=== PATIENT | female | born 1960 | race Caucasian/White ===

== ENCOUNTER 2016-11-07 13:27 | Inpatient (IN) ==
--- NOTE | 2016-11-07 13:41 | Emergency Department Note ---
Disposition Clinical Impression: Acute kidney injury UTI (urinary tract infection) Qualifiers: Urinary tract infection type: acute cystitis Hematuria presence: without hematuria Qualified Code(s): N30.00 - Acute cystitis without hematuria Disposition: Admitted As Inpatient Condition: Fair Referrals: NONE,PCP [Non-Partnered Physician] - Forms: Work/School Release, ED Satisfaction Letter Time of Disposition: 16:35 General Adult HPI - General Chief complaint: ED General Medical Stated complaint: L sided swelling Time Seen by Provider: 11/07/16 13:30 Source: patient, EMS Mode of arrival: ambulatory Limitations: no limitations Nursing Notes Reviewed: Yes Vital Signs Reviewed: Yes - History of Present Illness HPI Narrative: 56-year-old who comes in complaining of some swelling in her left leg and left arm. Also says she's had some generalized tremors and shaking. States she had it in the past one time but doesn't know what the diagnosis was. Pt Subjective Complaint: Tremor left arm and leg swelling Onset (ago): Just [employer] Pain Scale: 0 Treatments Prior to Arrival: none - Related Data Allergies Allergy/AdvReac Type Severity Reaction Status Date / Time No Known Allergies Allergy Verified 11/07/16 13:33 All systems ED: reviewed and negative except as stated. Constitutional: Denies: fever, chills, weakness, weight change Eyes: Denies: eye pain, eye discharge, vision change ENT ED: Denies: ear pain, throat pain, dental pain, hearing loss, epistaxis, congestion, dysphagia Cardiovascular: Denies: chest pain, palpitations, dyspnea on exertion, edema, syncope Respiratory: Denies: cough, dyspnea, wheezes, hemoptysis, stridor Gastrointestinal: Denies: abdominal pain, nausea, vomiting, diarrhea, constipation, hematemesis, melena, hematochezia Genitourinary: Denies: dysuria, frequency, hematuria, discharge Musculoskeletal: Reports: joint swelling. Denies: back pain, neck pain, arthralgia, myalgia Integumentary: Denies: rash, abrasion, lesions Neurological: Denies: headache, weakness, numbness, paresthesias, confusion, abnormal gait, vertigo Psychiatric: Denies: anxiety, depression, suicidal thoughts, homicidal thoughts , auditory hallucinations, visual hallucinations Endocrine: Denies: fatigue Hematological/Lymphatic: Denies: easy bleeding, easy bruising Allergic/Immunologic: Denies: facial swelling, urticaria Past Medical History - Past Medical History Medical history: Reports: diabetes, GERD, hyperlipidemia, kidney stones, pulmonary embolus - Social History Smoking Status: Never smoker Physical Exam - General Limitations: no limitations General appearance: alert, in no apparent distress - Head Head exam: atraumatic, normocephalic, normal inspection - Eye Eye exam: Present: normal appearance, PERRL, EOMI - ENT ENT exam: normal exam, normal oropharynx, mucous membranes moist - Neck Neck exam: Present: normal inspection, full ROM, trachea midline - Chest Chest inspection: Present: normal inspection, symmetric chest wall rise - Respiratory Respiratory exam: Present: normal lung sounds bilaterally - Cardiovascular Cardiovascular exam: Present: regular rate, normal rhythm, normal heart sounds - Abdominal Exam Abdominal exam: Present: soft, Non-Tender. Absent: tenderness, distention, guarding, rebound, rigidity - Extremities Exam Extremities exam: Present: normal inspection, full ROM. Absent: tenderness, pedal edema - Expanded Lower Extremity Exam Neurovascular/Tendon exam: Absent: motor deficit, sensory deficit, tendon deficit - Back Exam Back exam: Present: normal inspection, full ROM. Absent: tenderness - Neurological Exam Neurological exam: Present: alert, oriented X3 - Psychiatric Psychiatric exam: Present: normal affect, normal mood - Skin Skin exam: Present: warm, dry, intact, normal color Course - Reevaluation(s) Reevaluation #1: 56-year-old who comes in complaining of shaking swelling in her left arm and leg. Venous Doppler left arm and leg are negative. Patient's urine does appear to show infection and her creatinine is elevated. Time: 16:36 - Consultations Consultation #1: Discussed with henrietta Philip. Time: 17:05 Vital Signs Temperature 98 F 11/07/16 13:29 Pulse Rate 95 11/07/16 13:29 Respiratory Rate 20 11/07/16 13:29 Blood Pressure 144/88 11/07/16 13:29 O2 Sat by Pulse Oximetry 92 11/07/16 13:29 Temperature 98 F 11/07/16 13:29 Pulse Rate 87 11/07/16 15:33 Respiratory Rate 20 11/07/16 15:33 Blood Pressure 125/99 11/07/16 15:33 O2 Sat by Pulse Oximetry 98 11/07/16 15:33 Oxygen Delivery Oxygen Delivery Nasal Cannula Medical Decision Making - Lab Data Lab results reviewed: Yes I reviewed the patient's lab results. Result diagrams: 11/07/16 16:15 11/07/16 15:49 Lab Results 11/07/16 11/07/16 11/07/16 Range/Units 13:54 15:49 16:15 WBC 12.5 H (4.3-11.1) K/mcL RBC 5.34 H (3.82-4.97) M/mcL Hgb 14.3 (11.5-15.4) g/dL Hct 46.1 H (35.3-44.9) % MCV 86.3 (83.0-100.0) fL MCH 26.8 L (28.0-33.3) pg MCHC 31.0 L (31.6-35.5) g/dL RDW 15.7 H (11.5-14.5) % Plt Count 182 (140-400) K/mcL MPV 10.7 (9.4-12.4) fL Immature Gran % 0.6 (0-4) % Seg Neutrophils % 87.8 % Lymphocytes % 6.0 % Monocytes % 4.3 % Eosinophils % 1.0 % Basophils % 0.3 % Neutrophils # 10.9 H (1.6-8.9) K/mcL Lymphocytes # 0.8 (0.6-4.6) K/mcL Monocytes # 0.5 (0.0-1.3) K/mcL Eosinophils # 0.1 (0.0-0.6) K/mcL Basophils # 0.0 (0.0-0.2) K/mcL Sodium 138 (136-145) mEq/L Potassium 5.6 H (3.5-4.5) mEq/L Chloride 100 (98-109) mEq/L Carbon Dioxide 22 (19-29) mEq/L BUN 41 H (7-20) mg/dL Creatinine 2.11 H (0.57-1.11) mg/dL Est GFR ( Amer) 30 L (> 60) Est GFR (Non-Af Amer) 24 L (> 60) BUN/Creatinine Ratio 19 (6-26) Glucose 285 H (70-99) mg/dL Calculated Osmolality 306 H (280-300) Calcium 9.6 (8.6-10.8) mg/dL Magnesium 1.6 (1.6-2.6) mg/dL Total Bilirubin 0.5 (0.2-1.2) mg/dL Direct Bilirubin 0.2 (0.0-0.5) mg/dL Indirect Bilirubin 0.3 (0.0-1.2) mg/dL AST 23 (5-34) Units/L ALT 26 (0-55) Units/L Alkaline Phosphatase 90 (38-126) Units/L Serum Total Protein 7.6 (6.0-8.3) g/dL Albumin 3.4 L (3.5-5.0) g/dL Globulin 4.2 H (2.4-3.5) g/dL Albumin/Globulin Ratio 0.8 L (1.1-2.2) Urine Color Dark Yellow (Yellow) Urine Clarity Slightly Cloudy A (Clear) Urine pH 5.0 (5.0-8.0) pH Units Ur Specific [place] 1.025 (1.010-1.025) Urine Protein Trace (Neg-Trace) mg/dL Urine Glucose (UA) Normal (Normal) mg/dL Urine Ketones Negative (Negative) mg/dL Urine Blood Negative (Negative) Urine Nitrite Negative (Negative) Urine Bilirubin Small H (Negative) Urine Urobilinogen Normal (Normal) mg/dL Ur Leukocyte Esterase Large H (Negative) Urine Microscopic RBC 0-3 (0-3) per hpf Urine Microscopic WBC 50-100 H (0-3) per hpf Ur Squamous Epith Cells Many H (None-Few) per lpf Ur Renal Epithelial Cell Few (None-Few) per hpf Urine Bacteria Few (None-Few) per hpf Hyaline Casts None Seen (None-Few) per lpf Ur Culture Indicated? YES A (NO) - Radiology Data Radiology results reviewed: Yes I reviewed the patient's radiology results. Head CT 11/07/16 13:37 IMPRESSION: No acute intracranial abnormality. D/ / Castillo Baker MD / Castillo Baker MD Interpreting Provider: Castillo Baker MD
[2016-11-07 14:11] LABS: Bilirubin,Urine Small (Negative); Blood,Urine Negative (Negative); Color,Urine Dark Yellow (Yellow); Glucose,Urine (UA) Normal (Normal); Ketones,Urine Negative (Negative); Leukocyte Esterase,Urine Large (Negative); Nitrite,Urine Negative (Negative); Protein,Urine Trace mg/dL (Neg-Trace); Specific Gravity,Urine 1.025 (1.010-1.025); Urobilinogen,Urine Normal (Normal)
[2016-11-07 14:12] LABS: Bacteria,Urine Few per hpf (None-Few); Squamous Epithelial Cell,Urine Many per lpf (None-Few); WBC,Urine 50-100 per hpf (0-3)
[2016-11-07 14:13] LABS: Clarity,Urine Slightly Cloudy (Clear)
[2016-11-07 14:49] LABS: Renal Epithelial Cells,Urine Few per hpf (None-Few)
[2016-11-07 14:50] LABS: RBC,Urine 0-3 per hpf (0-3)
[2016-11-07 14:51] LABS: Hyaline Casts,Urine None Seen per lpf (None-Few)
[2016-11-07 16:13] LABS: Albumin 3.4 g/dL (3.5-5.0); Albumin/Globulin Ratio 0.8 (1.1-2.2); Bilirubin,Direct 0.2 mg/dL (0.0-0.5); Bilirubin,Indirect 0.3 mg/dL (0.0-1.2); Bilirubin,Total 0.5 mg/dL (0.2-1.2); Calcium 9.6 mg/dL (8.6-10.8); Globulin 4.2 g/dL (2.4-3.5); Magnesium 1.6 mg/dL (1.6-2.6); Potassium 5.6 mEq/L (3.5-4.5); Total Protein 7.6 g/dL (6.0-8.3)
[2016-11-07 16:23] LABS: Basophils % 0.3 %; Eosinophils # 0.1 K/mcL (0.0-0.6); Hematocrit 46.1 % (35.3-44.9); Hemoglobin 14.3 g/dL (11.5-15.4); Immature Granulocytes % 0.6 % (0-4); Lymphocytes # 0.8 K/mcL (0.6-4.6); Mean Corpuscular Hemoglobin 26.8 pg (28.0-33.3); Mean Corpuscular Volume 86.3 fL (83.0-100.0); Mean Platelet Volume 10.7 fL (9.4-12.4); Monocytes # 0.5 K/mcL (0.0-1.3); Monocytes % 4.3 %; Neutrophils # 10.9 K/mcL (1.6-8.9); Platelet Count 182 K/mcL (140-400); Red Blood Count 5.34 M/mcL (3.82-4.97); Red Cell Distribution Width 15.7 % (11.5-14.5); Segmented Neutrophils % 87.8 %
[2016-11-07] MEDS ORDERED: 0.9 % Sodium Chloride 1,000 ML IVC ONE ×2 (16:33→22:43)
[2016-11-07] MEDS ORDERED: Lidocaine 1% 20 ML MDV INFILT ONE (16:38)
[2016-11-07] MEDS ORDERED: Naloxone 0.4 MG/ML INJ IVP PRN (19:31)
[2016-11-07] MEDS ORDERED: Dextrose Gel 15 GM PO PRN ×2 (19:35)
[2016-11-07] MEDS ORDERED: D5% in Water 1,000 ML IVC PRN (19:35)
[2016-11-07] MEDS ORDERED: *HR* Dextrose 50 % in Water (Syg) 50 ML SYRINGE IVP PRN (19:35)
--- NOTE | 2016-11-07 20:45 | Emergency Department Note ---
START Narrative - START START: Central Venous Catheter (CVC, Central Line) Placement Date: <11/07/2016> Time: <19:30> Indication: Hemodynamic monitoring/Intravenous access Resident: <Dr. Benavides> Attending: <Dr. Amaro> A time-out was completed verifying correct patient, procedure, site, positioning , and special equipment if applicable. The patient was placed in a dependent position appropriate for central line placement based on the vein to be cannulated. The patients <right> < neck> was prepped and draped in sterile fashion. 1% Lidocaine was used to anesthetize the surrounding skin area. A triple lumen <7-Maldivian> 16 inchcatheter was introduced into the the internal jugular using the Seldinger technique <and under ultrasound guidance>. The catheter was threaded smoothly over the guide wire and appropriate blood return was obtained. Each lumen of the catheter was evacuated of air and flushed with sterile saline. The catheter was then sutured in place to the skin and a sterile dressing applied. Perfusion to the extremity distal to the point of catheter insertion was checked and found to be adequate. <Attending/Resident> was present for the entire procedure. Estimated Blood Loss: <1cc> The patient tolerated the procedure well and there were no complications. A chest x-ray was performed postprocedure and showed proper placement of the line in the distal portion of the SVC.
[2016-11-07] MEDS ORDERED: D5% in Water (Mini-Bag+) 100 ML IVPB ONE (21:19)
--- NOTE | 2016-11-07 21:54 | Internal Med History&Physical ---
<Leeanne Arevalo - Last Filed: 11/07/16 22:49> Date of Encounter: 11/07/16 Time of Encounter: 21:51 Assessment and Plan (1) Sepsis Current visit: Yes Status: Acute patient has elevated WBC 12, altered mental state with UTI. Continue with IV fluids Obtain blood and urine cultures Continuous cardiac monitoring Monitor intake and output Continue with Rocephin adjust to sensitivity Qualifiers: Sepsis type: sepsis due to unspecified organism Qualified Code(s): A41.9 - Sepsis, unspecified organism (2) Acute kidney injury Current visit: Yes Status: Acute 1 patient's creatinine is 2.11. Her baseline appears to be around 1. She has had decreased fluid intake for several days as well as she is on lisinopril metformin NSAID. We will give her IV fluids overnight-recheck creatinine in a.m. 2 monitor intake and output daily weights 3 avoid nephrotoxins and we will stop lisinopril metformin and Celebrex for now resume once back to baseline 4 renal dose any antibiotics (3) UTI (urinary tract infection) Current visit: Yes Status: Acute Patient has a been experiencing frequency urgency as well as increased lethargy and fatigue falls. White count 12.5 urinalysis did reveal UTI and culture was sent will initiate on Rocephin pending culture sensitivity Qualifiers: Urinary tract infection type: acute cystitis Hematuria presence: without hematuria Qualified Code(s): N30.00 - Acute cystitis without hematuria (4) Hypertension Current visit: Yes Status: Acute We will hold lisinopril for now due to ted resume once back to baseline continue with metoprolol Qualifiers: Hypertension type: essential hypertension Qualified Code(s): I10 - Essential (primary) hypertension (5) Diabetes type 2, uncontrolled Current visit: Yes Status: Acute 1 patient admits that she does not monitor her blood sugars she is on metformin at home she is a KI presently. We will hold metformin placed on sliding scale insulin for now Accu-Cheks before meals at bedtime 2 we will obtain A1c 3 diabetic diet Qualifiers: Diabetes mellitus complication status: with neurologic complications Diabetes mellitus complication detail: with unspecified neuropathy Diabetes mellitus longterm insulin use: without superintendent marine oil terminal use Qualified Code(s): E11.40 - Type 2 diabetes mellitus with diabetic neuropathy, unspecified; E11.65 - Type 2 diabetes mellitus with hyperglycemia (6) Hypothyroid Current visit: No Status: Chronic Continue with Synthroid Qualifiers: Hypothyroidism type: unspecified Qualified Code(s): E03.9 - Hypothyroidism , unspecified (7) Schizophrenia Current visit: No Status: Chronic 1 presently stable patient denies any hallucinations at this time. We will continue with her home medications. Qualifiers: Schizophrenia type: unspecified Qualified Code(s): F20.9 - Schizophrenia, unspecified (8) DVT prophylaxis Current visit: Yes Status: Acute Heparin subcutaneous Internal Medicine - H&P: HPI Chief complaint: shaking, Admitted From: Home Plans for Post Hospital Care: Home History of present illness: Ms. Rangel is a 56 year old female hypothyroid hypertension uncontrolled diabetes aortic stenosis hyperlipidemia GERD schizophrenia anxiety depression history of PE. According to the patient over the past month she has been experiencing some falls over the past 2 weeks the falls have increased due to the past week she has been more fatigued and tired and weak. Family states that she is unable to perform her own ADL as due to fatigue. She has had a decrease in oral intake. She states that she has not been drinking very much water. She does admit to urinary frequency urgency as well as some abdominal cramping. She denies any fevers today she did experience episodes of shaking family states she will had swollen solorzano appearance. She had slept most of the day was difficult to arouse they became concerned and brought patient to the ER for evaluation. According to ER records CT of head showed no acute intracranial abnormalities. Chest x-ray with no acute process lab work did show elevation in white count 12.5 chemistry hyperkalemia 5.6 BUN is 41 and creatinine is 2.1 on glucose 285. Urinalysis was grossly positive UTI. Central line was placed in the ER she was given IV fluids and blood cultures were obtained she was given Rocephin and has been admitted for further workup and evaluation. Presently patient is awake she does appear to be a little slow however the family states that she has been very lethargic. Mucous membranes are tacky her timing is dry and furrowed. Hyperdynamic heart sounds S1 and S2 no rubs gallops clicks murmurs noted lungs sounds were clear abdomen is soft nontender no pedal edema noted. Presently she is hemodynamically stable at this time. Past Med Surg Social Fam HX - Past Medical History Medical history: diabetes, GERD, hyperlipidemia, kidney stones, pulmonary embolus - Social History Smoking Status: Never smoker - Family History Father Living Status: Still Living Hx Family Cardiac Disorders: Yes (Cardiac disease) Mother Living Status: Age at : 51 Cause of : [place] diabetes Internal Medicine - H&P: Meds Acetaminophen/Butalbital/Caffe [Fioricet] 1 each PO BID PRN 11/07/16 [History] Amitriptyline [Elavil] 50 mg PO HS 11/07/16 [History] Ascorbic Acid [Vitamin C] 500 mg PO DAILY 11/07/16 [History] Aspirin 81 mg PO DAILY 11/07/16 [History] Atorvastatin [Lipitor] 40 mg PO HS 11/07/16 [History] Baclofen 20 mg PO TID 11/07/16 [History] Celecoxib [Celebrex] 200 mg PO DAILY 11/07/16 [History] Cyanocobalamin (Vitamin B-12) [Vitamin B12] 1,000 mcg PO DAILY 11/07/16 [History ] Ergocalciferol (VITAMIN D2) [Vitamin D2] 50,000 unit PO CARDOZA 11/07/16 [History] Esomeprazole Magnesium [Nexium] 40 mg PO DAILY 11/07/16 [History] Folic Acid 1 mg PO DAILY 11/07/16 [History] Furosemide [Lasix] 40 mg PO DAILY 11/07/16 [History] Gabapentin [Neurontin] 300 mg PO TID 11/07/16 [History] HYDROcodone/Acet 10/325 mg [[place] 10-325 mg] 1 tab PO TID PRN 11/07/16 [History] Levothyroxine [Synthroid] 75 mcg PO 0630 11/07/16 [History] Lisinopril 2.5 mg PO DAILY 11/07/16 [History] SUMAtriptan Succinate [Imitrex] 100 mg PO DAILY PRN 11/07/16 [History] Sertraline [Zoloft] 200 mg PO DAILY 11/07/16 [History] metFORMIN [Glucophage] 500 mg PO BIDWM 11/07/16 [History] risperiDONE [RisperDAL] 1 mg PO QAM 11/07/16 [History] risperiDONE [RisperDAL] 3 mg PO HS 11/07/16 [History] 3 Allergy/AdvReac Type Severity Reaction Status Date / Time No Known Allergies Allergy Verified 11/07/16 13:33 All Systems PM: A 10-system review of systems was performed and is negative for pertinent findings except as documented above in the HPI. - Constitutional Constitutional: fatigue, falls, lethargy, no chills, no fever(s), no night sweats - EENT Eyes: no change in vision, no discharge, no pain, no photophobia Nose, mouth and throat: no dysphagia, no nasal discharge, no neck pain, no sore throat - Cardiovascular Cardiovascular ROS IM: no chest pain, no diaphoresis, no dyspnea, no lightheadedness, no palpitations, no syncope - Respiratory Respiratory: no cough, no dyspnea, no wheezing, no excessive phlegm production - Gastrointestinal Gastrointestinal: no abdominal pain, no diarrhea, no hematemesis, no hematochezia, no melena, no nausea, no vomiting - Genitourinary Genitourinary: urinary frequency, urinary urgency - Musculoskeletal Musculoskeletal ROS IM: no numbness, no tingling - Integumentary Integumentary IM: no rash, no unusual bruising - Neurological Neurological ROS: no confusion, no convulsions, no focal weakness, no numbness, no tingling, no tremor(s) - Hematologic/Lymphatic Hematologic/Lymphatic: no easy bruising - Constitutional Vitals: Temp Pulse Resp BP Pulse Ox 98 F 87 20 126/98 98 11/07/16 13:29 11/07/16 15:33 11/07/16 18:53 11/07/16 18:53 11/07/16 15:33 General appearance: Present: A&O X 3, morbidly obese - Head Head exam: Present: atraumatic, normocephalic - Eye Eye exam: Present: PERRL, conjuntiva pink, sclera anicteric Pupils: Present: PERRL - Neck Neck exam general surgery: Present: supple, trachea midline. Absent: lymphadenopathy - Respiratory Respiratory exam: Present: CTAB. Absent: accessory muscle use, rales, rhonchi, wheezes - Cardiovascular Cardiovascular exam: Present: RRR, +S1, +S2. Absent: diastolic murmur, gallop, rubs, systolic murmur - GI/Abdominal GI/Abdominal exam: Present: normal bowel sounds, soft, no peritoneal signs. Absent: distended, tenderness - Extremities Exam Extremities exam: Present: warm, radial pulses palpable and symmetrical. Absent : calf tenderness, cyanotic, pedal edema - Neurological Exam Neurological exam: Present: CN II-XII intact, oriented X3, no focal deficits. Absent: pronater drift, facial droop, speech deficit - Skin Skin exam: Present: dry, intact Additional comments: Mucous membranes tacky tongue dry Internal Med - H&P Results - Labs CBC & Chem 7: 11/07/16 16:15 11/07/16 15:49 - Impressions ITS Impressions Chest X-Ray 11/07/16 19:33 IMPRESSION: Central line tip in the SVC with no pneumothorax. No acute cardiopulmonary disease. D/ / Zaki Bunch MD / Zaki Bunch MD Interpreting Provider: Zaki Bunch MD - Diagnostic Studies Other Images Additional comments: Head CT 11/07/16 13:37 IMPRESSION: No acute intracranial abnormality. D/ / Castillo Baker MD / Castillo Baker MD Interpreting Provider: Castillo Baker MD Chest X-Ray 11/07/16 19:33 IMPRESSION: Central line tip in the SVC with no pneumothorax. No acute cardiopulmonary disease. D/ / Zaki Bunch MD / Zaki Bunch MD Interpreting Provider: Zaki Bunch MD <Eze Courtney - Last Filed: 11/08/16 03:20> Date of Encounter: 11/07/16 Time of Encounter: 23:40 - EENT Eyes: no blurry vision, no change in vision Nose, mouth and throat: no nasal congestion, no sinus pressure, no sore throat - Cardiovascular Cardiovascular ROS IM: no chest pain, no dyspnea - Respiratory Respiratory: no cough, no hemoptysis - Gastrointestinal Gastrointestinal: no abdominal pain, no diarrhea, no vomiting - Genitourinary Genitourinary: dysuria, no flank pain, no hematuria - Musculoskeletal Musculoskeletal ROS IM: no back pain, no muscle cramps, no muscle weakness - Neurological Neurological ROS: no headache(s) - Endocrine Endocrine IM: no polydipsia, no polyuria - Constitutional Vitals: Temp Pulse Resp BP Pulse Ox 98.1 F 104 15 159/84 100 11/07/16 21:50 11/07/16 21:50 11/07/16 21:50 11/07/16 21:50 11/07/16 21:50 General appearance: Present: disheveled, A&O X 3, morbidly obese - Head Head exam: Present: normal inspection - Eye Eye exam: Present: PERRL. Absent: scleral icterus - Respiratory Respiratory exam: Present: CTAB. Absent: rales, rhonchi, wheezes - Cardiovascular Cardiovascular exam: Present: RRR, +S1, +S2 - GI/Abdominal GI/Abdominal exam: Present: soft. Absent: tenderness - Extremities Exam Extremities exam: Present: warm. Absent: calf tenderness, cyanotic - Back Exam Back exam: Present: normal inspection. Absent: CVA tenderness (L), CVA tenderness (R) - Neurological Exam Additional comments: no cogwheel rigidity - Psychiatric Psychiatric exam: Present: flat affect - Skin Skin exam: Present: dry Internal Med - H&P Results - Labs CBC & Chem 7: 11/07/16 16:15 11/07/16 15:49 - Impressions ITS Impressions Chest X-Ray 11/07/16 19:33 IMPRESSION: Central line tip in the SVC with no pneumothorax. No acute cardiopulmonary disease. D/ / Zaki Bunch MD / Zaki Bunch MD Interpreting Provider: Zaki Bunch MD - Attending Attestation I discussed the patient EMMONAK, PMH, ROS, lab data, and exam findings with Leeanne Arevalo CNP. I then saw and examined patient independently as well. Patient is a poor historian and her parents are now gone. She admits to UTI symptoms and poor PO intake lately. She does not check her glucose. She is fairly non- compliant with her diabetes and I suspect her other meds as well. She looks dry. I anticipate her renal function will return to normal with IVF hydration. However, I counseled her on the need to closely monitor her glucose so as to prevent eventual development of diabetic nephropathy. Patient is rather nonchalant about her health. She is well perfused on exam, but she is clinically dry. Although she meets sepsis criteria, she does not truly appear septic to me. Nonetheless, we will treat her as detailed by Leeanne Arevalo CNP. Other than my above comments and noted exam findings, I agree with Leeanne's assessment and plan.
[2016-11-07] MEDS: Insulin LISPRO 300 UNITS/3 ML VIAL SQ SCH (22:44)
[2016-11-08] MEDS: 0.9 % Sodium Chloride 1,000 ML IVC SCH ×2 (00:59→11:33)
[2016-11-08 04:41] LABS: Basophils % 0.2 %; Eosinophils # 0.3 K/mcL (0.0-0.6); Eosinophils % 3.1 %; Hematocrit 37.1 % (35.3-44.9); Hemoglobin 11.5 g/dL (11.5-15.4); Immature Granulocytes % 0.8 % (0-4); Lymphocytes # 1.3 K/mcL (0.6-4.6); Lymphocytes % 12.9 %; Mean Corpuscular Hemoglobin 26.7 pg (28.0-33.3); Mean Corpuscular Volume 86.1 fL (83.0-100.0); Mean Platelet Volume 10.6 fL (9.4-12.4); Monocytes # 0.7 K/mcL (0.0-1.3); Monocytes % 6.6 %; Neutrophils # 7.7 K/mcL (1.6-8.9); Platelet Count 159 K/mcL (140-400); Red Blood Count 4.31 M/mcL (3.82-4.97); Red Cell Distribution Width 15.4 % (11.5-14.5); Segmented Neutrophils % 76.4 %
[2016-11-08 04:51] LABS: BUN/Creatinine Ratio 24 (6-26); Calcium 8.7 mg/dL (8.6-10.8); Carbon Dioxide 25 mEq/L (19-29); Chloride 104 mEq/L (98-109); Glucose 221 mg/dL (70-99); Osmolality,Calculated 297 (280-300); Sodium 138 mEq/L (136-145); eGFR For African Americans > 60 (> 60); eGFR For Non-African Americans 54 (> 60)
[2016-11-08 04:52] LABS: Blood Urea Nitrogen 25 mg/dL (7-20); Potassium 4.5 mEq/L (3.5-4.5)
[2016-11-08] MEDS: *HR* Heparin 5,000 UNIT/ML VIAL SQ SCH ×2 (05:44→17:45)
[2016-11-08] MEDS ORDERED: *HR* Enoxaparin 40 MG/0.4 ML SYRINGE SQ SCH (07:00)
[2016-11-08] MEDS: Insulin LISPRO 300 UNITS/3 ML VIAL SQ SCH ×4 (08:23→21:44)
[2016-11-08] MEDS: Aspirin 81 MG TAB.CHEW PO SCH (08:25)
[2016-11-08] MEDS: risperiDONE 1 MG TABLET PO SCH (08:25)
[2016-11-08] MEDS: Cyanocobalamin (B-12) 1,000 MCG TABLET PO SCH (08:25)
[2016-11-08] MEDS: Baclofen 10 MG TABLET PO SCH ×3 (08:25→21:47)
[2016-11-08] MEDS: Gabapentin 300 MG CAPSULE PO SCH ×2 (08:25→21:44)
[2016-11-08] MEDS: Acetaminophen 325 MG TABLET PO PRN ×2 (16:33→22:31)
--- NOTE | 2016-11-08 17:05 | Internal Med Progress Note ---
Date of Encounter: 11/08/16 Time of Encounter: 12:30 - Assessment and plan (1) Sepsis Current Visit: Yes Status: Acute Assessment and plan: From possible urinary tract infection. Mental status has improved. Cultures are currently pending. Continue current antibiotics. Moderate risk for complications: Qualifiers: Sepsis type: sepsis due to unspecified organism Qualified Code(s): A41.9 - Sepsis, unspecified organism (2) Acute kidney injury Current Visit: Yes Status: Acute Assessment and plan: Acute kidney injury has resolved (3) Diabetes type 2, uncontrolled Current Visit: Yes Status: Chronic Assessment and plan: Blood sugars are elevated. We will add long-acting insulin. Qualifiers: Diabetes mellitus complication status: with neurologic complications Diabetes mellitus complication detail: with unspecified neuropathy Diabetes mellitus detention insulin use: without detention use Qualified Code(s): E11.40 - Type 2 diabetes mellitus with diabetic neuropathy, unspecified; E11.65 - Type 2 diabetes mellitus with hyperglycemia (4) DVT prophylaxis Current Visit: Yes Status: Acute Assessment and plan: Subcutaneous heparin (5) Hypertension Current Visit: Yes Status: Chronic Assessment and plan: Blood pressure is elevated. Currently not on any medications besides Lasix at home. Will add amlodipine Qualifiers: Hypertension type: essential hypertension Qualified Code(s): I10 - Essential (primary) hypertension (6) Hypothyroid Current Visit: Yes Status: Chronic Assessment and plan: Continue levothyroxine Qualifiers: Hypothyroidism type: unspecified Qualified Code(s): E03.9 - Hypothyroidism , unspecified (7) Schizophrenia Current Visit: No Status: Chronic Assessment and plan: Continue risperidone Qualifiers: Schizophrenia type: unspecified Qualified Code(s): F20.9 - Schizophrenia, unspecified (8) UTI (urinary tract infection) Current Visit: Yes Status: Acute Assessment and plan: Continue ceftriaxone. Qualifiers: Urinary tract infection type: acute cystitis Hematuria presence: without hematuria Qualified Code(s): N30.00 - Acute cystitis without hematuria - Subjective Interval history: Patient sitting up in chair. Denies any complaints at this time. Feels much better compared to yesterday. No fever or chills reported. No dysuria. - Constitutional Vitals: Temp Pulse Resp BP Pulse Ox 98.7 F 99 16 149/74 93 11/08/16 15:18 11/08/16 15:58 11/08/16 15:58 11/08/16 15:58 11/08/16 15:58 General appearance: Present: cooperative, disheveled, A&O X 3, morbidly obese, answers questions appropriately - Neck Neck exam general surgery: Present: supple, trachea midline. Absent: lymphadenopathy - Respiratory Respiratory exam: Present: CTAB. Absent: accessory muscle use, rales, rhonchi, wheezes - Cardiovascular Cardiovascular exam: Present: RRR, +S1, +S2. Absent: diastolic murmur, gallop, rubs, systolic murmur - GI/Abdominal GI/Abdominal exam: Present: normal bowel sounds, soft, no peritoneal signs. Absent: distended, tenderness - Extremities Exam Extremities exam: Present: warm, radial pulses palpable and symmetrical. Absent : calf tenderness, cyanotic, pedal edema - Neurological Exam Neurological exam: Present: alert, oriented X3, no focal deficits, strengths equal and symetr throughout. Absent: facial droop, speech deficit - Skin Skin exam: Present: dry, intact Internal Medicine: Result - Labs CBC & Chem 7: 11/08/16 04:30 11/08/16 04:30 Labs: Short CBC 11/08/16 Range/Units 04:30 WBC 10.1 (4.3-11.1) K/mcL Hgb 11.5 D (11.5-15.4) g/dL Hct 37.1 (35.3-44.9) % Plt Count 159 (140-400) K/mcL Neutrophils # 7.7 (1.6-8.9) K/mcL BMP 11/08/16 04:30 Sodium 138 Potassium 4.5 D Chloride 104 Carbon Dioxide 25 BUN 25 H D Creatinine 1.06 Glucose 221 H Calcium 8.7 - Impressions Impressions Chest X-Ray 11/07/16 19:33 IMPRESSION: Central line tip in the SVC with no pneumothorax. No acute cardiopulmonary disease. D/ / Zaki Bunch MD / Zaki Bunch MD Interpreting Provider: Zaki Bunch MD Consult Discharge Plan - Plan Referrals: Nico Ahmadi MD [Primary Care Provider] -
[2016-11-08] MEDS ORDERED: RisperiDAL 3 MG TABLET PO SCH (21:00)
[2016-11-09 06:46] LABS: BUN/Creatinine Ratio 16 (6-26); Calcium 8.8 mg/dL (8.6-10.8); Carbon Dioxide 25 mEq/L (19-29); Chloride 106 mEq/L (98-109); Glucose 179 mg/dL (70-99); Osmolality,Calculated 292 (280-300); Sodium 139 mEq/L (136-145); eGFR For African Americans > 60 (> 60); eGFR For Non-African Americans > 60 (> 60)
[2016-11-09 06:47] LABS: Blood Urea Nitrogen 11 mg/dL (7-20)
[2016-11-09] MEDS: *HR* Heparin 5,000 UNIT/ML VIAL SQ SCH (06:49)
[2016-11-09 07:01] LABS: Basophils % 0.4 %; Eosinophils # 0.4 K/mcL (0.0-0.6); Eosinophils % 5.1 %; Hematocrit 34.2 % (35.3-44.9); Hemoglobin 10.5 g/dL (11.5-15.4); Immature Granulocytes % 0.8 % (0-4); Lymphocytes # 1.3 K/mcL (0.6-4.6); Lymphocytes % 18.1 %; Mean Corpuscular HGB Conc 30.7 g/dL (31.6-35.5); Mean Corpuscular Hemoglobin 26.6 pg (28.0-33.3); Mean Corpuscular Volume 86.6 fL (83.0-100.0); Mean Platelet Volume 10.9 fL (9.4-12.4); Monocytes # 0.6 K/mcL (0.0-1.3); Monocytes % 7.9 %; Neutrophils # 4.8 K/mcL (1.6-8.9); Platelet Count 150 K/mcL (140-400); Red Blood Count 3.95 M/mcL (3.82-4.97); Red Cell Distribution Width 15.2 % (11.5-14.5); Segmented Neutrophils % 67.7 %
[2016-11-09] MEDS: Cyanocobalamin (B-12) 1,000 MCG TABLET PO SCH (07:39)
[2016-11-09] MEDS: Gabapentin 300 MG CAPSULE PO SCH (07:39)
[2016-11-09] MEDS: Baclofen 10 MG TABLET PO SCH ×2 (07:40→16:08)
[2016-11-09] MEDS: Aspirin 81 MG TAB.CHEW PO SCH (07:41)
[2016-11-09] MEDS: Insulin LISPRO 300 UNITS/3 ML VIAL SQ SCH ×3 (07:41→16:35)
[2016-11-09] MEDS: risperiDONE 1 MG TABLET PO SCH (07:41)
--- NOTE | 2016-11-09 07:49 | Venous Imaging Report ---
LE Venous Duplex Patient Name:Adriana Rangel Order Number:[id number] Procedure Date:11/07/2016 Date:1960Age:56 yrs Gender:Female Location:[facility] [place] [facility] Room #: 23 Stitcher Set Up Operator Automatic:Elise Cervantes Referring MD:Everardo Maciel MD Reading MD:Dean Lutz MD Secondary Indications: Risk Factors Yes/No Anticoagulants No Hx of DVT No Hormone Replacement Therapy No Hx of Chemotherapy No Impressions: Left lower extremity: normal superficial and deep exam. Findings Venous Duplex Results: Right: Venous imaging of the lower extremity reveals full patency and normal vessel compressibility of the right common femoral. Doppler signals in the evaluated veins were normal. Left: Venous imaging of the lower extremity reveals full patency and normal vessel compressibility of the left distal iliac, left common femoral, left superficial femoral, left popliteal, left posterior tibial, left peroneal, left great saphenous and left lesser saphenous. Doppler signals in the evaluated veins were normal. Lower Extremity Venous Duplex Side Vein Compress Spontaneous Flow Augment Diameter (cm) Depth (cm) Left Distal Iliac Normal Yes Phasic Yes Left Common Femoral Normal Yes Phasic Yes Left Superficial Femoral Normal Yes Phasic Yes Left Popliteal Normal Yes Phasic Yes Left Posterior Tibial Normal Yes Phasic Yes Left Peroneal Normal Yes Phasic Yes Left Great Saphenous Normal Yes Phasic Yes Left Lesser Saphenous Normal Yes Phasic Yes Right Common Femoral Normal Yes Phasic Yes Updated by Dean Lutz MD on 11/09/2016 7:42:57 AM electronically signed on 11/09/2016 7:43:23 AM with status of Final
--- NOTE | 2016-11-09 11:24 | Venous Imaging Report ---
UE Venous Duplex Patient Name:Adriana Rangel Order Number:[id number] Procedure Date:11/07/2016 Date:1960Age:56 yrs Gender:Female Location:[facility] ED Room #: 23 Parts Expediter:Elise Cervantes Referring MD:Everardo Maciel MD Reading MD:Dean Lutz MD Secondary Indications: Risk Factors Yes/No Anticoagulants No Hx of Chemotherapy No Hx of DVT No Hormone Replacement Therapy No Impressions: Left lower extremity: normal superficial and deep exam. Findings Venous Duplex Results: Right: Venous imaging of the upper extremity reveals full patency and normal vessel compressibility of the right subclavian. Doppler signals in the evaluated veins were normal. Left: Venous imaging of the upper extremity reveals full patency and normal vessel compressibility of the left jugular, left subclavian, left axillary, left brachial, left cephalic, left basilic, left radial and left ulnar. Doppler signals in the evaluated veins were normal. Upper Extremity Venous Duplex Side Vein Compress Spontaneous Flow Augment Left Jugular Normal Yes Phasic Yes Left Subclavian Normal Yes Phasic Yes Left Axillary Normal Yes Phasic Yes Left Brachial Normal Yes Phasic Yes Left Cephalic Normal Yes Phasic Yes Left Basilic Normal Yes Phasic Yes Left Radial Normal Yes Phasic Yes Left Ulnar Normal Yes Phasic Yes Right Subclavian Normal Yes Phasic Yes Updated by Dean Lutz MD on 11/09/2016 11:20:23 AM electronically signed on 11/09/2016 11:20:33 AM with status of Final
--- NOTE | 2016-11-09 13:55 | Discharge Summary ---
Date of Encounter: 11/09/16 Time of Encounter: 12:00 - Discharge Diagnosis (1) Sepsis Priority: Primary Status: Acute Qualifiers: Sepsis type: sepsis due to unspecified organism Qualified Code(s): A41.9 - Sepsis, unspecified organism (2) Acute kidney injury Priority: Secondary Status: Acute (3) Diabetes type 2, uncontrolled Priority: Secondary Status: Chronic Qualifiers: Diabetes mellitus complication status: with neurologic complications Diabetes mellitus complication detail: with unspecified neuropathy Diabetes mellitus truck terminal manager insulin use: without mcc use Qualified Code(s): E11.40 - Type 2 diabetes mellitus with diabetic neuropathy, unspecified; E11.65 - Type 2 diabetes mellitus with hyperglycemia (4) DVT prophylaxis Priority: Secondary Status: Acute (5) Hypertension Priority: Secondary Status: Chronic Qualifiers: Hypertension type: essential hypertension Qualified Code(s): I10 - Essential (primary) hypertension (6) Hypothyroid Priority: Secondary Status: Chronic Qualifiers: Hypothyroidism type: unspecified Qualified Code(s): E03.9 - Hypothyroidism , unspecified (7) Schizophrenia Priority: Secondary Status: Chronic Qualifiers: Schizophrenia type: unspecified Qualified Code(s): F20.9 - Schizophrenia, unspecified (8) UTI (urinary tract infection) Priority: Secondary Status: Acute Qualifiers: Urinary tract infection type: acute cystitis Hematuria presence: without hematuria Qualified Code(s): N30.00 - Acute cystitis without hematuria - Discharge Medications Prescriptions: cephALEXin [Cephalexin] 500 mg PO BID #14 tablet Home Medications: Acetaminophen/Butalbital/Caffe [Fioricet] 1 each PO BID PRN 11/07/16 [History] Amitriptyline [Elavil] 50 mg PO HS 11/07/16 [History] Ascorbic Acid [Vitamin C] 500 mg PO DAILY 11/07/16 [History] Aspirin 81 mg PO DAILY 11/07/16 [History] Atorvastatin [Lipitor] 40 mg PO HS 11/07/16 [History] Baclofen 20 mg PO TID 11/07/16 [History] Celecoxib [Celebrex] 200 mg PO DAILY 11/07/16 [History] Cyanocobalamin (Vitamin B-12) [Vitamin B12] 1,000 mcg PO DAILY 11/07/16 [History ] Ergocalciferol (VITAMIN D2) [Vitamin D2] 50,000 unit PO CARDOZA 11/07/16 [History] Esomeprazole Magnesium [Nexium] 40 mg PO DAILY 11/07/16 [History] Folic Acid 1 mg PO DAILY 11/07/16 [History] Furosemide [Lasix] 40 mg PO DAILY 11/07/16 [History] Gabapentin [Neurontin] 300 mg PO TID 11/07/16 [History] HYDROcodone/Acet 10/325 mg [[place] 10-325 mg] 1 tab PO TID PRN 11/07/16 [History] Levothyroxine [Synthroid] 75 mcg PO 0630 11/07/16 [History] Lisinopril 2.5 mg PO DAILY 11/07/16 [History] SUMAtriptan Succinate [Imitrex] 100 mg PO DAILY PRN 11/07/16 [History] Sertraline [Zoloft] 200 mg PO DAILY 11/07/16 [History] metFORMIN [Glucophage] 500 mg PO BIDWM 11/07/16 [History] risperiDONE [RisperDAL] 1 mg PO QAM 11/07/16 [History] risperiDONE [RisperDAL] 3 mg PO HS 11/07/16 [History] cephALEXin [Cephalexin] 500 mg PO BID #14 tablet 11/09/16 [Rx] Allergies/Adverse Reactions: 3 Allergy/AdvReac Type Severity Reaction Status Date / Time No Known Allergies Allergy Verified 11/07/16 13:33 Date of admission: 11/07/16 19:31 Primary care physician: Nico Ahmadi MD Consults: 11/07/16 22:15 Consult to Corporate Strategy Intern [CONS] Routine Reason for SW Consult: [facility] and PT 11/08/16 08:55 Consult to Physical Therapy [CONS] Routine Comment: Evaluate, develop and implement POC Reason for Consult: discharge planning OT [Consult to Occupational Therapy] [CONS] Routine Comment: Evaluate, develop and implement POC Reason for Consult: discharge planning Discharging clinician: Naomie Bush Anticipated date of discharge: 11/09/16 - Patient Status Disposition: Home Health Service Condition: Good Functional capacity at discharge: independent ambulation Overall status at discharge: patient is progressing back to baseline - Discharge Instructions Instructions: Diabetes Mellitus Type 2 in Adults (DC), Chronic Hypertension (DC ) Follow Up With: Nico Ahmadi MD [Primary Care Provider] - 11/15/16 9:45 am (in 1 week) - Diet and Activity Activity: resume usual activities as tolerated Diet: diabetic diet Hospital course: Ms. Rangel is a 56 year old female patient with history of diabetes mellitus, hypothyroidism, hypertension, for anemia was hospitalized here after she was found to be having increased fatigue, weakness with falls. She was diagnosed with sepsis related to acute urinary tract infection and was admitted here for treatment for this. She was treated with intravenous antibiotics. She also had acute kidney injury with a BUN of 41 and creatinine of 2.11. This resolved with intravenous hydration. Her urine culture was mixed and unable to be interpreted. However as she responded to ceftriaxone, she will be discharged on a treatment course with cephalexin. She was evaluated by physical therapy and recommended placement to skilled rehabilitation. However patient does not wish to go to rehabilitation and wishes to go home instead. She will be discharged on home health. She can follow up with her primary care provider for further management. - Time Spent with Patient Total time spent providing and/or coordinating discharge services: Greater than 30 minutes (35 min) - Constitutional Vitals: Temp Pulse Resp BP Pulse Ox 98.2 F 88 16 134/79 93 11/09/16 10:36 11/09/16 10:36 11/09/16 10:36 11/09/16 10:36 11/09/16 10:36 General appearance: Present: cooperative, disheveled, A&O X 3, morbidly obese, answers questions appropriately - Eye Eye exam: Present: EOMI, PERRL, conjuntiva pink, sclera anicteric - Respiratory Respiratory exam: Present: CTAB. Absent: accessory muscle use, rales, rhonchi, wheezes - Cardiovascular Cardiovascular exam: Present: RRR, +S1, +S2. Absent: diastolic murmur, gallop, rubs, systolic murmur - GI/Abdominal GI/Abdominal exam: Present: normal bowel sounds, soft, no peritoneal signs. Absent: distended, tenderness - Neurological Exam Neurological exam: Present: alert, oriented X3, no focal deficits. Absent: facial droop, speech deficit
--- NOTE | 2016-11-09 14:22 | Physician Discharge Referral ---
Home Health/Hosp Referral Info Transfer to: Home Health Provider in Charge Post Discharge: PCP - Diagnosis (1) Sepsis Priority: Primary Status: Acute (2) Acute kidney injury Priority: Secondary Status: Acute (3) Diabetes type 2, uncontrolled Priority: Secondary Status: Chronic (4) DVT prophylaxis Priority: Secondary Status: Acute (5) Hypertension Priority: Secondary Status: Chronic (6) Hypothyroid Priority: Secondary Status: Chronic (7) Schizophrenia Priority: Secondary Status: Chronic (8) UTI (urinary tract infection) Priority: Secondary Status: Acute - Respiratory Orders Smoking Cessation: Smoking cessation has been advised. For more information, call the [place] Tobacco Quit Line at 3-750-RRYK-NOW. - Diet/Nutrition Diet/Nutrition Orders: Cardiac - Activity Activity Orders: Walker - Services Needed Following services are medically necessary services: Nursing, Home Health Aide, Physical Therapy, Occupational Therapy Home Care Orders: BMP in 1 week for ALYSIA; Please send results to PCP - Transfer Medications Prescriptions: cephALEXin [Cephalexin] 500 mg PO BID #14 tablet Home Medications: Acetaminophen/Butalbital/Caffe [Fioricet] 1 each PO BID PRN 11/07/16 [History] Amitriptyline [Elavil] 50 mg PO HS 11/07/16 [History] Ascorbic Acid [Vitamin C] 500 mg PO DAILY 11/07/16 [History] Aspirin 81 mg PO DAILY 11/07/16 [History] Atorvastatin [Lipitor] 40 mg PO HS 11/07/16 [History] Baclofen 20 mg PO TID 11/07/16 [History] Celecoxib [Celebrex] 200 mg PO DAILY 11/07/16 [History] Cyanocobalamin (Vitamin B-12) [Vitamin B12] 1,000 mcg PO DAILY 11/07/16 [History ] Ergocalciferol (VITAMIN D2) [Vitamin D2] 50,000 unit PO CARDOZA 11/07/16 [History] Esomeprazole Magnesium [Nexium] 40 mg PO DAILY 11/07/16 [History] Folic Acid 1 mg PO DAILY 11/07/16 [History] Furosemide [Lasix] 40 mg PO DAILY 11/07/16 [History] Gabapentin [Neurontin] 300 mg PO TID 11/07/16 [History] HYDROcodone/Acet 10/325 mg [[place] 10-325 mg] 1 tab PO TID PRN 11/07/16 [History] Levothyroxine [Synthroid] 75 mcg PO 0630 11/07/16 [History] Lisinopril 2.5 mg PO DAILY 11/07/16 [History] SUMAtriptan Succinate [Imitrex] 100 mg PO DAILY PRN 11/07/16 [History] Sertraline [Zoloft] 200 mg PO DAILY 11/07/16 [History] metFORMIN [Glucophage] 500 mg PO BIDWM 11/07/16 [History] risperiDONE [RisperDAL] 1 mg PO QAM 11/07/16 [History] risperiDONE [RisperDAL] 3 mg PO HS 11/07/16 [History] cephALEXin [Cephalexin] 500 mg PO BID #14 tablet 11/09/16 [Rx] Allergies/Adverse Reactions: 3 Allergy/AdvReac Type Severity Reaction Status Date / Time No Known Allergies Allergy Verified 11/07/16 13:33 Certification: Further, I certify that my clinical findings support that this patient is homebound (i.e. absences from home require considerable and taxing effort and are for medical reasons or jainism services or infrequently or short duration when for other reasons) because: Homebound Reason: Patient requires assistance of a person or device to safely leave home Attestation: My signature below is to certify that this patient is under my care and that I, or nurse practitioner, or a physician's ambulance assistant working with me, has a face-to -face encounter with this patient.
[2016-11-09 18:59] VITALS: BP 163/75
== END 2016-11-09 18:50 | disposition home health service (06) | DRG 872 ==
LOC: EMEROO 13:27 → 3ANU 13:27 → SUATTDRO 19:31 → 3ANU 20:45
PROVIDERS: ADMIT Internal Medicine; ATTEND Internal Medicine

== ENCOUNTER 2016-11-25 12:45 | Inpatient (IN) ==
--- NOTE | 2016-11-25 13:16 | Emergency Department Note ---
Disposition Clinical Impression: ALYSIA (acute kidney injury), Unable to walk Leukocytosis Qualifiers: Qualified Code(s): D72.829 - Disposition: Admitted As Inpatient Condition: Good Altered Mental Status HPI - General Chief Complaint: ED Altered Mental Status Stated Complaint: confusion/general weakness/here Mon started ATB Time Seen by Provider: 11/25/16 12:52 Source: patient, EMS Mode of arrival: EMS Limitations: no limitations Nursing Notes Reviewed: Yes Vital Signs Reviewed: Yes - History of Present Illness HPI Narrative: 56-year-old female history of diabetes who presents to the ER via EMS due to altered mental status. Patient was encouraged to come by her home health nurse. States that she was admitted and recently discharged on Monday for UTI. She has been on an antibiotic at home. States she has been compliant with his medications. States whenever home health nurse came to see her that she thought she was more confused than usual. Patient reports that she actually feels better than she did on Monday however she has a little confused. She is alert and oriented 3 and able to answer questions appropriate with. She denies any chest pain shortness of breath nausea vomiting diarrhea. Her dysuria has improved. She has no other complaints. MD complaint: altered mental status Onset (ago): unknown Pain Severity: none Context: other (Recent admission for UTI) Associated symptoms: Denies: chest pain, fever, loss of appetite, nausea/ vomiting - Related Data Home Medications Medication Instructions Recorded Confirmed Acetaminophen/Butalbital/Caffe 1 each PO BID PRN 11/07/16 11/25/16 [Fioricet] Amitriptyline [Elavil] 50 mg PO HS 11/07/16 11/25/16 Ascorbic Acid [Vitamin C] 500 mg PO DAILY 11/07/16 11/25/16 Aspirin 81 mg PO DAILY 11/07/16 11/25/16 Atorvastatin [Lipitor] 40 mg PO HS 11/07/16 11/25/16 Baclofen 20 mg PO TID 11/07/16 11/25/16 Celecoxib [Celebrex] 200 mg PO DAILY 11/07/16 11/25/16 Cyanocobalamin (Vitamin B-12) 1,000 mcg PO DAILY 11/07/16 11/25/16 [Vitamin B12] Ergocalciferol (VITAMIN D2) 50,000 unit PO CARDOZA 11/07/16 11/25/16 [Vitamin D2] Esomeprazole Magnesium [Nexium] 40 mg PO DAILY 11/07/16 11/25/16 Folic Acid 1 mg PO DAILY 11/07/16 11/25/16 Furosemide [Lasix] 40 mg PO DAILY 11/07/16 11/25/16 Gabapentin [Neurontin] 300 mg PO TID 11/07/16 11/25/16 HYDROcodone/Acet 10/325 mg [[place] 1 tab PO TID PRN 11/07/16 11/25/16 10-325 mg] Levothyroxine [Synthroid] 75 mcg PO 0630 11/07/16 11/25/16 Lisinopril 2.5 mg PO DAILY 11/07/16 11/25/16 Sertraline [Zoloft] 200 mg PO DAILY 11/07/16 11/25/16 metFORMIN [Glucophage] 500 mg PO BIDWM 11/07/16 11/25/16 risperiDONE [RisperDAL] 1 mg PO QAM 11/07/16 11/25/16 risperiDONE [RisperDAL] 3 mg PO HS 11/07/16 11/25/16 Insulin Glargine,Hum.rec.anlog 50 unit SQ HS 11/25/16 11/25/16 [Lantus Solostar] Insulin LISPRO [Humalog Kwikpen 14 unit SQ TIDWM 11/25/16 11/25/16 U-100] Allergies Allergy/AdvReac Type Severity Reaction Status Date / Time No Known Allergies Allergy Verified 11/25/16 12:50 All systems ED: reviewed and negative except as stated. Constitutional: Denies: fever Cardiovascular: Denies: chest pain Respiratory: Denies: cough, dyspnea Gastrointestinal: Denies: abdominal pain, nausea, vomiting, diarrhea Genitourinary: Denies: dysuria, hematuria Past Medical History - Past Medical History Attestation: Yes The following information was validated with the patient. Source: patient Medical history: Reports: diabetes, GERD, hyperlipidemia, kidney stones, pulmonary embolus Surgical history: Reports: non-contributory Psychiatric history: Reports: depression - Social History Smoking Status: Never smoker Smokeless Tobacco Status: No Alcohol use: Reports: none Drug use: Reports: none Physical Exam - General Limitations: no limitations General appearance: alert, in no apparent distress - Head Head exam: atraumatic, normocephalic, normal inspection - Eye Eye exam: Present: normal appearance, EOMI - ENT ENT exam: normal exam - Neck Neck exam: Present: normal inspection, full ROM - Chest Chest inspection: Present: normal inspection, symmetric chest wall rise - Respiratory Respiratory exam: Present: normal lung sounds bilaterally - Cardiovascular Cardiovascular exam: Present: regular rate, normal rhythm, normal heart sounds - Abdominal Exam Abdominal exam: Present: soft, Non-Tender. Absent: tenderness, distention, rigidity - Extremities Exam Extremities exam: Present: normal inspection, full ROM - Expanded Upper Extremity Exam Shoulder exam: Present: normal inspection, full ROM Arm exam: Present: normal inspection, full ROM Elbow exam: Present: normal inspection, full ROM Forearm/Wrist exam: Present: normal inspection, full ROM Hand exam: Present: normal inspection, full ROM - Expanded Lower Extremity Exam Hip/Pelvis exam: Present: normal inspection, full ROM Upper leg exam: Present: normal inspection, full ROM Knee exam: Present: normal inspection, full ROM Lower leg exam: Present: normal inspection, full ROM Ankle exam: Present: normal inspection, full ROM Foot/toe exam: Present: normal inspection, full ROM Neurovascular/Tendon exam: Absent: motor deficit, sensory deficit - Neurological Exam Neurological exam: Present: alert, other (GCS 15. Answers questions properly. Nonfocal neurologic exam. Moves all extremities equally.) - Psychiatric Psychiatric exam: Present: normal affect, normal mood - Skin Skin exam: Present: warm, dry, intact, normal color Course Course Narrative: Patient seen and examined. She has a nonfocal neurologic exam. She is alert and oriented 3 answering all questions appropriately. She actually states she feels better since her last visit. We will do an altered metal status workup including CT scan of her head as well as labs and urinalysis to recheck her urine. Disposition pending. - Reevaluation(s) Reevaluation #1: I discussed results of imaging and lab work with the patient and family present. They voiced that she is unable to ambulate at home. She at first did not want to go to a rehabilitation facility however she changed her mind after speaking with the hospice social worker. They are unable to place her from the ER today. We will admit her for history of present illness and inability to ambulate to the hospitalist service. Reevaluation #2: Discussed with family who are now present who were not present previously the patient's current situation. They were upset because they have were not updated however they were not in the room the first 2 times I went in to see the patient. Family reports that another physician came in and said they did not want to start fluids at because they were concerned he would overload her. I have no idea who they spoke to the last spoke with the admitting hospitalist and requested to have a total of 2 L of IV fluids ordered. Everyone is also upset because she has not had something to eat however arrangements have been made for the patient to have food taken to her room whenever she gets to the floor. Vital Signs Temperature 97.7 F 11/25/16 12:54 Pulse Rate 99 11/25/16 12:54 Respiratory Rate 20 11/25/16 12:54 Blood Pressure 101/48 11/25/16 12:54 O2 Sat by Pulse Oximetry 97 11/25/16 12:54 Temperature 97.7 F 11/25/16 12:54 Pulse Rate 98 11/25/16 16:30 Respiratory Rate 20 11/25/16 17:41 Blood Pressure 104/68 11/25/16 17:41 O2 Sat by Pulse Oximetry 98 11/25/16 16:30 Oxygen Delivery Oxygen Delivery Nasal Cannula Altered Mental Status - MDM Narrative Medical decision making narrative: 56-year-old female presents to the ER via EMS due to reports of confusion. She was recently here and treated with antibiotics for a UTI. Home health nurse was concerned for increased confusion. She is alert and oriented 3 here. She has a nonfocal neurologic exam. She is unable to ambulate at home. She did have a prior history of present illness that resolved however her creatinine is back to 1.9 today. Her potassium is slightly elevated at 4.8. Her urinalysis has improved from prior. She does have an elevated white count but unclear etiology of the source. Patient agreeable with being placed in a nursing facility this visit. Unable to do so from the ER. Admitted to the hospitalist service for inability to ambulate, ALYSIA, leukocytosis. - Lab Data Lab results reviewed: Yes I reviewed the patient's lab results. Result diagrams: 11/25/16 14:49 11/25/16 13:10 Lab Results 11/25/16 11/25/16 11/25/16 Range/Units 13:00 13:10 13:10 WBC (4.3-11.1) K/mcL RBC (3.82-4.97) M/mcL Hgb (11.5-15.4) g/dL Hct (35.3-44.9) % MCV (83.0-100.0) fL MCH (28.0-33.3) pg MCHC (31.6-35.5) g/dL RDW (11.5-14.5) % Plt Count (140-400) K/mcL MPV (9.4-12.4) fL Immature Gran % (0-4) % Seg Neutrophils % % Lymphocytes % % Monocytes % % Eosinophils % % Basophils % % Neutrophils # (1.6-8.9) K/mcL Lymphocytes # (0.6-4.6) K/mcL Monocytes # (0.0-1.3) K/mcL Eosinophils # (0.0-0.6) K/mcL Basophils # (0.0-0.2) K/mcL Immature Plt Fraction (1.1-6.1) % Sodium 137 (136-145) mEq/L Potassium 4.8 H (3.5-4.5) mEq/L Chloride 103 (98-109) mEq/L Carbon Dioxide 19 (19-29) mEq/L BUN 50 H (7-20) mg/dL Creatinine 1.92 H (0.57-1.11) mg/dL Est GFR ( Amer) 33 L (> 60) Est GFR (Non-Af Amer) 27 L (> 60) BUN/Creatinine Ratio 26 (6-26) Glucose 289 H (70-99) mg/dL POC Glucose 241 H (58-89) Calculated Osmolality 308 H (280-300) Calcium 9.7 (8.6-10.8) mg/dL Total Bilirubin 0.5 (0.2-1.2) mg/dL Direct Bilirubin 0.2 (0.0-0.5) mg/dL Indirect Bilirubin 0.3 (0.0-1.2) mg/dL AST 11 (5-34) Units/L ALT 13 (0-55) Units/L Alkaline Phosphatase 91 (38-126) Units/L Creatine Kinase Cancelled Troponin I 0.00 (0-0.03) ng/mL Serum Total Protein 7.2 (6.0-8.3) g/dL Albumin 3.4 L (3.5-5.0) g/dL Globulin 3.8 H (2.4-3.5) g/dL Albumin/Globulin Ratio 0.9 L (1.1-2.2) TSH 1.368 (0.350-4.840) mcIU/mL Urine Color (Yellow) Urine Clarity (Clear) Urine pH (5.0-8.0) pH Units Ur Specific [place] (1.010-1.025) Urine Protein (Neg-Trace) mg/dL Urine Glucose (UA) (Normal) mg/dL Urine Ketones (Negative) mg/dL Urine Blood (Negative) Urine Nitrite (Negative) Urine Bilirubin (Negative) Urine Urobilinogen (Normal) mg/dL Ur Leukocyte Esterase (Negative) Urine Microscopic RBC (0-3) per hpf Urine Microscopic WBC (0-3) per hpf Ur Squamous Epith Cells (None-Few) per lpf Ur Transition Epith Cell (None-Few) per hpf Ur Renal Epithelial Cell (None-Few) per hpf Amorphous Sediment (Few) Urine Bacteria (None-Few) per hpf Hyaline Casts (None-Few) per lpf Ur Culture Indicated? (NO) Specimen Rejected 11/25/16 11/25/16 11/25/16 Range/Units 13:10 13:38 14:49 WBC 18.9 H (4.3-11.1) K/mcL RBC 5.02 H (3.82-4.97) M/mcL Hgb 13.5 (11.5-15.4) g/dL Hct 42.3 (35.3-44.9) % MCV 84.3 (83.0-100.0) fL MCH 26.9 L (28.0-33.3) pg MCHC 31.9 (31.6-35.5) g/dL RDW 15.2 H (11.5-14.5) % Plt Count 164 (140-400) K/mcL MPV 11.4 (9.4-12.4) fL Immature Gran % 0.5 (0-4) % Seg Neutrophils % 86.8 % Lymphocytes % 5.5 % Monocytes % 5.3 % Eosinophils % 1.6 % Basophils % 0.3 % Neutrophils # 16.4 H (1.6-8.9) K/mcL Lymphocytes # 1.0 (0.6-4.6) K/mcL Monocytes # 1.0 (0.0-1.3) K/mcL Eosinophils # 0.3 (0.0-0.6) K/mcL Basophils # 0.1 (0.0-0.2) K/mcL Immature Plt Fraction 6.5 H (1.1-6.1) % Sodium (136-145) mEq/L Potassium (3.5-4.5) mEq/L Chloride (98-109) mEq/L Carbon Dioxide (19-29) mEq/L BUN (7-20) mg/dL Creatinine (0.57-1.11) mg/dL Est GFR ( Amer) (> 60) Est GFR (Non-Af Amer) (> 60) BUN/Creatinine Ratio (6-26) Glucose (70-99) mg/dL POC Glucose (58-89) Calculated Osmolality (280-300) Calcium (8.6-10.8) mg/dL Total Bilirubin (0.2-1.2) mg/dL Direct Bilirubin (0.0-0.5) mg/dL Indirect Bilirubin (0.0-1.2) mg/dL AST (5-34) Units/L ALT (0-55) Units/L Alkaline Phosphatase (38-126) Units/L Creatine Kinase Troponin I (0-0.03) ng/mL Serum Total Protein (6.0-8.3) g/dL Albumin (3.5-5.0) g/dL Globulin (2.4-3.5) g/dL Albumin/Globulin Ratio (1.1-2.2) TSH (0.350-4.840) mcIU/mL Urine Color Dark Yellow (Yellow) Urine Clarity Cloudy A (Clear) Urine pH 5.0 (5.0-8.0) pH Units Ur Specific [place] 1.028 H (1.010-1.025) Urine Protein Negative (Neg-Trace) mg/dL Urine Glucose (UA) Normal (Normal) mg/dL Urine Ketones Negative (Negative) mg/dL Urine Blood Negative (Negative) Urine Nitrite Negative (Negative) Urine Bilirubin Small H (Negative) Urine Urobilinogen Normal (Normal) mg/dL Ur Leukocyte Esterase Negative (Negative) Urine Microscopic RBC 5-15 H (0-3) per hpf Urine Microscopic WBC 3-5 H (0-3) per hpf Ur Squamous Epith Cells Many H (None-Few) per lpf Ur Transition Epith Cell Few (None-Few) per hpf Ur Renal Epithelial Cell Few (None-Few) per hpf Amorphous Sediment Many H (Few) Urine Bacteria None Seen (None-Few) per hpf Hyaline Casts Many H (None-Few) per lpf Ur Culture Indicated? NO (NO) Specimen Rejected Clotted - Radiology Data Radiology results reviewed: Yes I reviewed the patient's radiology results. Head CT 11/25/16 12:53 IMPRESSION: No acute intracranial abnormality. D/ / Mendoza Gomes MD / Mendoza Gomes MD Interpreting Provider: Mendoza Gomes MD Chest X-Ray 11/25/16 12:53 IMPRESSION: No radiographic evidence of acute cardiopulmonary disease. D/ / Leland Osorio / Leland Osorio Interpreting Provider: Leland Osorio Head CT 11/25/16 12:53 IMPRESSION: No acute intracranial abnormality. D/ / Mendoza Gomes MD / Mendoza Gomes MD Interpreting Provider: Mendoza Gomes MD - EKG Data EKG attestation: Yes I reviewed and interpreted this EKG. EKG results narrative: EKG demonstrates sinus rhythm with rate of 90 bpm. Normal axis. Normal intervals. Normal R-wave progression. T-wave inversions in lead 3 unchanged from previous EKG. No gross ST elevations or depressions. No acute ischemic findings. TPA Checklist - LKW: 3-4.5 hrs Add. Warnings/Precautions Patient/family understanding: The patient/family members have been counseled and understood the risk, benefit , and alternatives of treatment. S.B.AJaneen. - S.B.A.R. Situation: Demographics, MOA Background: Presenting Complaint, Relevant PMH, Meds, & Allergies Assessment: Vital Signs, Course and respsone to treatment, Exam Concerns, Patient/Family Expectation, Pertinant Lab Results, Outstanding Labs Recommendation: Barrier(s) to disposition, Recommendation based on pending studies, treatments, or consults S.B.A.R. Report Given to: Dr. Davis, requests to add an additional liter of fluids
[2016-11-25 13:35] LABS: Albumin 3.4 g/dL (3.5-5.0); Albumin/Globulin Ratio 0.9 (1.1-2.2); Bilirubin,Direct 0.2 mg/dL (0.0-0.5); Bilirubin,Indirect 0.3 mg/dL (0.0-1.2); Bilirubin,Total 0.5 mg/dL (0.2-1.2); Calcium 9.7 mg/dL (8.6-10.8); Globulin 3.8 g/dL (2.4-3.5); Potassium 4.8 mEq/L (3.5-4.5); Total Protein 7.2 g/dL (6.0-8.3)
[2016-11-25] MEDS ORDERED: 0.9 % Sodium Chloride 1,000 ML IVC ONE ×2 (13:47→15:37)
[2016-11-25 13:48] LABS: Bilirubin,Urine Small (Negative); Blood,Urine Negative (Negative); Clarity,Urine Cloudy (Clear); Color,Urine Dark Yellow (Yellow); Glucose,Urine (UA) Normal (Normal); Ketones,Urine Negative (Negative); Leukocyte Esterase,Urine Negative (Negative); Nitrite,Urine Negative (Negative); Protein,Urine Negative (Neg-Trace); Specific Gravity,Urine 1.028 (1.010-1.025); Urobilinogen,Urine Normal (Normal)
--- NOTE | 2016-11-25 13:50 | Emergency Department Note ---
START Narrative - START START: I examined this patient and my medical decision-making was reviewed with the PROPERTY AND CASUALTY INSURANCE AGENT/PA/Advanced Practice Nurse/Resident Physician. I agree with the documented findings, disposition and treatment plan as described except to the extent set forth below. ED attending: Patient's emergency medicine resident Dr. CUTLER. Please see copy of this note for H&P evaluation and management and ED disposition. We both had independent [id number] time in contact with this patient. Briefly: A 56-year-old female by EMS for confusion and generalized weakness. Patient was just seen and worked up. 4. Infection. Patient is nonfocal. Getting ED workup screening labs imaging. Admission strongly anticipated. Disposition pending.
[2016-11-25 13:53] LABS: Bacteria,Urine None Seen per hpf (None-Few); Squamous Epithelial Cell,Urine Many per lpf (None-Few)
[2016-11-25 13:56] LABS: Thyroid Stimulating Hormone 1.368 mcIU/mL (0.350-4.840)
[2016-11-25 14:09] LABS: Amorphous Sediment,Urine Many (Few); Hyaline Casts,Urine Many per lpf (None-Few)
[2016-11-25 14:10] LABS: Renal Epithelial Cells,Urine Few per hpf (None-Few); Transitional Epi Cells,Urine Few per hpf (None-Few)
[2016-11-25 14:59] LABS: Basophils # 0.1 K/mcL (0.0-0.2); Basophils % 0.3 %; Eosinophils # 0.3 K/mcL (0.0-0.6); Eosinophils % 1.6 %; Hematocrit 42.3 % (35.3-44.9); Hemoglobin 13.5 g/dL (11.5-15.4); Immature Granulocytes % 0.5 % (0-4); Immature Platelets 6.5 % (1.1-6.1); Lymphocytes % 5.5 %; Mean Corpuscular HGB Conc 31.9 g/dL (31.6-35.5); Mean Corpuscular Hemoglobin 26.9 pg (28.0-33.3); Mean Corpuscular Volume 84.3 fL (83.0-100.0); Mean Platelet Volume 11.4 fL (9.4-12.4); Monocytes % 5.3 %; Neutrophils # 16.4 K/mcL (1.6-8.9); Platelet Count 164 K/mcL (140-400); Red Blood Count 5.02 M/mcL (3.82-4.97); Red Cell Distribution Width 15.2 % (11.5-14.5); Segmented Neutrophils % 86.8 %
[2016-11-25] MEDS ORDERED: *HR* HYDROcodone/Acet 10/325 mg TABLET PO PRN (16:23)
[2016-11-25] MEDS ORDERED: Acetaminophen/Butalbital/CaffeineTABLET PO PRN (16:23)
--- NOTE | 2016-11-25 17:02 | Internal Med History&Physical ---
Date of Encounter: 11/25/16 Time of Encounter: 16:58 Assessment and Plan (1) Acute kidney injury Current visit: Yes Status: Acute Her creatinine is greater than 30% increase from baseline 0.90. Creatinine today and ED 1.92. I suspect the AK as a result of dehydration the patient appears to be failure to thrive. She reports a decrease in oral intake the last several days, also noting a decrease in urinary output. Received 2 L fluid bolus and ED 0.9 normal saline 125 ml per hour Continue to monitor renal function, BMP in the morning Strict intake and output Resume cardiac/diabetic diet Discontinue PASCUAL inhibitor (2) Dehydration Current visit: Yes Status: Acute Poor oral intake, appears to be failure to thrive. See plan above (3) Failure to thrive in adult Current visit: Yes Status: Acute 56-year-old female with profound weakness. Unable to ambulate 2 to extreme fatigue and dyspnea. This has been ongoing for some time but is continuing to progress. Lives at home with her parents [id number] her primary care providers also has home health. Reports that she has good appetite but had a decrease in fluid intake for the last couple days. It appears the patient would benefit from rehabilitation Consult PT/OT and licensed social worker for functional evaluation and rehabilitation placement Maintain bed rest for now due to dyspnea with exertion and profound weakness (4) Dyspnea on exertion Current visit: Yes Status: Acute Began over the last 4-5 days was getting progressively worse. Patient denies wearing home O2 however requiring oxygen for respiratory support throughout hospital stay. She does have a history of PE, and currently has chronic edema and bilateral lower extremity left greater than right, where she denies any tenderness and they are not erythematous. Low risk for PE but will continue to rule out Stat noncontrast CT of chest VQ scan in the morning Continue respiratory support with oxygen as needed SPO2 monitoring (5) Hypotension Current visit: Yes Status: Acute Hypotensive upon arrival, now borderline hypotensive. Likely due to dehydration , hold blood pressure medications Qualifiers: Qualified Code(s): I95.9 - Hypotension, unspecified (6) UTI (urinary tract infection) Current visit: Yes Status: Acute H/o UTI, was recently discharged from [facility] with keflex. Returns today with AMS changes and profound weakness. UA negative; She denies any dysuria, urgency, fevers or pain, does not appear to be a UTI Qualifiers: Urinary tract infection type: acute cystitis Hematuria presence: without hematuria Qualified Code(s): N30.00 - Acute cystitis without hematuria (7) Leukocytosis, unspecified Current visit: Yes Status: Acute Leukocytosis probably caused dehydration but cannot fully r/o UTI or infectious source. CBC in the morning, continue to monitor for worsening of condition. Qualifiers: Qualified Code(s): D72.829 - Elevated white blood cell count, unspecified (8) DVT prophylaxis Current visit: Yes Status: Acute Heparin 5000 units Q8hrs Internal Medicine - H&P: HPI Chief complaint: AMS change, leukocytosis, ALYSIA, dehydration Admitted From: Home Plans for Post Hospital Care: Transfer Inp Rehab Fac History of present illness: Ms. Rangel is a 56 year old female with a past medical history of type 2 diabetes, GERD, HLD, kidney stones, depression and PE. Who presents to the [facility] today with acute mental status changes began yesterday, weakness, dehydration. Patient remains confused so I am unable to obtain history from her. Sister is at bedside and reports that yesterday evening patient began experiencing transient confusion, worsening throughout the last 24 hours, and increasing shortness of breath. The patient does not wear home oxygen but is now requiring 2 L nasal cannula for respiratory support. Additionally she notes that the patient has fallen twice today which prompted the visit to the emergency department. Patient was admitted recently and found to have UTI which was treated with Keflex upon discharge. Workup in the ED reveals leukocytosis, and acute kidney injury. Head CT negative, chest x -ray negative, UA negative. His being admitted for further evaluation Past Med Surg Social Fam HX - Past Medical History Medical history: diabetes, GERD, hyperlipidemia, kidney stones, pulmonary embolus Psychiatric history: depression - Past Surgical History Surgical History: non-contributory - Social History Smoking Status: Never smoker Smokeless Tobacco Status: No Alcohol use: none Drug use: none - Family History Father Living Status: Still Living Hx Family Cardiac Disorders: Yes (Cardiac disease) Mother Living Status: Internal Medicine - H&P: Meds Acetaminophen/Butalbital/Caffe [Fioricet] 1 each PO BID PRN 11/07/16 [History] Amitriptyline [Elavil] 50 mg PO HS 11/07/16 [History] Ascorbic Acid [Vitamin C] 500 mg PO DAILY 11/07/16 [History] Aspirin 81 mg PO DAILY 11/07/16 [History] Atorvastatin [Lipitor] 40 mg PO HS 11/07/16 [History] Baclofen 20 mg PO TID 11/07/16 [History] Celecoxib [Celebrex] 200 mg PO DAILY 11/07/16 [History] Cyanocobalamin (Vitamin B-12) [Vitamin B12] 1,000 mcg PO DAILY 11/07/16 [History ] Ergocalciferol (VITAMIN D2) [Vitamin D2] 50,000 unit PO CARDOZA 11/07/16 [History] Esomeprazole Magnesium [Nexium] 40 mg PO DAILY 11/07/16 [History] Folic Acid 1 mg PO DAILY 11/07/16 [History] Furosemide [Lasix] 40 mg PO DAILY 11/07/16 [History] Gabapentin [Neurontin] 300 mg PO TID 11/07/16 [History] HYDROcodone/Acet 10/325 mg [[place] 10-325 mg] 1 tab PO TID PRN 11/07/16 [History] Levothyroxine [Synthroid] 75 mcg PO 0630 11/07/16 [History] Lisinopril 2.5 mg PO DAILY 11/07/16 [History] Sertraline [Zoloft] 200 mg PO DAILY 11/07/16 [History] metFORMIN [Glucophage] 500 mg PO BIDWM 11/07/16 [History] risperiDONE [RisperDAL] 1 mg PO QAM 11/07/16 [History] risperiDONE [RisperDAL] 3 mg PO HS 11/07/16 [History] Insulin Glargine,Hum.rec.anlog [Lantus Solostar] 50 unit SQ HS 11/25/16 [History ] Insulin LISPRO [Humalog Kwikpen U-100] 14 unit SQ TIDWM 11/25/16 [History] 3 Allergy/AdvReac Type Severity Reaction Status Date / Time No Known Allergies Allergy Verified 11/25/16 12:50 All Systems PM: A 10-system review of systems was performed and is negative for pertinent findings except as documented above in the HPI. - Constitutional Constitutional: fatigue, falls, malaise, weakness, weight gain, no excessive sweating, no night sweats, no weight loss - EENT Eyes: no change in vision, no discharge, no pain, no photophobia Nose, mouth and throat: no nasal congestion, no nasal discharge, no nasal obstruction, no post-nasal drip, no sinus pain, no sinus pressure, no sore throat, no tongue swelling - Cardiovascular Cardiovascular ROS IM: edema (With edema that is chronic and bilateral lower extremities left greater than right), no chest pain, no claudication, no diaphoresis, no dyspnea, no irregular heart rhythm, no lightheadedness, no orthopnea, no palpitations, no syncope - Respiratory Respiratory: cough, dyspnea on exertion, no wheezing, no pain on inspiration, no chest congestion, no excessive phlegm production, no change in phlegm color, no pain with cough - Gastrointestinal Gastrointestinal: no abdominal pain, no diarrhea, no hematemesis, no hematochezia, no melena, no nausea, no vomiting - Genitourinary Genitourinary: no change in urinary stream, no dysuria, no flank pain, no hematuria - Musculoskeletal Musculoskeletal ROS IM: back pain (Chronic bilateral lower back pain,), muscle weakness ( chronic), no joint swelling (Denies any joint swelling or joint pain S/P fall) - Integumentary Integumentary IM: no erythema, no new lesions - Neurological Neurological ROS: confusion, frequent falls, weakness, no abnormal gait, no abnormal speech, no dizziness, no headache(s), no lack of coordination, no loss of vision, no numbness, no tingling, no tremor(s), no vertigo - Psychiatric Psychiatric: behavioral changes, confusion, difficulty concentrating - Constitutional Vitals: Temp Pulse Resp BP Pulse Ox 97.7 F 98 20 107/60 98 11/25/16 12:54 11/25/16 16:30 11/25/16 16:30 11/25/16 16:30 11/25/16 16:30 General appearance: Present: A&O X 2, mild distress, morbidly obese, answers questions appropriately - Head Head exam: Present: atraumatic, normocephalic - Eye Eye exam: Present: EOMI, PERRL, conjuntiva pink, sclera anicteric Pupils: Present: PERRL - Neck Neck exam general surgery: Present: supple, trachea midline. Absent: lymphadenopathy - Respiratory Respiratory exam: Present: decreased breath sounds, CTAB. Absent: accessory muscle use, rales, rhonchi, wheezes - Cardiovascular Cardiovascular exam: Present: RRR, +S1, +S2. Absent: diastolic murmur, gallop, JVD, rubs, systolic murmur - GI/Abdominal GI/Abdominal exam: Present: normal bowel sounds, soft, no peritoneal signs. Absent: distended, tenderness - Extremities Exam Extremities exam: Present: normal capillary refill, pedal edema (Bilateral lower extremities left greater than right), warm, radial pulses palpable and symmetrical. Absent: calf tenderness, cyanotic - Expanded Lower Extremities Exam Lower Leg exam: Present: swelling. Absent: erythema, tenderness - Neurological Exam Neurological exam: Present: alert, altered, CN II-XII intact. Absent: pronater drift, facial droop, speech deficit - Psychiatric Psychiatric exam: Present: depressed - Skin Additional comments: 2 1 cm x 1 cm healing skin lesions left lower extremity. No drainage, no erythema. There do not appear to be infected Internal Med - H&P Results - Labs CBC & Chem 7: 11/25/16 14:49 11/25/16 13:10 Labs: Short CBC 11/25/16 Range/Units 14:49 WBC 18.9 H (4.3-11.1) K/mcL Hgb 13.5 (11.5-15.4) g/dL Hct 42.3 (35.3-44.9) % Plt Count 164 (140-400) K/mcL Neutrophils # 16.4 H (1.6-8.9) K/mcL BMP 11/25/16 13:10 Sodium 137 Potassium 4.8 H Chloride 103 Carbon Dioxide 19 BUN 50 H Creatinine 1.92 H Glucose 289 H Calcium 9.7 Cardiac Enzymes 11/25/16 Range/Units 13:10 Troponin I 0.00 (0-0.03) ng/mL Liver Function 11/25/16 Range/Units 13:10 Total Bilirubin 0.5 (0.2-1.2) mg/dL Direct Bilirubin 0.2 (0.0-0.5) mg/dL AST 11 (5-34) Units/L ALT 13 (0-55) Units/L Alkaline Phosphatase 91 (38-126) Units/L Albumin 3.4 L (3.5-5.0) g/dL Urine 11/25/16 Range/Units 13:38 Urine Color Dark Yellow (Yellow) Urine Clarity Cloudy A (Clear) Urine pH 5.0 (5.0-8.0) pH Units Ur Specific [place] 1.028 H (1.010-1.025) Urine Protein Negative (Neg-Trace) mg/dL Urine Glucose (UA) Normal (Normal) mg/dL - EKG Data -: EKG Interpreted by Myself EKG shows normal: sinus rhythm - EKG Data Prior EKG available for review: yes When compared to previous EKG: there is no significant change Interpretation IM: normal EKG - Impressions ITS Impressions Chest X-Ray 11/25/16 12:53 IMPRESSION: No radiographic evidence of acute cardiopulmonary disease. D/ / Leland Osorio / Leland Osorio Interpreting Provider: Leland Osorio Head CT 11/25/16 12:53 IMPRESSION: No acute intracranial abnormality. D/ / Mendoza Gomes MD / Mendoza Gomes MD Interpreting Provider: Mendoza Gomes MD - Diagnostic Studies Chest x-ray Status: image reviewed by me Additional comments: No acute cardiopulmonary disease CT scan - head Status: image reviewed by me Additional comments: No acute intracranial abnormalities noted
[2016-11-25] MEDS ORDERED: Dextrose Gel 15 GM PO PRN ×2 (17:14)
[2016-11-25] MEDS ORDERED: D5% in Water 1,000 ML IVC PRN (17:14)
[2016-11-25] MEDS ORDERED: *HR* Dextrose 50 % in Water (Syg) 50 ML SYRINGE IVP PRN (17:14)
[2016-11-25] MEDS ORDERED: Naloxone 0.4 MG/ML INJ IVP PRN (17:14)
[2016-11-25] MEDS ORDERED: 0.9 % Sodium Chloride 1,000 ML IVC SCH (17:15)
--- NOTE | 2016-11-25 17:20 | Event Note ---
Date of Encounter: 11/25/16 Time of Encounter: 17:19 Patient seen and examined with nurse practitioner. Patient presents with generalized weakness due to dehydration, ted. She has a wbc [id number], x-ray and urinalysis or clean. I will get noncontrast CT scan to evaluate for the presence of pneumonia.
[2016-11-25] MEDS: Gabapentin 100 MG CAPSULE PO SCH (20:48)
[2016-11-25] MEDS: Baclofen 10 MG TABLET PO SCH (20:48)
[2016-11-25] MEDS ORDERED: Gabapentin 300 MG CAPSULE PO SCH (21:00)
[2016-11-25] MEDS ORDERED: RisperiDAL 3 MG TABLET PO SCH (21:00)
[2016-11-25] MEDS: Insulin LISPRO 300 UNITS/3 ML VIAL SQ SCH (21:12)
[2016-11-25] MEDS: *HR* Heparin 5,000 UNIT/ML VIAL SQ SCH (21:12)
[2016-11-25] MEDS: Insulin DETEMIR 100 UNIT/ML X5UNITS SQ SCH (21:21)
--- NOTE | 2016-11-25 21:57 | Event Note ---
Date of Encounter: 11/25/16 Time of Encounter: 21:56 Patient tolerating SIRS criteria, tachycardia and hypotension. Noncontrast CT reveals pulmonary edema versus atypical infection. Patient in no distress at this time. Obtaining blood cultures starting vancomycin received a dose and Levaquin.
[2016-11-25] MEDS ORDERED: Vancomycin 1,750 MG in D5% in Water 250 ML IVPB SCH (22:00)
[2016-11-25] MEDS ORDERED: Levofloxacin 750 MG/150 ML 750 MG/150 ML BAG IVPB SCH (22:00)
[2016-11-25] MEDS: Vancomycin 1,750 MG in D5% in Water 500 ML IVPB SCH (22:21)
[2016-11-26 04:51] LABS: Basophils % 0.3 %; Eosinophils # 0.4 K/mcL (0.0-0.6); Hematocrit 37.7 % (35.3-44.9); Immature Granulocytes % 0.5 % (0-4); Lymphocytes # 1.3 K/mcL (0.6-4.6); Lymphocytes % 9.1 %; Mean Corpuscular HGB Conc 31.8 g/dL (31.6-35.5); Mean Corpuscular Hemoglobin 27.4 pg (28.0-33.3); Mean Corpuscular Volume 86.1 fL (83.0-100.0); Mean Platelet Volume 12.2 fL (9.4-12.4); Monocytes # 0.8 K/mcL (0.0-1.3); Monocytes % 5.5 %; Platelet Count 136 K/mcL (140-400); Red Blood Count 4.38 M/mcL (3.82-4.97); Red Cell Distribution Width 15.3 % (11.5-14.5); Segmented Neutrophils % 81.6 %
[2016-11-26] MEDS: *HR* Heparin 5,000 UNIT/ML VIAL SQ SCH ×3 (05:33→18:37)
[2016-11-26] MEDS ORDERED: *HR* Enoxaparin 40 MG/0.4 ML SYRINGE SQ SCH (06:00)
[2016-11-26 06:49] LABS: Calcium 8.8 mg/dL (8.6-10.8)
[2016-11-26 06:50] LABS: Potassium 5.3 mEq/L (3.5-4.5)
[2016-11-26] MEDS: 0.9 % Sodium Chloride 1,000 ML IVC SCH ×3 (07:29→20:27)
[2016-11-26] MEDS: Ascorbic Acid 500 MG TABLET PO SCH (08:50)
[2016-11-26] MEDS: Cyanocobalamin (B-12) 1,000 MCG TABLET PO SCH (08:50)
[2016-11-26] MEDS: Baclofen 10 MG TABLET PO SCH (08:50)
[2016-11-26] MEDS: Gabapentin 100 MG CAPSULE PO SCH (08:51)
[2016-11-26] MEDS: Aspirin 81 MG TAB.CHEW PO SCH (08:51)
[2016-11-26] MEDS: Folic Acid 1 MG TABLET PO SCH (08:51)
[2016-11-26] MEDS: Insulin LISPRO 300 UNITS/3 ML VIAL SQ SCH ×4 (08:51→20:28)
[2016-11-26] MEDS ORDERED: Celecoxib 200 MG CAPSULE PO SCH (09:00)
[2016-11-26] MEDS ORDERED: risperiDONE 1 MG TABLET PO SCH (09:00)
[2016-11-26] MEDS ORDERED: 0.9 % Sodium Chloride 1,000 ML IVC ONE (10:56)
[2016-11-26 11:51] LABS: Bilirubin,Urine Negative (Negative); Blood,Urine Trace (Negative); Clarity,Urine Clear (Clear); Color,Urine Yellow (Yellow); Glucose,Urine (UA) Normal (Normal); Ketones,Urine Negative (Negative); Leukocyte Esterase,Urine Negative (Negative); Nitrite,Urine Negative (Negative); Protein,Urine Negative (Neg-Trace); Specific Gravity,Urine 1.012 (1.010-1.025); Urobilinogen,Urine Normal (Normal)
[2016-11-26 11:55] LABS: Bacteria,Urine None Seen per hpf (None-Few); Hyaline Casts,Urine None Seen per lpf (None-Few); RBC,Urine 0-3 per hpf (0-3); Squamous Epithelial Cell,Urine Moderate per lpf (None-Few); WBC,Urine 0-3 per hpf (0-3)
--- NOTE | 2016-11-26 15:07 | Internal Med Progress Note ---
Date of Encounter: 11/26/16 Time of Encounter: 15:02 - Assessment and plan (1) Acute encephalopathy Current Visit: Yes Status: Acute Assessment and plan: Adriana Rangel is a 56 y/o female with PMH schizophrenia, HTN, diabetes and hypothyroidism who presented to [facility] on 11/25/2016 with confusion. She was found to have ALYSIA and be in sepsis, therefore she was admitted for further work-up and treatment. 1. Sepsis: With tachycardia, hypotension, WBC 16 K. Lactic acid normal. Chest CT with bilateral groundglass opacity, concerning for pulmonary edema or infection. Currently does not appear to be fluid overloaded, symptoms consistent with infectious etiology. UA not indicative of UTI. Cont IV Levaquin, vancomycin started on admission. Hemodynamically stable, BP improved , intermittently tachycardia into low 100s. Blood cultures pending. 2. Pneumonia: Chest CT with bilateral groundglass opacity concerning for infectious etiology. Continue IV Levaquin, Vanco. Urinary antigens, respiratory PCR, sputum culture pending. De-escalate ATB as cultures finalize and/or clinically improves. 3. Acute encephalopathy: Presented with confusion. Multifactorial with sepsis, pneumonia, ALYSIA and sedating medication. Head CT nonacute. Mentation appears to be improving. Continue treating underlying causes. Holding home sedating medication. Supportive care. 4. ALYSIA: Cr 1.9 on [place]. Creatinine up to 2.2. Possibly secondary to poor PO intake prior to admission, however she has received multiple IV boluses and continuous IV fluids with no improvement. Continue IV fluids, check renal ultrasound. Avoid nephrotoxic agents as possible. Monitor repeat renal function. Holding home PASCUAL 5. Hyperkalemia: K 5.3 and in the setting of ALYSIA. Trial IV bolus, repeat CMP. Kayexalate if no improvement. 6. Elevated CK: CK 171, in the setting of multiple falls. Continue IV fluids monitor repeat CK. 6. Falls: With physical deconditioning. Will likely require SNF, acute inpatient rehabilitation at discharge. PT/OT following. 7. Schizophrenia: per hx. On multiple psychiatric and sedating medications. Hold for now. Resume as mentation improves. 8. Diabetes: per hx. control unknown. Holding home oral hypoglycemics. SSI. Monitor blood sugar and titrate PRN. She be A1c pending 9. DVT prophylaxis: heparin (2) Acute kidney injury Current Visit: Yes Status: Acute (3) Diabetes type 2, uncontrolled Current Visit: No Status: Chronic Qualifiers: Diabetes mellitus complication status: with neurologic complications Diabetes mellitus complication detail: with unspecified neuropathy Diabetes mellitus ad terminal makeup operator insulin use: without fpc use Qualified Code(s): E11.40 - Type 2 diabetes mellitus with diabetic neuropathy, unspecified; E11.65 - Type 2 diabetes mellitus with hyperglycemia; E11.65 - Type 2 diabetes mellitus with hyperglycemia; E11.65 - Type 2 diabetes mellitus with hyperglycemia; E11.65 - Type 2 diabetes mellitus with hyperglycemia (4) DVT prophylaxis Current Visit: Yes Status: Acute (5) Schizophrenia Current Visit: No Status: Chronic Qualifiers: Schizophrenia type: unspecified Qualified Code(s): F20.9 - Schizophrenia, unspecified (6) Sepsis Current Visit: No Status: Acute Qualifiers: Sepsis type: sepsis due to unspecified organism Qualified Code(s): A41.9 - Sepsis, unspecified organism - Subjective Interval history: Seen and examined at bedside, patient is new to me. Information obtained from chart review, patient report and family at bedside. Patient says she still feels a little confused although she is not able to elaborate. Sister at bedside and reports patient had fallen twice yesterday. Family was unable to get her up so EMS was called. Sister also reports patient was confused, not making sense. Did not know where she was or what day it was. Patient denies fevers, no chills. No cough, no shortness of breath no chest pain. - Constitutional Vitals: Temp Pulse Resp BP Pulse Ox 97.7 F 100 16 141/81 100 11/26/16 11:40 11/26/16 11:40 11/26/16 11:40 11/26/16 11:40 11/26/16 11:40 General appearance: Present: A&O X 2, mild distress, morbidly obese, answers questions appropriately - Head Head exam: Present: atraumatic, normocephalic - Eye Eye exam: Present: PERRL, conjuntiva pink, sclera anicteric Pupils: Present: PERRL - Expanded ENT Exam Teeth exam: Present: dental caries - Neck Neck exam general surgery: Present: supple, trachea midline. Absent: lymphadenopathy - Respiratory Respiratory exam: Present: CTAB. Absent: accessory muscle use, rales, rhonchi, wheezes - Cardiovascular Cardiovascular exam: Present: RRR, +S1, +S2. Absent: diastolic murmur, gallop, rubs, systolic murmur Additional comments: Telemetry: Normal sinus rhythm - GI/Abdominal GI/Abdominal exam: Present: normal bowel sounds, soft, no peritoneal signs. Absent: distended, tenderness Additional comments: Obese - Extremities Exam Extremities exam: Present: pedal edema, warm, radial pulses palpable and symmetrical. Absent: calf tenderness, cyanotic - Neurological Exam Neurological exam: Present: CN II-XII intact, oriented X3, no focal deficits. Absent: pronater drift, facial droop, speech deficit - Skin Skin exam: Present: dry, intact Internal Medicine: Result - Labs CBC & Chem 7: 11/26/16 04:11 11/26/16 06:16 Labs: Short CBC 11/26/16 Range/Units 04:11 WBC 14.7 H (4.3-11.1) K/mcL Hgb 12.0 D (11.5-15.4) g/dL Hct 37.7 (35.3-44.9) % Plt Count 136 L (140-400) K/mcL Neutrophils # 12.0 H (1.6-8.9) K/mcL BMP 11/26/16 06:16 Sodium 134 L Potassium 5.3 H Chloride 107 Carbon Dioxide 14 L BUN 55 H Creatinine 2.26 H Glucose 227 H Calcium 8.8 Urine 11/26/16 Range/Units 11:30 Urine Color Yellow (Yellow) Urine Clarity Clear (Clear) Urine pH 6.0 (5.0-8.0) pH Units Ur Specific [place] 1.012 (1.010-1.025) Urine Protein Negative (Neg-Trace) mg/dL Urine Glucose (UA) Normal (Normal) mg/dL - Impressions Impressions Chest CT 11/25/16 17:21 IMPRESSION: Motion limited examination. Relatively symmetric ground-glass opacity. Given symmetry, findings are favored to represent pulmonary edema. Atypical infection could have a similar appearance in the appropriate clinical setting. D/ / Vladimir Charles MD / Vladimir Charles MD Interpreting Provider: Vladimir Charles MD Pulmonary Perfusion Imaging 11/25/16 17:21 IMPRESSION: Low Probability for Pulmonary Embolus. D/ / Marshall Segundo MD / Marshall Segundo MD Interpreting Provider: Marshall Segundo MD Retroperitoneum Ultrasound 11/26/16 13:00 IMPRESSION: Small nonobstructing renal calculus in the mid left kidney. 2.5 cm simple cyst in the mid left kidney. No follow-up necessary. D/ / Manjit Kong MD / Manjit Kong MD Interpreting Provider: Manjit Kong MD Consult Discharge Plan - Plan Referrals: Nico Ahmadi MD [Primary Care Provider] -
[2016-11-26] MEDS ORDERED: Ipratropium/Albuterol Neb 3 ML IH PRN (15:24)
[2016-11-26 15:51] LABS: Albumin 2.8 g/dL (3.5-5.0); Albumin/Globulin Ratio 0.8 (1.1-2.2); Bilirubin,Total 0.4 mg/dL (0.2-1.2); Calcium 8.8 mg/dL (8.6-10.8); Globulin 3.6 g/dL (2.4-3.5); Total Protein 6.4 g/dL (6.0-8.3)
[2016-11-26 15:52] LABS: Potassium 5.3 mEq/L (3.5-4.5)
[2016-11-26] MEDS: Insulin DETEMIR 100 UNIT/ML X5UNITS SQ SCH (20:28)
[2016-11-26] MEDS: Acetaminophen 325 MG TABLET PO PRN (21:41)
[2016-11-26] MEDS: Vancomycin 1,750 MG in D5% in Water 500 ML IVPB SCH (23:00)
[2016-11-27 05:21] LABS: Adenovirus Not Detected (Not Detect); Bordetella Pertussis Not Detected (Not Detect); Chlamydophila pneumoniae Not Detected (Not Detect); Coronavirus 229E Not Detected (Not Detect); Coronavirus HKU1 Not Detected (Not Detect); Coronavirus NL63 Not Detected (Not Detect); Coronavirus OC43 Not Detected (Not Detect); Human Metapneumovirus Not Detected (Not Detect); Human Rhinovirus/Enterovirus Not Detected (Not Detect); Influenza A Subtype 2009 H1 Not Detected (Not Detect); Influenza A Untypeable Not Detected (Not Detect); Influenza B Not Detected (Not Detect); Mycoplasma pneumoniae Not Detected (Not Detect); Parainfluenza Virus 1 Not Detected (Not Detect); Parainfluenza Virus 2 Not Detected (Not Detect); Parainfluenza Virus 3 Not Detected (Not Detect); Parainfluenza Virus 4 Not Detected (Not Detect); Respiratory Syncytial Virus Not Detected (Not Detect)
[2016-11-27] MEDS: *HR* Heparin 5,000 UNIT/ML VIAL SQ SCH ×3 (05:43→21:45)
[2016-11-27 05:52] LABS: Hematocrit 35.6 % (35.3-44.9); Hemoglobin 11.3 g/dL (11.5-15.4); Mean Corpuscular HGB Conc 31.7 g/dL (31.6-35.5); Mean Corpuscular Hemoglobin 27.6 pg (28.0-33.3); Mean Corpuscular Volume 86.8 fL (83.0-100.0); Mean Platelet Volume 11.7 fL (9.4-12.4); Platelet Count 150 K/mcL (140-400); Red Cell Distribution Width 15.1 % (11.5-14.5)
[2016-11-27] MEDS: Acetaminophen 325 MG TABLET PO PRN ×2 (05:55→16:56)
[2016-11-27 06:23] LABS: Alanine Aminotransferase 13 Units/L (0-55); Albumin 2.8 g/dL (3.5-5.0); Albumin/Globulin Ratio 0.8 (1.1-2.2); Alkaline Phosphatase 85 Units/L (38-126); Aspartate Amino Transferase 13 Units/L (5-34); BUN/Creatinine Ratio 23 (6-26); Bilirubin,Total 0.4 mg/dL (0.2-1.2); Calcium 8.7 mg/dL (8.6-10.8); Carbon Dioxide 24 mEq/L (19-29); Chloride 111 mEq/L (98-109); Globulin 3.7 g/dL (2.4-3.5); Glucose 125 mg/dL (70-99); Osmolality,Calculated 294 (280-300); Potassium 4.3 mEq/L (3.5-4.5); Sodium 140 mEq/L (136-145); Total Protein 6.5 g/dL (6.0-8.3); eGFR For African Americans > 60 (> 60); eGFR For Non-African Americans > 60 (> 60)
[2016-11-27 06:24] LABS: Blood Urea Nitrogen 20 mg/dL (7-20)
[2016-11-27] MEDS: 0.9 % Sodium Chloride 1,000 ML IVC SCH ×2 (06:25→19:50)
[2016-11-27] MEDS: Insulin LISPRO 300 UNITS/3 ML VIAL SQ SCH ×4 (07:58→21:45)
[2016-11-27] MEDS: Ascorbic Acid 500 MG TABLET PO SCH (09:48)
[2016-11-27] MEDS: Cholecalciferol (D-3) 1,000 UNIT TABLET PO SCH (09:48)
[2016-11-27] MEDS: Aspirin 81 MG TAB.CHEW PO SCH (09:48)
[2016-11-27] MEDS: Cyanocobalamin (B-12) 1,000 MCG TABLET PO SCH (09:48)
[2016-11-27] MEDS: Folic Acid 1 MG TABLET PO SCH (09:48)
--- NOTE | 2016-11-27 11:05 | Internal Med Progress Note ---
Date of Encounter: 11/27/16 Time of Encounter: 10:55 - Assessment and plan (1) Acute encephalopathy Current Visit: Yes Status: Acute Assessment and plan: Adriana Rangel is a 56 y/o female with PMH schizophrenia, HTN, diabetes and hypothyroidism who presented to [facility] on 11/25/2016 with confusion. She was found to have ALYSIA and in sepsis, therefore she was admitted for IV ATB and further work-up and treatment. 1. Sepsis: With tachycardia, hypotension, WBC 16 K. Lactic acid normal. Chest CT with bilateral groundglass opacity, concerning for pulmonary edema or infection. Currently does not appear to be fluid overloaded, symptoms consistent with infectious etiology. UA not indicative of UTI. Cont IV Levaquin, vancomycin started on admission. Blood cultures negative. Hemodynamically stable, BP improved, intermittently tachycardia into low 100s. Continue treating pneumonia. 2. Pneumonia: Chest CT with bilateral groundglass opacity concerning for infectious etiology. Continue IV Levaquin, Vanco. Urinary antigens, respiratory PCR negative. Sputum culture, MRSA swab pending. Stop vancomycin if MRSA swab negative. Sputum culture pending. 3. Tachycardia: With heart rates into low 100s. Initially septic with hypotension and tachycardia. BP improved and now normotensive. Still with intermittent tachycardia. Murmur noted on exam. Echocardiogram pending. 4. Left arm edema: Significant left arm swelling noted on exam. Remove PIV's, Doppler pending 5. Acute encephalopathy: Presented with confusion. Multifactorial with sepsis, pneumonia, ALYSIA and sedating medication. Head CT nonacute. Mentation appears to be improving. Continue treating underlying causes. Holding home sedating medication. Supportive care. 6. ALYSIA: Cr 1.9 on admission and peaked to 2.2. Renal ultrasound unremarkable. Holding home PASCUAL; avoid nephrotoxic agents as possible. Monitor repeat renal function. Normalized with IV fluids. Cr 0.8 7. Hyperkalemia: K 5.3 and in the setting of ALYSIA. Trial IV bolus, repeat CMP. Kayexalate if no improvement. 8. Falls: With physical deconditioning. Will likely require SNF, acute inpatient rehabilitation at discharge. PT/OT consulted. 9. Schizophrenia: per hx. On multiple psychiatric and sedating medications. Hold for now. Resume as mentation improves. 10. Diabetes: per hx. control unknown. Holding home oral hypoglycemics. SSI. Monitor blood sugar and titrate PRN. Hgb A1c pending 11. DVT prophylaxis: heparin (2) Acute kidney injury Current Visit: Yes Status: Acute (3) Diabetes type 2, uncontrolled Current Visit: No Status: Chronic Qualifiers: Diabetes mellitus complication status: with neurologic complications Diabetes mellitus complication detail: with unspecified neuropathy Diabetes mellitus custodial insulin use: without custodial use Qualified Code(s): E11.40 - Type 2 diabetes mellitus with diabetic neuropathy, unspecified; E11.65 - Type 2 diabetes mellitus with hyperglycemia; E11.65 - Type 2 diabetes mellitus with hyperglycemia; E11.65 - Type 2 diabetes mellitus with hyperglycemia; E11.65 - Type 2 diabetes mellitus with hyperglycemia (4) DVT prophylaxis Current Visit: Yes Status: Acute (5) Schizophrenia Current Visit: No Status: Chronic Qualifiers: Schizophrenia type: unspecified Qualified Code(s): F20.9 - Schizophrenia, unspecified (6) Sepsis Current Visit: No Status: Acute Qualifiers: Sepsis type: sepsis due to unspecified organism Qualified Code(s): A41.9 - Sepsis, unspecified organism - Subjective Interval history: Seen and examined at bedside. Patient says she feels a little better, she still feels like she is a little confused. Denies chest pain, no shortness of breath. Significant swelling noted to left arm, patient does complain of pain to left arm. Mentation appears to be improving, she is more awake and alert and conversing appropriately. - Constitutional Vitals: Temp Pulse Resp BP Pulse Ox 98.2 F 101 17 146/79 98 11/27/16 07:51 11/27/16 07:51 11/27/16 07:51 11/27/16 07:51 11/27/16 09:45 General appearance: Present: A&O X 2, morbidly obese, answers questions appropriately - Head Head exam: Present: atraumatic, normocephalic - Eye Eye exam: Present: PERRL, conjuntiva pink, sclera anicteric Pupils: Present: PERRL - Neck Neck exam general surgery: Present: supple, trachea midline. Absent: lymphadenopathy - Respiratory Respiratory exam: Present: CTAB. Absent: accessory muscle use, rales, rhonchi, wheezes - Cardiovascular Cardiovascular exam: Present: RRR, +S1, +S2, systolic murmur, tachycardia. Absent: gallop, rubs Additional comments: Positive murmur - GI/Abdominal GI/Abdominal exam: Present: normal bowel sounds, soft, no peritoneal signs. Absent: distended, tenderness Additional comments: Obese - Extremities Exam Extremities exam: Present: warm, radial pulses palpable and symmetrical. Absent : calf tenderness, cyanotic, pedal edema - Neurological Exam Neurological exam: Present: CN II-XII intact, oriented X3, no focal deficits. Absent: pronater drift, facial droop, speech deficit - Skin Skin exam: Present: dry, intact, pallor Internal Medicine: Result - Labs CBC & Chem 7: 11/27/16 05:22 11/27/16 05:22 Labs: Short CBC 11/27/16 Range/Units 05:22 WBC 8.1 (4.3-11.1) K/mcL Hgb 11.3 L (11.5-15.4) g/dL Hct 35.6 (35.3-44.9) % Plt Count 150 (140-400) K/mcL BMP 11/27/16 05:22 Sodium 140 Potassium 4.3 D Chloride 111 H Carbon Dioxide 24 BUN 20 D Creatinine 0.88 Glucose 125 H Calcium 8.7 Liver Function 11/27/16 Range/Units 05:22 Total Bilirubin 0.4 (0.2-1.2) mg/dL AST 13 (5-34) Units/L ALT 13 (0-55) Units/L Alkaline Phosphatase 85 (38-126) Units/L Albumin 2.8 L (3.5-5.0) g/dL Consult Discharge Plan - Plan Referrals: Nico Ahmadi MD [Primary Care Provider] -
[2016-11-27] MEDS ORDERED: Perflutren Lipid Microsphere 1.3 ML in 0.9 % Sodium Chloride 8.7 ML IVP ONE (11:59)
--- NOTE | 2016-11-27 15:12 | Venous Imaging Report ---
LE Venous Duplex Patient Name:Adriana Rangel Order Number:[id number] Procedure Date:11/27/2016 Date:1960Age:56 yrs Gender:Female Location:[facility] Room #: 3B14 Floodplain Manager:Marcella Cordova RDCS Referring MD:Maliha Harper, CENTRIFUGAL SPINNER Reading MD:John Goodman MD Primary Indications:lower extremity edema Secondary Indications: Risk Factors Yes/No Hx of DVT Yes Anticoagulants Yes Impressions: Normal bilateral lower extremity deep and superficial venous exam. Recommendations: After imaging the patient returned to their room. Gave vascular preliminary results to Farzana SAMSON, 3B. Test completed on 11/27/2016 at 11:01:00 am. Findings Venous Duplex Results: Right: Venous imaging of the lower extremity reveals full patency and normal vessel compressibility of the right distal iliac, right common femoral, right superficial femoral, right popliteal, right posterior tibial, right peroneal, right great saphenous and right lesser saphenous. Doppler signals in the evaluated veins were normal. Left: Venous imaging of the lower extremity reveals full patency and normal vessel compressibility of the left distal iliac, left common femoral, left superficial femoral, left popliteal, left posterior tibial, left peroneal, left great saphenous and left lesser saphenous. Doppler signals in the evaluated veins were normal. Lower Extremity Venous Duplex Side Vein Compress Spontaneous Flow Augment Diameter (cm) Depth (cm) Right Distal Iliac Normal Yes Phasic Yes Right Common Femoral Normal Yes Phasic Yes Right Superficial Femoral Normal Yes Phasic Yes Right Popliteal Normal Yes Phasic Yes Right Posterior Tibial Normal Yes Phasic Yes Right Peroneal Normal Yes Phasic Yes Right Great Saphenous Normal Yes Phasic Yes Right Lesser Saphenous Normal Yes Phasic Yes Left Distal Iliac Normal Yes Phasic Yes Left Common Femoral Normal Yes Phasic Yes Left Superficial Femoral Normal Yes Phasic Yes Left Popliteal Normal Yes Phasic Yes Left Posterior Tibial Normal Yes Phasic Yes Left Peroneal Normal Yes Phasic Yes Left Great Saphenous Normal Yes Phasic Yes Left Lesser Saphenous Normal Yes Phasic Yes Updated by John Goodman MD on 11/27/2016 3:05:21 PM electronically signed on 11/27/2016 3:05:39 PM with status of Final
--- NOTE | 2016-11-27 15:23 | Venous Imaging Report ---
UE Venous Duplex Patient Name:Adriana Rangel Order Number:[id number] Procedure Date:11/27/2016 Date:1960Age:56 yrs Gender:Female Location:[facility] Room #: 3B14 Pillowcase Cleaner:Marcella Cordova RDCS Referring MD:Maliha Harper, CHECK EMBOSSER Reading MD:John Goodman MD Primary Indications:left arm edema Secondary Indications: Risk Factors Yes/No Anticoagulants Yes Hx of DVT Yes Impressions: Normal left upper extremity deep venous exam. Acute superficial venous thrombosis is present in the left cephalic vein. Normal contralateral common femoral vein. Recommendations: After imaging the patient returned to their room. Gave vascular preliminary results to Farzana SAMSON on 11/27/2016 at 12:30. Test completed on 11/27/2016 at 11:23:00 am. Critical findings reported to Farzana SAMSON 3B by phone at 12:30:00 pm on 11/27/2016 by Marcella Cordova RDCS. Findings Venous Duplex Results: Right: Venous imaging of the upper extremity reveals full patency and normal vessel compressibility of the right subclavian. Doppler signals in the evaluated veins were normal. Left: Venous imaging of the upper extremity reveals full patency and normal vessel compressibility of the left jugular, left subclavian, left axillary, left brachial, left cephalic forearm, left basilic, left radial and left ulnar. Doppler signals in the evaluated veins were normal. The left cephalic upper arm demonstrates an incompressible vein. Flow was absent and it did not augment. Upper Extremity Venous Duplex Side Vein Compress Spontaneous Flow Augment Left Jugular Normal yes Phasic yes Left Subclavian Normal yes Phasic yes Left Axillary Normal yes Phasic yes Left Brachial Normal yes Phasic yes Left Cephalic Upper Arm None no Absent no Left Cephalic Forearm Normal yes Phasic yes Left Basilic Normal yes Phasic yes Left Radial Normal yes Phasic yes Left Ulnar Normal yes Phasic yes Right Subclavian Normal yes Phasic yes Updated by John Goodman MD on 11/27/2016 3:13:47 PM electronically signed on 11/27/2016 3:17:06 PM with status of Final
[2016-11-27] MEDS: Piperacillin/Tazobactam 3.375 GM in D5% in Water (Mini-Bag+) 100 ML IVPB SCH (16:49)
[2016-11-27] MEDS ORDERED: Ipratropium/Albuterol Neb 3 ML IH SCH (20:00)
[2016-11-27] MEDS: Insulin DETEMIR 100 UNIT/ML X5UNITS SQ SCH (21:46)
[2016-11-27] MEDS ORDERED: Levofloxacin 750 MG/150 ML 750 MG/150 ML BAG IVPB SCH (22:00)
[2016-11-27] MEDS: Vancomycin 1,750 MG in D5% in Water 500 ML IVPB SCH (23:59)
[2016-11-28] MEDS: Ipratropium/Albuterol Neb 3 ML IH SCH ×7 (00:52→23:25)
[2016-11-28] MEDS: Piperacillin/Tazobactam 3.375 GM in D5% in Water (Mini-Bag+) 100 ML IVPB SCH ×2 (01:48→08:00)
[2016-11-28 03:21] LABS: Hematocrit 33.7 % (35.3-44.9); Hemoglobin 10.8 g/dL (11.5-15.4); Mean Corpuscular Hemoglobin 27.6 pg (28.0-33.3); Mean Platelet Volume 10.7 fL (9.4-12.4); Platelet Count 132 K/mcL (140-400); Red Blood Count 3.92 M/mcL (3.82-4.97); Red Cell Distribution Width 14.8 % (11.5-14.5)
[2016-11-28 03:30] LABS: Hemoglobin A1C 8.5 %
[2016-11-28 03:37] LABS: Alanine Aminotransferase 14 Units/L (0-55); Albumin 2.7 g/dL (3.5-5.0); Albumin/Globulin Ratio 0.8 (1.1-2.2); Alkaline Phosphatase 86 Units/L (38-126); Aspartate Amino Transferase 13 Units/L (5-34); BUN/Creatinine Ratio 11 (6-26); Bilirubin,Total 0.4 mg/dL (0.2-1.2); Calcium 8.6 mg/dL (8.6-10.8); Carbon Dioxide 24 mEq/L (19-29); Chloride 108 mEq/L (98-109); Globulin 3.3 g/dL (2.4-3.5); Glucose 232 mg/dL (70-99); Osmolality,Calculated 292 (280-300); Potassium 3.8 mEq/L (3.5-4.5); Sodium 138 mEq/L (136-145); eGFR For African Americans > 60 (> 60); eGFR For Non-African Americans > 60 (> 60)
[2016-11-28 03:38] LABS: Blood Urea Nitrogen 8 mg/dL (7-20)
[2016-11-28] MEDS: *HR* Heparin 5,000 UNIT/ML VIAL SQ SCH ×3 (05:57→22:33)
[2016-11-28] MEDS ORDERED: Aminoglycoside Consult 1 EACH MC ONE (07:49)
[2016-11-28] MEDS: Levofloxacin 750 MG/150 ML 750 MG/150 ML BAG IVPB SCH (08:02)
[2016-11-28] MEDS: Insulin LISPRO 300 UNITS/3 ML VIAL SQ SCH ×4 (08:02→22:32)
[2016-11-28] MEDS: Folic Acid 1 MG TABLET PO SCH (08:03)
[2016-11-28] MEDS: Cyanocobalamin (B-12) 1,000 MCG TABLET PO SCH (08:03)
[2016-11-28] MEDS: Ascorbic Acid 500 MG TABLET PO SCH (08:03)
[2016-11-28] MEDS: Acetaminophen 325 MG TABLET PO PRN ×3 (08:03→17:56)
[2016-11-28] MEDS: Aspirin 81 MG TAB.CHEW PO SCH (08:03)
[2016-11-28] MEDS: Cholecalciferol (D-3) 1,000 UNIT TABLET PO SCH (08:03)
[2016-11-28] MEDS: Miconazole w/zinc oxide&karaya 92 APPL/92 GM TUBE TP SCH ×2 (14:46→22:34)
[2016-11-28] MEDS ORDERED: cloNIDine HCl 0.1 MG TABLET PO ONE (16:47)
--- NOTE | 2016-11-28 16:49 | Internal Med Progress Note ---
Date of Encounter: 11/28/16 Time of Encounter: 08:33 - Assessment and plan (1) Acute encephalopathy Current Visit: Yes Status: Acute Assessment and plan: Adriana Rangel is a 56 y/o female with PMH schizophrenia, HTN, diabetes and hypothyroidism who presented to [facility] on 11/25/2016 with confusion. She was found to have ALYSIA and in sepsis, therefore she was admitted for IV ATB and further work-up and treatment. 1. Sepsis: With tachycardia, hypotension, WBC 16 K. Lactic acid normal. Chest CT with bilateral groundglass opacity, concerning for pulmonary edema or infection. Currently does not appear to be fluid overloaded, symptoms consistent with infectious etiology. UA not indicative of UTI. Cont IV Levaquin, vancomycin started on admission. Blood cultures negative. Hemodynamically stable, BP improved, intermittently tachycardia into low 100s. Continue treating pneumonia. 2. Pneumonia: Chest CT with bilateral groundglass opacity concerning for infectious etiology. Continue IV Levaquin, Vanco. Urinary antigens, respiratory PCR negative. Sputum culture, MRSA swab pending. Stop vancomycin if MRSA swab negative. Sputum culture pending. 3. Tachycardia: With heart rates into low 100s. Initially septic with hypotension and tachycardia. BP improved and now normotensive to hypertensive. 11/27/16 TTE with a 60%, no valvular dysfunction. Add BB with hypertension. Monitor BP and heart rate. Titrate when necessary. 4. Left arm edema: Significant left arm swelling noted on exam. Remove PIV's, Doppler pending 5. Acute encephalopathy: Presented with confusion. Multifactorial with sepsis, pneumonia, ALYSIA and sedating medication. Head CT nonacute. Appears to be back at baseline. Continue treating underlying causes. Holding home sedating medication. Supportive care. 6. ALYSIA: Cr 1.9 on admission and peaked to 2.2. Renal ultrasound unremarkable. Holding home PASCUAL; avoid nephrotoxic agents as possible. Monitor repeat renal function. Normalized with IV fluids. Cr 0.8 7. Falls: With physical deconditioning. Will likely require SNF, acute inpatient rehabilitation at discharge. PT/OT consulted. 8. Schizophrenia: per hx. On multiple psychiatric and sedating medications. Hold for now. Resume as mentation improves. 9. Diabetes: per hx. Uncontrolled. Hgb A1c 8.7%. Holding home oral hypoglycemics. SSI. Add long-acting insulin. Monitor blood sugar and titrate PRN. 10. DVT prophylaxis: heparin (2) Acute kidney injury Current Visit: Yes Status: Acute (3) Diabetes type 2, uncontrolled Current Visit: No Status: Chronic Qualifiers: Diabetes mellitus complication status: with neurologic complications Diabetes mellitus complication detail: with unspecified neuropathy Diabetes mellitus exterminator helper insulin use: without fdc use Qualified Code(s): E11.40 - Type 2 diabetes mellitus with diabetic neuropathy, unspecified; E11.65 - Type 2 diabetes mellitus with hyperglycemia; E11.65 - Type 2 diabetes mellitus with hyperglycemia; E11.65 - Type 2 diabetes mellitus with hyperglycemia; E11.65 - Type 2 diabetes mellitus with hyperglycemia (4) DVT prophylaxis Current Visit: Yes Status: Acute (5) Schizophrenia Current Visit: No Status: Chronic Qualifiers: Schizophrenia type: unspecified Qualified Code(s): F20.9 - Schizophrenia, unspecified (6) Sepsis Current Visit: No Status: Acute Qualifiers: Sepsis type: sepsis due to unspecified organism Qualified Code(s): A41.9 - Sepsis, unspecified organism - Subjective Interval history: Seen and examined at bedside. In bed says she feels okay. She actually has no complaints. - Constitutional Vitals: Temp Pulse Resp BP Pulse Ox 100.3 F H 118 16 176/80 95 11/28/16 16:13 11/28/16 16:13 11/28/16 16:42 11/28/16 16:13 11/28/16 16:42 General appearance: Present: A&O X 2, morbidly obese, answers questions appropriately - Head Head exam: Present: atraumatic, normocephalic - Eye Eye exam: Present: PERRL, conjuntiva pink, sclera anicteric Pupils: Present: PERRL - Neck Neck exam general surgery: Present: supple, trachea midline. Absent: lymphadenopathy - Respiratory Respiratory exam: Present: CTAB. Absent: accessory muscle use, rales, rhonchi, wheezes - Cardiovascular Cardiovascular exam: Present: RRR, +S1, +S2. Absent: diastolic murmur, gallop, rubs, systolic murmur - GI/Abdominal GI/Abdominal exam: Present: normal bowel sounds, soft, no peritoneal signs. Absent: distended, tenderness - Extremities Exam Extremities exam: Present: pedal edema (Decreasing swelling to left arm), warm, radial pulses palpable and symmetrical. Absent: calf tenderness, cyanotic - Neurological Exam Neurological exam: Present: CN II-XII intact, oriented X3, no focal deficits. Absent: pronater drift, facial droop, speech deficit - Skin Skin exam: Present: dry, intact Internal Medicine: Result - Labs CBC & Chem 7: 11/28/16 03:08 11/28/16 03:08 Labs: Short CBC 11/28/16 Range/Units 03:08 WBC 6.7 (4.3-11.1) K/mcL Hgb 10.8 L (11.5-15.4) g/dL Hct 33.7 L (35.3-44.9) % Plt Count 132 L (140-400) K/mcL BMP 11/28/16 03:08 Sodium 138 Potassium 3.8 Chloride 108 Carbon Dioxide 24 BUN 8 D Creatinine 0.73 Glucose 232 H Calcium 8.6 Liver Function 11/28/16 Range/Units 03:08 Total Bilirubin 0.4 (0.2-1.2) mg/dL AST 13 (5-34) Units/L ALT 14 (0-55) Units/L Alkaline Phosphatase 86 (38-126) Units/L Albumin 2.7 L (3.5-5.0) g/dL Consult Discharge Plan - Plan Referrals: Nico Ahmadi MD [Primary Care Provider] -
--- NOTE | 2016-11-28 18:08 | Electrocardiograph Report ---
[place] [id number] Test Date: 2016-11-25 Pat Name: Adriana Rangel Department: 102 Room: 3B14 Gender: F [employer] Weapons Officer: KINA : 1960 Requested By: Eliseo Chery Order Number: [id number] Reading MD: Blaine Owen MD Measurements Intervals [place] Rate: 92 P: 52 SC: 153 QRS: -1 QRSD: 93 T: 8 QT: 339 QTc: 388 Interpretive Statements SINUS RHYTHM MODERATE VOLTAGE CRITERIA FOR LVH Electronically Signed On 11-28-2016 18:06:55 EDT by Blaine Owen MD
[2016-11-28] MEDS ORDERED: Ondansetron 4 MG/2 ML VIAL IVP PRN (22:22)
[2016-11-28] MEDS: Insulin DETEMIR 100 UNIT/ML X5UNITS SQ SCH (22:33)
[2016-11-29] MEDS: Ipratropium/Albuterol Neb 3 ML IH SCH ×3 (03:11→11:57)
[2016-11-29 04:13] LABS: Hemoglobin 11.1 g/dL (11.5-15.4); Mean Corpuscular HGB Conc 31.7 g/dL (31.6-35.5); Mean Corpuscular Hemoglobin 27.4 pg (28.0-33.3); Mean Corpuscular Volume 86.4 fL (83.0-100.0); Mean Platelet Volume 11.1 fL (9.4-12.4); Platelet Count 149 K/mcL (140-400); Red Blood Count 4.05 M/mcL (3.82-4.97); Red Cell Distribution Width 14.9 % (11.5-14.5)
[2016-11-29 04:19] LABS: Alanine Aminotransferase 13 Units/L (0-55); Albumin 2.8 g/dL (3.5-5.0); Albumin/Globulin Ratio 0.7 (1.1-2.2); Alkaline Phosphatase 86 Units/L (38-126); Aspartate Amino Transferase 18 Units/L (5-34); BUN/Creatinine Ratio 11 (6-26); Bilirubin,Total 0.5 mg/dL (0.2-1.2); Blood Urea Nitrogen 9 mg/dL (7-20); Calcium 8.9 mg/dL (8.6-10.8); Carbon Dioxide 24 mEq/L (19-29); Chloride 108 mEq/L (98-109); Globulin 3.8 g/dL (2.4-3.5); Glucose 192 mg/dL (70-99); Osmolality,Calculated 296 (280-300); Sodium 141 mEq/L (136-145); Total Protein 6.6 g/dL (6.0-8.3); eGFR For African Americans > 60 (> 60); eGFR For Non-African Americans > 60 (> 60)
[2016-11-29 04:20] LABS: Potassium 4.1 mEq/L (3.5-4.5)
[2016-11-29] MEDS: *HR* Heparin 5,000 UNIT/ML VIAL SQ SCH (05:46)
[2016-11-29 07:35] VITALS: BP 147/77
[2016-11-29] MEDS: Insulin LISPRO 300 UNITS/3 ML VIAL SQ SCH ×2 (08:42→12:22)
[2016-11-29] MEDS: Miconazole w/zinc oxide&karaya 92 APPL/92 GM TUBE TP SCH (08:44)
[2016-11-29] MEDS: Aspirin 81 MG TAB.CHEW PO SCH (08:45)
[2016-11-29] MEDS: Levofloxacin 750 MG/150 ML 750 MG/150 ML BAG IVPB SCH (08:45)
[2016-11-29] MEDS: Folic Acid 1 MG TABLET PO SCH (08:45)
[2016-11-29] MEDS: Ascorbic Acid 500 MG TABLET PO SCH (08:47)
[2016-11-29] MEDS: Cholecalciferol (D-3) 1,000 UNIT TABLET PO SCH (08:47)
[2016-11-29] MEDS: Cyanocobalamin (B-12) 1,000 MCG TABLET PO SCH (08:47)
--- NOTE | 2016-11-29 13:11 | Discharge Summary ---
Date of Encounter: 11/29/16 Time of Encounter: 13:11 - Discharge Diagnosis (1) Acute encephalopathy Priority: Primary Status: Acute Comments: Adriana Rangel is a 56 y/o female with PMH schizophrenia, HTN, diabetes and hypothyroidism who presented to [facility] on 11/25/2016 with confusion. She was found to have ALYSIA and in sepsis, therefore she was admitted for IV ATB and further work-up and treatment. She was found to have pneumonia and was treated with IV ATB. Hospital course, located/prolonged due to development of sepsis. Her symptoms improved and she was discharged to SNF on 11/29/2016 for continued therapy. 1. Pneumonia: Chest CT with bilateral ground-glass opacity concerning for infectious etiology. IV Levaquin, Vanco started on admission. Urinary antigens, respiratory PCR, MRSA swab negative. No sputum to culture. ATB de-escalated to Levaquin only as she clinically improved. Cont Levaquin for 7 day total course ( stop after dose on 12/04/16). 2. Sepsis: With tachycardia, hypotension, WBC 16 K. Lactic acid normal. Secondary to pneumonia. Initially treated with IV Levaquin, vancomycin. Blood cultures negative. Resolved at time of discharge. 3. Left arm edema: Significant left arm swelling noted on 11/27/16 exam. PIVs removed. Left extremity venous Doppler with acute superficial venous thrombosis and left cephalic vein. Anticoagulation not indicated with superficial venous thrombosis. Left arm swelling significantly improved with elevation. Continue supportive care. 5. Acute encephalopathy: Presented with confusion. Multifactorial with sepsis, pneumonia, ALYSIA and sedating medication. Head CT non-acute. Mentation improved and back to baseline with treating underlying causes. 6. ALYSIA: Cr 1.9 on admission and peaked to 2.2. Renal ultrasound unremarkable. Normalized with IV fluids. Cr 0.8. Recommend repeat CMP in 2-3 days with resuming PASCUAL to monitor renal function. 7. Falls: With physical deconditioning. Evaluated by physical therapy who recommended intermediate for continued rehabilitation. 8. Schizophrenia: per hx. On multiple psychiatric and sedating medications which were held on admission. Resume home Zoloft at discharge. Defer resuming home Elavil, baclofen, gabapentin, Risperdal to F physician as she can be closely monitored 9. Diabetes: per hx. Uncontrolled. Hgb A1c 8.7%. Treated with SSI inpatient. On metformin at home, will increase to 1,000 BID. Cont home metformin and long- acting insulin. Blood sugar can be monitored at ECF. Defer further medication changes to ECF physician. (2) Acute kidney injury Priority: Primary Status: Acute (3) Diabetes type 2, uncontrolled Priority: Primary Status: Chronic Qualifiers: Diabetes mellitus complication status: with neurologic complications Diabetes mellitus complication detail: with unspecified neuropathy Diabetes mellitus english division chair insulin use: without senior living use Qualified Code(s): E11.40 - Type 2 diabetes mellitus with diabetic neuropathy, unspecified; E11.65 - Type 2 diabetes mellitus with hyperglycemia; E11.65 - Type 2 diabetes mellitus with hyperglycemia; E11.65 - Type 2 diabetes mellitus with hyperglycemia; E11.65 - Type 2 diabetes mellitus with hyperglycemia (4) Schizophrenia Priority: Primary Status: Chronic Qualifiers: Schizophrenia type: unspecified Qualified Code(s): F20.9 - Schizophrenia, unspecified (5) Sepsis Priority: Primary Status: Acute Qualifiers: Sepsis type: sepsis due to unspecified organism Qualified Code(s): A41.9 - Sepsis, unspecified organism - Discharge Medications Prescriptions: HYDROcodone/Acet 10/325 mg [[place] 10-325 mg] 1 tab PO TID PRN #21 tablet PRN Reason: Pain Levofloxacin [Levaquin] 750 mg PO DAILY #5 tablet Home Medications: Acetaminophen/Butalbital/Caffe [Fioricet] 1 each PO BID PRN 11/07/16 [History] Ascorbic Acid [Vitamin C] 500 mg PO DAILY 11/07/16 [History] Aspirin 81 mg PO DAILY 11/07/16 [History] Atorvastatin [Lipitor] 40 mg PO HS 11/07/16 [History] Cyanocobalamin (Vitamin B-12) [Vitamin B12] 1,000 mcg PO DAILY 11/07/16 [History ] Ergocalciferol (VITAMIN D2) [Vitamin D2] 50,000 unit PO CARDOZA 11/07/16 [History] Esomeprazole Magnesium [Nexium] 40 mg PO DAILY 11/07/16 [History] Folic Acid 1 mg PO DAILY 11/07/16 [History] Furosemide [Lasix] 40 mg PO DAILY 11/07/16 [History] Levothyroxine [Synthroid] 75 mcg PO 0630 11/07/16 [History] Lisinopril 2.5 mg PO DAILY 11/07/16 [History] Sertraline [Zoloft] 200 mg PO DAILY 11/07/16 [History] Insulin Glargine,Hum.rec.anlog [Lantus Solostar] 50 unit SQ HS 11/25/16 [History ] HYDROcodone/Acet 10/325 mg [[place] 10-325 mg] 1 tab PO TID PRN #21 tablet [Rx] Ipratropium/Albuterol Neb [Duoneb] 3 ml IH [id number] inhsol 11/29/16 [Rx] Levofloxacin [Levaquin] 750 mg PO DAILY #5 tablet 11/29/16 [Rx] Metoprolol [Lopressor] 25 mg PO BID tablet 11/29/16 [Rx] metFORMIN [Glucophage] 1,000 mg PO BIDWM #60 11/29/16 [Rx] Allergies/Adverse Reactions: 3 Allergy/AdvReac Type Severity Reaction Status Date / Time No Known Allergies Allergy Verified 11/25/16 12:50 Procedures/tests Complete & Pending: Procedures Performed prior 72 hours Category Date Time Status EKG [ECG 12 lead ECG] [ECG] Stat Y 11/28/16 12:21 Completed EV echocardiogram w enhance Routine Y 11/27/16 15:34 Completed EV venous imaging LE BI Routine Y 11/27/16 15:34 Completed Venous Doppler [EV venous imaging UE LT] Stat Y 11/27/16 09:00 Completed Date of admission: 11/26/16 15:01 Primary care physician: Nico Ahmadi MD Consults: 11/26/16 23:18 Consult to Wound Care [CONS] Routine Reason for Consult: Stage 2 to coccyx, states she does not get out of bed at home. Call Completed: No Discharging clinician: Maliha Harper Anticipated date of discharge: 11/29/16 - Patient Status Disposition: Transfer SNF Condition: Good Functional capacity at discharge: bed bound Overall status at discharge: patient is progressing back to baseline - Discharge Instructions Follow Up With: Nico Ahmadi MD [Primary Care Provider] - - Diet and Activity Activity: as per physical therapy Diet: diabetic diet Interval History: Seen and examined at bedside; she is more alert and awake. Says she feels better. She is agreeable to go to SNF. She has no complaints, denies CP no SOB, no fevers or chills/ Hospital course: Ms. Rangel is a 56 year old female - Time Spent with Patient Total time spent providing and/or coordinating discharge services: - Constitutional Vitals: Temp Pulse Resp BP Pulse Ox 98.7 F 92 18 147/77 96 11/29/16 12:07 11/29/16 12:07 11/29/16 12:07 11/29/16 07:34 11/29/16 12:07 General appearance: Present: A&O X 2, morbidly obese, answers questions appropriately - Head Head exam: Present: atraumatic, normocephalic - Eye Eye exam: Present: PERRL, conjuntiva pink, sclera anicteric Pupils: Present: PERRL - ENT Additional comments: Poor dentition - Neck Neck exam general surgery: Present: supple, trachea midline. Absent: lymphadenopathy - Respiratory Respiratory exam: Present: CTAB. Absent: accessory muscle use, rales, rhonchi, wheezes - Cardiovascular Cardiovascular exam: Present: RRR, +S1, +S2. Absent: diastolic murmur, gallop, rubs, systolic murmur - GI/Abdominal GI/Abdominal exam: Present: normal bowel sounds, soft, no peritoneal signs. Absent: distended, tenderness Additional comments: Obese - Extremities Exam Extremities exam: Present: pedal edema, warm, radial pulses palpable and symmetrical. Absent: calf tenderness, cyanotic Additional comments: Nonpitting trace bilateral pedal edema. Interstitial edema to left arm resolving - Neurological Exam Neurological exam: Present: CN II-XII intact, oriented X3, no focal deficits. Absent: pronater drift, facial droop, speech deficit - Skin Skin exam: Present: dry, intact
--- NOTE | 2016-11-29 14:19 | Physician Discharge Referral ---
ExtendedCare Referral Info Transfer To: [facility] Provider in Charge: Maliha Harper CNP Provider in Charge after Transfer: Other (SNF physician) Institutional Level of Care: Skilled - Diagnosis (1) Acute encephalopathy Status: Acute (2) Acute kidney injury Status: Acute (3) Diabetes type 2, uncontrolled Status: Chronic (4) Schizophrenia Status: Chronic (5) Sepsis Status: Acute - Transfer Medications Prescriptions: HYDROcodone/Acet 10/325 mg [Ralph 10-325 mg] 1 tab PO TID PRN #21 tablet PRN Reason: Pain Levofloxacin [Levaquin] 750 mg PO DAILY #5 tablet Home Medications: Acetaminophen/Butalbital/Caffe [Fioricet] 1 each PO BID PRN 11/07/16 [History] Ascorbic Acid [Vitamin C] 500 mg PO DAILY 11/07/16 [History] Aspirin 81 mg PO DAILY 11/07/16 [History] Atorvastatin [Lipitor] 40 mg PO HS 11/07/16 [History] Cyanocobalamin (Vitamin B-12) [Vitamin B12] 1,000 mcg PO DAILY 11/07/16 [History ] Ergocalciferol (VITAMIN D2) [Vitamin D2] 50,000 unit PO CARDOZA 11/07/16 [History] Esomeprazole Magnesium [Nexium] 40 mg PO DAILY 11/07/16 [History] Folic Acid 1 mg PO DAILY 11/07/16 [History] Furosemide [Lasix] 40 mg PO DAILY 11/07/16 [History] Levothyroxine [Synthroid] 75 mcg PO 0630 11/07/16 [History] Lisinopril 2.5 mg PO DAILY 11/07/16 [History] Sertraline [Zoloft] 200 mg PO DAILY 11/07/16 [History] Insulin Glargine,Hum.rec.anlog [Lantus Solostar] 50 unit SQ HS 11/25/16 [History ] HYDROcodone/Acet 10/325 mg [Ralph 10-325 mg] 1 tab PO TID PRN #21 tablet [Rx] Ipratropium/Albuterol Neb [Duoneb] 3 ml IH [id number] inhsol 11/29/16 [Rx] Levofloxacin [Levaquin] 750 mg PO DAILY #5 tablet 11/29/16 [Rx] Metoprolol [Lopressor] 25 mg PO BID tablet 11/29/16 [Rx] metFORMIN [Glucophage] 1,000 mg PO BIDWM #60 11/29/16 [Rx] Allergies/Adverse Reactions: 3 Allergy/AdvReac Type Severity Reaction Status Date / Time No Known Allergies Allergy Verified 11/25/16 12:50 - Respiratory Orders Oxygen / L per min (2) Smoking Cessation: Smoking cessation has been advised. For more information, call the [place] Tobacco Quit Line at 8-608-HMQU-NOW. - Advance Directives Code Status: Full Code - Rehabiliation Orders Rehab Orders: Evaluation for Physical Therapy, Evaluation for Occupational Therapy - Treatments List/Other: Per SNF - Diet Orders No Concentrated Sweets CERTIFICATION: I certify that the transfer of the above named patient to an Extended Care Facility is necessary for the continuing treatment of the diagnosis listed. The above information is true and accurate reflection of patient's current condition. Confidential - Redisclosure prohibited without a patient's written consent.
--- NOTE | 2016-11-29 16:40 | Electrocardiograph Report ---
[address] [place], [place] [address] Test Date: 2016-11-28 Pat Name: Adriana Rangel Department: 113 Room: 3B14 Gender: F Return To Factory Clerk: : [id number] Requested By: Maliha Harper Order Number: [id number] Reading MD: Dalila Kaufman Measurements Intervals [place] Rate: 108 P: 58 MO: 152 QRS: 10 QRSD: 93 T: 20 QT: 317 QTc: 380 Interpretive Statements SINUS TACHYCARDIA ABNORMAL RHYTHM ECG Electronically Signed On 11-29-2016 16:38:17 EDT by Dalila Kaufman
== END 2016-11-29 15:26 | DRG 871 ==
LOC: EMEROO 12:45 → 3BNU 12:45
PROVIDERS: ADMIT Hospitalist; ATTEND Registered Nurse

== ENCOUNTER 2017-01-09 21:56 | Inpatient (IN) ==
[2017-01-09 23:06] LABS: Basophils # 0.1 K/mcL (0.0-0.2); Basophils % 0.4 %; Hematocrit 37.3 % (35.3-44.9); Hemoglobin 11.8 g/dL (11.5-15.4); Immature Granulocytes % 0.7 % (0-4); Lymphocytes # 0.5 K/mcL (0.6-4.6); Mean Corpuscular HGB Conc 31.6 g/dL (31.6-35.5); Mean Corpuscular Hemoglobin 27.4 pg (28.0-33.3); Mean Corpuscular Volume 86.5 fL (83.0-100.0); Mean Platelet Volume 11.4 fL (9.4-12.4); Monocytes # 0.9 K/mcL (0.0-1.3); Monocytes % 5.2 %; Neutrophils # 15.3 K/mcL (1.6-8.9); Platelet Count 124 K/mcL (140-400); Red Blood Count 4.31 M/mcL (3.82-4.97); Red Cell Distribution Width 14.9 % (11.5-14.5); Segmented Neutrophils % 90.7 %
[2017-01-09] MEDS ORDERED: 0.9 % Sodium Chloride 1,000 ML IVC SCH (23:15)
[2017-01-09 23:18] LABS: Calcium 8.8 mg/dL (8.6-10.8); Potassium 4.4 mEq/L (3.5-4.5)
[2017-01-09 23:29] LABS: Bilirubin,Urine Small (Negative); Blood,Urine Negative (Negative); Clarity,Urine Cloudy (Clear); Color,Urine Yellow (Yellow); Glucose,Urine (UA) Normal (Normal); Ketones,Urine Negative (Negative); Leukocyte Esterase,Urine Negative (Negative); Nitrite,Urine Negative (Negative); PH,Urine 5.5 pH Units (5.0-8.0); Protein,Urine Negative (Neg-Trace); Specific Gravity,Urine 1.022 (1.010-1.025); Urobilinogen,Urine Normal (Normal)
[2017-01-09 23:32] LABS: Bacteria,Urine None Seen per hpf (None-Few); Squamous Epithelial Cell,Urine Many per lpf (None-Few)
--- NOTE | 2017-01-09 23:44 | Emergency Department Note ---
Disposition Clinical Impression: Weakness generalized Leukocytosis Qualifiers: Leukocytosis type: unspecified Qualified Code(s): D72.829 - Elevated white blood cell count, unspecified Disposition: Admitted As Inpatient Condition: Fair Time of Disposition: 02:17 Weakness HPI - General Chief complaint: ED Fall Stated complaint: FALL/WEAKNESS Time Seen by Provider: 01/09/17 22:48 Source: patient Limitations: no limitations Nursing Notes Reviewed: Yes Vital Signs Reviewed: Yes - History of Present Illness HPI Narrative: 56-year-old female is brought to the emergency department by EMS for evaluation of generalized weakness, fatigue, and frequent falls. The patient had just been discharged from a local senior living facility 2 days ago after placement for generalized weakness and frequent falls. The patient's family states that the patient had progressed fairly well, and was near baseline. She states that yesterday evening, there was a noticeable decrease in mobility and as well as an increase in fatigue and lethargy. This had steadily progressed to the point that the patient was falling asleep at the dinner table this evening. The patient's family members state that the patient nearly fell, but was called by a bystander family member and assisted to the ground gently. The patient does complain of a cough but denies any sputum production. She denies any fever or chills. She denies any nausea, vomiting, abdominal pain, or diarrhea. Family members in the room state that the patient is not mentating at baseline. They state that she is extremely confused. Pt Subjective Complaint: generalized weakness/fatigue Onset (ago): day(s) (Since yesterday evening) Duration: gradually worsening Pain Scale: 0 Associated symptoms: Reports: other (Cough). Denies: chest pain, fever/chills, nausea/vomiting, shortness of breath - Related Data Home Medications Medication Instructions Recorded Confirmed Acetaminophen/Butalbital/Caffe 1 each PO BID PRN 11/07/16 11/25/16 [Fioricet] Ascorbic Acid [Vitamin C] 500 mg PO DAILY 11/07/16 11/25/16 Aspirin 81 mg PO DAILY 11/07/16 11/25/16 Atorvastatin [Lipitor] 40 mg PO HS 11/07/16 11/25/16 Cyanocobalamin (Vitamin B-12) 1,000 mcg PO DAILY 11/07/16 11/25/16 [Vitamin B12] Ergocalciferol (VITAMIN D2) 50,000 unit PO CARDOZA 11/07/16 11/25/16 [Vitamin D2] Esomeprazole Magnesium [Nexium] 40 mg PO DAILY 11/07/16 11/25/16 Folic Acid 1 mg PO DAILY 11/07/16 11/25/16 Furosemide [Lasix] 40 mg PO DAILY 11/07/16 11/25/16 Levothyroxine [Synthroid] 75 mcg PO 0630 11/07/16 11/25/16 Lisinopril 2.5 mg PO DAILY 11/07/16 11/25/16 Sertraline [Zoloft] 200 mg PO DAILY 11/07/16 11/25/16 Insulin Glargine,Hum.rec.anlog 50 unit SQ HS 11/25/16 11/25/16 [Lantus Solostar] Previous Rx's Medication Instructions Recorded HYDROcodone/Acet 10/325 mg [Vanderwagen 1 tab PO TID PRN #21 tablet 11/29/16 10-325 mg] Insulin DETEMIR [Levemir] 50 unit SQ HS [id number] 11/29/16 Ipratropium/Albuterol Neb [Duoneb] 3 ml IH [id number] inhsol 11/29/16 Levofloxacin [Levaquin] 750 mg PO DAILY #5 tablet 11/29/16 Metoprolol [Lopressor] 25 mg PO BID tablet 11/29/16 metFORMIN [Glucophage] 1,000 mg PO BIDWM #60 11/29/16 Allergies Allergy/AdvReac Type Severity Reaction Status Date / Time No Known Allergies Allergy Verified 11/25/16 12:50 Constitutional: Reports: as per HPI, weakness. Denies: fever, chills, weight change Eyes: Denies: eye pain, eye discharge, vision change ENT ED: Denies: ear pain, throat pain, dental pain, hearing loss, epistaxis, congestion, dysphagia Cardiovascular: Denies: chest pain, palpitations, dyspnea on exertion, edema, syncope Respiratory: Denies: cough, dyspnea, wheezes, hemoptysis, stridor Gastrointestinal: Denies: abdominal pain, nausea, vomiting, diarrhea, constipation, hematemesis, melena, hematochezia Genitourinary: Denies: dysuria, frequency, hematuria, discharge Musculoskeletal: Reports: as per HPI, back pain. Denies: neck pain, arthralgia , myalgia Integumentary: Denies: rash, abrasion, lesions Neurological: Denies: headache, weakness, numbness, paresthesias, confusion, abnormal gait, vertigo Psychiatric: Denies: anxiety, depression, suicidal thoughts, homicidal thoughts , auditory hallucinations, visual hallucinations Endocrine: Denies: fatigue Hematological/Lymphatic: Denies: easy bleeding, easy bruising Allergic/Immunologic: Denies: facial swelling, urticaria Past Medical History - Past Medical History Attestation: Yes The following information was validated with the patient. Source: patient, obtained from family, nursing notes reviewed Medical history: Reports: diabetes, GERD, hyperlipidemia, kidney stones, pulmonary embolus Surgical history: Reports: non-contributory Psychiatric history: Reports: anxiety, depression - Social History Smoking Status: Never smoker Smokeless Tobacco Status: No Alcohol use: Reports: none Drug use: Reports: none Physical Exam - General Limitations: no limitations General appearance: alert - Head Head exam: atraumatic, normocephalic, normal inspection - Eye Eye exam: Present: normal appearance, PERRL, EOMI. Absent: nystagmus - Expanded Eye Exam Pupils: Bilateral: regular, round, reactive, size (4) - ENT ENT exam: mucous membranes dry - Neck Neck exam: Present: normal inspection, full ROM, trachea midline. Absent: tenderness - Chest Chest inspection: Present: normal inspection, symmetric chest wall rise - Respiratory Respiratory exam: Present: normal lung sounds bilaterally. Absent: respiratory distress, wheezes, stridor, accessory muscle use, prolonged expiratory phase - Cardiovascular Cardiovascular exam: Present: regular rate, normal rhythm, normal heart sounds - Abdominal Exam Abdominal exam: Present: soft, Non-Tender, normal bowel sounds - Extremities Exam Extremities exam: Present: normal inspection, full ROM. Absent: tenderness, pedal edema - Back Exam Back exam: Present: normal inspection, full ROM. Absent: tenderness, vertebral tenderness - Neurological Exam Neurological exam: Present: alert, oriented X3 - Psychiatric Psychiatric exam: Present: normal affect, normal mood - Skin Skin exam: Present: warm, dry, intact, normal color. Absent: rash Course Course Narrative: I discussed this patient with Dr. Dima Amaro. Dr. Dima Amaro has had a [id number]-eq-qeas evaluation with the patient. 0215: I spoke with Dr. Rosario of the hospitalist service to the [facility] for the patient for admission. Vital Signs Temperature 97.7 F 01/09/17 21:57 Pulse Rate 131 01/09/17 21:57 Respiratory Rate 24 01/09/17 21:57 Blood Pressure 86/50 01/09/17 21:57 O2 Sat by Pulse Oximetry 98 01/09/17 21:57 Temperature 97.6 F 01/10/17 03:24 Pulse Rate 112 01/10/17 03:24 Respiratory Rate 20 01/10/17 03:24 Blood Pressure 114/69 01/10/17 03:24 O2 Sat by Pulse Oximetry 97 01/10/17 03:55 Oxygen Delivery Oxygen Delivery Nasal Cannula Weakness - Medical Records Medical records reviewed: Yes I reviewed the patient's medical records. - Lab Data Lab results reviewed: Yes I reviewed the patient's lab results. Lab results narrative: Laboratory Last Values WBC 16.8 K/mcL (4.3-11.1) H 01/09/17 22:52 RBC 4.31 M/mcL (3.82-4.97) 01/09/17 22:52 Hgb 11.8 g/dL (11.5-15.4) 01/09/17 22:52 Hct 37.3 % (35.3-44.9) 01/09/17 22:52 MCV 86.5 fL (83.0-100.0) 01/09/17 22:52 MCH 27.4 pg (28.0-33.3) L 01/09/17 22:52 MCHC 31.6 g/dL (31.6-35.5) 01/09/17 22:52 RDW 14.9 % (11.5-14.5) H 01/09/17 22:52 Plt Count 124 K/mcL (140-400) L 01/09/17 22:52 MPV 11.4 fL (9.4-12.4) 01/09/17 22:52 Immature Gran % 0.7 % (0-4) 01/09/17 22:52 Seg Neutrophils % 90.7 % 01/09/17 22:52 Lymphocytes % 3.0 % 01/09/17 22:52 Monocytes % 5.2 % 01/09/17 22:52 Eosinophils % 0.0 % 01/09/17 22:52 Basophils % 0.4 % 01/09/17 22:52 Neutrophils # 15.3 K/mcL (1.6-8.9) H 01/09/17 22:52 Lymphocytes # 0.5 K/mcL (0.6-4.6) L 01/09/17 22:52 Monocytes # 0.9 K/mcL (0.0-1.3) 01/09/17 22:52 Eosinophils # 0.0 K/mcL (0.0-0.6) 01/09/17 22:52 Basophils # 0.1 K/mcL (0.0-0.2) 01/09/17 22:52 PT 12.7 Seconds (9.4-12.1) H 01/09/17 22:52 INR 1.2 01/09/17 22:52 APTT 26.0 Seconds (26.0-36.0) 01/09/17 22:52 Sodium 131 mEq/L (136-145) L 01/09/17 22:52 Potassium 4.4 mEq/L (3.5-4.5) 01/09/17 22:52 Chloride 100 mEq/L (98-109) 01/09/17 22:52 Carbon Dioxide 19 mEq/L (19-29) 01/09/17 22:52 BUN 45 mg/dL (7-20) H 01/09/17 22:52 Creatinine 1.76 mg/dL (0.57-1.11) H 01/09/17 22:52 Est GFR ( Amer) 36 (> 60) L 01/09/17 22:52 Est GFR (Non-Af Amer) 30 (> 60) L 01/09/17 22:52 BUN/Creatinine Ratio 26 (6-26) 01/09/17 22:52 Glucose 366 mg/dL (70-99) H 01/09/17 22:52 Calculated Osmolality 298 (280-300) 01/09/17 22:52 Lactic Acid 1.2 mmol/L (0.5-2.2) 01/10/17 01:18 Calcium 8.8 mg/dL (8.6-10.8) 01/09/17 22:52 Troponin I 0.01 ng/mL (0-0.03) 01/09/17 22:52 B-Natriuretic Peptide 17 pg/mL (0-100) 01/09/17 22:52 Urine Color Yellow (Yellow) 01/09/17 23:14 Urine Clarity Cloudy (Clear) A 01/09/17 23:14 Urine pH 5.5 pH Units (5.0-8.0) 01/09/17 23:14 Ur Specific Al[place] 1.022 (1.010-1.025) 01/09/17 23:14 Urine Protein Negative mg/dL (Neg-Trace) 01/09/17 23:14 Urine Glucose (UA) Normal mg/dL (Normal) 01/09/17 23:14 Urine Ketones Negative mg/dL (Negative) 01/09/17 23:14 Urine Blood Negative (Negative) 01/09/17 23:14 Urine Nitrite Negative (Negative) 01/09/17 23:14 Urine Bilirubin Small (Negative) H 01/09/17 23:14 Urine Urobilinogen Normal mg/dL (Normal) 01/09/17 23:14 Ur Leukocyte Esterase Negative (Negative) 01/09/17 23:14 Urine Microscopic RBC 3-5 per hpf (0-3) H 01/09/17 23:14 Urine Microscopic WBC 5-15 per hpf (0-3) H 01/09/17 23:14 Ur Squamous Epith Cells Many per lpf (None-Few) H 01/09/17 23:14 Urine Bacteria None Seen per hpf (None-Few) 01/09/17 23:14 Hyaline Casts Moderate per lpf (None-Few) H 01/09/17 23:14 Ur Culture Indicated? NO (NO) 01/09/17 23:14 Result diagrams: 01/09/17 22:52 01/09/17 22:52 Lab Results 01/09/17 01/09/17 01/09/17 Range/Units 22:52 22:52 22:52 WBC (4.3-11.1) K/mcL RBC (3.82-4.97) M/mcL Hgb (11.5-15.4) g/dL Hct (35.3-44.9) % MCV (83.0-100.0) fL MCH (28.0-33.3) pg MCHC (31.6-35.5) g/dL RDW (11.5-14.5) % Plt Count (140-400) K/mcL MPV (9.4-12.4) fL Immature Gran % (0-4) % Seg Neutrophils % % Lymphocytes % % Monocytes % % Eosinophils % % Basophils % % Neutrophils # (1.6-8.9) K/mcL Lymphocytes # (0.6-4.6) K/mcL Monocytes # (0.0-1.3) K/mcL Eosinophils # (0.0-0.6) K/mcL Basophils # (0.0-0.2) K/mcL PT 12.7 H (9.4-12.1) Seconds INR 1.2 APTT 26.0 (26.0-36.0) Seconds Sodium (136-145) mEq/L Potassium (3.5-4.5) mEq/L Chloride (98-109) mEq/L Carbon Dioxide (19-29) mEq/L BUN (7-20) mg/dL Creatinine (0.57-1.11) mg/dL Est GFR ( Amer) (> 60) Est GFR (Non-Af Amer) (> 60) BUN/Creatinine Ratio (6-26) Glucose (70-99) mg/dL Calculated Osmolality (280-300) Lactic Acid 1.1 (0.5-2.2) mmol/L Calcium (8.6-10.8) mg/dL Troponin I (0-0.03) ng/mL B-Natriuretic Peptide 17 (0-100) pg/mL Urine Color (Yellow) Urine Clarity (Clear) Urine pH (5.0-8.0) pH Units Ur Specific Al[place] (1.010-1.025) Urine Protein (Neg-Trace) mg/dL Urine Glucose (UA) (Normal) mg/dL Urine Ketones (Negative) mg/dL Urine Blood (Negative) Urine Nitrite (Negative) Urine Bilirubin (Negative) Urine Urobilinogen (Normal) mg/dL Ur Leukocyte Esterase (Negative) Urine Microscopic RBC (0-3) per hpf Urine Microscopic WBC (0-3) per hpf Ur Squamous Epith Cells (None-Few) per lpf Urine Bacteria (None-Few) per hpf Hyaline Casts (None-Few) per lpf Ur Culture Indicated? (NO) 01/09/17 01/09/17 01/09/17 Range/Units 22:52 22:52 22:52 WBC 16.8 H (4.3-11.1) K/mcL RBC 4.31 (3.82-4.97) M/mcL Hgb 11.8 (11.5-15.4) g/dL Hct 37.3 (35.3-44.9) % MCV 86.5 (83.0-100.0) fL MCH 27.4 L (28.0-33.3) pg MCHC 31.6 (31.6-35.5) g/dL RDW 14.9 H (11.5-14.5) % Plt Count 124 L (140-400) K/mcL MPV 11.4 (9.4-12.4) fL Immature Gran % 0.7 (0-4) % Seg Neutrophils % 90.7 % Lymphocytes % 3.0 % Monocytes % 5.2 % Eosinophils % 0.0 % Basophils % 0.4 % Neutrophils # 15.3 H (1.6-8.9) K/mcL Lymphocytes # 0.5 L (0.6-4.6) K/mcL Monocytes # 0.9 (0.0-1.3) K/mcL Eosinophils # 0.0 (0.0-0.6) K/mcL Basophils # 0.1 (0.0-0.2) K/mcL PT (9.4-12.1) Seconds INR APTT (26.0-36.0) Seconds Sodium 131 L (136-145) mEq/L Potassium 4.4 (3.5-4.5) mEq/L Chloride 100 (98-109) mEq/L Carbon Dioxide 19 (19-29) mEq/L BUN 45 H (7-20) mg/dL Creatinine 1.76 H (0.57-1.11) mg/dL Est GFR ( Amer) 36 L (> 60) Est GFR (Non-Af Amer) 30 L (> 60) BUN/Creatinine Ratio 26 (6-26) Glucose 366 H (70-99) mg/dL Calculated Osmolality 298 (280-300) Lactic Acid (0.5-2.2) mmol/L Calcium 8.8 (8.6-10.8) mg/dL Troponin I 0.01 (0-0.03) ng/mL B-Natriuretic Peptide (0-100) pg/mL Urine Color (Yellow) Urine Clarity (Clear) Urine pH (5.0-8.0) pH Units Ur Specific [place] (1.010-1.025) Urine Protein (Neg-Trace) mg/dL Urine Glucose (UA) (Normal) mg/dL Urine Ketones (Negative) mg/dL Urine Blood (Negative) Urine Nitrite (Negative) Urine Bilirubin (Negative) Urine Urobilinogen (Normal) mg/dL Ur Leukocyte Esterase (Negative) Urine Microscopic RBC (0-3) per hpf Urine Microscopic WBC (0-3) per hpf Ur Squamous Epith Cells (None-Few) per lpf Urine Bacteria (None-Few) per hpf Hyaline Casts (None-Few) per lpf Ur Culture Indicated? (NO) 01/09/17 01/10/17 Range/Units 23:14 01:18 WBC (4.3-11.1) K/mcL RBC (3.82-4.97) M/mcL Hgb (11.5-15.4) g/dL Hct (35.3-44.9) % MCV (83.0-100.0) fL MCH (28.0-33.3) pg MCHC (31.6-35.5) g/dL RDW (11.5-14.5) % Plt Count (140-400) K/mcL MPV (9.4-12.4) fL Immature Gran % (0-4) % Seg Neutrophils % % Lymphocytes % % Monocytes % % Eosinophils % % Basophils % % Neutrophils # (1.6-8.9) K/mcL Lymphocytes # (0.6-4.6) K/mcL Monocytes # (0.0-1.3) K/mcL Eosinophils # (0.0-0.6) K/mcL Basophils # (0.0-0.2) K/mcL PT (9.4-12.1) Seconds INR APTT (26.0-36.0) Seconds Sodium (136-145) mEq/L Potassium (3.5-4.5) mEq/L Chloride (98-109) mEq/L Carbon Dioxide (19-29) mEq/L BUN (7-20) mg/dL Creatinine (0.57-1.11) mg/dL Est GFR ( Amer) (> 60) Est GFR (Non-Af Amer) (> 60) BUN/Creatinine Ratio (6-26) Glucose (70-99) mg/dL Calculated Osmolality (280-300) Lactic Acid 1.2 (0.5-2.2) mmol/L Calcium (8.6-10.8) mg/dL Troponin I (0-0.03) ng/mL B-Natriuretic Peptide (0-100) pg/mL Urine Color Yellow (Yellow) Urine Clarity Cloudy A (Clear) Urine pH 5.5 (5.0-8.0) pH Units Ur Specific [place] 1.022 (1.010-1.025) Urine Protein Negative (Neg-Trace) mg/dL Urine Glucose (UA) Normal (Normal) mg/dL Urine Ketones Negative (Negative) mg/dL Urine Blood Negative (Negative) Urine Nitrite Negative (Negative) Urine Bilirubin Small H (Negative) Urine Urobilinogen Normal (Normal) mg/dL Ur Leukocyte Esterase Negative (Negative) Urine Microscopic RBC 3-5 H (0-3) per hpf Urine Microscopic WBC 5-15 H (0-3) per hpf Ur Squamous Epith Cells Many H (None-Few) per lpf Urine Bacteria None Seen (None-Few) per hpf Hyaline Casts Moderate H (None-Few) per lpf Ur Culture Indicated? NO (NO) - Radiology Data Radiology results reviewed: Yes I reviewed the patient's radiology results. Chest X-Ray 01/09/17 22:04 IMPRESSION: No acute cardiopulmonary disease D/ / Jerry Saini MD / Jerry Saini MD Interpreting Provider: Jerry Saini MD Head CT 01/09/17 23:35 IMPRESSION: Stable CT brain with no acute intracranial abnormality. D/ / Justin Vargas MD / Justin Vargas MD Interpreting Provider: Justin Vargas MD - EKG Data EKG attestation: Yes I reviewed and interpreted this EKG. EKG results narrative: EKG reviewed by Dr. Dima Amaro as well. EKG shows a sinus tachycardia at a rate of 118 bpm. LA interval 135, QRS duration 86, QT/QTC intervals are 311/381. No ectopy noted. No STEMI. No significant changes when compared to EKG dated 11/28/16. Attestation Statement - Attestation Attestation: I, Cristopher Amaro, examined this patient and my medical decision-making was reviewed with the INVESTIGATIVE SHOPPER/PA/Advanced Practice Nurse/Resident Physician. I agree with the documented findings, disposition and treatment plan as described except to the extent set forth below. 56-year-old female presents to emergency Department with concerns of increasing weakness and falls. Patient was recently admitted for similar symptoms stances. Family states that patient had improved after discharge from rehabilitation facility and was ambulating in home however over the past 36 hours the patient has become increasingly fatigued and is unable to carry a conversation without falling asleep. Patient has elevated white count on her laboratory testing. I am unable to find a source of her symptoms however she does have a cough that is productive of white sputum. Patient will be admitted to the hospital for further care and evaluation of possible infection.
[2017-01-09 23:45] LABS: Hyaline Casts,Urine Moderate per lpf (None-Few)
[2017-01-10 00:17] LABS: INR 1.2; Prothrombin Time 12.7 Seconds (9.4-12.1)
[2017-01-10] MEDS ORDERED: Piperacillin/Tazobactam 3.375 GM in D5% in Water 50 ML IVPB ONE (01:39)
[2017-01-10] MEDS ORDERED: Vancomycin 1,000 MG in D5% in Water 250 ML IVPB ONE (01:39)
[2017-01-10] MEDS ORDERED: 0.9 % Sodium Chloride 1,000 ML IVC ONE (02:27)
[2017-01-10] MEDS: 0.9 % Sodium Chloride 1,000 ML IVC SCH ×3 (03:55→22:48)
--- NOTE | 2017-01-10 04:01 | Internal Med History&Physical ---
<Yasmin Downing - Last Filed: 01/10/17 06:05> Date of Encounter: 01/10/17 Time of Encounter: 04:00 Assessment and Plan (1) SIRS (systemic inflammatory response syndrome) Current visit: Yes Status: Acute Patient meets SIRS criteria: tachycardia, elevated WBC. Unknown etiology CXR- no acute cardiopulmonary process head CT- stable, no acute process UA negative IV Fluids blood cultures pending start antibiotics pending blood culture results retroperitoneal ultrasound ordered repeat chest x-ray 9 AM (2) Acute kidney injury Current visit: No Status: Acute Patient presents with ALYSIA most likely Pre-renal/Intrinsic oliguric ALYSIA creatinine 1.76 BUN/ Cr 26 Continue IV fluids Avoid nephrotoxins retroperitoneal ultrasound hold Lasix strict I/O (3) Fall Current visit: Yes Status: Acute Mechanical Fall last night at 9 PM- brother caught her and she did not know her head history of frequent falls- discharge from rehab facility last Monday consult PT/OT Qualifiers: Encounter type: initial encounter Qualified Code(s): W19.XXXA - Unspecified fall, initial encounter (4) Diabetes type 2, uncontrolled Current visit: No Status: Chronic Hold metformin Qualifiers: Diabetes mellitus complication status: with neurologic complications Diabetes mellitus complication detail: with unspecified neuropathy Diabetes mellitus terminal clerk insulin use: without terminal clerk use Qualified Code(s): E11.40 - Type 2 diabetes mellitus with diabetic neuropathy, unspecified; E11.65 - Type 2 diabetes mellitus with hyperglycemia; E11.65 - Type 2 diabetes mellitus with hyperglycemia; E11.65 - Type 2 diabetes mellitus with hyperglycemia; E11.65 - Type 2 diabetes mellitus with hyperglycemia (5) Hypertension Current visit: No Status: Chronic History of hypertension hold home medications Qualifiers: Hypertension type: essential hypertension Qualified Code(s): I10 - Essential (primary) hypertension Internal Medicine - H&P: HPI Chief complaint: fatigue Admitted From: Home Plans for Post Hospital Care: Home History of present illness: Ms. Rangel is a 56 year old female with a past medical history of hypertension , hyperlipidemia, PE, diabetes, fibromyalgia, hypothyroidism, depression. She presented the hospital complaining of 1 day fatigue. She stated that she woke up tired and not feeling well and that it did not improve over the course of the day. According to her brother she took 3hr to eat a grilled cheese sandwich because she kept falling asleep while eating it. Family stated that she slept all day and was more fatigued than normal. She fell this evening at 9pm in the bathroom and was caught by her brother who helped sit her on the floor. She reported that she slipped and did not hit her head. She admits to a non productive cough. She denies fever, chills, chest pain, palpitations, shortness of breath, wheezing, dizziness, sore throat, hematemesis, abdominal pain, nausea , vomiting, dysuria, diarrhea, hematuria, melena. She was discharged last Monday from a rehab facility that she was at for physical therapy due to weakness and falls. She denies sick contacts, recent sickness. Patient his deciding what she wants her current status to be. Past Med Surg Social Fam HX - Past Medical History Medical history: diabetes, fibromyalgia, GERD, hyperlipidemia, kidney stones, pulmonary embolus, thyroid disease Psychiatric history: anxiety, depression - Past Surgical History Surgical History: non-contributory - Social History Smoking Status: Never smoker Smokeless Tobacco Status: No Alcohol use: none Drug use: none - Family History Father Living Status: Still Living Hx Family Cardiac Disorders: Yes (Cardiac disease) Mother Living Status: Internal Medicine - H&P: Meds Acetaminophen/Butalbital/Caffe [Fioricet] 1 each PO BID PRN 11/07/16 [History] Ascorbic Acid [Vitamin C] 500 mg PO DAILY 11/07/16 [History] Aspirin 81 mg PO DAILY 11/07/16 [History] Atorvastatin [Lipitor] 40 mg PO HS 11/07/16 [History] Cyanocobalamin (Vitamin B-12) [Vitamin B12] 1,000 mcg PO DAILY 11/07/16 [History ] Ergocalciferol (VITAMIN D2) [Vitamin D2] 50,000 unit PO CARDOZA 11/07/16 [History] Esomeprazole Magnesium [Nexium] 40 mg PO DAILY 11/07/16 [History] Folic Acid 1 mg PO DAILY 11/07/16 [History] Furosemide [Lasix] 40 mg PO DAILY 11/07/16 [History] Levothyroxine [Synthroid] 75 mcg PO 0630 11/07/16 [History] Lisinopril 2.5 mg PO DAILY 11/07/16 [History] Sertraline [Zoloft] 200 mg PO DAILY 11/07/16 [History] Insulin Glargine,Hum.rec.anlog [Lantus Solostar] 50 unit SQ HS 11/25/16 [History ] HYDROcodone/Acet 10/325 mg [[place] 10-325 mg] 1 tab PO TID PRN #21 tablet [Rx] Insulin DETEMIR [Levemir] 50 unit SQ HS [id number] 11/29/16 [Rx] Ipratropium/Albuterol Neb [Duoneb] 3 ml IH [id number] inhsol 11/29/16 [Rx] Levofloxacin [Levaquin] 750 mg PO DAILY #5 tablet 11/29/16 [Rx] Metoprolol [Lopressor] 25 mg PO BID tablet 11/29/16 [Rx] metFORMIN [Glucophage] 1,000 mg PO BIDWM #60 11/29/16 [Rx] 3 Allergy/AdvReac Type Severity Reaction Status Date / Time No Known Allergies Allergy Verified 11/25/16 12:50 All Systems PM: A 10-system review of systems was performed and is negative for pertinent findings except as documented above in the HPI. - Constitutional Constitutional: fatigue, falls, no chills, no fever(s) - EENT Eyes: no change in vision Nose, mouth and throat: no dysphagia, no sore throat - Cardiovascular Cardiovascular ROS IM: no chest pain, no edema, no orthopnea - Respiratory Respiratory: cough, no dyspnea, no hemoptysis, no wheezing - Gastrointestinal Gastrointestinal: no abdominal pain, no diarrhea, no dysphagia, no hematemesis, no hematochezia, no melena, no nausea - Genitourinary Genitourinary: no dysuria, no hematuria - Neurological Neurological ROS: frequent falls, no confusion, no dizziness, no headache(s), no loss of vision, no vertigo - Constitutional Vitals: Temp Pulse Resp BP Pulse Ox 97.6 F 112 20 114/69 97 01/10/17 03:24 01/10/17 03:24 01/10/17 03:24 01/10/17 03:24 01/10/17 03:55 General appearance: Present: A&O X 3, morbidly obese, pleasant, no acute distress - Head Head exam: Present: atraumatic, normal inspection, normocephalic - Eye Eye exam: Present: PERRL, conjuntiva pink - ENT ENT exam: Present: mucous membranes moist, normal oropharynx - Respiratory Respiratory exam: Present: CTAB. Absent: rales, respiratory distress, wheezes - Cardiovascular Cardiovascular exam: Present: RRR, +S1, +S2, systolic murmur. Absent: clicks - GI/Abdominal GI/Abdominal exam: Present: normal bowel sounds, soft. Absent: distended, guarding - Extremities Exam Extremities exam: Absent: calf tenderness, joint swelling - Back Exam Back exam: Absent: tenderness - Neurological Exam Neurological exam: Present: alert, oriented X3. Absent: facial droop, speech deficit Internal Med - H&P Results - Labs CBC & Chem 7: 01/09/17 22:52 01/09/17 22:52 <Brody Rosario - Last Filed: 01/10/17 07:33> Date of Encounter: 01/10/17 Internal Medicine - H&P: HPI History of present illness: Ms. Rangel is a 56 year old female All Systems PM: A 10-system review of systems was performed and is negative for pertinent findings except as documented above in the HPI. - Constitutional Vitals: Temp Pulse Resp BP Pulse Ox 97.2 F L 108 18 114/73 98 01/10/17 07:30 01/10/17 07:30 01/10/17 07:30 01/10/17 07:30 01/10/17 07:30 Internal Med - H&P Results - Labs CBC & Chem 7: 01/10/17 07:03 01/10/17 07:03 Labs: Short CBC 01/10/17 Range/Units 07:03 WBC 12.2 H (4.3-11.1) K/mcL Hgb 10.5 L (11.5-15.4) g/dL Hct 33.6 L (35.3-44.9) % Plt Count 109 L (140-400) K/mcL Neutrophils # 10.5 H (1.6-8.9) K/mcL BMP 01/10/17 07:03 Sodium 135 L Potassium 4.1 Chloride 106 Carbon Dioxide 18 L BUN 42 H Creatinine 1.42 H Glucose 256 H Calcium 8.0 L - Attending Attestation agree with plan, see my event note for same encounter
--- NOTE | 2017-01-10 05:16 | Event Note ---
Date of Encounter: 01/10/17 Time of Encounter: 05:14 Seen and reviewed with resident physician Patient with SIRS, no obvious source of infection, she also has Pre-renal/ Intrinsic on-oliguric ALYSIA. Plan is as documented in her H and P-Hold antibiotics, repeat CXR after hydration, follow blood cultures. avoid nephrotoxins, hold Metformin/Lasix, continue IVF, renal USS strict I/O. PTOT eval
[2017-01-10 07:13] LABS: Basophils % 0.2 %; Eosinophils % 0.1 %; Hematocrit 33.6 % (35.3-44.9); Hemoglobin 10.5 g/dL (11.5-15.4); Immature Granulocytes % 0.7 % (0-4); Lymphocytes # 0.7 K/mcL (0.6-4.6); Lymphocytes % 5.9 %; Mean Corpuscular HGB Conc 31.3 g/dL (31.6-35.5); Mean Corpuscular Hemoglobin 27.3 pg (28.0-33.3); Mean Corpuscular Volume 87.3 fL (83.0-100.0); Mean Platelet Volume 11.2 fL (9.4-12.4); Monocytes # 0.9 K/mcL (0.0-1.3); Neutrophils # 10.5 K/mcL (1.6-8.9); Platelet Count 109 K/mcL (140-400); Red Blood Count 3.85 M/mcL (3.82-4.97); Red Cell Distribution Width 15.2 % (11.5-14.5); Segmented Neutrophils % 86.1 %
[2017-01-10 07:27] LABS: Potassium 4.1 mEq/L (3.5-4.5)
[2017-01-10] MEDS ORDERED: D5% in Water 1,000 ML IVC PRN (08:13)
[2017-01-10] MEDS ORDERED: *HR* Dextrose 50 % in Water (Syg) 50 ML SYRINGE IVP PRN (08:13)
[2017-01-10] MEDS ORDERED: Dextrose Gel 15 GM PO PRN ×2 (08:13)
[2017-01-10] MEDS: Folic Acid 1 MG TABLET PO SCH (08:33)
[2017-01-10] MEDS: Cyanocobalamin (B-12) 1,000 MCG TABLET PO SCH (08:33)
[2017-01-10] MEDS: Aspirin 81 MG TAB.CHEW PO SCH (08:33)
[2017-01-10] MEDS: Insulin LISPRO 300 UNITS/3 ML VIAL SQ SCH ×6 (08:34→20:56)
--- NOTE | 2017-01-10 10:57 | Internal Med Progress Note ---
Date of Encounter: 01/10/17 Time of Encounter: 08:50 - Assessment and plan (1) SIRS (systemic inflammatory response syndrome) Current Visit: Yes Status: Acute Assessment and plan: Leukocytosis improving, 12.2 today, remains tachycardic, rate around 100. Unclear etiology at this time. Urine is negative, CXR negative. Repeat CXR not done yet. Blood cultures drawn and pending. Continue Vanco and Zosyn IV, pending result of cultures. Continue to monitor labs, vitals, and culture results. (2) Acute kidney injury Current Visit: Yes Status: Acute Assessment and plan: Sr Cr 1.42, GFR 39. Pt has had decreased GFR intermittently since 2013. Pt has had IVF without significant improvement. Pt has retroperitoneal US ordered for today. Will review and monitor. Continue to avoid nephrotoxins Hold Lasix, strict I and O (3) Hypertension Current Visit: Yes Status: Chronic Assessment and plan: Well controlled. Continue home medications. Qualifiers: Hypertension type: essential hypertension Qualified Code(s): I10 - Essential (primary) hypertension (4) Diabetes type 2, uncontrolled Current Visit: Yes Status: Chronic Assessment and plan: A1c 8.5% in November. Continue diabetic diet, SSI, and accuchecks achs. Qualifiers: Diabetes mellitus complication status: with neurologic complications Diabetes mellitus complication detail: with unspecified neuropathy Diabetes mellitus intermediate manager insulin use: without fdc use Qualified Code(s): E11.40 - Type 2 diabetes mellitus with diabetic neuropathy, unspecified; E11.65 - Type 2 diabetes mellitus with hyperglycemia; E11.65 - Type 2 diabetes mellitus with hyperglycemia; E11.65 - Type 2 diabetes mellitus with hyperglycemia; E11.65 - Type 2 diabetes mellitus with hyperglycemia (5) Weakness generalized Current Visit: Yes Status: Acute Assessment and plan: Plan as above. (6) Fall Current Visit: Yes Status: Acute Assessment and plan: Pt had weakness and fall, but was caught by her brother, at home prior to this admission. Pt did not hit head. Pt has recent history frequent falls and was discharged from [facility] after [facility] for rehab. Fall precautions Bed alarm PT/OT evaluation Qualifiers: Encounter type: initial encounter Qualified Code(s): W19.XXXA - Unspecified fall, initial encounter (7) HLD (hyperlipidemia) Current Visit: Yes Status: Acute Assessment and plan: Chronic. Continue Lipitor. Triglycerides elevated in July, cholesterol WNL Qualifiers: Hyperlipidemia type: unspecified Qualified Code(s): E78.5 - Hyperlipidemia , unspecified (8) Morbid obesity with BMI of 40.0-44.9, adult Current Visit: Yes Status: Acute Assessment and plan: Chronic. Implement lifestyle modifications. (9) DVT prophylaxis Current Visit: Yes Status: Acute Assessment and plan: Heparin SQ, up to chair BID. - Time Spent With Patient less than 15 minutes - Subjective Interval history: Pt seen and assessed at 0850. Pt was eating breakfast without difficulty. She denies pain and states that she feels better. She is concerned with being discharged so that she can go to her dr appointment with [facility] for her chronic right knee pain. There is no swelling or redness noted, she states that it prevents her from walking very far and it is "cracking and popping." Pt states that she lives at home with her brother and is weak. She states that she wants to go home, at this time we are awaiting PT and OT evaluations. - Constitutional Vitals: Temp Pulse Resp BP Pulse Ox 97.2 F L 108 18 114/73 98 01/10/17 07:30 01/10/17 07:30 01/10/17 07:30 01/10/17 07:30 01/10/17 07:30 General appearance: Present: A&O X 3, morbidly obese, pleasant, no acute distress - Head Head exam: Present: atraumatic, normal inspection, normocephalic - Eye Eye exam: Present: normal appearance, conjuntiva pink, sclera anicteric - Neck Neck exam general surgery: Present: normal inspection, supple, trachea midline. Absent: lymphadenopathy - Respiratory Respiratory exam: Present: CTAB. Absent: accessory muscle use, rales, respiratory distress, rhonchi, wheezes - Cardiovascular Cardiovascular exam: Present: RRR, +S1, +S2. Absent: diastolic murmur, gallop, rubs, systolic murmur - GI/Abdominal GI/Abdominal exam: Present: normal bowel sounds, soft. Absent: distended, tenderness - Extremities Exam Extremities exam: Present: normal capillary refill, normal inspection, warm, radial pulses palpable and symmetrical. Absent: calf tenderness, cyanotic, pedal edema, tenderness - Neurological Exam Neurological exam: Present: alert, oriented X3, no focal deficits. Absent: facial droop, speech deficit - Skin Skin exam: Present: dry, intact, normal color, warm. Absent: rash Internal Medicine: Result - Labs CBC & Chem 7: 01/10/17 07:03 01/10/17 07:03 Labs: Short CBC 01/10/17 Range/Units 07:03 WBC 12.2 H (4.3-11.1) K/mcL Hgb 10.5 L (11.5-15.4) g/dL Hct 33.6 L (35.3-44.9) % Plt Count 109 L (140-400) K/mcL Neutrophils # 10.5 H (1.6-8.9) K/mcL BMP 01/10/17 07:03 Sodium 135 L Potassium 4.1 Chloride 106 Carbon Dioxide 18 L BUN 42 H Creatinine 1.42 H Glucose 256 H Calcium 8.0 L - ABG Interpretation ABG results: PT/INR, D-dimer PT 12.7 Seconds (9.4-12.1) H 01/09/17 22:52 Consult Discharge Plan - Plan Referrals: Nico Ahmadi MD [Primary Care Provider] -
[2017-01-10] MEDS: Acetaminophen/Butalbital/CaffeineTABLET PO PRN (13:02)
[2017-01-10] MEDS ORDERED: INSULIN LISPRO 14 UNIT SQ SCH (15:00)
[2017-01-10] MEDS: risperiDONE 1 MG TABLET PO SCH ×2 (17:34→19:42)
[2017-01-10] MEDS: Baclofen 10 MG TABLET PO SCH ×2 (17:34→19:42)
[2017-01-10] MEDS: Gabapentin 300 MG CAPSULE PO SCH ×2 (17:35→19:42)
[2017-01-10] MEDS: *HR* Heparin 5,000 UNIT/ML VIAL SQ SCH (17:42)
--- NOTE | 2017-01-10 20:38 | Electrocardiograph Report ---
[address] [place], [place] [address] Test Date: 2017-01-09 Pat Name: Adriana Rangel Department: 104 Room: 3B22 Gender: F Cardiopulmonary Technician And Eeg Tech: OMI : 1960 Requested By: Cristopher Amaro Order Number: [id number] Reading MD: Blaine Owen MD Measurements Intervals [place] Rate: 118 P: 44 IN: 135 QRS: 1 QRSD: 86 T: 16 QT: 311 QTc: 381 Interpretive Statements SINUS TACHYCARDIA Poor R wave progression Electronically Signed On 01-10-2017 20:36:57 EST by Blaine Owen MD
[2017-01-11 05:38] LABS: Basophils % 0.5 %; Immature Granulocytes % 1.4 % (0-4); Red Cell Distribution Width 15.4 % (11.5-14.5)
[2017-01-11 05:40] LABS: Eosinophils # 0.3 K/mcL (0.0-0.6); Hematocrit 30.6 % (35.3-44.9); Hemoglobin 9.3 g/dL (11.5-15.4); Immature Platelets 8.1 % (1.1-6.1); Lymphocytes # 0.7 K/mcL (0.6-4.6); Lymphocytes % 11.4 %; Mean Corpuscular HGB Conc 30.4 g/dL (31.6-35.5); Mean Platelet Volume 11.7 fL (9.4-12.4); Monocytes # 0.5 K/mcL (0.0-1.3); Monocytes % 7.8 %; Neutrophils # 4.7 K/mcL (1.6-8.9); Nucleated Red Blood Cells 0.5 /100 WBC (0); Red Blood Count 3.44 M/mcL (3.82-4.97); Segmented Neutrophils % 74.9 %
[2017-01-11 05:44] LABS: Platelet Count 97 K/mcL (140-400)
[2017-01-11] MEDS: *HR* Heparin 5,000 UNIT/ML VIAL SQ SCH ×2 (05:47→17:39)
[2017-01-11 05:50] LABS: BUN/Creatinine Ratio 41 (6-26); Blood Urea Nitrogen 37 mg/dL (7-20); Calcium 7.8 mg/dL (8.6-10.8); Carbon Dioxide 19 mEq/L (19-29); Chloride 112 mEq/L (98-109); Glucose 141 mg/dL (70-99); Osmolality,Calculated 299 (280-300); Potassium 4.2 mEq/L (3.5-4.5); Sodium 139 mEq/L (136-145); eGFR For African Americans > 60 (> 60); eGFR For Non-African Americans > 60 (> 60)
[2017-01-11] MEDS: 0.9 % Sodium Chloride 1,000 ML IVC SCH (06:57)
[2017-01-11] MEDS: Baclofen 10 MG TABLET PO SCH ×3 (08:22→20:20)
[2017-01-11] MEDS: Furosemide 40 MG TABLET PO SCH (08:22)
[2017-01-11] MEDS: Cyanocobalamin (B-12) 1,000 MCG TABLET PO SCH (08:22)
[2017-01-11] MEDS: risperiDONE 1 MG TABLET PO SCH ×3 (08:22→20:20)
[2017-01-11] MEDS: Aspirin 81 MG TAB.CHEW PO SCH (08:22)
[2017-01-11] MEDS: Celecoxib 200 MG CAPSULE PO SCH (08:22)
[2017-01-11] MEDS: Gabapentin 300 MG CAPSULE PO SCH ×3 (08:22→20:20)
[2017-01-11] MEDS: Ascorbic Acid 500 MG TABLET PO SCH (08:22)
[2017-01-11] MEDS: Insulin LISPRO 300 UNITS/3 ML VIAL SQ SCH ×7 (08:23→20:59)
[2017-01-11] MEDS: Folic Acid 1 MG TABLET PO SCH (08:23)
[2017-01-11 11:05] LABS: % Iron Saturation 11 % (15-50); Iron 23 mcg/dL (50-170); Transferrin 146 mg/dL (180-382)
[2017-01-11 11:39] LABS: Folate 19.5 ng/mL (7.0-31.4)
--- NOTE | 2017-01-11 16:55 | Internal Med Progress Note ---
Date of Encounter: 01/11/17 Time of Encounter: 09:15 - Assessment and plan (1) SIRS (systemic inflammatory response syndrome) Current Visit: Yes Status: Resolved Assessment and plan: Leukocytosis resolved, she remains mildly tachycardic with pulse of 90 per guidelines. She no longer meets sepsis criteria. Resolved. Blood cultures were negative 2. Urine culture was not indicated. (2) Acute kidney injury Current Visit: Yes Status: Acute Assessment and plan: Renal function has returned to normal. Serum creatinine is 0.91, GFR is greater than 60. Continue to avoid nephrotoxins Hold Lasix, strict I and O (3) Hypertension Current Visit: Yes Status: Chronic Assessment and plan: Well controlled. Continue home medications. Qualifiers: Hypertension type: essential hypertension Qualified Code(s): I10 - Essential (primary) hypertension (4) Diabetes type 2, uncontrolled Current Visit: Yes Status: Chronic Assessment and plan: A1c 8.5% in November. Continue diabetic diet, SSI, and accuchecks achs. Qualifiers: Diabetes mellitus complication status: with neurologic complications Diabetes mellitus complication detail: with unspecified neuropathy Diabetes mellitus exterminator helper insulin use: without mcc use Qualified Code(s): E11.40 - Type 2 diabetes mellitus with diabetic neuropathy, unspecified; E11.65 - Type 2 diabetes mellitus with hyperglycemia; E11.65 - Type 2 diabetes mellitus with hyperglycemia; E11.65 - Type 2 diabetes mellitus with hyperglycemia; E11.65 - Type 2 diabetes mellitus with hyperglycemia (5) Weakness generalized Current Visit: Yes Status: Acute Assessment and plan: Plan as above. Patient is waiting [facility] to [facility]. (6) Fall Current Visit: Yes Status: Acute Assessment and plan: Pt had weakness and fall, but was caught by her brother, at home prior to this admission. Pt did not hit head. Pt has recent history frequent falls and was discharged from [facility] after [facility] for rehab. Patient has increasingly frequent falls at home and would benefit from another stay in rehabilitation. Patient is waiting on placement. Fall precautions Bed alarm PT/OT evaluation Qualifiers: Encounter type: initial encounter Qualified Code(s): W19.XXXA - Unspecified fall, initial encounter (7) HLD (hyperlipidemia) Current Visit: Yes Status: Acute Assessment and plan: Chronic. Continue Lipitor. Triglycerides elevated in July, cholesterol WNL Qualifiers: Hyperlipidemia type: unspecified Qualified Code(s): E78.5 - Hyperlipidemia , unspecified (8) Morbid obesity with BMI of 40.0-44.9, adult Current Visit: Yes Status: Acute Assessment and plan: Chronic. Implement lifestyle modifications. Patient could benefit from not only increase in physical activity, also a reduced calorie diet. (9) DVT prophylaxis Current Visit: Yes Status: Acute Assessment and plan: Heparin SQ, up to chair BID. - Time Spent With Patient less than 15 minutes - Subjective Interval history: Pt seen and assessed at 0915. Patient is alert, oriented, pleasant. She states that her brother is making her to note to the [facility] for rehabilitation. She is agreeable. She denies headache, blurred vision, dizziness, syncope, shortness of breath, chest pain. She denies any nausea, vomiting, diarrhea, abdominal pain. I strongly encourage patient to get up from bed and given the chair twice daily. She was agreeable. We discussed her anemia, she was not aware of being anemic anytime in the past. At this time, we are waiting on placement in [facility]. - Constitutional Vitals: Temp Pulse Resp BP Pulse Ox 97.8 F 80 16 107/69 94 01/11/17 16:13 01/11/17 16:13 01/11/17 16:13 01/11/17 16:13 01/11/17 16:13 General appearance: Present: cooperative, A&O X 3, morbidly obese, pleasant, no acute distress, answers questions appropriately - Head Head exam: Present: atraumatic, normal inspection, normocephalic - Eye Eye exam: Present: normal appearance, conjuntiva pink, sclera anicteric - Neck Neck exam general surgery: Present: supple, trachea midline. Absent: lymphadenopathy - Respiratory Respiratory exam: Present: CTAB. Absent: accessory muscle use, rales, respiratory distress, rhonchi, wheezes - Cardiovascular Cardiovascular exam: Present: RRR, +S1, +S2. Absent: diastolic murmur, gallop, rubs, systolic murmur - GI/Abdominal GI/Abdominal exam: Present: distended, normal bowel sounds, soft, no peritoneal signs. Absent: hepatomegaly, tenderness - Extremities Exam Extremities exam: Present: normal capillary refill, normal inspection, warm, radial pulses palpable and symmetrical. Absent: calf tenderness, cyanotic, pedal edema, tenderness - Neurological Exam Neurological exam: Present: alert, oriented X3, no focal deficits. Absent: facial droop, speech deficit - Skin Skin exam: Present: dry, intact, normal color, warm. Absent: rash Internal Medicine: Result - Labs CBC & Chem 7: 01/11/17 04:46 01/11/17 04:46 Labs: Short CBC 01/11/17 Range/Units 04:46 WBC 6.3 (4.3-11.1) K/mcL Hgb 9.3 L (11.5-15.4) g/dL Hct 30.6 L (35.3-44.9) % Plt Count 97 L (140-400) K/mcL Neutrophils # 4.7 (1.6-8.9) K/mcL BMP 01/11/17 04:46 Sodium 139 Potassium 4.2 Chloride 112 H Carbon Dioxide 19 BUN 37 H Creatinine 0.91 Glucose 141 H Calcium 7.8 L - ABG Interpretation ABG results: PT/INR, D-dimer PT 12.7 Seconds (9.4-12.1) H 01/09/17 22:52 - Impressions Impressions Retroperitoneum Ultrasound 01/10/17 10:30 IMPRESSION: Unremarkable ultrasound of the kidneys and urinary bladder. Hepatosplenomegaly. Incidental note is made of a simple appearing right ovarian cyst measuring up to 5.8 cm. According to current best practice guidelines, annual follow-up is recommended. D/ / 01/10/2017 12:37:44 Kyung Mullen MD / bcarter Interpreting Provider: Kyung Mullen MD Consult Discharge Plan - Plan Referrals: Nico Ahmadi MD [Primary Care Provider] - 01/16/17 1:15 pm Chris Stone MD [Partnered Physician] - 01/16/17 10:00 am
[2017-01-11] MEDS: Acetaminophen/Butalbital/CaffeineTABLET PO PRN (17:48)
[2017-01-12] MEDS: *HR* Heparin 5,000 UNIT/ML VIAL SQ SCH ×2 (05:50→17:29)
[2017-01-12] MEDS: Insulin LISPRO 300 UNITS/3 ML VIAL SQ SCH ×6 (07:45→17:30)
[2017-01-12] MEDS ORDERED: 0.9 % Sodium Chloride 1,000 ML ONE (08:31)
[2017-01-12] MEDS: Folic Acid 1 MG TABLET PO SCH (08:36)
[2017-01-12] MEDS: Gabapentin 300 MG CAPSULE PO SCH ×3 (08:36→20:36)
[2017-01-12] MEDS: Furosemide 40 MG TABLET PO SCH (08:36)
[2017-01-12] MEDS: Aspirin 81 MG TAB.CHEW PO SCH (08:36)
[2017-01-12] MEDS: risperiDONE 1 MG TABLET PO SCH ×3 (08:36→20:36)
[2017-01-12] MEDS: Cyanocobalamin (B-12) 1,000 MCG TABLET PO SCH (08:37)
[2017-01-12] MEDS: Celecoxib 200 MG CAPSULE PO SCH (08:37)
[2017-01-12] MEDS: Baclofen 10 MG TABLET PO SCH ×3 (08:37→20:37)
[2017-01-12] MEDS: Ascorbic Acid 500 MG TABLET PO SCH (08:37)
[2017-01-12] MEDS ORDERED: 0.9 % Sodium Chloride 1,000 ML IVC SCH (12:00)
--- NOTE | 2017-01-12 13:55 | Internal Med Progress Note ---
Date of Encounter: 01/12/17 Time of Encounter: 08:40 - Assessment and plan (1) SIRS (systemic inflammatory response syndrome) Current Visit: Yes Status: Resolved Assessment and plan: Leukocytosis resolved, she remainsed mildly tachycardic with pulse of 90 per guidelines. These symptoms have resolved. She no longer meets sepsis criteria. Resolved. Blood cultures were negative 2. Urine culture was not indicated. (2) Acute kidney injury Current Visit: Yes Status: Acute Assessment and plan: Renal function has returned to normal. Serum creatinine is 0.91, GFR is greater than 60. Continue to avoid nephrotoxins Hold Lasix, strict I and O Continue to monitor labs (3) Hypertension Current Visit: Yes Status: Chronic Assessment and plan: Well controlled. Continue home medications. Her vitals per admission orders. Qualifiers: Hypertension type: essential hypertension Qualified Code(s): I10 - Essential (primary) hypertension (4) Diabetes type 2, uncontrolled Current Visit: Yes Status: Chronic Assessment and plan: A1c 8.5% in November. Continue diabetic diet, SSI, and accuchecks achs. Qualifiers: Diabetes mellitus complication status: with neurologic complications Diabetes mellitus complication detail: with unspecified neuropathy Diabetes mellitus termite control technician insulin use: without [facility] use Qualified Code(s): E11.40 - Type 2 diabetes mellitus with diabetic neuropathy, unspecified; E11.65 - Type 2 diabetes mellitus with hyperglycemia; E11.65 - Type 2 diabetes mellitus with hyperglycemia; E11.65 - Type 2 diabetes mellitus with hyperglycemia; E11.65 - Type 2 diabetes mellitus with hyperglycemia (5) Weakness generalized Current Visit: Yes Status: Acute Assessment and plan: Plan as above. Patient is waiting on placement to [facility]. Continue PT/OT while admitted, rehabilitation at [facility]. (6) Fall Current Visit: Yes Status: Acute Assessment and plan: Pt had weakness and fall, but was caught by her brother, at home prior to this admission. Pt did not hit head. Pt has recent history frequent falls and was discharged from [facility] for rehab. Patient has increasingly frequent falls at home and would benefit from another stay in rehabilitation. Patient is waiting on placement. Fall precautions Bed alarm PT/OT evaluation Qualifiers: Encounter type: initial encounter Qualified Code(s): W19.XXXA - Unspecified fall, initial encounter (7) HLD (hyperlipidemia) Current Visit: Yes Status: Acute Assessment and plan: Chronic. Continue Lipitor. Triglycerides elevated in July, cholesterol WNL monitor annually while at [facility]. Qualifiers: Hyperlipidemia type: unspecified Qualified Code(s): E78.5 - Hyperlipidemia , unspecified (8) Morbid obesity with BMI of 40.0-44.9, adult Current Visit: Yes Status: Acute Assessment and plan: Chronic. Implement lifestyle modifications. Patient could benefit from not only increase in physical activity, also a reduced calorie diet. (9) DVT prophylaxis Current Visit: Yes Status: Acute Assessment and plan: Heparin SQ, up to chair BID. - Time Spent With Patient less than 15 minutes - Subjective Interval history: Pt seen and assessed at 0840. Patient is alert, oriented, pleasant. She denies headache, blurred vision, dizziness, syncope, shortness of breath, chest pain. She denies any nausea, vomiting, diarrhea, abdominal pain. I again encourage patient to get up out of bed into chair today, she agrees. We discussed her anemia, she was not aware of being anemic anytime in the past. Patient should be able to discharge to [facility] tomorrow. She is aware and agreeable. - Constitutional Vitals: Temp Pulse Resp BP Pulse Ox 98.3 F 81 15 122/77 97 01/12/17 11:35 01/12/17 11:35 01/12/17 11:35 01/12/17 11:35 01/12/17 11:35 General appearance: Present: cooperative, A&O X 3, morbidly obese, pleasant, no acute distress, answers questions appropriately - Head Head exam: Present: atraumatic, normal inspection, normocephalic - Eye Eye exam: Present: normal appearance, PERRL, conjuntiva pink, sclera anicteric Pupils: Present: PERRL - Neck Neck exam general surgery: Present: supple, trachea midline. Absent: lymphadenopathy - Respiratory Respiratory exam: Present: CTAB. Absent: accessory muscle use, rales, rhonchi, wheezes - Cardiovascular Cardiovascular exam: Present: RRR, +S1, +S2. Absent: gallop, rubs Additional comments: 2/6 murmur heard left sternal border. - GI/Abdominal GI/Abdominal exam: Present: normal bowel sounds, soft, no peritoneal signs. Absent: distended, hepatomegaly, tenderness - Extremities Exam Extremities exam: Present: normal capillary refill, pedal edema, warm, radial pulses palpable and symmetrical. Absent: calf tenderness, cyanotic, tenderness - Neurological Exam Neurological exam: Present: alert, oriented X3, no focal deficits. Absent: facial droop, speech deficit - Skin Skin exam: Present: dry, intact, normal color, warm. Absent: rash Internal Medicine: Result - Labs CBC & Chem 7: 01/11/17 04:46 01/11/17 04:46 - ABG Interpretation ABG results: PT/INR, D-dimer PT 12.7 Seconds (9.4-12.1) H 01/09/17 22:52 Consult Discharge Plan - Plan Referrals: Nico Ahmadi MD [Primary Care Provider] - 01/16/17 1:15 pm Chris Stone MD [Partnered Physician] - 01/16/17 10:00 am
[2017-01-13] MEDS: Insulin LISPRO 300 UNITS/3 ML VIAL SQ SCH ×5 (02:06→12:06)
[2017-01-13 05:02] LABS: BUN/Creatinine Ratio 15 (6-26); Carbon Dioxide 19 mEq/L (19-29); Chloride 111 mEq/L (98-109); Glucose 186 mg/dL (70-99); Osmolality,Calculated 293 (280-300); Sodium 139 mEq/L (136-145); eGFR For African Americans > 60 (> 60); eGFR For Non-African Americans > 60 (> 60)
[2017-01-13 05:12] LABS: Blood Urea Nitrogen 12 mg/dL (7-20); Potassium 4.1 mEq/L (3.5-4.5)
[2017-01-13] MEDS: *HR* Heparin 5,000 UNIT/ML VIAL SQ SCH (06:08)
[2017-01-13] MEDS: Gabapentin 300 MG CAPSULE PO SCH (10:08)
[2017-01-13] MEDS: Aspirin 81 MG TAB.CHEW PO SCH (10:08)
[2017-01-13] MEDS: Baclofen 10 MG TABLET PO SCH (10:08)
[2017-01-13] MEDS: risperiDONE 1 MG TABLET PO SCH (10:08)
[2017-01-13] MEDS: Folic Acid 1 MG TABLET PO SCH (10:08)
[2017-01-13] MEDS: Cyanocobalamin (B-12) 1,000 MCG TABLET PO SCH (10:09)
[2017-01-13] MEDS: Furosemide 40 MG TABLET PO SCH (10:09)
[2017-01-13] MEDS: Celecoxib 200 MG CAPSULE PO SCH (10:09)
[2017-01-13] MEDS: Ascorbic Acid 500 MG TABLET PO SCH (10:09)
--- NOTE | 2017-01-13 11:14 | Discharge Summary ---
Date of Encounter: 01/13/17 Time of Encounter: 10:30 - Discharge Diagnosis (1) SIRS (systemic inflammatory response syndrome) Priority: Secondary Status: Inactive (2) Acute kidney injury Priority: Secondary Status: Acute Comments: Renal function remains WNL, Sr Cr 0.82, GFR > 60 Continue to avoid nephrotoxins and NSAIDS Follow with nephrology as needed. (3) Hypertension Priority: Secondary Status: Chronic Comments: Well controlled. continue home medications. Qualifiers: Hypertension type: essential hypertension Qualified Code(s): I10 - Essential (primary) hypertension (4) Diabetes type 2, uncontrolled Priority: Secondary Status: Chronic Comments: A1c 8.5% in November. Continue home medications and accuchecks per F protocol. Qualifiers: Diabetes mellitus complication status: with neurologic complications Diabetes mellitus complication detail: with unspecified neuropathy Diabetes mellitus correction insulin use: without terminal worker use Qualified Code(s): E11.40 - Type 2 diabetes mellitus with diabetic neuropathy, unspecified; E11.65 - Type 2 diabetes mellitus with hyperglycemia; E11.65 - Type 2 diabetes mellitus with hyperglycemia; E11.65 - Type 2 diabetes mellitus with hyperglycemia; E11.65 - Type 2 diabetes mellitus with hyperglycemia (5) Weakness generalized Priority: Primary Status: Acute Comments: Pt had weakness and fall, but was caught by her brother, at home prior to this admission. Pt did not hit head. Pt has recent history frequent falls and was discharged from [facility] for rehab. Patient has increasingly frequent falls at home and would benefit from another stay in rehabilitation. Patient will be placed at [facility] today for rehab. (6) Fall Priority: Secondary Status: Acute Comments: Plan as above. Qualifiers: Encounter type: initial encounter Qualified Code(s): W19.XXXA - Unspecified fall, initial encounter (7) HLD (hyperlipidemia) Priority: Secondary Status: Chronic Comments: Chronic. Continue home medications. Qualifiers: Hyperlipidemia type: unspecified Qualified Code(s): E78.5 - Hyperlipidemia , unspecified (8) Morbid obesity with BMI of 40.0-44.9, adult Priority: Secondary Status: Chronic Comments: Chronic. Lifestyle changes including low calorie diet and increase activity. (9) DVT prophylaxis Priority: Secondary Status: Acute Comments: Heparin SQ and up to chair BID. - Discharge Medications Prescriptions: Acetaminophen/Butalbital/Caffe [Fioricet] 1 each PO BID PRN #2 tablet PRN Reason: Pain Home Medications: Ascorbic Acid [Vitamin C] 500 mg PO DAILY 11/07/16 [History] Aspirin 81 mg PO DAILY 11/07/16 [History] Atorvastatin [Lipitor] 40 mg PO HS 11/07/16 [History] Cyanocobalamin (Vitamin B-12) [Vitamin B12] 1,000 mcg PO DAILY 11/07/16 [History ] Ergocalciferol (VITAMIN D2) [Vitamin D2] 50,000 unit PO CARDOZA 11/07/16 [History] Esomeprazole Magnesium [Nexium] 40 mg PO DAILY 11/07/16 [History] Folic Acid 1 mg PO DAILY 11/07/16 [History] Furosemide [Lasix] 40 mg PO DAILY 11/07/16 [History] Levothyroxine [Synthroid] 75 mcg PO 0630 11/07/16 [History] Lisinopril 2.5 mg PO DAILY 11/07/16 [History] Sertraline [Zoloft] 200 mg PO DAILY 11/07/16 [History] HYDROcodone/Acet 10/325 mg [[place] 10-325 mg] 1 tab PO TID PRN #21 tablet [Rx] Ipratropium/Albuterol Neb [Duoneb] 3 ml IH [id number] inhsol 11/29/16 [Rx] metFORMIN [Glucophage] 1,000 mg PO BIDWM #60 11/29/16 [Rx] Amitriptyline [Elavil] 50 mg PO HS 01/10/17 [History] Baclofen 20 mg PO TID 01/10/17 [History] Celecoxib [Celebrex] 200 mg PO DAILY 01/10/17 [History] Gabapentin [Neurontin] 300 mg PO TID 01/10/17 [History] Insulin LISPRO [Humalog Kwikpen U-100] 14 unit SQ TID 01/10/17 [History] risperiDONE [RisperDAL] 1 mg PO TID 01/10/17 [History] Acetaminophen/Butalbital/Caffe [Fioricet] 1 each PO BID PRN #2 tablet 01/13/17 [ Rx] Calcium Carbonate [Tums] 1,000 mg PO QID tab.chew 01/13/17 [Rx] Ferrous Sulfate 325 mg PO BIDWM #0 tablet 01/13/17 [Rx] Allergies/Adverse Reactions: 3 Allergy/AdvReac Type Severity Reaction Status Date / Time No Known Allergies Allergy Verified 11/25/16 12:50 Date of admission: 01/10/17 03:31 Primary care physician: Nico Ahmadi MD Consults: 01/10/17 03:32 Consult to Stonemason Supervisor [CONS] Routine Reason for SW Consult: Has HH. Was at [facility] for PT/OT. Discharge Planning. 01/10/17 05:18 Consult to Occupational Therapy [CONS] Routine Comment: Evaluate, develop and implement POC Reason for Consult: falls, weakness Consult to Physical Therapy [CONS] Routine Comment: Evaluate, develop and implement POC Reason for Consult: falls, weakness Discharging clinician: Cecelia Saba Anticipated date of discharge: 01/13/17 - Patient Status Disposition: Home, Self-Care Condition: Good - Discharge Instructions Follow Up With: Nico Ahmadi MD [Primary Care Provider] - 01/16/17 1:15 pm Chris Stone MD [Partnered Physician] - 01/16/17 10:00 am - Diet and Activity Activity: as per physical therapy Diet: diabetic diet, low fat, low cholesterol Interval History: Please see assessment and plan for hospital course. Ms. Rangel is a 56-year-old female with past medical history of type 2 diabetes , hypothyroidism, schizophrenia, failure to thrive, hyperlipidemia, morbid obesity. She presented to the emergency department with weakness and fall at home. Patient was just discharged from [facility] for rehabilitation, she went home and was weak and unable to care for herself. She lives with her brother who states that he is unable to care for her in her current state. She will be discharged to [facility] for continued physical and occupational therapy. Hospital course: Ms. Rangel is a 56 year old female - Time Spent with Patient Total time spent providing and/or coordinating discharge services: Less than 30 minutes - Constitutional Vitals: Temp Pulse Resp BP Pulse Ox 98.4 F 94 19 123/77 96 01/13/17 07:39 01/13/17 07:39 01/13/17 07:39 01/13/17 07:39 01/13/17 07:39 General appearance: Present: cooperative, A&O X 3, morbidly obese, pleasant, no acute distress, answers questions appropriately - Head Head exam: Present: atraumatic, normal inspection, normocephalic - Eye Eye exam: Present: normal appearance, conjuntiva pink, sclera anicteric - Neck Neck exam general surgery: Present: supple, trachea midline. Absent: lymphadenopathy, tenderness - Respiratory Respiratory exam: Present: CTAB. Absent: accessory muscle use, chest wall tenderness, decreased breath sounds, rales, rhonchi, wheezes - Cardiovascular Cardiovascular exam: Present: RRR, +S1, +S2. Absent: diastolic murmur, gallop, rubs, systolic murmur - GI/Abdominal GI/Abdominal exam: Present: normal bowel sounds, soft, no peritoneal signs. Absent: distended, tenderness - Extremities Exam Extremities exam: Present: pedal edema, warm, radial pulses palpable and symmetrical. Absent: calf tenderness, cyanotic - Neurological Exam Neurological exam: Present: alert, oriented X3, no focal deficits. Absent: facial droop, speech deficit - Skin Skin exam: Present: dry, intact, normal color, warm. Absent: rash
--- NOTE | 2017-01-13 13:05 | Physician Discharge Referral ---
ExtendedCare Referral Info Transfer To: [facility] Provider in Charge after Transfer: PCP Institutional Level of Care: Intermediate - Diagnosis (1) SIRS (systemic inflammatory response syndrome) Priority: Secondary Status: Inactive (2) Acute kidney injury Priority: Secondary Status: Acute (3) Hypertension Priority: Secondary Status: Chronic (4) Diabetes type 2, uncontrolled Priority: Secondary Status: Chronic (5) Weakness generalized Priority: Primary Status: Acute (6) Fall Priority: Secondary Status: Acute (7) HLD (hyperlipidemia) Priority: Secondary Status: Chronic (8) Morbid obesity with BMI of 40.0-44.9, adult Priority: Secondary Status: Chronic (9) DVT prophylaxis Priority: Secondary Status: Acute Prognosis: Fair Aware of Diagnosis: Patient - Transfer Medications Prescriptions: Acetaminophen/Butalbital/Caffe [Fioricet] 1 each PO BID PRN #2 tablet PRN Reason: Pain Home Medications: Ascorbic Acid [Vitamin C] 500 mg PO DAILY 11/07/16 [History] Aspirin 81 mg PO DAILY 11/07/16 [History] Atorvastatin [Lipitor] 40 mg PO HS 11/07/16 [History] Cyanocobalamin (Vitamin B-12) [Vitamin B12] 1,000 mcg PO DAILY 11/07/16 [History ] Ergocalciferol (VITAMIN D2) [Vitamin D2] 50,000 unit PO CARDOZA 11/07/16 [History] Esomeprazole Magnesium [Nexium] 40 mg PO DAILY 11/07/16 [History] Folic Acid 1 mg PO DAILY 11/07/16 [History] Furosemide [Lasix] 40 mg PO DAILY 11/07/16 [History] Levothyroxine [Synthroid] 75 mcg PO 0630 11/07/16 [History] Lisinopril 2.5 mg PO DAILY 11/07/16 [History] Sertraline [Zoloft] 200 mg PO DAILY 11/07/16 [History] HYDROcodone/Acet 10/325 mg [[place] 10-325 mg] 1 tab PO TID PRN #21 tablet [Rx] Ipratropium/Albuterol Neb [Duoneb] 3 ml IH [id number] inhsol 11/29/16 [Rx] metFORMIN [Glucophage] 1,000 mg PO BIDWM #60 11/29/16 [Rx] Amitriptyline [Elavil] 50 mg PO HS 01/10/17 [History] Baclofen 20 mg PO TID 01/10/17 [History] Celecoxib [Celebrex] 200 mg PO DAILY 01/10/17 [History] Gabapentin [Neurontin] 300 mg PO TID 01/10/17 [History] Insulin LISPRO [Humalog Kwikpen U-100] 14 unit SQ TID 01/10/17 [History] risperiDONE [RisperDAL] 1 mg PO TID 01/10/17 [History] Acetaminophen/Butalbital/Caffe [Fioricet] 1 each PO BID PRN #2 tablet 01/13/17 [ Rx] Calcium Carbonate [Tums] 1,000 mg PO QID tab.chew 01/13/17 [Rx] Ferrous Sulfate 325 mg PO BIDWM #0 tablet 01/13/17 [Rx] Allergies/Adverse Reactions: 3 Allergy/AdvReac Type Severity Reaction Status Date / Time No Known Allergies Allergy Verified 11/25/16 12:50 - Respiratory Orders Oxygen / L per min (2L via n/c. Titrated to maintain sats > 92%) Smoking Cessation: Smoking cessation has been advised. For more information, call the [place] [employer] Quit Line at 6-445-OBDW-NOW. - Lab Orders Lab Orders: CBC, U/A, Be 17, CXR yearly - Ancillary Orders May use pressure relief devices daily prn, May go on FABI w/family/respon democrat w /meds at nurse discretion PRN, May consult with Dentist, Television Anchor, Radiotelegrapher PRN - Advance Directives Code Status: Full Code - Mobility Orders Chair - Rehabiliation Orders Rehab Orders: ROM Exercises, Evaluation for Physical Therapy, Evaluation for Occupational Therapy - Treatments Skin tear care topically daily PRN per policy, May check for fecal impaction rectally daily PRN, Fleet enema rectally every other day PRN cleansing purposes - Diet Orders No Added Salt (MAXIMINO) CERTIFICATION: I certify that the transfer of the above named patient to an Extended Care Facility is necessary for the continuing treatment of the diagnosis listed. The above information is true and accurate reflection of patient's current condition. Confidential - Redisclosure prohibited without a patient's written consent.
[2017-01-13 14:54] VITALS: BP 129/78
== END 2017-01-13 15:15 | DRG 872 ==
LOC: 3BNU 21:56 → EMEROO 21:56 → 3BNU 01-10 03:02
PROVIDERS: ADMIT Registered Nurse; ATTEND Registered Nurse

== ENCOUNTER 2017-04-06 10:50 | Observation (INO) ==
[2017-04-06] MEDS ORDERED: 0.9 % Sodium Chloride 1,000 ML IVC ONE ×2 (11:39→17:23)
[2017-04-06] MEDS ORDERED: Ondansetron 4 MG/2 ML VIAL IVP PRN (11:41)
[2017-04-06] MEDS ORDERED: Aspirin 325 MG TABLET PO ONE (12:31)
--- NOTE | 2017-04-06 12:31 | Emergency Department Note ---
START Narrative - START START: I examined this patient and my medical decision-making was reviewed with the Resident Physician. I agree with the documented findings, disposition and treatment plan as described except to the extent set forth below. 56 year old dale presents to the ED wt complaints of nasuea and vomitting without adbominal pain or fevers. States that she also has generalized weakness. Diann has MRDD and is a poor historian. Her abdominal exam is benign. Patient does have twave inversions on lead III and some hyper acute Twave in precoridal leads. We will do an abdominal and cardiopulmonary workup and huesperanza admit to medicine. ASA therapy and zofran for nausea
--- NOTE | 2017-04-06 12:57 | Emergency Department Note ---
Disposition Clinical Impression: Acute kidney injury, Hyperkalemia, Hypomagnesemia Nausea and vomiting Qualifiers: Vomiting type: unspecified Vomiting Intractability: non-intractable Qualified Code(s): R11.2 - Nausea with vomiting, unspecified Acute renal failure Qualifiers: Acute renal failure type: unspecified Qualified Code(s): N17.9 - Acute kidney failure, unspecified Disposition: Admitted As Inpatient Condition: Serious Referrals: Nico Ahmadi MD [Primary Care Provider] - Forms: ED Satisfaction Letter Time of Disposition: 18:04 Nausea/Vomiting/Diarrhea HPI - General Chief complaint: ED Nausea/Vomiting/Diarrhea Stated complaint: gen weak n/v Time Seen by Provider: 04/06/17 11:02 Source: patient, EMS Limitations: no limitations Nursing Notes Reviewed: Yes Vital Signs Reviewed: Yes - History of Present Illness HPI Narrative: 56-year-old female complains of acute onset of nausea and vomiting 1 evening ago. Patient had a repeat bout of nausea and vomiting this morning prior to arrival. Patient was brought in for evaluation area. Patient states there is no blood in her vomit. Patient states her vomit was watery. Patient states she has not been able to eat or drink since earlier 1 day ago around lunchtime. Patient denies any abdominal pain, shortness of breath or chest pain. Patient denies. Patient denies any cardiac history, the patient has a history of PE, hyperlipidemia, diabetes, GERD, kidney stones. - Related Data Home Medications Medication Instructions Recorded Confirmed Ascorbic Acid [Vitamin C] 500 mg PO DAILY 11/07/16 04/06/17 Aspirin 81 mg PO DAILY 11/07/16 04/06/17 Atorvastatin [Lipitor] 40 mg PO HS 11/07/16 04/06/17 Cyanocobalamin (Vitamin B-12) 1,000 mcg PO DAILY 11/07/16 04/06/17 [Vitamin B12] Ergocalciferol (VITAMIN D2) 50,000 unit PO CARDOZA 11/07/16 04/06/17 [Vitamin D2] Esomeprazole Magnesium [Nexium] 40 mg PO DAILY 11/07/16 04/06/17 Folic Acid 1 mg PO DAILY 11/07/16 04/06/17 Furosemide [Lasix] 40 mg PO DAILY 11/07/16 04/06/17 Levothyroxine [Synthroid] 75 mcg PO 0630 11/07/16 04/06/17 Lisinopril 2.5 mg PO DAILY 11/07/16 04/06/17 Sertraline [Zoloft] 200 mg PO DAILY 11/07/16 04/06/17 Amitriptyline [Elavil] 50 mg PO HS 01/10/17 04/06/17 Baclofen 20 mg PO TID 01/10/17 04/06/17 Celecoxib [Celebrex] 200 mg PO DAILY 01/10/17 04/06/17 Gabapentin [Neurontin] 300 mg PO TID 01/10/17 04/06/17 Insulin LISPRO [Humalog Kwikpen 14 unit SQ TID 01/10/17 04/06/17 U-100] risperiDONE [RisperDAL] 1 mg PO TID 01/10/17 04/06/17 Previous Rx's Medication Instructions Recorded HYDROcodone/Acet 10/325 mg [[place] 1 tab PO TID PRN #21 tablet 11/29/16 10-325 mg] metFORMIN [Glucophage] 1,000 mg PO BIDWM #60 11/29/16 Acetaminophen/Butalbital/Caffe 1 each PO BID PRN #2 tablet 01/13/17 [Fioricet] Ferrous Sulfate 325 mg PO BIDWM #0 tablet 01/13/17 Allergies Allergy/AdvReac Type Severity Reaction Status Date / Time adhesive tape Allergy Rash Verified 04/06/17 10:54 All systems ED: reviewed and negative except as stated. Review of Systems: As Per HPI Constitutional: Denies: fever, chills, weakness ENT ED: Denies: congestion Cardiovascular: Denies: chest pain, palpitations Respiratory: Denies: cough, dyspnea, wheezes Gastrointestinal: Reports: nausea, vomiting. Denies: abdominal pain, diarrhea Genitourinary: Denies: urgency, dysuria, frequency, hematuria Past Medical History - Past Medical History Attestation: Yes The following information was validated with the patient. Source: patient, nursing notes reviewed Medical history: Reports: diabetes, fibromyalgia, GERD, hyperlipidemia, kidney stones, pulmonary embolus, thyroid disease Surgical history: Reports: non-contributory Psychiatric history: Reports: anxiety, depression - Social History Smoking Status: Never smoker Smokeless Tobacco Status: No Alcohol use: Reports: none Drug use: Reports: none Physical Exam Vital Signs Temperature 98.2 F 04/06/17 10:51 Pulse Rate 86 04/06/17 10:51 Respiratory Rate 16 04/06/17 10:51 Blood Pressure 126/65 04/06/17 10:51 O2 Sat by Pulse Oximetry 95 04/06/17 10:51 Temperature 98.2 F 04/06/17 10:51 Pulse Rate 86 04/06/17 10:51 Respiratory Rate 16 04/06/17 10:51 Blood Pressure 126/65 04/06/17 10:51 O2 Sat by Pulse Oximetry 95 04/06/17 10:51 Oxygen Delivery Oxygen Delivery Room Air CONSTITUTIONAL: Well-appearing; well-nourished; A&O X 3, in no apparent distress, HEAD: Normocephalic; atraumatic EYES: PERRL, no scleral icterus NOSE: The nose is normal in appearance without rhinorrhea NECK: No JVD or distended neck veins RESP: Normal chest excursion with respiration; breath sounds clear and equal bilaterally; no wheezes, rhonchi, or rales CARD: Regular rhythm, without murmurs, rub or gallop ABD: Non-distended; non-tender, soft, without rigidity, rebound or guarding,no pulsatile mass CHEST: No pain with palpation SKIN: Normal for age and race; warm and dry without diaphoresis ; no apparent lesions EXTREMITIES: Pulses are 2 plus and equal times 4 extremities, no peripheral edema or calf muscle pain - General Limitations: no limitations General appearance: alert, in no apparent distress Course - Reevaluation(s) Reevaluation #1: Tech is still working to get a IV line on the patient. Time: 13:00 Reevaluation #2: Still waiting on the patient's labs to be accomplished. Phone call with the lab was accomplished. They state that chemistries hemolyzed but was really collected and currently in the analyzer Time: 15:24 Reevaluation #3: Lab called back with possible lab description see. Patient's potassium 6.5. Patient has not had any history of recent. Since patient has peaked T waves on EKG current plan is to treat with albuterol inhaler, and bicarbonate. Once we confirmed the patient's potassium is indeed elevated and this is not a hemolyzed sample then patient will be started on calcium gluconate. Patient is comfortable at the moment Time: 15:41 Additional Reevaluation(s): Patient is resting complete. Labs have a problem processing her chemistry. Still waiting results so patient can go to CT. 1711 hrs.: Patient's chemistry is finally resolved, and concerns hyperkalemia as well as elevated creatinine at 3.27 acute kidney injury. Patient will be started on calcium gluconate and Lasix. Patient will be going for noncontrast CT due to her kidney injury. Vital Signs Temperature 98.2 F 04/06/17 10:51 Pulse Rate 86 04/06/17 10:51 Respiratory Rate 16 04/06/17 10:51 Blood Pressure 126/65 04/06/17 10:51 O2 Sat by Pulse Oximetry 95 04/06/17 10:51 Temperature 98.2 F 04/06/17 10:51 Pulse Rate 86 04/06/17 10:51 Respiratory Rate 16 04/06/17 16:03 Blood Pressure 126/65 04/06/17 10:51 O2 Sat by Pulse Oximetry 93 04/06/17 16:03 Oxygen Delivery Oxygen Delivery Room Air Nausea/Vomiting/Diarrhea - MDM Narrative Medical decision making narrative: Patient presents with acute nausea and vomiting, and weakness but no other symptoms. But shows acute changes on EKG the T-wave inversion in lead 3 and PT waves. An extensive workup has been ordered given patient's weakened state, risk factors of hypertension, hyperlipidemia and diabetes and a previous history of PE. Review of patient's history shows recent admission for acute kidney injury as well. Finally able to get the chemistry results which show hyperkalemia at 6.2. And along with the patient's peak T waves on EKG patient has been started on calcium gluconate, albuterol, bicarbonate, and Lasix. Patient does also show acute kidney injury with a creatinine of 3.27 which is the highest it ever been for the patient. Patient's GFR is currently 15 with her previous greater than 60. Patient is in acute renal failure Patient also has low magnesium and calcium has been started on replacement for that as well. Patient's CT abdomen and pelvis results only positive for right adnexal cyst. Patient has been updated about the findings cyst and the need for follow-up with [facility]. Patient does not have a UTI. Patient does not have any abdominal pain. Current plan is to be admitted for treatment of acute renal failure, hyperkalemia, hypomagnesemia, nausea and vomiting. Patient understands and agrees to treatment plan Perez Gonzalez the hospitalist as accepted patient for admission at 1711 hrs. in stable condition. Patient nausea has been controlled and is currently eating and currently has no pain - Lab Data Lab results reviewed: Yes I reviewed the patient's lab results. Lab results narrative: Short CBC 04/06/17 Range/Units 12:39 WBC 9.5 (4.3-11.1) K/mcL Hgb 13.3 (11.5-15.4) g/dL Hct 45.3 H (35.3-44.9) % Plt Count 184 (140-400) K/mcL Neutrophils # 7.2 (1.6-8.9) K/mcL BMP 04/06/17 Range/Units 15:41 Sodium 140 (136-145) mEq/L Potassium 6.2 H (3.5-5.1) mEq/L Chloride 108 H (98-107) mEq/L Carbon Dioxide 24 (23-29) mEq/L BUN 37 H (6-20) mg/dL Creatinine 3.27 H (0.60-1.20) mg/dL Glucose 114 H (70-105) mg/dL Calcium 8.5 L (8.6-10.3) mg/dL Cardiac Enzymes 04/06/17 Range/Units 12:39 Troponin I < 0.03 (< 0.04) ng/mL Liver Function 04/06/17 Range/Units 15:41 Total Bilirubin 0.4 (0.3-1.0) mg/dL Direct Bilirubin 0.1 (0.0-0.2) mg/dL AST 8 L (13-39) Units/L ALT 8 (7-52) Units/L Alkaline Phosphatase 57 (34-104) Units/L Albumin 3.5 (3.5-5.7) g/dL Urine 04/06/17 Range/Units 16:10 Urine Color Yellow (Yellow) Urine Clarity Cloudy A (Clear) Urine pH 5.0 (5.0-8.0) pH Units Ur Specific [place] 1.022 (1.010-1.025) Urine Protein Trace (Neg-Trace) mg/dL Urine Glucose (UA) Normal (Normal) mg/dL Result diagrams: 04/06/17 12:39 04/06/17 15:41 Lab Results 0204/06/17 04/06/17 Range/Units 12:39 12:39 12:39 WBC 9.5 (4.3-11.1) K/mcL RBC 5.03 H (3.82-4.97) M/mcL Hgb 13.3 (11.5-15.4) g/dL Hct 45.3 H (35.3-44.9) % MCV 90.1 (83.0-100.0) fL MCH 26.4 L (28.0-33.3) pg MCHC 29.4 L (31.6-35.5) g/dL RDW 15.2 H (11.5-14.5) % Plt Count 184 (140-400) K/mcL MPV 10.8 (9.4-12.4) fL Immature Gran % 0.7 (0-4) % Seg Neutrophils % 75.1 % Lymphocytes % 15.2 % Monocytes % 5.8 % Eosinophils % 2.7 % Basophils % 0.5 % Neutrophils # 7.2 (1.6-8.9) K/mcL Lymphocytes # 1.5 (0.6-4.6) K/mcL Monocytes # 0.6 (0.0-1.3) K/mcL Eosinophils # 0.3 (0.0-0.6) K/mcL Basophils # 0.1 (0.0-0.2) K/mcL PT 10.1 (9.4-12.1) Seconds INR 0.9 APTT 26.6 (26.0-36.0) Seconds Sodium (136-145) mEq/L Potassium (3.5-5.1) mEq/L Chloride (98-107) mEq/L Carbon Dioxide (23-29) mEq/L BUN (6-20) mg/dL Creatinine (0.60-1.20) mg/dL Est GFR ( Amer) (> 60) Est GFR (Non-Af Amer) (> 60) BUN/Creatinine Ratio (6-26) Glucose (70-105) mg/dL Calculated Osmolality (280-300) Lactic Acid (0.5-2.2) mmol/L Calcium (8.6-10.3) mg/dL Phosphorus (2.7-4.5) mg/dL Magnesium (1.6-2.6) mg/dL Total Bilirubin (0.3-1.0) mg/dL Direct Bilirubin (0.0-0.2) mg/dL Indirect Bilirubin (0.0-1.2) mg/dL AST (13-39) Units/L ALT (7-52) Units/L Alkaline Phosphatase (34-104) Units/L Troponin I < 0.03 (< 0.04) ng/mL Serum Total Protein (6.4-8.9) g/dL Albumin (3.5-5.7) g/dL Globulin (2.4-3.5) g/dL Albumin/Globulin Ratio (1.1-2.2) Lipase (11-82) Units/L Urine Color (Yellow) Urine Clarity (Clear) Urine pH (5.0-8.0) pH Units Ur Specific [place] (1.010-1.025) Urine Protein (Neg-Trace) mg/dL Urine Glucose (UA) (Normal) mg/dL Urine Ketones (Negative) mg/dL Urine Blood (Negative) Urine Nitrite (Negative) Urine Bilirubin (Negative) Urine Urobilinogen (Normal) mg/dL Ur Leukocyte Esterase (Negative) Urine Microscopic RBC (0-3) per hpf Urine Microscopic WBC (0-3) per hpf Ur Squamous Epith Cells (None-Few) per lpf Urine Bacteria (None-Few) per hpf Hyaline Casts (None-Few) per lpf Ur Culture Indicated? (NO) Specimen Rejected 04/06/17 04/06/17 04/06/17 Range/Units 12:39 13:50 15:41 WBC (4.3-11.1) K/mcL RBC (3.82-4.97) M/mcL Hgb (11.5-15.4) g/dL Hct (35.3-44.9) % MCV (83.0-100.0) fL MCH (28.0-33.3) pg MCHC (31.6-35.5) g/dL RDW (11.5-14.5) % Plt Count (140-400) K/mcL MPV (9.4-12.4) fL Immature Gran % (0-4) % Seg Neutrophils % % Lymphocytes % % Monocytes % % Eosinophils % % Basophils % % Neutrophils # (1.6-8.9) K/mcL Lymphocytes # (0.6-4.6) K/mcL Monocytes # (0.0-1.3) K/mcL Eosinophils # (0.0-0.6) K/mcL Basophils # (0.0-0.2) K/mcL PT (9.4-12.1) Seconds INR APTT (26.0-36.0) Seconds Sodium 140 (136-145) mEq/L Potassium 6.2 H (3.5-5.1) mEq/L Chloride 108 H (98-107) mEq/L Carbon Dioxide 24 (23-29) mEq/L BUN 37 H (6-20) mg/dL Creatinine 3.27 H (0.60-1.20) mg/dL Est GFR ( Amer) 18 L (> 60) Est GFR (Non-Af Amer) 15 L (> 60) BUN/Creatinine Ratio 11 (6-26) Glucose 114 H (70-105) mg/dL Calculated Osmolality 300 (280-300) Lactic Acid 0.6 (0.5-2.2) mmol/L Calcium 8.5 L (8.6-10.3) mg/dL Phosphorus 5.8 H (2.7-4.5) mg/dL Magnesium 1.5 L (1.6-2.6) mg/dL Total Bilirubin 0.4 (0.3-1.0) mg/dL Direct Bilirubin 0.1 (0.0-0.2) mg/dL Indirect Bilirubin 0.3 (0.0-1.2) mg/dL AST 8 L (13-39) Units/L ALT 8 (7-52) Units/L Alkaline Phosphatase 57 (34-104) Units/L Troponin I (< 0.04) ng/mL Serum Total Protein 6.4 (6.4-8.9) g/dL Albumin 3.5 (3.5-5.7) g/dL Globulin 2.9 (2.4-3.5) g/dL Albumin/Globulin Ratio 1.2 (1.1-2.2) Lipase 37 (11-82) Units/L Urine Color (Yellow) Urine Clarity (Clear) Urine pH (5.0-8.0) pH Units Ur Specific [place] (1.010-1.025) Urine Protein (Neg-Trace) mg/dL Urine Glucose (UA) (Normal) mg/dL Urine Ketones (Negative) mg/dL Urine Blood (Negative) Urine Nitrite (Negative) Urine Bilirubin (Negative) Urine Urobilinogen (Normal) mg/dL Ur Leukocyte Esterase (Negative) Urine Microscopic RBC (0-3) per hpf Urine Microscopic WBC (0-3) per hpf Ur Squamous Epith Cells (None-Few) per lpf Urine Bacteria (None-Few) per hpf Hyaline Casts (None-Few) per lpf Ur Culture Indicated? (NO) Specimen Rejected Hemolyzed 04/06/17 Range/Units 16:10 WBC (4.3-11.1) K/mcL RBC (3.82-4.97) M/mcL Hgb (11.5-15.4) g/dL Hct (35.3-44.9) % MCV (83.0-100.0) fL MCH (28.0-33.3) pg MCHC (31.6-35.5) g/dL RDW (11.5-14.5) % Plt Count (140-400) K/mcL MPV (9.4-12.4) fL Immature Gran % (0-4) % Seg Neutrophils % % Lymphocytes % % Monocytes % % Eosinophils % % Basophils % % Neutrophils # (1.6-8.9) K/mcL Lymphocytes # (0.6-4.6) K/mcL Monocytes # (0.0-1.3) K/mcL Eosinophils # (0.0-0.6) K/mcL Basophils # (0.0-0.2) K/mcL PT (9.4-12.1) Seconds INR APTT (26.0-36.0) Seconds Sodium (136-145) mEq/L Potassium (3.5-5.1) mEq/L Chloride (98-107) mEq/L Carbon Dioxide (23-29) mEq/L BUN (6-20) mg/dL Creatinine (0.60-1.20) mg/dL Est GFR ( Amer) (> 60) Est GFR (Non-Af Amer) (> 60) BUN/Creatinine Ratio (6-26) Glucose (70-105) mg/dL Calculated Osmolality (280-300) Lactic Acid (0.5-2.2) mmol/L Calcium (8.6-10.3) mg/dL Phosphorus (2.7-4.5) mg/dL Magnesium (1.6-2.6) mg/dL Total Bilirubin (0.3-1.0) mg/dL Direct Bilirubin (0.0-0.2) mg/dL Indirect Bilirubin (0.0-1.2) mg/dL AST (13-39) Units/L ALT (7-52) Units/L Alkaline Phosphatase (34-104) Units/L Troponin I (< 0.04) ng/mL Serum Total Protein (6.4-8.9) g/dL Albumin (3.5-5.7) g/dL Globulin (2.4-3.5) g/dL Albumin/Globulin Ratio (1.1-2.2) Lipase (11-82) Units/L Urine Color Yellow (Yellow) Urine Clarity Cloudy A (Clear) Urine pH 5.0 (5.0-8.0) pH Units Ur Specific [place] 1.022 (1.010-1.025) Urine Protein Trace (Neg-Trace) mg/dL Urine Glucose (UA) Normal (Normal) mg/dL Urine Ketones Negative (Negative) mg/dL Urine Blood Negative (Negative) Urine Nitrite Negative (Negative) Urine Bilirubin Small H (Negative) Urine Urobilinogen Normal (Normal) mg/dL Ur Leukocyte Esterase Negative (Negative) Urine Microscopic RBC 15-30 H (0-3) per hpf Urine Microscopic WBC 0-3 (0-3) per hpf Ur Squamous Epith Cells Moderate H (None-Few) per lpf Urine Bacteria None Seen (None-Few) per hpf Hyaline Casts Few (None-Few) per lpf Ur Culture Indicated? NO (NO) Specimen Rejected - Radiology Data Radiology results reviewed: Yes I reviewed the patient's radiology results. Chest X-Ray 04/06/17 11:40 IMPRESSION: No acute cardiopulmonary process. D/ 04/06/2017 12:44:39 Zaki Allen MD / angelo Interpreting Provider: Zaki Allen MD Abdomen/Pelvis CT 04/06/17 12:05 IMPRESSION: 1. No acute findings within the abdomen. 2. Nonobstructing right renal stone. 3. Dominant cyst involving the right adnexa measuring up to 5.9 cm. Follow-up ultrasound is recommended according to ACR guidelines. RECOMMENDATIONS: Managing Incidental Adnexal Cystic Mass by CT or MR Benign cyst: Premenopausal (< or equal to 50 years if LMP unknown) < or equal to 5 cm: no follow up >5 cm: US in 6-12 weeks > or equal to 10 cm: US promptly Early postmenopausal (0-5 years after LMP) < or equal to 3 cm: no follow up 3-5 cm: US in 6-12 weeks >5 cm: US promptly Late postmenopausal < or equal to 3 cm: no follow up >3 cm: US promptly Probably benign cyst : {benign appearing except demonstrates one or more of the following - (a) angulated margin, (b) not round/oval shape, (c) not well imaged due to artifact or technical parameters (ex. noncontrast CT)} Premenopausal (< than or equal to 50 years if LMP unknown) < or equal to 3 cm: no follow up 3-5 cm: US in 6-12 weeks >5 cm: US Early postmenopausal < or equal to 3 cm: no follow up >3 cm: US promptly Late postmenopausal < or equal to 1 cm: no follow up >1 cm: US Reference: Stuart et al. Managing Incidental Findings on Abdominal CT: White Paper of the ACR Incidental Findings Committee. J Am Manuel Radiol 2010;[id number] D/ / 04/06/2017 17:56:14 Zaki Allen MD / angelo Interpreting Provider: Zaki Allen MD - EKG Data EKG attestation: Yes I reviewed and interpreted this EKG. EKG results narrative: EKG taken 2017 at 1213 hrs. shows sinus rhythm at a rate of 83 bpm with no acute ST elevations or depressions in these, but patient has inverted T waves seen in 3 and peak T waves which are new when compared to previous EKG.
[2017-04-06 13:00] LABS: Basophils # 0.1 K/mcL (0.0-0.2); Basophils % 0.5 %; Eosinophils # 0.3 K/mcL (0.0-0.6); Eosinophils % 2.7 %; Hematocrit 45.3 % (35.3-44.9); Hemoglobin 13.3 g/dL (11.5-15.4); Immature Granulocytes % 0.7 % (0-4); Lymphocytes # 1.5 K/mcL (0.6-4.6); Lymphocytes % 15.2 %; Mean Corpuscular HGB Conc 29.4 g/dL (31.6-35.5); Mean Corpuscular Hemoglobin 26.4 pg (28.0-33.3); Mean Corpuscular Volume 90.1 fL (83.0-100.0); Mean Platelet Volume 10.8 fL (9.4-12.4); Monocytes # 0.6 K/mcL (0.0-1.3); Monocytes % 5.8 %; Neutrophils # 7.2 K/mcL (1.6-8.9); Platelet Count 184 K/mcL (140-400); Red Blood Count 5.03 M/mcL (3.82-4.97); Red Cell Distribution Width 15.2 % (11.5-14.5); Segmented Neutrophils % 75.1 %
[2017-04-06 13:02] LABS: INR 0.9; Prothrombin Time 10.1 Seconds (9.4-12.1)
[2017-04-06 13:05] LABS: Activated Partial Thrombo Time 26.6 Seconds (26.0-36.0)
[2017-04-06] MEDS ORDERED: Albuterol 2.5 MG/3 ML NEBULIZER IH ONE (15:40)
[2017-04-06] MEDS ORDERED: Sodium Bicarbonate 50 MEQ/50 ML VIAL IVP ONE (15:40)
[2017-04-06 16:42] LABS: Bilirubin,Urine Small (Negative); Blood,Urine Negative (Negative); Clarity,Urine Cloudy (Clear); Color,Urine Yellow (Yellow); Glucose,Urine (UA) Normal (Normal); Ketones,Urine Negative (Negative); Leukocyte Esterase,Urine Negative (Negative); Nitrite,Urine Negative (Negative); Protein,Urine Trace mg/dL (Neg-Trace); Specific Gravity,Urine 1.022 (1.010-1.025); Urobilinogen,Urine Normal (Normal)
[2017-04-06 16:44] LABS: Bacteria,Urine None Seen per hpf (None-Few); Hyaline Casts,Urine Few per lpf (None-Few); RBC,Urine 15-30 per hpf (0-3); Squamous Epithelial Cell,Urine Moderate per lpf (None-Few); WBC,Urine 0-3 per hpf (0-3)
[2017-04-06 17:00] LABS: Albumin 3.5 g/dL (3.5-5.7); Albumin/Globulin Ratio 1.2 (1.1-2.2); Bilirubin,Direct 0.1 mg/dL (0.0-0.2); Bilirubin,Indirect 0.3 mg/dL (0.0-1.2); Bilirubin,Total 0.4 mg/dL (0.3-1.0); Calcium 8.5 mg/dL (8.6-10.3); Globulin 2.9 g/dL (2.4-3.5); Magnesium 1.5 mg/dL (1.6-2.6); Phosphorous 5.8 mg/dL (2.7-4.5); Potassium 6.2 mEq/L (3.5-5.1); Total Protein 6.4 g/dL (6.4-8.9)
[2017-04-06] MEDS ORDERED: Ipratropium/Albuterol Neb 3 ML IH ONE (17:07)
[2017-04-06] MEDS ORDERED: Insulin Regular, Human 100 UNIT/ML IV ONE (17:08)
[2017-04-06] MEDS ORDERED: Furosemide 40 MG/4 ML VIAL IVP ONE (17:10)
[2017-04-06] MEDS ORDERED: Acetaminophen/Butalbital/CaffeineTABLET PO PRN (23:58)
[2017-04-07 00:03] LABS: Calcium 8.3 mg/dL (8.6-10.3); Potassium 5.8 mEq/L (3.5-5.1)
[2017-04-07] MEDS ORDERED: *HR* Dextrose 50 % in Water (Syg) 50 ML SYRINGE IVP PRN (00:32)
[2017-04-07] MEDS ORDERED: D5% in Water 1,000 ML IVC PRN (00:32)
[2017-04-07] MEDS ORDERED: Dextrose Gel 15 GM/37.5 ML TUBE PO PRN ×2 (00:32)
--- NOTE | 2017-04-07 00:42 | Internal Med History&Physical ---
<Joseph Murcia - Last Filed: 04/07/17 03:39> Date of Encounter: 04/07/17 Time of Encounter: 21:30 Assessment and Plan (1) Nausea and vomiting Current visit: Yes Status: Acute Patient with nausea and vomiting since Monday evening. Per patient only threw up two times, but has had no PO intake for over a day. continue PRN Zofran continue IV hydration encourage PO intake. Qualifiers: Vomiting type: unspecified Vomiting Intractability: non-intractable Qualified Code(s): R11.2 - Nausea with vomiting, unspecified (2) Acute renal failure Current visit: Yes Status: Acute Pt with ARF secondary to dehydration from Nausea, Vomiting on top of Diabetes Mellitus Pt Cr 3.27 on admission baseline ~0.8 repeat 2.91, 2.69 BUN 37, 37, 35 continue IV rehydration start renal diet continue vitamin supplementation Qualifiers: Acute renal failure type: unspecified Qualified Code(s): N17.9 - Acute kidney failure, unspecified (3) Hyperkalemia Current visit: Yes Status: Acute Secondary to ARF K 6.2 on admission with peaked T waves on EKG patient received calcium gluconate, albuterol, lasix, insulin, and sodium bicarb repeat Ks 5.8 and now 5.3 continue to monitor continue fluid rehydration as needed (4) Hypomagnesemia Current visit: Yes Status: Acute Pt with Mg 1.5 on admission. repletion ordered in ED but does not appear ever received. repeat Mg level drawn shows 1.4. will give 2g IV magnesium (5) Diabetes type 2, uncontrolled Current visit: No Status: Chronic Pt with hx of DM on home insulin short and residential, and metformin Start SSI, accuchecks, diabetic diet hold metformin continue home neuropathy medications. Qualifiers: Diabetes mellitus complication status: with neurologic complications Diabetes mellitus complication detail: with unspecified neuropathy Diabetes mellitus residential insulin use: with terminal worker use Qualified Code(s): E11.40 - Type 2 diabetes mellitus with diabetic neuropathy, unspecified; E11.65 - Type 2 diabetes mellitus with hyperglycemia; E11.65 - Type 2 diabetes mellitus with hyperglycemia; E11.65 - Type 2 diabetes mellitus with hyperglycemia; E11.65 - Type 2 diabetes mellitus with hyperglycemia; Z79.4 - alf (current) use of insulin; Z79.4 - alf (current) use of insulin; Z79.4 - alf (current ) use of insulin; Z79.4 - alf (current) use of insulin (6) Hypothyroid Current visit: No Status: Chronic Hx of hypothyroidism continue home synthroid Qualifiers: Hypothyroidism type: unspecified Qualified Code(s): E03.9 - Hypothyroidism , unspecified (7) HLD (hyperlipidemia) Current visit: No Status: Chronic Hx of HLD on home atorvastain 40mg continue home statin. Qualifiers: Hyperlipidemia type: unspecified Qualified Code(s): E78.5 - Hyperlipidemia , unspecified (8) GERD (gastroesophageal reflux disease) Current visit: Yes Status: Acute Patient with hx of GERD on home PPI continue home PPI Qualifiers: Esophagitis presence: esophagitis presence not specified Qualified Code(s) : K21.9 - Gastro-esophageal reflux disease without esophagitis (9) Hypertension Current visit: No Status: Chronic Hx of HTN on home linispril 2.5mg and lasix 40mg holding both due to ARF patient has been normotensive since admission continue to monitor Qualifiers: Hypertension type: essential hypertension Qualified Code(s): I10 - Essential (primary) hypertension Internal Medicine - H&P: HPI Chief complaint: Nausea and Vomiting Admitted From: Emergency Dept Plans for Post Hospital Care: Home History of present illness: Ms. Rangel is a 56 year old female c PMhx of DM, GERD, HTN, fibromyalgia, Low back pain, HLD, Kidney stones, PE, hypothyroidism, anxiety, depression reports to the ED c/o N/V x 1.5 days. Patient denies diarrhea, abd pain, fevers, chills , chest pain, dysuria. Patient does report some shortness of breath requiring oxygen. Patient reports vomit being watery, denies hematemesis. Patient reports no PO intake for 1.5 days. Patient's work up in the ED was remarkable for ARF with Cr. 3.27 up from basleine of 0.8, hyperkalemia of 6.2 with peaked T waves on EKG, hypomagnesia of 1.5. Patient was treated in ED for Hypokalemia with albuterol, calcium gluconate, lasix, and insulin. Patient given zofran for nausea. Pt given 2L IV fluid in ED. Past Med Surg Social Fam HX - Past Medical History Medical history: diabetes, fibromyalgia, GERD, hyperlipidemia, kidney stones, pulmonary embolus, thyroid disease Psychiatric history: anxiety, depression - Past Surgical History Surgical History: non-contributory - Social History Smoking Status: Never smoker Smokeless Tobacco Status: No Alcohol use: none Drug use: none - Family History Father Living Status: Still Living Hx Family Cardiac Disorders: Yes Mother Living Status: Age at : 51 Cause of : Heart disease Hx Family Cardiac Disorders: Yes Internal Medicine - H&P: Meds Ascorbic Acid [Vitamin C] 500 mg PO DAILY 11/07/16 [History] Aspirin 81 mg PO DAILY 11/07/16 [History] Atorvastatin [Lipitor] 40 mg PO HS 11/07/16 [History] Cyanocobalamin (Vitamin B-12) [Vitamin B12] 1,000 mcg PO DAILY 11/07/16 [History ] Ergocalciferol (VITAMIN D2) [Vitamin D2] 50,000 unit PO CARDOZA 11/07/16 [History] Esomeprazole Magnesium [Nexium] 40 mg PO DAILY 11/07/16 [History] Folic Acid 1 mg PO DAILY 11/07/16 [History] Furosemide [Lasix] 40 mg PO DAILY 11/07/16 [History] Levothyroxine [Synthroid] 75 mcg PO 0630 11/07/16 [History] Lisinopril 2.5 mg PO DAILY 11/07/16 [History] Sertraline [Zoloft] 200 mg PO DAILY 11/07/16 [History] HYDROcodone/Acet 10/325 mg [[place] 10-325 mg] 1 tab PO TID PRN #21 tablet [Rx] metFORMIN [Glucophage] 1,000 mg PO BIDWM #60 11/29/16 [Rx] Amitriptyline [Elavil] 50 mg PO HS 01/10/17 [History] Baclofen 20 mg PO TID 01/10/17 [History] Celecoxib [Celebrex] 200 mg PO DAILY 01/10/17 [History] Gabapentin [Neurontin] 300 mg PO TID 01/10/17 [History] Insulin LISPRO [Humalog Kwikpen U-100] 14 unit SQ TID 01/10/17 [History] risperiDONE [RisperDAL] 1 mg PO TID 01/10/17 [History] Acetaminophen/Butalbital/Caffe [Fioricet] 1 each PO BID PRN #2 tablet 01/13/17 [ Rx] Ferrous Sulfate 325 mg PO BIDWM #0 tablet 01/13/17 [Rx] 3 Allergy/AdvReac Type Severity Reaction Status Date / Time adhesive tape Allergy Rash Verified 04/06/17 10:54 All Systems PM: A 10-system review of systems was performed and is negative for pertinent findings except as documented above in the HPI. - Constitutional Vitals: Temp Pulse Resp BP Pulse Ox 98.2 F 112 16 94/51 93 04/06/17 21:00 04/06/17 21:00 04/06/17 21:00 04/06/17 21:00 04/06/17 21:00 General appearance: Present: A&O X 3, morbidly obese, answers questions appropriately - Head Head exam: Present: atraumatic, normocephalic - Eye Eye exam: Present: PERRL, conjuntiva pink, sclera anicteric Pupils: Present: PERRL - Neck Neck exam general surgery: Present: supple, trachea midline. Absent: lymphadenopathy - Respiratory Respiratory exam: Present: CTAB. Absent: accessory muscle use, rales, rhonchi, wheezes - Cardiovascular Cardiovascular exam: Present: RRR, +S1, +S2. Absent: diastolic murmur, gallop, rubs, systolic murmur - GI/Abdominal GI/Abdominal exam: Present: normal bowel sounds, soft, no peritoneal signs. Absent: distended, tenderness - Extremities Exam Extremities exam: Present: warm, radial pulses palpable and symmetrical. Absent : calf tenderness, cyanotic, pedal edema - Neurological Exam Neurological exam: Present: CN II-XII intact, oriented X3, no focal deficits - Skin Skin exam: Present: dry, intact Internal Med - H&P Results - Labs CBC & Chem 7: 04/07/17 02:50 04/07/17 02:50 Labs: BMP 04/06/17 22:48 Sodium 137 Potassium 5.8 H Chloride 104 Carbon Dioxide 23 BUN 37 H Creatinine 2.91 H Glucose 163 H Calcium 8.3 L <Sanjay Allen P - Last Filed: 04/07/17 04:48> Date of Encounter: 04/07/17 Internal Medicine - H&P: HPI History of present illness: Ms. Rangel is a 56 year old female All Systems PM: A 10-system review of systems was performed and is negative for pertinent findings except as documented above in the HPI. - Constitutional Vitals: Temp Pulse Resp BP Pulse Ox 97.9 F 78 18 105/63 95 04/07/17 04:44 04/07/17 04:44 04/07/17 04:44 04/07/17 04:44 04/07/17 04:44 Internal Med - H&P Results - Labs CBC & Chem 7: 04/07/17 02:50 04/07/17 02:50 Labs: Short CBC 04/07/17 Range/Units 02:50 WBC 8.9 (4.3-11.1) K/mcL Hgb 10.6 L D (11.5-15.4) g/dL Hct 35.3 (35.3-44.9) % Plt Count 142 (140-400) K/mcL Neutrophils # 6.7 (1.6-8.9) K/mcL BMP 04/06/17 04/07/17 22:48 02:50 Sodium 137 135 L Potassium 5.8 H 5.3 H Chloride 104 103 Carbon Dioxide 23 24 BUN 37 H 35 H Creatinine 2.91 H 2.69 H Glucose 163 H 130 H Calcium 8.3 L 8.4 L - Attending Attestation I examined this patient and my medical decision-making was reviewed with the Resident Physician. I agree with the documented findings, disposition and treatment plan as described except to the extent set forth below. I personally examined this patient on 04/07/2017. I agree with the assessment and plan discussed medicine physician. Patient might need nephrology evaluation.
[2017-04-07 02:59] LABS: Basophils % 0.5 %; Eosinophils # 0.2 K/mcL (0.0-0.6); Eosinophils % 2.3 %; Hematocrit 35.3 % (35.3-44.9); Immature Granulocytes % 0.6 % (0-4); Lymphocytes # 1.2 K/mcL (0.6-4.6); Lymphocytes % 13.5 %; Mean Corpuscular Hemoglobin 26.8 pg (28.0-33.3); Mean Corpuscular Volume 89.4 fL (83.0-100.0); Mean Platelet Volume 10.6 fL (9.4-12.4); Monocytes # 0.7 K/mcL (0.0-1.3); Monocytes % 7.6 %; Neutrophils # 6.7 K/mcL (1.6-8.9); Platelet Count 142 K/mcL (140-400); Red Blood Count 3.95 M/mcL (3.82-4.97); Red Cell Distribution Width 15.1 % (11.5-14.5); Segmented Neutrophils % 75.5 %
[2017-04-07 03:18] LABS: Calcium 8.4 mg/dL (8.6-10.3); Potassium 5.3 mEq/L (3.5-5.1)
[2017-04-07 03:33] LABS: Hemoglobin 10.6 g/dL (11.5-15.4)
[2017-04-07] MEDS: *HR* Heparin 5,000 UNIT/ML VIAL SQ SCH ×3 (05:32→21:08)
[2017-04-07] MEDS: 0.9 % Sodium Chloride 1,000 ML IVC SCH ×2 (05:32→14:33)
[2017-04-07] MEDS: Insulin LISPRO 300 UNITS/3 ML VIAL SQ SCH ×4 (08:17→21:17)
[2017-04-07] MEDS ORDERED: Gabapentin 300 MG CAPSULE PO SCH (09:00)
[2017-04-07] MEDS: risperiDONE 1 MG TABLET PO SCH ×3 (09:59→21:08)
[2017-04-07] MEDS: Gabapentin 100 MG CAPSULE PO SCH ×3 (09:59→21:08)
[2017-04-07] MEDS: Renal Vitamin 1 MG CAPSULE PO SCH (09:59)
[2017-04-07] MEDS: Aspirin 81 MG TAB.CHEW PO SCH (09:59)
[2017-04-07] MEDS: Baclofen 10 MG TABLET PO SCH ×3 (09:59→21:08)
--- NOTE | 2017-04-07 10:20 | Electrocardiograph Report ---
[place] qualifyor [facility] Test Date: 2017-04-06 Pat Name: Adriana Rangel Department: 102 Room: 2A37 Gender: F Medical Education Specialist: Tmalison : 1960 Requested By: Edmund Solis Order Number: [id number] Jamie MD: Marcos Weems MD Measurements Intervals [place] Rate: 83 P: 39 WA: 151 QRS: -1 QRSD: 104 T: 13 QT: 349 QTc: 389 Interpretive Statements SINUS RHYTHM Electronically Signed On 04-07-2017 10:18:22 EST by Marcos Weems MD
[2017-04-07] MEDS: *HR* HYDROcodone/Acet 10/325 mg TABLET PO PRN ×2 (12:23→21:15)
--- NOTE | 2017-04-07 19:28 | Event Note ---
Date of Encounter: 04/07/17 Time of Encounter: 11:00 Patient managed for acute renal failure with hyperkalemia Nephrology following
[2017-04-08] MEDS: *HR* Heparin 5,000 UNIT/ML VIAL SQ SCH ×2 (06:12→14:15)
[2017-04-08 07:36] LABS: Basophils % 0.3 %; Eosinophils # 0.4 K/mcL (0.0-0.6); Eosinophils % 6.4 %; Hemoglobin 10.6 g/dL (11.5-15.4); Immature Granulocytes % 0.6 % (0-4); Lymphocytes # 0.8 K/mcL (0.6-4.6); Lymphocytes % 13.1 %; Mean Corpuscular HGB Conc 30.3 g/dL (31.6-35.5); Mean Corpuscular Hemoglobin 27.2 pg (28.0-33.3); Mean Corpuscular Volume 89.7 fL (83.0-100.0); Mean Platelet Volume 10.9 fL (9.4-12.4); Monocytes # 0.5 K/mcL (0.0-1.3); Monocytes % 7.7 %; Neutrophils # 4.6 K/mcL (1.6-8.9); Platelet Count 145 K/mcL (140-400); Red Cell Distribution Width 15.1 % (11.5-14.5); Segmented Neutrophils % 71.9 %
[2017-04-08 07:53] LABS: Magnesium 1.6 mg/dL (1.6-2.6)
[2017-04-08] MEDS: Insulin LISPRO 300 UNITS/3 ML VIAL SQ SCH ×4 (08:23→21:08)
[2017-04-08] MEDS: Baclofen 10 MG TABLET PO SCH ×3 (08:55→19:56)
[2017-04-08] MEDS: Gabapentin 100 MG CAPSULE PO SCH ×3 (08:55→19:56)
[2017-04-08] MEDS: Renal Vitamin 1 MG CAPSULE PO SCH (08:55)
[2017-04-08] MEDS: risperiDONE 1 MG TABLET PO SCH ×3 (08:55→19:57)
[2017-04-08] MEDS: Aspirin 81 MG TAB.CHEW PO SCH (08:56)
[2017-04-08] MEDS: 0.9 % Sodium Chloride 1,000 ML IVC SCH ×3 (08:58→19:55)
[2017-04-08 10:19] LABS: Calcium 8.8 mg/dL (8.6-10.3); Carbon Dioxide 22 mEq/L (23-29); Chloride 107 mEq/L (98-107); Potassium 5.4 mEq/L (3.5-5.1); Sodium 136 mEq/L (136-145)
[2017-04-08 10:24] LABS: BUN/Creatinine Ratio 18 (6-26); Blood Urea Nitrogen 19 mg/dL (6-20); Glucose 140 mg/dL (70-105); Osmolality,Calculated 287 (280-300); eGFR For African Americans > 60 (> 60); eGFR For Non-African Americans 55 (> 60)
--- NOTE | 2017-04-08 12:59 | Nephrology Consult Note ---
Date of Encounter: 04/08/17 Time of Encounter: 11:00 Assessment and Plan (1) Acute kidney injury Current Visit: Yes Status: Acute Elevated Scr in the setting of N/V and NSAIDs use likely pre-renal as already responding to IBF Continue VF for today, UOP great at 4000cc in the past 24hrs Continue to avoid nephrotoxins if possible No acute indication for ORNAMENTAL METAL ERECTOR at this time Will follow with you (2) Hyperkalemia Current Visit: Yes Status: Acute Potassium elevated due to ALYSIA but also improving down to 5.3 Renal diet advised for now History of Present Illness - Reason for Consult Consult date: 04/08/17 Acute Kidney Injury Requesting physician: Demetrius Singletary - History of Present Illness 56 y o female with PMH of DM, HTN and GERD admitted with 2 days of nausea and vomiting. Scr noted elevated at 3.27 and potassium 6.2. Baseline Scr typically around 0.8. Pt denies any prior history of renal disease. SCr already dropping rapidly with IVF today amd down to 2.69 at the time of this evaluation. She reports also taking advil regularly Past Med Surg Social Fam HX - Past Medical History Medical history: diabetes, fibromyalgia, GERD, hyperlipidemia, kidney stones, pulmonary embolus, thyroid disease Psychiatric history: anxiety, depression - Past Surgical History Surgical History: non-contributory - Social History Smoking Status: Never smoker Smokeless Tobacco Status: No Alcohol use: none Drug use: none - Family History Father Living Status: Still Living Hx Family Cardiac Disorders: Yes Mother Living Status: Age at : 51 Cause of : Heart disease Hx Family Cardiac Disorders: Yes Medications and Allergies Ascorbic Acid [Vitamin C] 500 mg PO DAILY 11/07/16 [History] Aspirin 81 mg PO DAILY 11/07/16 [History] Atorvastatin [Lipitor] 40 mg PO HS 11/07/16 [History] Cyanocobalamin (Vitamin B-12) [Vitamin B12] 1,000 mcg PO DAILY 11/07/16 [History ] Ergocalciferol (VITAMIN D2) [Vitamin D2] 50,000 unit PO CARDOZA 11/07/16 [History] Esomeprazole Magnesium [Nexium] 40 mg PO DAILY 11/07/16 [History] Folic Acid 1 mg PO DAILY 11/07/16 [History] Furosemide [Lasix] 40 mg PO DAILY 11/07/16 [History] Levothyroxine [Synthroid] 75 mcg PO 0630 11/07/16 [History] Lisinopril 2.5 mg PO DAILY 11/07/16 [History] Sertraline [Zoloft] 200 mg PO DAILY 11/07/16 [History] HYDROcodone/Acet 10/325 mg [[place] 10-325 mg] 1 tab PO TID PRN #21 tablet [Rx] metFORMIN [Glucophage] 1,000 mg PO BIDWM #60 11/29/16 [Rx] Amitriptyline [Elavil] 50 mg PO HS 01/10/17 [History] Baclofen 20 mg PO TID 01/10/17 [History] Celecoxib [Celebrex] 200 mg PO DAILY 01/10/17 [History] Gabapentin [Neurontin] 300 mg PO TID 01/10/17 [History] Insulin LISPRO [Humalog Kwikpen U-100] 14 unit SQ TID 01/10/17 [History] risperiDONE [RisperDAL] 1 mg PO TID 01/10/17 [History] Acetaminophen/Butalbital/Caffe [Fioricet] 1 each PO BID PRN #2 tablet 01/13/17 [ Rx] Ferrous Sulfate 325 mg PO BIDWM #0 tablet 01/13/17 [Rx] 3 Allergy/AdvReac Type Severity Reaction Status Date / Time adhesive tape Allergy Rash Verified 04/06/17 10:54 Review of Systems All Systems: reviewed and no additional remarkable complaints except as stated ( 10 systems reviewed and as noted in HPI) Exam - Vital Signs Vital signs: Initial Vital Signs Temp Pulse Resp BP Pulse Ox 98.2 F 86 16 126/65 95 04/06/17 10:51 04/06/17 10:51 04/06/17 10:51 04/06/17 10:51 04/06/17 10:51 Vital Signs - Last 8 Hours Temp Pulse Resp BP Pulse Ox 04/08/17 11:14 97.7 F 81 13 119/72 95 04/08/17 08:05 97.5 F L 77 17 127/75 96 Intake and Output 04/07/17 04/08/17 04/08/17 23:59 07:59 15:59 Intake Total 240 / 240 1800 / 1800 240 / 240 Output Total 1150 / 1150 1450 / 1450 500 / 500 Balance -910 / -910 350 / 350 -260 / -260 Intake: IV Fluids 1000 / 1000 0.9 % Sodium Chloride 1,000 ML 1000 / 1000 @ 100 mls/hr IVC .Q10H [facility] Rx#: [id number] Oral 240 / 240 800 / 800 240 / 240 Output: Urine 1150 / 1150 750 / 750 Catheter 700 / 700 500 / 500 Other: Meal Dinner Breakfast Percent of Meal Consumed 75% 90% Weight 109.9 kg Blood Glucose* 143 162 Patient Weight 04/08/17 23:59 Weight 109.9 kg - General Appearance General appearance: well-developed, well-nourished EENT: ATNC, mucous membranes moist Neck: no JVD, supple Respiratory: clear (ant bilat) Cardiology: no edema, normal S1, normal S2 Gastrointestinal: no tenderness, no guarding, obese Integumentary: warm and dry Neurologic: no focal deficit Musculoskeletal: no deformities Psychiatric: mood/affect appropriate Results - Lab Results 04/08/17 07:22 04/08/17 07:22 Most recent lab results Calcium 8.8 mg/dL (8.6-10.3) 04/08/17 07:22 Phosphorus 5.8 mg/dL (2.7-4.5) H 04/06/17 15:41 Magnesium 1.6 mg/dL (1.6-2.6) 04/08/17 07:22 Consult Discharge Plan - Plan Referrals: Nico Ahmadi MD [Primary Care Provider] -
--- NOTE | 2017-04-08 18:01 | Internal Med Progress Note ---
Date of Encounter: 04/08/17 Time of Encounter: 11:00 - Assessment and plan (1) Acute renal failure Current Visit: Yes Status: Acute Assessment and plan: Patient's renal function is improving; nephrology following and recommendations Qualifiers: Acute renal failure type: unspecified Qualified Code(s): N17.9 - Acute kidney failure, unspecified (2) Hyperkalemia Current Visit: Yes Status: Acute Assessment and plan: -Patient still hyperkalemia -Nephrology following an appreciate recommendations (3) Nausea and vomiting Current Visit: Yes Status: Acute Assessment and plan: -Resolved Qualifiers: Vomiting type: unspecified Vomiting Intractability: non-intractable Qualified Code(s): R11.2 - Nausea with vomiting, unspecified (4) DVT prophylaxis Current Visit: No Status: Acute Assessment and plan: Heparin subcutaneous (5) Diabetes type 2, uncontrolled Current Visit: No Status: Chronic Qualifiers: Diabetes mellitus complication status: with neurologic complications Diabetes mellitus complication detail: with unspecified neuropathy Diabetes mellitus transfer engineer insulin use: with assisted use Qualified Code(s): E11.40 - Type 2 diabetes mellitus with diabetic neuropathy, unspecified; E11.65 - Type 2 diabetes mellitus with hyperglycemia; E11.65 - Type 2 diabetes mellitus with hyperglycemia; E11.65 - Type 2 diabetes mellitus with hyperglycemia; E11.65 - Type 2 diabetes mellitus with hyperglycemia; Z79.4 - call center specialist (current) use of insulin; Z79.4 - halfway (current) use of insulin; Z79.4 - halfway (current ) use of insulin; Z79.4 - call center specialist (current) use of insulin (6) HLD (hyperlipidemia) Current Visit: No Status: Chronic Qualifiers: Hyperlipidemia type: unspecified Qualified Code(s): E78.5 - Hyperlipidemia , unspecified - Subjective Interval history: Patient's presenting symptoms of nausea/vomiting have resolved Patient's acute renal failure improving Nephrology following for recommendations - Constitutional Vitals: Temp Pulse Resp BP Pulse Ox 97.5 F L 81 14 121/70 99 04/08/17 15:55 04/08/17 15:55 04/08/17 15:55 04/08/17 15:55 04/08/17 15:55 General appearance: Present: A&O X 3, morbidly obese, answers questions appropriately - Respiratory Respiratory exam: Present: CTAB. Absent: accessory muscle use, rales, rhonchi, wheezes - Cardiovascular Cardiovascular exam: Present: RRR, +S1, +S2. Absent: diastolic murmur, gallop, rubs, systolic murmur Internal Medicine: Result - Labs CBC & Chem 7: 04/08/17 07:22 04/08/17 07:22 Labs: Short CBC 04/08/17 Range/Units 07:22 WBC 6.4 (4.3-11.1) K/mcL Hgb 10.6 L (11.5-15.4) g/dL Hct 35.0 L (35.3-44.9) % Plt Count 145 (140-400) K/mcL Neutrophils # 4.6 (1.6-8.9) K/mcL BMP 04/08/17 07:22 Sodium 136 Potassium 5.4 H Chloride 107 Carbon Dioxide 22 L BUN 19 Creatinine 1.04 Glucose 140 H Calcium 8.8 - ABG Interpretation ABG results: PT/INR, D-dimer PT 10.1 Seconds (9.4-12.1) 04/06/17 12:39 Consult Discharge Plan - Plan Referrals: Nico Ahmadi MD [Primary Care Provider] -
[2017-04-08] MEDS: *HR* HYDROcodone/Acet 10/325 mg TABLET PO PRN (20:21)
[2017-04-09] MEDS: *HR* Heparin 5,000 UNIT/ML VIAL SQ SCH ×4 (00:07→20:21)
[2017-04-09] MEDS: 0.9 % Sodium Chloride 1,000 ML IVC SCH ×2 (05:13→16:14)
[2017-04-09] MEDS: Insulin LISPRO 300 UNITS/3 ML VIAL SQ SCH ×4 (08:24→21:37)
[2017-04-09] MEDS: Gabapentin 100 MG CAPSULE PO SCH ×3 (08:48→20:20)
[2017-04-09] MEDS: Baclofen 10 MG TABLET PO SCH ×3 (08:49→20:20)
[2017-04-09] MEDS: risperiDONE 1 MG TABLET PO SCH ×3 (08:49→20:20)
[2017-04-09] MEDS: Aspirin 81 MG TAB.CHEW PO SCH (08:49)
[2017-04-09] MEDS: Renal Vitamin 1 MG CAPSULE PO SCH (08:49)
--- NOTE | 2017-04-09 13:08 | Nephrology Progress Note ---
Date of Encounter: 04/09/17 Time of Encounter: 12:10 - Assessment and Plan (1) Acute kidney injury Current Visit: Yes Status: Acute SCr almost normalized at 1.04, GFR 55 yesterday. No new labs currently available UOP very good at 1950cc in the past 24hrs and 2250cc so far today Can discontinue spann at this point Will signoff, please reconsult prn will need followup with pcp along with BMP and if needed, with me Continue to avoid nephrotoxins if possible (2) Hyperkalemia Current Visit: Yes Status: Acute Potassium still slightly elevated at 5.4, continue low potassium diet for now Subjective Interval history: Pt seen and examined feeling better with no new complaints. Spann with clear, yellow UOP Objective - Vital Signs Vital signs: Vital Signs Temp Pulse Resp BP Pulse Ox 04/09/17 11:44 97.6 F 90 17 110/55 90 04/09/17 08:07 98.6 F 97 17 126/73 92 04/09/17 04:36 98.3 F 104 16 140/74 97 04/08/17 23:33 98.3 F 82 16 112/68 94 04/08/17 20:25 98.2 F 87 16 108/63 95 04/08/17 19:55 95 04/08/17 15:55 97.5 F L 81 14 121/70 99 Intake and Output 04/08/17 04/09/17 04/09/17 23:59 07:59 15:59 Intake Total 1360 / 1360 1250 / 1250 240 / 240 Output Total 2250 / 2250 800 / 800 Balance 1360 / 1360 -1000 / -1000 -560 / -560 Intake: IV Fluids 1000 / 1000 1000 / 1000 0.9 % Sodium Chloride 1,000 ML 1000 / 1000 1000 / 1000 @ 100 mls/hr IVC .Q10H [facility] Rx#: [id number] Oral 360 / 360 250 / 250 240 / 240 Output: Urine 2250 / 2250 Catheter 800 / 800 Other: Meal Dinner Breakfast Percent of Meal Consumed 95% 100% Weight 110.1 kg Blood Glucose* 153 119 Patient Weight 04/09/17 23:59 Weight 110.1 kg - General Appearance General appearance: Present: well-developed, well-nourished EENT: Present: ATNC, mucous membranes moist Neck: Present: no JVD, supple Respiratory: Present: clear Cardiology: Present: no edema, normal S1, normal S2 Gastrointestinal: Present: no tenderness, no guarding Integumentary: Present: warm and dry Neurologic: Present: no focal deficit Musculoskeletal: Present: no deformities Psychiatric: Present: mood/affect appropriate, cooperative - Lab 04/08/17 07:22 04/08/17 07:22 Most recent lab results Calcium 8.8 mg/dL (8.6-10.3) 04/08/17 07:22 Phosphorus 5.8 mg/dL (2.7-4.5) H 04/06/17 15:41 Magnesium 1.6 mg/dL (1.6-2.6) 04/08/17 07:22 Consult Discharge Plan - Plan Referrals: Nico Ahmadi MD [Primary Care Provider] -
[2017-04-09] MEDS: *HR* HYDROcodone/Acet 10/325 mg TABLET PO PRN (16:12)
--- NOTE | 2017-04-09 19:23 | Internal Med Progress Note ---
Date of Encounter: 04/09/17 Time of Encounter: 11:00 - Assessment and plan (1) Acute renal failure Current Visit: Yes Status: Acute Assessment and plan: Patient's renal function is improving; nephrology following and recommendations Qualifiers: Acute renal failure type: unspecified Qualified Code(s): N17.9 - Acute kidney failure, unspecified (2) Hyperkalemia Current Visit: Yes Status: Acute Assessment and plan: -Patient still hyperkalemia -Nephrology following an appreciate recommendations (3) Nausea and vomiting Current Visit: Yes Status: Acute Assessment and plan: -Resolved Qualifiers: Vomiting type: unspecified Vomiting Intractability: non-intractable Qualified Code(s): R11.2 - Nausea with vomiting, unspecified (4) DVT prophylaxis Current Visit: No Status: Acute Assessment and plan: Heparin subcutaneous - Subjective Interval history: Patient's presenting symptoms of nausea/vomiting have resolved Patient's acute renal failure improving Nephrology following for recommendations - Constitutional Vitals: Temp Pulse Resp BP Pulse Ox 99.1 F 86 18 113/65 94 04/09/17 19:15 04/09/17 19:15 04/09/17 19:15 04/09/17 19:15 04/09/17 19:15 General appearance: Present: A&O X 3, morbidly obese, answers questions appropriately Internal Medicine: Result - Labs CBC & Chem 7: 04/08/17 07:22 04/08/17 07:22 - ABG Interpretation ABG results: PT/INR, D-dimer PT 10.1 Seconds (9.4-12.1) 04/06/17 12:39 Consult Discharge Plan - Plan Referrals: Nico Ahmadi MD [Primary Care Provider] -
[2017-04-09] MEDS ORDERED: Ipratropium/Albuterol Neb 3 ML IH PRN (23:06)
[2017-04-10] MEDS: 0.9 % Sodium Chloride 1,000 ML IVC SCH ×2 (02:35→11:31)
[2017-04-10] MEDS: *HR* Heparin 5,000 UNIT/ML VIAL SQ SCH ×2 (05:02→13:59)
[2017-04-10] MEDS: Insulin LISPRO 300 UNITS/3 ML VIAL SQ SCH ×3 (08:28→16:09)
[2017-04-10] MEDS: Gabapentin 100 MG CAPSULE PO SCH ×2 (08:39→16:08)
[2017-04-10] MEDS: risperiDONE 1 MG TABLET PO SCH ×2 (08:40→16:08)
[2017-04-10] MEDS: Aspirin 81 MG TAB.CHEW PO SCH (08:40)
[2017-04-10] MEDS: Renal Vitamin 1 MG CAPSULE PO SCH (08:40)
[2017-04-10] MEDS: Baclofen 10 MG TABLET PO SCH ×2 (08:40→16:09)
[2017-04-10 11:13] LABS: Basophils % 0.2 %; Eosinophils # 0.4 K/mcL (0.0-0.6); Eosinophils % 6.2 %; Hemoglobin 10.4 g/dL (11.5-15.4); Immature Granulocytes % 0.5 % (0-4); Lymphocytes # 0.7 K/mcL (0.6-4.6); Lymphocytes % 12.6 %; Mean Corpuscular HGB Conc 30.6 g/dL (31.6-35.5); Mean Corpuscular Volume 88.3 fL (83.0-100.0); Mean Platelet Volume 11.4 fL (9.4-12.4); Monocytes # 0.6 K/mcL (0.0-1.3); Monocytes % 9.4 %; Neutrophils # 4.2 K/mcL (1.6-8.9); Platelet Count 120 K/mcL (140-400); Red Blood Count 3.85 M/mcL (3.82-4.97); Red Cell Distribution Width 14.8 % (11.5-14.5); Segmented Neutrophils % 71.1 %
[2017-04-10 11:43] LABS: BUN/Creatinine Ratio 15 (6-26); Blood Urea Nitrogen 13 mg/dL (6-20); Calcium 8.7 mg/dL (8.6-10.3); Carbon Dioxide 22 mEq/L (23-29); Chloride 109 mEq/L (98-107); Glucose 160 mg/dL (70-105); Osmolality,Calculated 286 (280-300); Potassium 4.9 mEq/L (3.5-5.1); Sodium 136 mEq/L (136-145); eGFR For African Americans > 60 (> 60); eGFR For Non-African Americans > 60 (> 60)
[2017-04-10 15:41] VITALS: BP 113/66
--- NOTE | 2017-04-10 16:04 | Discharge Summary ---
Date of Encounter: 04/10/17 Time of Encounter: 11:00 - Discharge Diagnosis (1) Acute renal failure Priority: Primary Status: Acute Qualifiers: Acute renal failure type: unspecified Qualified Code(s): N17.9 - Acute kidney failure, unspecified (2) Hyperkalemia Priority: Primary Status: Acute (3) Nausea and vomiting Priority: Secondary Status: Acute Qualifiers: Vomiting type: unspecified Vomiting Intractability: non-intractable Qualified Code(s): R11.2 - Nausea with vomiting, unspecified - Discharge Medications Home Medications: Ascorbic Acid [Vitamin C] 500 mg PO DAILY 11/07/16 [History] Aspirin 81 mg PO DAILY 11/07/16 [History] Atorvastatin [Lipitor] 40 mg PO HS 11/07/16 [History] Cyanocobalamin (Vitamin B-12) [Vitamin B12] 1,000 mcg PO DAILY 11/07/16 [History ] Ergocalciferol (VITAMIN D2) [Vitamin D2] 50,000 unit PO CARDOZA 11/07/16 [History] Esomeprazole Magnesium [Nexium] 40 mg PO DAILY 11/07/16 [History] Folic Acid 1 mg PO DAILY 11/07/16 [History] Furosemide [Lasix] 40 mg PO DAILY 11/07/16 [History] Levothyroxine [Synthroid] 75 mcg PO 0630 11/07/16 [History] Lisinopril 2.5 mg PO DAILY 11/07/16 [History] Sertraline [Zoloft] 200 mg PO DAILY 11/07/16 [History] HYDROcodone/Acet 10/325 mg [[place] 10-325 mg] 1 tab PO TID PRN #21 tablet [Rx] metFORMIN [Glucophage] 1,000 mg PO BIDWM #60 11/29/16 [Rx] Amitriptyline [Elavil] 50 mg PO HS 01/10/17 [History] Baclofen 20 mg PO TID 01/10/17 [History] Celecoxib [Celebrex] 200 mg PO DAILY 01/10/17 [History] Gabapentin [Neurontin] 300 mg PO TID 01/10/17 [History] Insulin LISPRO [Humalog Kwikpen U-100] 14 unit SQ TID 01/10/17 [History] risperiDONE [RisperDAL] 1 mg PO TID 01/10/17 [History] Acetaminophen/Butalbital/Caffe [Fioricet] 1 each PO BID PRN #2 tablet 01/13/17 [ Rx] Ferrous Sulfate 325 mg PO BIDWM #0 tablet 01/13/17 [Rx] Allergies/Adverse Reactions: 3 Allergy/AdvReac Type Severity Reaction Status Date / Time adhesive tape Allergy Rash Verified 04/06/17 10:54 Date of admission: 04/06/17 19:04 Primary care physician: Nico Ahmadi MD Consults: 04/06/17 21:14 Consult to Customer Service Advocate [CONS] Routine Reason for SW Consult: Patient and family want to set up POA 04/07/17 12:38 Consult to Nephrology [CONS] Routine Consulting Provider: Kidney Isis/KADY/MARLI/KYRIE Reason for Consult: ALYSIA with increase in Creatinine over time Time Notified: 12:39 Call Completed: Yes - Patient Status Disposition: Home Health Service Condition: Serious - Discharge Instructions Follow Up With: Nico Ahmadi MD [Primary Care Provider] - Hospital course: Patient is a 56-year-old female with past medical history subjective for DM, GERD, HTN, fibromyalgia, Low back pain, HLD, Kidney stones, PE, hypothyroidism, anxiety and depression who presented to the ER on 04/06/17 due to general weakness and nausea/vomiting. Patient reports vomit being watery, denies hematemesis. Patient reports no PO intake for 1.5 days. In the ER, patient was found to have acute renal failure with creatinine 3.27 up from baseline of 0.8, hyperkalemia of 6.2 with peaked T waves on EKG. Patient was admitted to the medical surgical floor for acute renal failure with hyperkalemia. During patients hospital stay nephrology was consulted with recommendations for IV fluids as acute renal failure was suspected to be prerenal. Acute renal failure resolved as did her hyperkalemia and patient will be discharged home to follow-up with primary care provider. - Time Spent with Patient Total time spent providing and/or coordinating discharge services: Less than 30 minutes - Constitutional Vitals: Temp Pulse Resp BP Pulse Ox 98.4 F 89 18 113/66 97 04/10/17 15:40 04/10/17 15:40 04/10/17 15:40 04/10/17 15:40 04/10/17 15:40 General appearance: Present: A&O X 3, morbidly obese, answers questions appropriately - Respiratory Respiratory exam: Present: CTAB. Absent: accessory muscle use, rales, rhonchi, wheezes - Cardiovascular Cardiovascular exam: Present: RRR, +S1, +S2. Absent: diastolic murmur, gallop, rubs, systolic murmur - VTE Documentation of Mechanical Device: Intermittent pneumatic compression device
--- NOTE | 2017-04-10 16:08 | Physician Discharge Referral ---
Home Health/Hosp Referral Info Transfer to: Home Health - Diagnosis (1) Acute renal failure Priority: Primary Status: Acute (2) Hyperkalemia Priority: Primary Status: Acute (3) Nausea and vomiting Priority: Secondary Status: Acute - Respiratory Orders Smoking Cessation: Smoking cessation has been advised. For more information, call the [place] Tobacco Quit Line at 0-760-ZXXO-NOW. - Services Needed Following services are medically necessary services: Nursing, Physical Therapy - Transfer Medications Home Medications: Ascorbic Acid [Vitamin C] 500 mg PO DAILY 11/07/16 [History] Aspirin 81 mg PO DAILY 11/07/16 [History] Atorvastatin [Lipitor] 40 mg PO HS 11/07/16 [History] Cyanocobalamin (Vitamin B-12) [Vitamin B12] 1,000 mcg PO DAILY 11/07/16 [History ] Ergocalciferol (VITAMIN D2) [Vitamin D2] 50,000 unit PO CARDOZA 11/07/16 [History] Esomeprazole Magnesium [Nexium] 40 mg PO DAILY 11/07/16 [History] Folic Acid 1 mg PO DAILY 11/07/16 [History] Furosemide [Lasix] 40 mg PO DAILY 11/07/16 [History] Levothyroxine [Synthroid] 75 mcg PO 0630 11/07/16 [History] Lisinopril 2.5 mg PO DAILY 11/07/16 [History] Sertraline [Zoloft] 200 mg PO DAILY 11/07/16 [History] HYDROcodone/Acet 10/325 mg [[place] 10-325 mg] 1 tab PO TID PRN #21 tablet [Rx] metFORMIN [Glucophage] 1,000 mg PO BIDWM #60 11/29/16 [Rx] Amitriptyline [Elavil] 50 mg PO HS 01/10/17 [History] Baclofen 20 mg PO TID 01/10/17 [History] Celecoxib [Celebrex] 200 mg PO DAILY 01/10/17 [History] Gabapentin [Neurontin] 300 mg PO TID 01/10/17 [History] Insulin LISPRO [Humalog Kwikpen U-100] 14 unit SQ TID 01/10/17 [History] risperiDONE [RisperDAL] 1 mg PO TID 01/10/17 [History] Acetaminophen/Butalbital/Caffe [Fioricet] 1 each PO BID PRN #2 tablet 01/13/17 [ Rx] Ferrous Sulfate 325 mg PO BIDWM #0 tablet 01/13/17 [Rx] Allergies/Adverse Reactions: 3 Allergy/AdvReac Type Severity Reaction Status Date / Time adhesive tape Allergy Rash Verified 04/06/17 10:54 Certification: Further, I certify that my clinical findings support that this patient is homebound (i.e. absences from home require considerable and taxing effort and are for medical reasons or druze services or infrequently or short duration when for other reasons) because: Homebound Reason: Patient requires assistance of a person or device to safely leave home Attestation: My signature below is to certify that this patient is under my care and that I, or nurse practitioner, or a physician's distribution center assistant working with me, has a face-to -face encounter with this patient.
== END 2017-04-10 17:24 | disposition home health service (06) ==
LOC: 2ANU 10:50 → EMEROO 10:50 → SUATTDRO 19:04 → 2ANU 19:21
PROVIDERS: ADMIT Internal Medicine; ATTEND Hospitalist

== ENCOUNTER 2017-07-04 11:33 | Inpatient (IN) ==
[2017-07-04] MEDS ORDERED: 0.9 % Sodium Chloride 1,000 ML ONE (12:07)
--- NOTE | 2017-07-04 12:17 | Emergency Department Note ---
Disposition Clinical Impression: Hyperkalemia, Dehydration Acute renal failure Qualifiers: Acute renal failure type: unspecified Qualified Code(s): N17.9 - Acute kidney failure, unspecified Altered mental status Qualifiers: Altered mental status type: delirium Qualified Code(s): R41.0 - Disorientation , unspecified Disposition: Admitted As Inpatient Condition: Fair Referrals: Nico Ahmadi MD [Primary Care Provider] - Forms: ED Satisfaction Letter Time of Disposition: 14:52 Altered Mental Status HPI - General Chief Complaint: ED Altered Mental Status Stated Complaint: Altered Mental Status Time Seen by Provider: 07/04/17 11:48 Source: patient, family, EMS Mode of arrival: EMS Limitations: altered mental status Nursing Notes Reviewed: Yes Vital Signs Reviewed: Yes - History of Present Illness HPI Narrative: This is a 56 year-old female with history of HTN, HLD, poorly-controlled diabetes, PE, frequent falls, and chronic pain who presented via EMS. Family report that she has has been vomiting for the past 1.5 weeks and has been increasingly lethargic and confused. No recent fever, cough, dyspnea, chest pain , or abdominal pain. Patient has pressure ulcer to the left foot, which is being treated by Dr. Dukes and seemed to be healing. Patient is unable to give a detailed history due to AMS; she denies pain. MD complaint: altered mental status, confusion, decreased responsiveness, weakness (generalized) Onset (ago): week(s) (1) Consistency of Symptoms: getting worse Context: diabetes Associated symptoms: Reports: malaise, nausea/vomiting, weakness (generalized). Denies: chest pain, cough, fever, headaches, shortness of breath - Related Data Home Medications Medication Instructions Recorded Confirmed Ascorbic Acid [Vitamin C] 500 mg PO DAILY 11/07/16 04/06/17 Aspirin 81 mg PO DAILY 11/07/16 04/06/17 Atorvastatin [Lipitor] 40 mg PO HS 11/07/16 04/06/17 Cyanocobalamin (Vitamin B-12) 1,000 mcg PO DAILY 11/07/16 04/06/17 [Vitamin B12] Ergocalciferol (VITAMIN D2) 50,000 unit PO CARDOZA 11/07/16 04/06/17 [Vitamin D2] Esomeprazole Magnesium [Nexium] 40 mg PO DAILY 11/07/16 04/06/17 Folic Acid 1 mg PO DAILY 11/07/16 04/06/17 Furosemide [Lasix] 40 mg PO DAILY 11/07/16 04/06/17 Levothyroxine [Synthroid] 75 mcg PO 0630 11/07/16 04/06/17 Lisinopril 2.5 mg PO DAILY 11/07/16 04/06/17 Sertraline [Zoloft] 200 mg PO DAILY 11/07/16 04/06/17 Amitriptyline [Elavil] 50 mg PO HS 01/10/17 04/06/17 Baclofen 20 mg PO TID 01/10/17 04/06/17 Celecoxib [Celebrex] 200 mg PO DAILY 01/10/17 04/06/17 Gabapentin [Neurontin] 300 mg PO TID 01/10/17 04/06/17 Insulin LISPRO [Humalog Kwikpen 14 unit SQ TID 01/10/17 04/06/17 U-100] risperiDONE [RisperDAL] 1 mg PO TID 01/10/17 04/06/17 Previous Rx's Medication Instructions Recorded HYDROcodone/Acet 10/325 mg [[place] 1 tab PO TID PRN #21 tablet 11/29/16 10-325 mg] metFORMIN [Glucophage] 1,000 mg PO BIDWM #60 11/29/16 Acetaminophen/Butalbital/Caffe 1 each PO BID PRN #2 tablet 01/13/17 [Fioricet] Ferrous Sulfate 325 mg PO BIDWM #0 tablet 01/13/17 Allergies Allergy/AdvReac Type Severity Reaction Status Date / Time adhesive tape Allergy Rash Verified 04/06/17 10:54 Limitations: ROS unobtainable due to patients medical condition Constitutional: Denies: fever Cardiovascular: Denies: chest pain Respiratory: Denies: dyspnea Gastrointestinal: Reports: nausea, vomiting. Denies: abdominal pain, hematemesis, melena, hematochezia Integumentary: Reports: as per HPI, lesions (left foot) Neurological: Denies: headache Past Medical History - Past Medical History Medical history: Reports: diabetes, fibromyalgia, GERD, hyperlipidemia, kidney stones, pulmonary embolus, thyroid disease Surgical history: Reports: non-contributory Psychiatric history: Reports: anxiety, depression - Social History Smoking Status: Never smoker Smokeless Tobacco Status: No Alcohol use: Reports: none Drug use: Reports: none Physical Exam - General Limitations: altered mental status General appearance: lethargic - Head Head exam: atraumatic, normocephalic - Eye Eye exam: Present: normal appearance, PERRL, EOMI - ENT ENT exam: mucous membranes dry - Neck Neck exam: Present: normal inspection - Respiratory Respiratory exam: Present: normal lung sounds bilaterally. Absent: respiratory distress, wheezes - Cardiovascular Cardiovascular exam: Present: normal rhythm, tachycardia - Abdominal Exam Abdominal exam: Present: soft, Non-Tender. Absent: tenderness, distention, guarding, rebound, rigidity - Extremities Exam Extremities exam: Present: pedal edema, other (left foot/ankle banaged/splinted) - Neurological Exam Neurological exam: Present: CN II-XII intact, other (somnolent, confused, follows command and answers simple questions appropriately). Absent: alert, motor sensory deficit - Psychiatric Psychiatric exam: Present: flat affect - Skin Skin exam: Present: warm, dry, intact, other (healing ulcer left heal (per recent photos)) Course - Reevaluation(s) Reevaluation #1: Patient sleeping. Vitals stable. Updated patient's sister on plan of care. Time: 14:55 - Consultations Consultation #1: Discussed case with Dr. Villa. Patient accepted for admission. Time: 14:30 Vital Signs Temperature 98.1 F 07/04/17 11:36 Pulse Rate 105 07/04/17 11:36 Respiratory Rate 17 07/04/17 11:36 Blood Pressure 104/53 07/04/17 11:36 O2 Sat by Pulse Oximetry 94 07/04/17 11:36 Temperature 98.1 F 07/04/17 11:36 Pulse Rate 97 07/04/17 14:05 Respiratory Rate 8 07/04/17 14:05 Blood Pressure 111/74 07/04/17 14:05 O2 Sat by Pulse Oximetry 100 07/04/17 14:05 Oxygen Delivery Oxygen Delivery Nasal Cannula Altered Mental Status - Lab Data Result diagrams: 07/04/17 12:17 07/04/17 12:17 Lab Results 07/04/17 07/04/17 07/04/17 Range/Units 11:45 12:17 12:17 WBC 13.0 H (4.3-11.1) K/mcL RBC 4.67 (3.82-4.97) M/mcL Hgb 13.2 (11.5-15.4) g/dL Hct 40.2 (35.3-44.9) % MCV 86.1 (83.0-100.0) fL MCH 28.3 (28.0-33.3) pg MCHC 32.8 (31.6-35.5) g/dL RDW 15.4 H (11.5-14.5) % Plt Count 151 (140-400) K/mcL MPV 10.4 (9.4-12.4) fL Immature Gran % 0.3 (0-4) % Seg Neutrophils % 89.3 % Lymphocytes % 5.0 % Monocytes % 4.9 % Eosinophils % 0.2 % Basophils % 0.3 % Neutrophils # 11.6 H (1.6-8.9) K/mcL Lymphocytes # 0.7 (0.6-4.6) K/mcL Monocytes # 0.6 (0.0-1.3) K/mcL Eosinophils # 0.0 (0.0-0.6) K/mcL Basophils # 0.0 (0.0-0.2) K/mcL PT 11.2 (9.4-12.1) Seconds INR 1.0 APTT 21.6 L (26.0-36.0) Seconds Sodium (136-145) mEq/L Potassium (3.5-5.1) mEq/L Chloride (98-107) mEq/L Carbon Dioxide (23-29) mEq/L BUN (6-20) mg/dL Creatinine (0.60-1.20) mg/dL Est GFR ( Amer) (> 60) Est GFR (Non-Af Amer) (> 60) BUN/Creatinine Ratio (6-26) Glucose (70-105) mg/dL POC Glucose 190 H (70-99) mg/dL Calculated Osmolality (280-300) Calcium (8.6-10.3) mg/dL Total Bilirubin (0.3-1.0) mg/dL Direct Bilirubin (0.0-0.2) mg/dL Indirect Bilirubin (0.0-1.2) mg/dL AST (13-39) Units/L ALT (7-52) Units/L Alkaline Phosphatase (34-104) Units/L Troponin I (< 0.04) ng/mL Serum Total Protein (6.4-8.9) g/dL Albumin (3.5-5.7) g/dL Globulin (2.4-3.5) g/dL Albumin/Globulin Ratio (1.1-2.2) Urine Color (Yellow) Urine Clarity (Clear) Urine pH (5.0-8.0) pH Units Ur Specific [place] (1.010-1.025) Urine Protein (Neg-Trace) mg/dL Urine Glucose (UA) (Normal) mg/dL Urine Ketones (Negative) mg/dL Urine Blood (Negative) Urine Nitrite (Negative) Urine Bilirubin (Negative) Urine Urobilinogen (Normal) mg/dL Ur Leukocyte Esterase (Negative) Urine Microscopic RBC (0-3) per hpf Urine Microscopic WBC (0-3) per hpf Ur Squamous Epith Cells (None-Few) per lpf Urine Bacteria (None-Few) per hpf Hyaline Casts Ur Culture Indicated? (NO) Ethyl Alcohol (Less than 10) mg/dL 07/04/17 07/04/17 Range/Units 12:17 14:04 WBC (4.3-11.1) K/mcL RBC (3.82-4.97) M/mcL Hgb (11.5-15.4) g/dL Hct (35.3-44.9) % MCV (83.0-100.0) fL MCH (28.0-33.3) pg MCHC (31.6-35.5) g/dL RDW (11.5-14.5) % Plt Count (140-400) K/mcL MPV (9.4-12.4) fL Immature Gran % (0-4) % Seg Neutrophils % % Lymphocytes % % Monocytes % % Eosinophils % % Basophils % % Neutrophils # (1.6-8.9) K/mcL Lymphocytes # (0.6-4.6) K/mcL Monocytes # (0.0-1.3) K/mcL Eosinophils # (0.0-0.6) K/mcL Basophils # (0.0-0.2) K/mcL PT (9.4-12.1) Seconds INR APTT (26.0-36.0) Seconds Sodium 137 (136-145) mEq/L Potassium 5.2 H (3.5-5.1) mEq/L Chloride 101 (98-107) mEq/L Carbon Dioxide 22 L (23-29) mEq/L BUN 45 H (6-20) mg/dL Creatinine 4.53 H (0.60-1.20) mg/dL Est GFR ( Amer) 12 L (> 60) Est GFR (Non-Af Amer) 10 L (> 60) BUN/Creatinine Ratio 10 (6-26) Glucose 193 H (70-105) mg/dL POC Glucose (70-99) mg/dL Calculated Osmolality 301 H (280-300) Calcium 9.6 (8.6-10.3) mg/dL Total Bilirubin 0.5 (0.3-1.0) mg/dL Direct Bilirubin 0.1 (0.0-0.2) mg/dL Indirect Bilirubin 0.4 (0.0-1.2) mg/dL AST 9 L (13-39) Units/L ALT 7 (7-52) Units/L Alkaline Phosphatase 91 (34-104) Units/L Troponin I < 0.03 (< 0.04) ng/mL Serum Total Protein 7.5 (6.4-8.9) g/dL Albumin 4.2 (3.5-5.7) g/dL Globulin 3.3 (2.4-3.5) g/dL Albumin/Globulin Ratio 1.3 (1.1-2.2) Urine Color Dark Yellow (Yellow) Urine Clarity Cloudy A (Clear) Urine pH 5.0 (5.0-8.0) pH Units Ur Specific [place] 1.024 (1.010-1.025) Urine Protein 30 H (Neg-Trace) mg/dL Urine Glucose (UA) Normal (Normal) mg/dL Urine Ketones Negative (Negative) mg/dL Urine Blood Negative (Negative) Urine Nitrite Negative (Negative) Urine Bilirubin Small H (Negative) Urine Urobilinogen Normal (Normal) mg/dL Ur Leukocyte Esterase Small H (Negative) Urine Microscopic RBC 0-3 (0-3) per hpf Urine Microscopic WBC 5-15 H (0-3) per hpf Ur Squamous Epith Cells Many H (None-Few) per lpf Urine Bacteria None Seen (None-Few) per hpf Hyaline Casts PET HANDLER Ur Culture Indicated? NO. A (NO) Ethyl Alcohol < 10 (Less than 10) mg/dL - Radiology Data Radiology results reviewed: Yes I reviewed the patient's radiology results. XR/XR chest 1V portable IMPRESSION: Findings suggest congestive heart failure CT/CT head/brain wo con IMPRESSION: No acute intracranial abnormality. Changes of brain volume loss are suspected. - EKG Data EKG attestation: Yes I reviewed and interpreted this EKG. EKG shows normal: sinus rhythm Rate: normal Rhythm: NSR [place]/QRS: normal When compared to previous EKG there are: previous EKG unavailable Interpretation: nonspecific ST-T wave changes TPA Checklist - LKW: 3-4.5 hrs Add. Warnings/Precautions Patient/family understanding: The patient/family members have been counseled and understood the risk, benefit , and alternatives of treatment.
[2017-07-04 12:25] LABS: Basophils % 0.3 %; Eosinophils % 0.2 %; Hematocrit 40.2 % (35.3-44.9); Hemoglobin 13.2 g/dL (11.5-15.4); Immature Granulocytes % 0.3 % (0-4); Lymphocytes # 0.7 K/mcL (0.6-4.6); Mean Corpuscular HGB Conc 32.8 g/dL (31.6-35.5); Mean Corpuscular Hemoglobin 28.3 pg (28.0-33.3); Mean Corpuscular Volume 86.1 fL (83.0-100.0); Mean Platelet Volume 10.4 fL (9.4-12.4); Monocytes # 0.6 K/mcL (0.0-1.3); Monocytes % 4.9 %; Neutrophils # 11.6 K/mcL (1.6-8.9); Platelet Count 151 K/mcL (140-400); Red Blood Count 4.67 M/mcL (3.82-4.97); Red Cell Distribution Width 15.4 % (11.5-14.5); Segmented Neutrophils % 89.3 %
[2017-07-04 12:32] LABS: Prothrombin Time 11.2 Seconds (9.4-12.1)
[2017-07-04 12:35] LABS: Activated Partial Thrombo Time 21.6 Seconds (26.0-36.0)
[2017-07-04 12:47] LABS: Alanine Aminotransferase 7 Units/L (7-52); Albumin 4.2 g/dL (3.5-5.7); Albumin/Globulin Ratio 1.3 (1.1-2.2); Alkaline Phosphatase 91 Units/L (34-104); Aspartate Amino Transferase 9 Units/L (13-39); BUN/Creatinine Ratio 10 (6-26); Bilirubin,Direct 0.1 mg/dL (0.0-0.2); Bilirubin,Indirect 0.4 mg/dL (0.0-1.2); Bilirubin,Total 0.5 mg/dL (0.3-1.0); Blood Urea Nitrogen 45 mg/dL (6-20); Calcium 9.6 mg/dL (8.6-10.3); Carbon Dioxide 22 mEq/L (23-29); Chloride 101 mEq/L (98-107); Ethanol < 10 mg/dL (Less than 10); Globulin 3.3 g/dL (2.4-3.5); Glucose 193 mg/dL (70-105); Osmolality,Calculated 301 (280-300); Potassium 5.2 mEq/L (3.5-5.1); Sodium 137 mEq/L (136-145); Total Protein 7.5 g/dL (6.4-8.9); Troponin I < 0.03 ng/mL (< 0.04); eGFR For African Americans 12 (> 60); eGFR For Non-African Americans 10 (> 60)
[2017-07-04] MEDS ORDERED: 0.9 % Sodium Chloride 1,000 ML IVC ONE (13:33)
[2017-07-04 14:23] LABS: Bilirubin,Urine Small (Negative); Blood,Urine Negative (Negative); Clarity,Urine Cloudy (Clear); Color,Urine Dark Yellow (Yellow); Glucose,Urine (UA) Normal (Normal); Ketones,Urine Negative (Negative); Leukocyte Esterase,Urine Small (Negative); Nitrite,Urine Negative (Negative); Protein,Urine 30 mg/dL (Neg-Trace); Specific Gravity,Urine 1.024 (1.010-1.025); Urobilinogen,Urine Normal (Normal)
[2017-07-04 14:25] LABS: Bacteria,Urine None Seen per hpf (None-Few); RBC,Urine 0-3 per hpf (0-3); Squamous Epithelial Cell,Urine Many per lpf (None-Few)
[2017-07-04 15:51] LABS: Amphetamine Screen,Urine Negative ng/mL (Cutoff=1000); Barbiturate Screen,Urine Negative ng/mL (Cutoff=200); Benzodiazepines Screen,Urine Negative ng/mL (Cutoff=200); Cannabinoid Screen,Urine Negative ng/mL (Cutoff = 50); Cocaine Screen,Urine Negative ng/mL (Cutoff= 300); Opiate Screen,Urine Positive ng/mL (Cutoff=300); Phencyclidine Screen,Urine Negative ng/mL (Cutoff=25)
[2017-07-04] MEDS ORDERED: Naloxone 0.4 MG/ML INJ IVP PRN (16:53)
[2017-07-04] MEDS ORDERED: Acetaminophen/Butalbital/CaffeineTABLET PO PRN (16:55)
--- NOTE | 2017-07-04 17:02 | Internal Med History&Physical ---
Date of Encounter: 07/04/17 Time of Encounter: 16:59 Internal Medicine - H&P: HPI Chief complaint: Confused, nausea/emesis, decreased PO intake History of present illness: Ms. Rangel is a 56 year old female who presents with confusion associated with ALYSIA with symptoms of nausea/emesis, decreased PO intake. Patient has a history of diabetes type 2 on exenatide, metformin, her blood pressure, depression, pain syndrome, hypothyroid. At baseline she lives with his [id number] and uses a walker. She has a chronic left lateral foot ulcer that is under the care of Dr. Dukes whom she sees every 2 weeks along with home health care. She was brought into the ER because of confusion by family after week and half off nausea, there is emesis with decreased by mouth intake. She is slightly altered and is a poor historian. Denies diarrhea. EKG personally reviewed with rate 98, normal sinus rhythm CT/CT abd pelvis wo no iv no oral IMPRESSION: 1. No acute intra-abdominal abnormality. 2. No acute intrapelvic abnormality. 3. Nonobstructive right urolithiasis. 4. Hepatomegaly. 5. Stable right ovarian cyst measuring 5.[address]/CT head/brain wo con IMPRESSION: No acute intracranial abnormality. Changes of brain volume loss are suspected. XR/XR chest 1V portable IMPRESSION: Findings suggest congestive heart failure Past Med Surg Social Fam HX - Past Medical History Medical history: diabetes, fibromyalgia, GERD, hyperlipidemia, kidney stones, pulmonary embolus, thyroid disease Psychiatric history: anxiety, depression - Past Surgical History Surgical History: non-contributory - Social History Smoking Status: Never smoker Smokeless Tobacco Status: No Alcohol use: none Drug use: none - Family History Father Adopted: No Family Member Ethnicity: Non- Living Status: Still Living Hx Family Cardiac Disorders: Yes Hx Family Respiratory Disorders: No Hx Family Cancer: No Hx Family GI Disorders: No Hx Family Endocrine Disorder: Yes Hx Family Neuromuscular Disorders: No Hx Family Neurologic Disorders: No Hx Family HEENT Disorders: No Hx Family Autoimmune Disorders: No Mother Adopted: No Family Member Ethnicity: Non- Living Status: Hx Family Cardiac Disorders: Yes Hx Family Respiratory Disorders: No Hx Family Cancer: No Hx Family GI Disorders: No Hx Family Endocrine Disorder: Yes Hx Family Neuromuscular Disorders: No Hx Family Neurologic Disorders: No Hx Family HEENT Disorders: No Hx Family Autoimmune Disorders: No Internal Medicine - H&P: Meds Ascorbic Acid [Vitamin C] 500 mg PO DAILY 11/07/16 [History] Aspirin 81 mg PO DAILY 11/07/16 [History] Atorvastatin [Lipitor] 40 mg PO HS 11/07/16 [History] Cyanocobalamin (Vitamin B-12) [Vitamin B12] 1,000 mcg PO DAILY 11/07/16 [History ] Ergocalciferol (VITAMIN D2) [Vitamin D2] 50,000 unit PO CARDOZA 11/07/16 [History] Esomeprazole Magnesium [Nexium] 40 mg PO DAILY 11/07/16 [History] Folic Acid 1 mg PO DAILY 11/07/16 [History] Furosemide [Lasix] 40 mg PO DAILY 11/07/16 [History] Levothyroxine [Synthroid] 75 mcg PO 0630 11/07/16 [History] Lisinopril 2.5 mg PO DAILY 11/07/16 [History] Sertraline [Zoloft] 200 mg PO DAILY 11/07/16 [History] HYDROcodone/Acet 10/325 mg [[place] 10-325 mg] 1 tab PO TID PRN #21 tablet [Rx] Amitriptyline [Elavil] 50 mg PO HS 01/10/17 [History] Baclofen 20 mg PO TID 01/10/17 [History] Celecoxib [Celebrex] 200 mg PO DAILY 01/10/17 [History] Gabapentin [Neurontin] 300 mg PO TID 01/10/17 [History] risperiDONE [RisperDAL] 1 mg PO QAM 01/10/17 [History] Acetaminophen/Butalbital/Caffe [Fioricet] 1 each PO BID PRN #2 tablet 01/13/17 [ Rx] Ferrous Sulfate 325 mg PO BIDWM #0 tablet 01/13/17 [Rx] Collagenase Oint [Santyl] 1 appl TP DAILY 07/04/17 [History] Exenatide Microspheres [Bydureon Pen] 2 mg SQ QWEEK 07/04/17 [History] Gentamicin Oint [Garamycin] 1 appl TP DAILY 07/04/17 [History] metFORMIN [Glucophage] 500 mg PO BID 07/04/17 [History] risperiDONE [RisperDAL] 3 mg PO HS 07/04/17 [History] 3 Allergy/AdvReac Type Severity Reaction Status Date / Time adhesive tape Allergy Rash Verified 04/06/17 10:54 All Systems PM: A 10-system review of systems was performed and is negative for pertinent findings except as documented above in the HPI. Review of systems: ROS 14 point review of systems reviewed as best as possible given presentation. Pertinent positive or negative as per HPI or otherwise reviewed as negative - Constitutional Vitals: Temp Pulse Resp BP Pulse Ox 98.1 F 101 14 107/81 100 07/04/17 11:36 07/04/17 16:41 07/04/17 16:41 07/04/17 16:41 07/04/17 16:41 Exam: General - Alert but appears confused Eyes - [place]. Eye lids intact. No scleral icterus Neuro - limited due to mild confused state but appears to be moving all extremities Heart - Sinus. RRR. S1 and S2 present. No added HS/murmurs appreciated. No elevated JVD appreciated. Lung - Adequate air entry b/l, No crackles/wheezes appreciated GI - Soft, non-tender. No hepatosplenomegaly/ascites. BS+ - No CVA/suprapubic tenderness or palpable bladder distension Skin - Intact. No rash/petechiae/ecchymosis. +2 b/l LE edema. LLE wrapped, in special shoe Internal Med - H&P Results - Labs CBC & Chem 7: 07/04/17 12:17 07/04/17 12:17 Labs: Short CBC 07/04/17 Range/Units 12:17 WBC 13.0 H (4.3-11.1) K/mcL Hgb 13.2 (11.5-15.4) g/dL Hct 40.2 (35.3-44.9) % Plt Count 151 (140-400) K/mcL Neutrophils # 11.6 H (1.6-8.9) K/mcL BMP 07/04/17 12:17 Sodium 137 Potassium 5.2 H Chloride 101 Carbon Dioxide 22 L BUN 45 H Creatinine 4.53 H Glucose 193 H Calcium 9.6 Cardiac Enzymes 07/04/17 Range/Units 12:17 Troponin I < 0.03 (< 0.04) ng/mL Liver Function 07/04/17 Range/Units 12:17 Total Bilirubin 0.5 (0.3-1.0) mg/dL Direct Bilirubin 0.1 (0.0-0.2) mg/dL AST 9 L (13-39) Units/L ALT 7 (7-52) Units/L Alkaline Phosphatase 91 (34-104) Units/L Albumin 4.2 (3.5-5.7) g/dL Urine 07/04/17 Range/Units 14:04 Urine Color Dark Yellow (Yellow) Urine Clarity Cloudy A (Clear) Urine pH 5.0 (5.0-8.0) pH Units Ur Specific [place] 1.024 (1.010-1.025) Urine Protein 30 H (Neg-Trace) mg/dL Urine Glucose (UA) Normal (Normal) mg/dL - Impressions ITS Impressions Chest X-Ray 07/04/17 11:50 IMPRESSION: Findings suggest congestive heart failure D/ / Jese Zuniga MD / Jese Zuniga MD Interpreting Provider: Jese Zuniga MD Head CT 07/04/17 11:51 IMPRESSION: No acute intracranial abnormality. Changes of brain volume loss are suspected. D/ / Newton Perera / Newton Perera Interpreting Provider: Newton Perera Abdomen/Pelvis CT 07/04/17 14:10 IMPRESSION: 1. No acute intra-abdominal abnormality. 2. No acute intrapelvic abnormality. 3. Nonobstructive right urolithiasis. 4. Hepatomegaly. 5. Stable right ovarian cyst measuring 5.7 cm. RECOMMENDATIONS: Managing Incidental Adnexal Cystic Mass by CT or MR Benign cyst: Premenopausal (< or equal to 50 years if LMP unknown) < or equal to 5 cm: no follow up >5 cm: US in 6-12 weeks > or equal to 10 cm: US promptly Early postmenopausal (0-5 years after LMP) < or equal to 3 cm: no follow up 3-5 cm: US in 6-12 weeks >5 cm: US promptly Reference: [facility] et al. Managing Incidental Findings on Abdominal CT: White Paper of the ACR Incidental Findings Committee. J Am Manuel Radiol 2010;7:[id number] D/ / Jung Tran MD / Jung Tran MD Interpreting Provider: Jung Tran MD - Assessment and plan (1) Acute renal failure Current Visit: Yes Status: Acute Assessment and plan: Suspect to be prerenal. IV fluids, trend creatinine, we will stop baclofen, Lasix, lisinopril, gabapentin for now given ALYSIA, decreased renal clearance which may contribute to mental status change I&Os avoid nephrotoxin Qualifiers: Acute renal failure type: unspecified Qualified Code(s): N17.9 - Acute kidney failure, unspecified (2) Hyperkalemia Current Visit: Yes Status: Acute Assessment and plan: We will trend lab IV calcium gluconate (3) Nausea & vomiting Current Visit: Yes Status: Acute Assessment and plan: uncertain etiology, could be viral ?? vs. gastroparesis as a remote possibility given hx of DMII ?? likely cause of ALYSIA , worsen with home meds clears for now IV antiemetic Qualifiers: Vomiting type: bilious vomiting Qualified Code(s): R11.14 - Bilious vomiting (4) Acute encephalopathy Current Visit: No Status: Acute Assessment and plan: likely related to above monitor closely treat above hold chronic pain / neuropathy med (5) Diabetes type 2, uncontrolled Current Visit: No Status: Chronic Assessment and plan: ISS for now check a1c Qualifiers: Diabetes mellitus meterman insulin use: with meterman use Diabetes mellitus complication status: with neurologic complications Diabetes mellitus complication detail: with unspecified neuropathy Qualified Code(s): E11.40 - Type 2 diabetes mellitus with diabetic neuropathy, unspecified; E11.65 - Type 2 diabetes mellitus with hyperglycemia; E11.65 - Type 2 diabetes mellitus with hyperglycemia; E11.65 - Type 2 diabetes mellitus with hyperglycemia; E11.65 - Type 2 diabetes mellitus with hyperglycemia; Z79.4 - termite technician (current) use of insulin; Z79.4 - longterm (current) use of insulin; Z79.4 - longterm (current ) use of insulin; Z79.4 - longterm (current) use of insulin (6) HLD (hyperlipidemia) Current Visit: No Status: Chronic Assessment and plan: continue med Qualifiers: Hyperlipidemia type: unspecified Qualified Code(s): E78.5 - Hyperlipidemia , unspecified (7) Hypertension Current Visit: No Status: Chronic Assessment and plan: monitor for now Qualifiers: Hypertension type: essential hypertension Qualified Code(s): I10 - Essential (primary) hypertension (8) Morbid obesity with BMI of 40.0-44.9, adult Current Visit: No Status: Chronic (9) Schizophrenia Current Visit: No Status: Chronic Qualifiers: Schizophrenia type: other Qualified Code(s): F20.89 - Other schizophrenia; F20.8 - Other schizophrenia (10) Ovarian cyst Current Visit: Yes Status: Acute Assessment and plan: outpatient monitoring with PCP Qualifiers: Laterality: right Qualified Code(s): N83.201 - Unspecified ovarian cyst, right side - Time Spent With Patient Total time spent is greater than 50% in coordination of care (as documented) at patient's floor/unit and/or counseling patient:
[2017-07-04] MEDS ORDERED: *HR* Dextrose 50 % in Water (Syg) 50 ML SYRINGE IVP PRN (17:04)
[2017-07-04] MEDS ORDERED: D5% in Water 1,000 ML IVC PRN (17:04)
[2017-07-04] MEDS ORDERED: Dextrose Gel 15 GM/37.5 ML TUBE PO PRN ×2 (17:04)
[2017-07-04] MEDS ORDERED: Calcium Chloride 1,000 MG in 0.9 % Sodium Chloride 100 ML IVPB ONE (17:21)
[2017-07-04 18:25] LABS: Calcium 8.8 mg/dL (8.6-10.3); Potassium 5.1 mEq/L (3.5-5.1)
[2017-07-04] MEDS: *HR* Heparin 5,000 UNIT/ML VIAL SQ SCH (19:34)
[2017-07-04] MEDS: 0.9 % Sodium Chloride 1,000 ML IVC SCH (20:19)
[2017-07-04] MEDS: RisperiDAL 3 MG TABLET PO SCH (20:34)
[2017-07-04] MEDS: Insulin LISPRO 300 UNITS/3 ML VIAL SQ SCH (21:52)
[2017-07-05 03:54] LABS: Basophils % 0.3 %; Eosinophils # 0.2 K/mcL (0.0-0.6); Eosinophils % 1.8 %; Hematocrit 35.3 % (35.3-44.9); Immature Granulocytes % 0.5 % (0-4); Lymphocytes # 1.2 K/mcL (0.6-4.6); Lymphocytes % 12.3 %; Mean Corpuscular HGB Conc 31.2 g/dL (31.6-35.5); Mean Corpuscular Hemoglobin 27.2 pg (28.0-33.3); Mean Corpuscular Volume 87.4 fL (83.0-100.0); Mean Platelet Volume 10.5 fL (9.4-12.4); Monocytes # 0.8 K/mcL (0.0-1.3); Monocytes % 7.6 %; Neutrophils # 7.8 K/mcL (1.6-8.9); Platelet Count 136 K/mcL (140-400); Red Blood Count 4.04 M/mcL (3.82-4.97); Red Cell Distribution Width 15.5 % (11.5-14.5); Segmented Neutrophils % 77.5 %
[2017-07-05 04:17] LABS: Calcium 8.8 mg/dL (8.6-10.3)
[2017-07-05] MEDS: *HR* Heparin 5,000 UNIT/ML VIAL SQ SCH ×2 (06:25→17:32)
[2017-07-05] MEDS: Insulin LISPRO 300 UNITS/3 ML VIAL SQ SCH ×4 (08:17→23:14)
[2017-07-05] MEDS: Aspirin 81 MG TAB.CHEW PO SCH (08:45)
[2017-07-05] MEDS: risperiDONE 1 MG TABLET PO SCH (08:45)
[2017-07-05] MEDS: Cyanocobalamin (B-12) 1,000 MCG TABLET PO SCH (08:45)
[2017-07-05] MEDS: Ascorbic Acid 500 MG TABLET PO SCH (08:45)
[2017-07-05] MEDS: Folic Acid 1 MG TABLET PO SCH (08:45)
--- NOTE | 2017-07-05 09:00 | Internal Med Progress Note ---
Date of Encounter: 07/05/17 Time of Encounter: 09:00 - Assessment and plan (1) Acute encephalopathy Current Visit: No Status: Acute Assessment and plan: likely 2/2 to dehydration. Continue IV fluids. Head CT negative for any acute findings (2) Acute renal failure Current Visit: Yes Status: Acute Assessment and plan: Likely 2/2 to dehydration. IV fluids, trend creatinine, we will stop baclofen, Lasix, lisinopril, gabapentin for now given ALYSIA, decreased renal clearance which may contribute to mental status change. Avoid nephrotoxic meds. Appreciate renal recs Qualifiers: Acute renal failure type: unspecified Qualified Code(s): N17.9 - Acute kidney failure, unspecified (3) Hypertension Current Visit: No Status: Chronic Assessment and plan: monitor for now Qualifiers: Hypertension type: essential hypertension Qualified Code(s): I10 - Essential (primary) hypertension (4) Diabetes type 2, uncontrolled Current Visit: No Status: Chronic Assessment and plan: ISS for now check a1c Qualifiers: Diabetes mellitus superintendent marine oil terminal insulin use: with superintendent marine oil terminal use Diabetes mellitus complication status: with neurologic complications Diabetes mellitus complication detail: with unspecified neuropathy Qualified Code(s): E11.40 - Type 2 diabetes mellitus with diabetic neuropathy, unspecified; E11.65 - Type 2 diabetes mellitus with hyperglycemia; E11.65 - Type 2 diabetes mellitus with hyperglycemia; E11.65 - Type 2 diabetes mellitus with hyperglycemia; E11.65 - Type 2 diabetes mellitus with hyperglycemia; Z79.4 - salvage determiner (current) use of insulin; Z79.4 - care home (current) use of insulin; Z79.4 - care home (current ) use of insulin; Z79.4 - care home (current) use of insulin (5) Schizophrenia Current Visit: No Status: Chronic Assessment and plan: Continue home meds Qualifiers: Schizophrenia type: other Qualified Code(s): F20.89 - Other schizophrenia; F20.8 - Other schizophrenia (6) HLD (hyperlipidemia) Current Visit: No Status: Chronic Assessment and plan: continue med Qualifiers: Hyperlipidemia type: unspecified Qualified Code(s): E78.5 - Hyperlipidemia , unspecified (7) Morbid obesity with BMI of 40.0-44.9, adult Current Visit: No Status: Chronic (8) Hyperkalemia Current Visit: Yes Status: Acute Assessment and plan: We will trend lab. Trending down slowly (9) Nausea & vomiting Current Visit: Yes Status: Acute Assessment and plan: uncertain etiology, could be viral ?? vs. gastroparesis as a remote possibility given hx of DMII ?? likely cause of ALYSIA , worsen with home meds clears for now IV antiemetic Qualifiers: Vomiting type: bilious vomiting Qualified Code(s): R11.14 - Bilious vomiting (10) Ovarian cyst Current Visit: Yes Status: Acute Assessment and plan: outpatient monitoring with PCP Qualifiers: Laterality: right Qualified Code(s): N83.201 - Unspecified ovarian cyst, right side - Time Spent With Patient Total time spent is greater than 50% in coordination of care (as documented) at patient's floor/unit and/or counseling patient: - Subjective Interval history: No acute events overnight - Constitutional Vitals: Temp Pulse Resp BP Pulse Ox 97.5 F L 84 20 118/36 94 07/05/17 07:54 07/05/17 07:54 07/05/17 07:54 07/05/17 07:54 07/05/17 07:54 - Head Head exam: Present: atraumatic, normocephalic - Eye Eye exam: Present: PERRL, conjuntiva pink, sclera anicteric Pupils: Present: PERRL - Neck Neck exam general surgery: Present: supple, trachea midline. Absent: lymphadenopathy - Respiratory Respiratory exam: Present: CTAB. Absent: accessory muscle use, rales, rhonchi, wheezes - Cardiovascular Cardiovascular exam: Present: RRR, +S1, +S2. Absent: diastolic murmur, gallop, rubs, systolic murmur - GI/Abdominal GI/Abdominal exam: Present: normal bowel sounds, soft, no peritoneal signs. Absent: distended, tenderness - Extremities Exam Extremities exam: Present: warm, radial pulses palpable and symmetrical. Absent : calf tenderness, cyanotic, pedal edema - Neurological Exam Neurological exam: Present: CN II-XII intact, oriented X3, no focal deficits. Absent: pronater drift, facial droop, speech deficit - Skin Skin exam: Present: dry, intact Internal Medicine: Result - Labs CBC & Chem 7: 07/05/17 03:40 07/05/17 03:40 Labs: Short CBC 07/05/17 Range/Units 03:40 WBC 10.0 (4.3-11.1) K/mcL Hgb 11.0 L D (11.5-15.4) g/dL Hct 35.3 (35.3-44.9) % Plt Count 136 L (140-400) K/mcL Neutrophils # 7.8 (1.6-8.9) K/mcL BMP 07/05/17 03:40 Sodium 139 Potassium 5.0 Chloride 106 Carbon Dioxide 24 BUN 49 H Creatinine 5.16 H Glucose 133 H Calcium 8.8 - ABG Interpretation ABG results: PT/INR, D-dimer PT 11.2 Seconds (9.4-12.1) 07/04/17 12:17 Consult Discharge Plan - Plan Referrals: Nico Ahmadi MD [Primary Care Provider] -
[2017-07-05 09:15] LABS: Estimated Average Glucose 137 mg/dl; Hemoglobin A1C 6.4 %
--- NOTE | 2017-07-05 13:53 | Nephrology Consult Note ---
Date of Encounter: 07/05/17 Time of Encounter: 13:45 Assessment and Plan (1) ALYSIA (acute kidney injury) Current Visit: Yes Status: Acute At this point this appears to be dehydration. Will order workup and monitor. Avoid nephrotoxins and renal dose medications. (2) Leg wound, left Current Visit: Yes Status: Acute Under the care of Dr. Dukes. Will place wound consult in for orders. Qualifiers: Qualified Code(s): S81.802A - Unspecified open wound, left lower leg, initial encounter (3) Nausea & vomiting Current Visit: Yes Status: Acute Unsure of etiology although it is contributing to ALYSIA. Per primary team. Qualifiers: Vomiting type: unspecified Qualified Code(s): R11.2 - Nausea with vomiting , unspecified (4) HTN (hypertension) Current Visit: Yes Status: Acute BP is running low 105/58 at bedside. Qualifiers: Qualified Code(s): I10 - Essential (primary) hypertension (5) Hypertension Current Visit: No Status: Chronic Qualifiers: Hypertension type: essential hypertension Qualified Code(s): I10 - Essential (primary) hypertension History of Present Illness - Reason for Consult Consult date: 07/05/17 Acute Kidney Injury - Chief Complaint AMS - History of Present Illness Ms. Rangel is a 56 year old female with PMH: DM, GERD, HLD, PE, Thyroid Disease and chronic LLE venous ulcer under the care of Dr. Dukes. Ms Rangel was seen by Dr. Brooks in March of this year for dehydration/ ALYSIA and was discharged with a GFR > 60. In the past 2 weeks the patient reports nausea with green "bile" emesis. Nothing has helped and it does not matter what she ate /drank. With the emesis, this is likely the cause of dehydration and ALYSIA. Did receive 2 Liter Bolus in ED, after the 2nd bag she reported some MICHAEL. Bag # 3 NS is hanging now and infusing at 100/hr. Pt denies MICHAEL now. Denies DANGELO's, CP, edema, diarrhea. Will order ALYSIA workup. Past Med Surg Social Fam HX - Past Medical History Medical history: diabetes, fibromyalgia, GERD, hyperlipidemia, kidney stones, pulmonary embolus, thyroid disease Psychiatric history: anxiety, depression - Past Surgical History Surgical History: non-contributory - Social History Smoking Status: Never smoker Smokeless Tobacco Status: No Alcohol use: none Drug use: none - Family History Father History Unknown: Yes Adopted: No Age: 82 Family Member Ethnicity: Non- Living Status: Still Living Hx Family Cardiac Disorders: Yes (vascular disease, PAD, CAD, amputation of lower leg due to wounds) Hx Family Respiratory Disorders: No Hx Family Cancer: No Hx Family GI Disorders: No Hx Family Genitourinary Disorders: No Hx Family Endocrine Disorder: No Hx Family Musculoskeletal Disorders: No Hx Family Neuromuscular Disorders: No Hx Family Neurologic Disorders: No Hx Family HEENT Disorders: No Hx Family Autoimmune Disorders: No Hx Family Reproductive Disorders: No Hx Family Psychosocial Disorders: No Hx Family Medical Disorders: No Mother History Unknown: Yes Adopted: No Family Member Ethnicity: Non- Living Status: Age at : 51 Cause of : IN Hx Family Cardiac Disorders: Yes ([place]) Hx Family Respiratory Disorders: No Hx Family Cancer: No Hx Family GI Disorders: No Hx Family Genitourinary Disorders: No Hx Family Endocrine Disorder: No Hx Family Musculoskeletal Disorders: No Hx Family Neuromuscular Disorders: No Hx Family Neurologic Disorders: No Hx Family HEENT Disorders: No Hx Family Autoimmune Disorders: No Hx Family Reproductive Disorders: No Hx Family Psychosocial Disorders: No Hx Family Medical Disorders: No Medications and Allergies RX: Ascorbic Acid [Vitamin C] 500 mg PO DAILY 11/07/16 [History] RX: Aspirin 81 mg PO DAILY 11/07/16 [History] RX: Atorvastatin [Lipitor] 40 mg PO HS 11/07/16 [History] RX: Cyanocobalamin (Vitamin B-12) [Vitamin B12] 1,000 mcg PO DAILY 11/07/16 [ History] RX: Ergocalciferol (VITAMIN D2) [Vitamin D2] 50,000 unit PO CARDOZA 11/07/16 [History ] RX: Esomeprazole Magnesium [Nexium] 40 mg PO DAILY 11/07/16 [History] RX: Folic Acid 1 mg PO DAILY 11/07/16 [History] RX: Furosemide [Lasix] 40 mg PO DAILY 11/07/16 [History] RX: Levothyroxine [Synthroid] 75 mcg PO 0630 11/07/16 [History] RX: Lisinopril 2.5 mg PO DAILY 11/07/16 [History] RX: Sertraline [Zoloft] 200 mg PO DAILY 11/07/16 [History] RX: HYDROcodone/Acet 10/325 mg [[place] 10-325 mg] 1 tab PO TID PRN #21 tablet 12/06 [Rx] RX: Amitriptyline [Elavil] 50 mg PO HS 01/10/17 [History] RX: Baclofen 20 mg PO TID 01/10/17 [History] RX: Celecoxib [Celebrex] 200 mg PO DAILY 01/10/17 [History] RX: Gabapentin [Neurontin] 300 mg PO TID 01/10/17 [History] RX: risperiDONE [RisperDAL] 1 mg PO QAM 01/10/17 [History] RX: Acetaminophen/Butalbital/Caffe [Fioricet] 1 each PO BID PRN #2 tablet [Rx] RX: Ferrous Sulfate 325 mg PO BIDWM #0 tablet 01/13/17 [Rx] Collagenase Oint [Santyl] 1 appl TP DAILY 07/04/17 [History] Exenatide Microspheres [Bydureon Pen] 2 mg SQ QWEEK 07/04/17 [History] Gentamicin Oint [Garamycin] 1 appl TP DAILY 07/04/17 [History] metFORMIN [Glucophage] 500 mg PO BID 07/04/17 [History] risperiDONE [RisperDAL] 3 mg PO HS 07/04/17 [History] 3 Allergy/AdvReac Type Severity Reaction Status Date / Time adhesive tape Allergy Rash Verified 04/06/17 10:54 Review of Systems Constitutional: anorexia, no fatigue, no fever(s) Cardiovascular: no chest pain, no edema Gastrointestinal: no change in bowel habits, no melena Exam - Vital Signs Vital signs: Initial Vital Signs Temp Pulse Resp BP Pulse Ox 98.1 F 105 17 104/53 94 07/04/17 11:36 07/04/17 11:36 07/04/17 11:36 07/04/17 11:36 07/04/17 11:36 Vital Signs - Last 8 Hours Temp Pulse Resp BP Pulse Ox 07/05/17 12:11 98.0 F 87 16 105/58 94 07/05/17 07:54 97.5 F L 84 20 118/36 94 Intake and Output 07/04/17 07/05/17 07/05/17 23:59 07:59 15:59 Intake Total 1000 / 1000 720 / 720 Output Total 150 / 150 Balance 1000 / 1000 570 / 570 Intake: IV Fluids 1000 / 1000 0.9 % Sodium Chloride 1,000 ML 1000 / 1000 @ 3750 mls/hr IVC .Q16M ONE Rx# :[id number] Oral 720 / 720 Output: Catheter 150 / 150 Other: Meal Lunch Percent of Meal Consumed 100% Blood Glucose* 114 137 - General Appearance General appearance: obese, chronically ill EENT: ATNC, hearing intact, vision intact Neck: supple Respiratory: clear Cardiology: edema (Trace bilateral edema.), normal S1, normal S2 Gastrointestinal: normoactive bowel sounds, no tenderness, no guarding Integumentary: no rash, warm and dry Additional Comments: LLE bandage noted. Chronic ulcer under the care of Dr. Dukes. Psychiatric: mood/affect appropriate, cooperative Results - Lab Results 07/05/17 03:40 07/05/17 03:40 Most recent lab results Calcium 8.8 mg/dL (8.6-10.3) 07/05/17 03:40 Consult Discharge Plan - Plan Referrals: Nico Ahmadi MD [Primary Care Provider] -
[2017-07-05] MEDS: 0.9 % Sodium Chloride 1,000 ML IVC SCH (13:59)
[2017-07-05] MEDS ORDERED: Gentamicin Oint 15 GM TUBE TP SCH (15:00)
[2017-07-05] MEDS ORDERED: *HR* Promethazine 25 MG/ML VIAL IVP PRN (15:53)
[2017-07-05 17:02] LABS: Protein/Creatinine Ratio,Urine 1.3 mg/mg (0.00-0.20)
[2017-07-05 21:27] LABS: Uric Acid 10.1 mg/dL (2.3-7.6)
[2017-07-05] MEDS: RisperiDAL 3 MG TABLET PO SCH (23:13)
[2017-07-06] MEDS: *HR* Heparin 5,000 UNIT/ML VIAL SQ SCH ×2 (05:37→16:58)
[2017-07-06 06:12] LABS: Basophils % 0.5 %; Eosinophils # 0.3 K/mcL (0.0-0.6); Eosinophils % 4.1 %; Hemoglobin 11.1 g/dL (11.5-15.4); Immature Granulocytes % 0.6 % (0-4); Lymphocytes # 1.1 K/mcL (0.6-4.6); Lymphocytes % 13.7 %; Mean Corpuscular HGB Conc 30.8 g/dL (31.6-35.5); Mean Corpuscular Volume 87.6 fL (83.0-100.0); Mean Platelet Volume 11.1 fL (9.4-12.4); Monocytes # 0.6 K/mcL (0.0-1.3); Monocytes % 6.8 %; Neutrophils # 6.1 K/mcL (1.6-8.9); Platelet Count 137 K/mcL (140-400); Red Blood Count 4.11 M/mcL (3.82-4.97); Red Cell Distribution Width 15.5 % (11.5-14.5); Segmented Neutrophils % 74.3 %
[2017-07-06 06:32] LABS: Calcium 8.7 mg/dL (8.6-10.3); Potassium 4.8 mEq/L (3.5-5.1)
--- NOTE | 2017-07-06 08:11 | Internal Med Progress Note ---
Date of Encounter: 07/06/17 Time of Encounter: 08:00 - Assessment and plan (1) Acute encephalopathy Current Visit: No Status: Acute Assessment and plan: likely 2/2 to dehydration. Continue IV fluids. Head CT negative for any acute findings (2) Acute renal failure Current Visit: Yes Status: Acute Assessment and plan: Likely 2/2 to dehydration. IV fluids, trend creatinine, we will stop baclofen, Lasix, lisinopril, gabapentin for now given ALYSIA, decreased renal clearance which may contribute to mental status change. Avoid nephrotoxic meds. Renal following Qualifiers: Acute renal failure type: unspecified Qualified Code(s): N17.9 - Acute kidney failure, unspecified (3) Nausea & vomiting Current Visit: Yes Status: Acute Assessment and plan: Possible gastritis/ gastro enteritis. On phenregan and zofran. Continue IV fluids and advance diet as tolerated Qualifiers: Vomiting type: unspecified Qualified Code(s): R11.2 - Nausea with vomiting , unspecified (4) Hypertension Current Visit: No Status: Chronic Assessment and plan: monitor for now. Pt has been hypotense so no indication for anti hypertensives Qualifiers: Hypertension type: essential hypertension Qualified Code(s): I10 - Essential (primary) hypertension (5) Diabetes type 2, uncontrolled Current Visit: No Status: Chronic Assessment and plan: ISS for now check a1c Qualifiers: Diabetes mellitus manager terminal insulin use: with longterm use Diabetes mellitus complication status: with neurologic complications Diabetes mellitus complication detail: with unspecified neuropathy Qualified Code(s): E11.40 - Type 2 diabetes mellitus with diabetic neuropathy, unspecified; E11.65 - Type 2 diabetes mellitus with hyperglycemia; E11.65 - Type 2 diabetes mellitus with hyperglycemia; E11.65 - Type 2 diabetes mellitus with hyperglycemia; E11.65 - Type 2 diabetes mellitus with hyperglycemia; Z79.4 - senior care (current) use of insulin; Z79.4 - joint terminal attack controller (current) use of insulin; Z79.4 - joint terminal attack controller (current ) use of insulin; Z79.4 - joint terminal attack controller (current) use of insulin (6) Schizophrenia Current Visit: No Status: Chronic Assessment and plan: Continue home meds Qualifiers: Schizophrenia type: other Qualified Code(s): F20.89 - Other schizophrenia; F20.8 - Other schizophrenia (7) HLD (hyperlipidemia) Current Visit: No Status: Chronic Assessment and plan: continue med Qualifiers: Hyperlipidemia type: unspecified Qualified Code(s): E78.5 - Hyperlipidemia , unspecified (8) Morbid obesity with BMI of 40.0-44.9, adult Current Visit: No Status: Chronic Assessment and plan: Diet and exercise (9) Hyperkalemia Current Visit: Yes Status: Acute Assessment and plan: We will trend lab. Trending down slowly - Time Spent With Patient Total time spent is greater than 50% in coordination of care (as documented) at patient's floor/unit and/or counseling patient: - Subjective Interval history: No acute events overnight - Constitutional Vitals: Temp Pulse Resp BP Pulse Ox 98.5 F 85 10 112/65 96 07/06/17 07:38 07/06/17 07:38 07/06/17 07:38 07/06/17 07:38 07/06/17 07:38 - Head Head exam: Present: atraumatic, normocephalic - Eye Eye exam: Present: PERRL, conjuntiva pink, sclera anicteric Pupils: Present: PERRL - Neck Neck exam general surgery: Present: supple, trachea midline. Absent: lymphadenopathy - Respiratory Respiratory exam: Present: CTAB. Absent: accessory muscle use, rales, rhonchi, wheezes - Cardiovascular Cardiovascular exam: Present: RRR, +S1, +S2. Absent: diastolic murmur, gallop, rubs, systolic murmur - GI/Abdominal GI/Abdominal exam: Present: normal bowel sounds, soft, no peritoneal signs. Absent: distended, tenderness - Extremities Exam Extremities exam: Present: warm, radial pulses palpable and symmetrical. Absent : calf tenderness, cyanotic, pedal edema - Neurological Exam Neurological exam: Present: CN II-XII intact, oriented X3, no focal deficits. Absent: pronater drift, facial droop, speech deficit - Skin Skin exam: Present: dry, intact Internal Medicine: Result - Labs CBC & Chem 7: 07/06/17 05:48 07/06/17 05:48 Labs: Short CBC 07/06/17 Range/Units 05:48 WBC 8.3 (4.3-11.1) K/mcL Hgb 11.1 L (11.5-15.4) g/dL Hct 36.0 (35.3-44.9) % Plt Count 137 L (140-400) K/mcL Neutrophils # 6.1 (1.6-8.9) K/mcL BMP 07/05/17 07/06/17 03:40 05:48 Sodium 139 137 Potassium 5.0 4.8 Chloride 106 107 Carbon Dioxide 24 22 L BUN 49 H 44 H Creatinine 5.16 H 4.47 H Glucose 133 H 115 H Calcium 8.8 8.7 - ABG Interpretation ABG results: PT/INR, D-dimer PT 11.2 Seconds (9.4-12.1) 07/04/17 12:17 - Impressions Impressions Retroperitoneum Ultrasound 07/05/17 13:58 IMPRESSION: 6 mm stone inferior right kidney. No hydronephrosis. No hydronephrosis. 4.4 x 4.4 x 4.8 cm right adnexal simple appearing cyst which likely is ovarian etiology. This can be better evaluated with dedicated ultrasound of the pelvis. D/ / Shabnam Alberto MD / Shabnam Alberto MD Interpreting Provider: Shabnam Alberto MD Consult Discharge Plan - Plan Referrals: Nico Ahmadi MD [Primary Care Provider] -
[2017-07-06] MEDS: risperiDONE 1 MG TABLET PO SCH (10:42)
[2017-07-06] MEDS: Cyanocobalamin (B-12) 1,000 MCG TABLET PO SCH (10:42)
[2017-07-06] MEDS: Aspirin 81 MG TAB.CHEW PO SCH (10:42)
[2017-07-06] MEDS: 0.9 % Sodium Chloride 1,000 ML IVC SCH ×2 (10:43→19:08)
[2017-07-06] MEDS: Insulin LISPRO 300 UNITS/3 ML VIAL SQ SCH ×4 (10:43→20:29)
[2017-07-06] MEDS: Ascorbic Acid 500 MG TABLET PO SCH (10:43)
[2017-07-06] MEDS: Folic Acid 1 MG TABLET PO SCH (10:43)
--- NOTE | 2017-07-06 11:25 | Nephrology Progress Note ---
Date of Encounter: 07/06/17 Time of Encounter: 11:23 - Assessment and Plan (1) ALYSIA (acute kidney injury) Current Visit: Yes Status: Acute Pt had ALYSIA in March 2017 most likely from dehydration as well. ALYSIA improving. Scr 4.47 down from 5.16. Gfr 10 up from 9. Continue NS 125/hr. UOP 950 from yesterday and already 800 today, improving. (2) Leg wound, left Current Visit: Yes Status: Acute Orders per Wound Care. Qualifiers: Qualified Code(s): S81.802D - Unspecified open wound, left lower leg, subsequent encounter (3) Nausea & vomiting Current Visit: Yes Status: Acute Well controlled at this point. Concern for when she goes home, her sister in law states she vomits every morning regardless of what she eats/drinks. Is still on clear liquid diet. Qualifiers: Vomiting type: unspecified Qualified Code(s): R11.2 - Nausea with vomiting , unspecified (4) HTN (hypertension) Current Visit: Yes Status: Acute Stable. 112/65 Qualifiers: Qualified Code(s): I10 - Essential (primary) hypertension (5) Hypertension Current Visit: No Status: Chronic Qualifiers: Hypertension type: essential hypertension Qualified Code(s): I10 - Essential (primary) hypertension Subjective Principal diagnosis: AMS Interval history: Pt seen and examined. Objective - Vital Signs Vital signs: Vital Signs Temp Pulse Resp BP Pulse Ox 07/06/17 07:38 98.5 F 85 10 112/65 96 07/06/17 02:43 97.4 F L 89 16 109/55 96 07/05/17 23:18 98.1 F 91 18 122/63 94 07/05/17 16:02 97.7 F 87 16 116/58 96 07/05/17 12:11 98.0 F 87 16 105/58 94 Intake and Output 07/05/17 07/06/17 07/06/17 23:59 07:59 15:59 Intake Total 0 / 0 360 / 360 Output Total 800 / 800 800 / 800 Balance -800 / -800 -440 / -440 Intake: Oral 0 / 0 360 / 360 Output: Catheter 800 / 800 800 / 800 Other: Stool Size Copious Small Stool Consistency loose liquid liquid Stool Characteristics Normal for Patient Stool Color Brown Green Lovell Black # Bowel Movements 1 1 Blood Glucose* 113 105 - General Appearance General appearance: Present: obese EENT: Present: ATNC, hearing intact, vision intact Neck: Present: supple Respiratory: Present: clear Cardiology: Present: edema (Trace bilateral.), normal S1, normal S2 Gastrointestinal: Present: normoactive bowel sounds, no tenderness, no guarding Integumentary: Present: no rash, warm and dry Neurologic: Present: alert and oriented x3 Psychiatric: Present: mood/affect appropriate, cooperative - Lab 07/06/17 05:48 07/06/17 05:48 Most recent lab results Calcium 8.7 mg/dL (8.6-10.3) 07/06/17 05:48 Urine Creatinine 61 mg/dL 07/05/17 15:15 Urine Sodium 94.9 mEq/L 07/05/17 15:15 Urine Total Protein 79 mg/dL (1-14) H 07/05/17 15:15 Consult Discharge Plan - Plan Referrals: Nico Ahmadi MD [Primary Care Provider] -
[2017-07-06] MEDS ORDERED: Gentamicin Oint 15 GM TUBE TP SCH (21:00)
[2017-07-06] MEDS: RisperiDAL 3 MG TABLET PO SCH (22:28)
[2017-07-07] MEDS: 0.9 % Sodium Chloride 1,000 ML IVC SCH ×3 (02:55→11:03)
[2017-07-07 03:35] LABS: Basophils % 0.4 %; Eosinophils # 0.3 K/mcL (0.0-0.6); Hemoglobin 10.1 g/dL (11.5-15.4); Immature Granulocytes % 0.8 % (0-4); Lymphocytes # 1.2 K/mcL (0.6-4.6); Lymphocytes % 17.2 %; Mean Corpuscular HGB Conc 32.6 g/dL (31.6-35.5); Mean Corpuscular Hemoglobin 28.1 pg (28.0-33.3); Mean Corpuscular Volume 86.4 fL (83.0-100.0); Mean Platelet Volume 10.4 fL (9.4-12.4); Monocytes # 0.6 K/mcL (0.0-1.3); Monocytes % 8.2 %; Platelet Count 122 K/mcL (140-400); Red Blood Count 3.59 M/mcL (3.82-4.97); Red Cell Distribution Width 14.9 % (11.5-14.5); Segmented Neutrophils % 69.4 %
[2017-07-07 03:56] LABS: Calcium 8.5 mg/dL (8.6-10.3); Potassium 4.2 mEq/L (3.5-5.1)
[2017-07-07] MEDS: *HR* Heparin 5,000 UNIT/ML VIAL SQ SCH ×2 (04:51→17:30)
[2017-07-07] MEDS: Insulin LISPRO 300 UNITS/3 ML VIAL SQ SCH ×4 (08:29→21:16)
[2017-07-07] MEDS: Aspirin 81 MG TAB.CHEW PO SCH (08:41)
[2017-07-07] MEDS: Ascorbic Acid 500 MG TABLET PO SCH (08:41)
[2017-07-07] MEDS: Cyanocobalamin (B-12) 1,000 MCG TABLET PO SCH (08:41)
[2017-07-07] MEDS: risperiDONE 1 MG TABLET PO SCH (08:42)
[2017-07-07] MEDS: Folic Acid 1 MG TABLET PO SCH (08:42)
--- NOTE | 2017-07-07 08:57 | Nephrology Progress Note ---
Date of Encounter: 07/07/17 Time of Encounter: 08:52 - Assessment and Plan (1) ALYSIA (acute kidney injury) Current Visit: Yes Status: Acute Pt had ALYSIA in March 2017 most likely from dehydration as well. ALYSIA improving. Scr down 2.15 from 4.47 Gfr 24 today. Continue NS 125/hr. UOP 2600 yesterday. (2) Leg wound, left Current Visit: Yes Status: Acute Orders per Wound Care. Qualifiers: Qualified Code(s): S81.802D - Unspecified open wound, left lower leg, subsequent encounter (3) Nausea & vomiting Current Visit: Yes Status: Acute Well controlled at this point. Concern for when she goes home, her sister in law states she vomits every morning regardless of what she eats/drinks. Has been advanced to regular diet. Qualifiers: Vomiting type: unspecified Qualified Code(s): R11.2 - Nausea with vomiting , unspecified (4) HTN (hypertension) Current Visit: Yes Status: Acute Stable, 145/75 Qualifiers: Qualified Code(s): I10 - Essential (primary) hypertension (5) Hypertension Current Visit: No Status: Chronic Qualifiers: Hypertension type: essential hypertension Qualified Code(s): I10 - Essential (primary) hypertension Subjective Principal diagnosis: AMS Interval history: Pt seen and examined. Is in precautions for C-Diff. Objective - Vital Signs Vital signs: Vital Signs Temp Pulse Resp BP Pulse Ox 07/07/17 07:46 98.4 F 117 14 145/76 92 07/07/17 04:39 98.1 F 115 18 133/69 92 07/07/17 00:08 97.9 F 95 18 123/71 90 07/06/17 20:06 98.0 F 105 18 151/77 93 07/06/17 16:16 97.7 F 92 16 115/62 95 07/06/17 11:44 97.3 F L 90 12 111/71 95 Intake and Output 07/06/17 07/07/17 07/07/17 23:59 07:59 15:59 Intake Total 1000 / 1000 1400 / 1400 Output Total 1800 / 1800 400 / 400 Balance -800 / -800 1000 / 1000 Intake: IV Fluids 1000 / 1000 1000 / 1000 0.9 % Sodium Chloride 1,000 ML 1000 / 1000 1000 / 1000 @ 125 mls/hr IVC .Q8H AMBERLY Rx#: [id number] Oral 400 / 400 Output: Catheter 1800 / 1800 400 / 400 Other: Stool Size Smear Stool Consistency loose liquid Stool Color Brown # Bowel Movements 1 Weight 102.7 kg Blood Glucose* 132 127 Patient Weight 07/07/17 23:59 Weight 102.7 kg - General Appearance General appearance: Present: well-developed, well-nourished, chronically ill EENT: Present: ATNC, hearing intact, vision intact Respiratory: Present: clear Cardiology: Present: no edema, normal S1, normal S2 Gastrointestinal: Present: normoactive bowel sounds, no tenderness, no guarding Integumentary: Present: no rash, warm and dry Neurologic: Present: alert and oriented x3 Psychiatric: Present: mood/affect appropriate, cooperative - Lab 07/07/17 03:20 07/07/17 03:20 Most recent lab results Calcium 8.5 mg/dL (8.6-10.3) L 07/07/17 03:20 Urine Creatinine 61 mg/dL 07/05/17 15:15 Urine Sodium 94.9 mEq/L 07/05/17 15:15 Urine Total Protein 79 mg/dL (1-14) H 07/05/17 15:15 Consult Discharge Plan - Plan Referrals: Nico Ahmadi MD [Primary Care Provider] -
[2017-07-07] MEDS ORDERED: Acetaminophen/Butalbital/CaffeineTABLET PO PRN (09:51)
[2017-07-07] MEDS: Vancomycin Oral Soln 125 MG/2.5 ML UDC PO SCH ×4 (11:01→21:12)
--- NOTE | 2017-07-07 16:19 | Internal Med Progress Note ---
Date of Encounter: 07/07/17 Time of Encounter: 10:30 - Assessment and plan (1) C. difficile diarrhea Current Visit: Yes Status: Acute Assessment and plan: patient presents with diarrhea; stool c.dif toxin positive; no fever or leukocytosis, unclear if its true infection, but she has diarrhea and came with ALYSIA, will continue with PO Vancomycin for 7days; contact precautions; supportive care; (2) Nausea & vomiting Current Visit: Yes Status: Resolved Assessment and plan: unclear etiology but noted to have such episodes in the past; CT abdomen/pelvis showed no acute abnormality except hepatomegaly. needs outpatient GI f/up; Qualifiers: Vomiting type: unspecified Qualified Code(s): R11.2 - Nausea with vomiting , unspecified (3) Acute renal failure Current Visit: Yes Status: Acute Assessment and plan: Baseline serum creatinine noted to be normal, however had multiple episodes of acute kidney injury in the past. Serum creatinine now improving, 2.15 today. Continue IV hydration, decrease the rate. Continue to hold NSAIDs and PASCUAL inhibitor. Nephrology follow-up appreciated. Discontinue Shepard catheter. Avoid nephrotoxins. Qualifiers: Acute renal failure type: unspecified Qualified Code(s): N17.9 - Acute kidney failure, unspecified (4) Acute encephalopathy Current Visit: No Status: Resolved Assessment and plan: Likely metabolic encephalopathy due to acute kidney injury. Currently improved , at baseline mental status. (5) Hypertension Current Visit: Yes Status: Chronic Qualifiers: Hypertension type: essential hypertension Qualified Code(s): I10 - Essential (primary) hypertension (6) Diabetes type 2, uncontrolled Current Visit: Yes Status: Chronic Assessment and plan: Blood sugars noted to be well controlled. Continue Accu-Chek blood glucose monitoring with sliding scale insulin as needed. Diabetic diet. Qualifiers: Diabetes mellitus scallop shucker insulin use: without scallop shucker use Diabetes mellitus complication status: with kidney complications Diabetes mellitus complication detail: with chronic kidney disease Chronic kidney disease stage : stage 3 (moderate) Qualified Code(s): E11.22 - Type 2 diabetes mellitus with diabetic chronic kidney disease; E11.65 - Type 2 diabetes mellitus with hyperglycemia; N18.3 - Chronic kidney disease, stage 3 (moderate) (7) Schizophrenia Current Visit: Yes Status: Chronic Qualifiers: Schizophrenia type: unspecified Qualified Code(s): F20.9 - Schizophrenia, unspecified (8) HLD (hyperlipidemia) Current Visit: Yes Status: Chronic Qualifiers: Hyperlipidemia type: unspecified Qualified Code(s): E78.5 - Hyperlipidemia , unspecified (9) Hypothyroid Current Visit: Yes Status: Chronic Qualifiers: Hypothyroidism type: unspecified Qualified Code(s): E03.9 - Hypothyroidism , unspecified - Time Spent With Patient Total time spent is greater than 50% in coordination of care (as documented) at patient's floor/unit and/or counseling patient: - Subjective Interval history: Reports feeling better; alert and oriented; improved diarrhea, nausea and vomiting; denies abdominal or chest pain, dyspnea; - Constitutional Vitals: Temp Pulse Resp BP Pulse Ox 98.5 F 108 18 144/72 92 07/07/17 15:28 07/07/17 15:28 07/07/17 15:28 07/07/17 15:28 07/07/17 15:28 General appearance: Present: A&O X 3, answers questions appropriately - Respiratory Respiratory exam: Present: CTAB. Absent: accessory muscle use, rales, rhonchi, wheezes - Cardiovascular Cardiovascular exam: Present: RRR, +S1, +S2. Absent: diastolic murmur, gallop, rubs, systolic murmur - GI/Abdominal GI/Abdominal exam: Present: normal bowel sounds, soft (obese), no peritoneal signs. Absent: distended, tenderness - Extremities Exam Extremities exam: Present: full ROM, pedal edema (1+ pedal edema), warm, radial pulses palpable and symmetrical. Absent: calf tenderness, cyanotic Additional comments: left heel chronic ulcer, in dressing - Neurological Exam Neurological exam: Present: CN II-XII intact, oriented X3, no focal deficits. Absent: pronater drift, facial droop, speech deficit Internal Medicine: Result - Labs CBC & Chem 7: 07/07/17 03:20 07/07/17 03:20 Labs: Short CBC 07/07/17 Range/Units 03:20 WBC 7.2 (4.3-11.1) K/mcL Hgb 10.1 L (11.5-15.4) g/dL Hct 31.0 L (35.3-44.9) % Plt Count 122 L (140-400) K/mcL Neutrophils # 5.0 (1.6-8.9) K/mcL BMP 07/07/17 03:20 Sodium 140 Potassium 4.2 Chloride 112 H Carbon Dioxide 22 L BUN 29 H Creatinine 2.15 H Glucose 115 H Calcium 8.5 L - ABG Interpretation ABG results: PT/INR, D-dimer PT 11.2 Seconds (9.4-12.1) 07/04/17 12:17 Consult Discharge Plan - Plan Referrals: Nico Ahmadi MD [Primary Care Provider] -
[2017-07-07] MEDS: Gentamicin Oint 15 GM TUBE TP SCH (21:13)
[2017-07-07] MEDS: RisperiDAL 3 MG TABLET PO SCH (21:13)
[2017-07-08] MEDS: 0.9 % Sodium Chloride 1,000 ML IVC SCH (03:00)
[2017-07-08 04:42] LABS: Albumin 3.2 g/dL (3.5-5.7); Calcium 8.8 mg/dL (8.6-10.3); Phosphorous 2.4 mg/dL (2.7-4.5); Potassium 4.1 mEq/L (3.5-5.1); Uric Acid 5.3 mg/dL (2.3-7.6)
[2017-07-08] MEDS: *HR* Heparin 5,000 UNIT/ML VIAL SQ SCH ×2 (06:08→17:44)
--- NOTE | 2017-07-08 06:32 | Event Note ---
Date of Encounter: 07/08/17 Time of Encounter: 06:31 Nephrology Chart Review SCr continues to rapidly improve from this pre-renal ALYSIA on CKD. No indications for INVENTORY CONTROL PLANNER. Will sign-off. Thank you for having consulted the [facility] group. Please feel free to call or page if any questions.
[2017-07-08] MEDS: Insulin LISPRO 300 UNITS/3 ML VIAL SQ SCH ×4 (08:12→21:16)
[2017-07-08] MEDS: Ondansetron 4 MG/2 ML VIAL IVP PRN ×2 (09:00→16:19)
[2017-07-08] MEDS: Cyanocobalamin (B-12) 1,000 MCG TABLET PO SCH (10:12)
[2017-07-08] MEDS: risperiDONE 1 MG TABLET PO SCH (10:13)
[2017-07-08] MEDS: Aspirin 81 MG TAB.CHEW PO SCH (10:13)
[2017-07-08] MEDS: Folic Acid 1 MG TABLET PO SCH (10:13)
[2017-07-08] MEDS: Ascorbic Acid 500 MG TABLET PO SCH (10:13)
[2017-07-08] MEDS: Vancomycin Oral Soln 125 MG/2.5 ML UDC PO SCH ×4 (10:16→21:16)
--- NOTE | 2017-07-08 13:55 | Internal Med Progress Note ---
Date of Encounter: 07/08/17 Time of Encounter: 10:55 - Assessment and plan (1) C. difficile diarrhea Current Visit: Yes Status: Acute Assessment and plan: patient presents with diarrhea; stool c.dif toxin positive; no fever or leukocytosis, unclear if its true infection, but she has diarrhea and came with ALYSIA, will continue with PO Vancomycin- day 2 for 7days; contact precautions; supportive care; (2) Nausea & vomiting Current Visit: Yes Status: Acute Assessment and plan: unclear etiology but noted to have such episodes in the past; CT abdomen/pelvis showed no acute abnormality except hepatomegaly. Will start scheduled Reglan; continue PRN IV Zofran; needs outpatient GI f/up; Qualifiers: Vomiting type: unspecified Qualified Code(s): R11.2 - Nausea with vomiting , unspecified (3) Acute renal failure Current Visit: Yes Status: Acute Assessment and plan: Baseline serum creatinine noted to be normal, however had multiple episodes of acute kidney injury in the past. Serum creatinine now improving, 1.33 today. DisContinue IV hydration. Continue to hold NSAIDs and PASCUAL inhibitor. Nephrology follow-up appreciated, now signed off. Avoid nephrotoxins. Qualifiers: Acute renal failure type: unspecified Qualified Code(s): N17.9 - Acute kidney failure, unspecified (4) Acute encephalopathy Current Visit: Yes Status: Resolved (5) Hypertension Current Visit: Yes Status: Chronic Assessment and plan: BP increasing; continue to hold diuretics and ACEI; will start Norvasc and increase Metoprolol, which was started for tachycardia; Qualifiers: Hypertension type: essential hypertension Qualified Code(s): I10 - Essential (primary) hypertension (6) Diabetes type 2, uncontrolled Current Visit: Yes Status: Chronic Assessment and plan: Blood sugars noted to be well controlled. Continue Accu-Chek blood glucose monitoring with sliding scale insulin as needed. Diabetic diet. Qualifiers: Diabetes mellitus intermission coordinator insulin use: without mcfp use Diabetes mellitus complication status: with kidney complications Diabetes mellitus complication detail: with chronic kidney disease Chronic kidney disease stage : stage 3 (moderate) Qualified Code(s): E11.22 - Type 2 diabetes mellitus with diabetic chronic kidney disease; E11.65 - Type 2 diabetes mellitus with hyperglycemia; N18.3 - Chronic kidney disease, stage 3 (moderate) (7) Schizophrenia Current Visit: Yes Status: Chronic Qualifiers: Schizophrenia type: unspecified Qualified Code(s): F20.9 - Schizophrenia, unspecified (8) HLD (hyperlipidemia) Current Visit: Yes Status: Chronic Qualifiers: Hyperlipidemia type: unspecified Qualified Code(s): E78.5 - Hyperlipidemia , unspecified (9) Hypothyroid Current Visit: Yes Status: Chronic Qualifiers: Hypothyroidism type: unspecified Qualified Code(s): E03.9 - Hypothyroidism , unspecified (10) Hypophosphatemia Current Visit: Yes Status: Acute Assessment and plan: likely GI losses; supplement with IV sodium phosphate and PO Neutra phos; (11) Hypomagnesemia Current Visit: Yes Status: Acute Assessment and plan: likely GI losses; supplement with IV and PO mg; - Time Spent With Patient Total time spent is greater than 50% in coordination of care (as documented) at patient's floor/unit and/or counseling patient: - Subjective Interval history: Reports 2 episodes of nausea and vomiting this morning, some abdominal pain; improved diarrhea; no chest pain, dyspnea; - Constitutional Vitals: Temp Pulse Resp BP Pulse Ox 98.4 F 104 16 150/82 92 07/08/17 11:41 07/08/17 11:41 07/08/17 11:41 07/08/17 11:41 07/08/17 11:41 General appearance: Present: A&O X 3, answers questions appropriately - Respiratory Respiratory exam: Present: CTAB. Absent: accessory muscle use, rales, rhonchi, wheezes - Cardiovascular Cardiovascular exam: Present: RRR, +S1, +S2, tachycardia. Absent: diastolic murmur, gallop, rubs, systolic murmur - GI/Abdominal GI/Abdominal exam: Present: normal bowel sounds, soft (tenderness to deep palpation in LUQ ), no peritoneal signs. Absent: distended, tenderness - Extremities Exam Extremities exam: Present: full ROM, pedal edema, warm, radial pulses palpable and symmetrical. Absent: calf tenderness, cyanotic - Neurological Exam Neurological exam: Present: CN II-XII intact, oriented X3, no focal deficits. Absent: pronater drift, facial droop, speech deficit - Skin Skin exam: Present: dry, intact Internal Medicine: Result - Labs CBC & Chem 7: 07/07/17 03:20 07/08/17 04:09 Labs: BMP 07/08/17 04:09 Sodium 140 Potassium 4.1 Chloride 112 H Carbon Dioxide 20 L BUN 17 Creatinine 1.33 H Glucose 133 H Calcium 8.8 Liver Function 07/08/17 Range/Units 04:09 Albumin 3.2 L (3.5-5.7) g/dL - ABG Interpretation ABG results: PT/INR, D-dimer PT 11.2 Seconds (9.4-12.1) 07/04/17 12:17 Consult Discharge Plan - Plan Referrals: Nico Ahmadi MD [Primary Care Provider] -
[2017-07-08] MEDS: amLODIPine 5 MG TABLET PO SCH (14:53)
[2017-07-08] MEDS: Metoclopramide 10 MG/2 ML VIAL IVP SCH ×2 (17:39→23:43)
[2017-07-08] MEDS: RisperiDAL 3 MG TABLET PO SCH (21:15)
[2017-07-08] MEDS: Magnesium Oxide 400 MG TABLET PO SCH (21:15)
[2017-07-08] MEDS: Gentamicin Oint 15 GM TUBE TP SCH (21:16)
[2017-07-09] MEDS: Acetaminophen 325 MG TABLET PO PRN (00:46)
[2017-07-09] MEDS ORDERED: *HR* LORazepam 0.5 MG TABLET PO ONE (00:46)
[2017-07-09] MEDS: Ondansetron 4 MG/2 ML VIAL IVP PRN (01:46)
[2017-07-09] MEDS: Metoclopramide 10 MG/2 ML VIAL IVP SCH ×3 (05:37→17:54)
[2017-07-09] MEDS: *HR* Heparin 5,000 UNIT/ML VIAL SQ SCH ×2 (05:37→17:55)
[2017-07-09] MEDS: Ascorbic Acid 500 MG TABLET PO SCH (07:50)
[2017-07-09] MEDS: amLODIPine 5 MG TABLET PO SCH (07:50)
[2017-07-09] MEDS: Cyanocobalamin (B-12) 1,000 MCG TABLET PO SCH (07:50)
[2017-07-09] MEDS: risperiDONE 1 MG TABLET PO SCH (07:50)
[2017-07-09] MEDS: Aspirin 81 MG TAB.CHEW PO SCH (07:51)
[2017-07-09] MEDS: Folic Acid 1 MG TABLET PO SCH (07:51)
[2017-07-09] MEDS: Magnesium Oxide 400 MG TABLET PO SCH ×2 (07:51→21:30)
[2017-07-09] MEDS: Insulin LISPRO 300 UNITS/3 ML VIAL SQ SCH ×4 (07:52→21:31)
[2017-07-09] MEDS: Vancomycin Oral Soln 125 MG/2.5 ML UDC PO SCH ×4 (07:52→21:31)
[2017-07-09 09:16] LABS: BUN/Creatinine Ratio 13 (6-26); Blood Urea Nitrogen 14 mg/dL (6-20); Calcium 9.2 mg/dL (8.6-10.3); Carbon Dioxide 19 mEq/L (23-29); Chloride 111 mEq/L (98-107); Glucose 167 mg/dL (70-105); Magnesium 1.8 mg/dL (1.6-2.6); Osmolality,Calculated 296 (280-300); Phosphorous 3.2 mg/dL (2.7-4.5); Potassium 3.8 mEq/L (3.5-5.1); Sodium 141 mEq/L (136-145); eGFR For African Americans > 60 (> 60); eGFR For Non-African Americans 55 (> 60)
--- NOTE | 2017-07-09 13:52 | Internal Med Progress Note ---
Date of Encounter: 07/09/17 Time of Encounter: 10:15 - Assessment and plan (1) C. difficile diarrhea Current Visit: Yes Status: Acute Assessment and plan: patient presents with diarrhea; stool c.dif toxin positive; no fever or leukocytosis, unclear if its true infection, but she has diarrhea and came with ALYSIA, will continue with PO Vancomycin- day 3 for 7days; contact precautions; supportive care; (2) Nausea & vomiting Current Visit: Yes Status: Acute Assessment and plan: unclear etiology but noted to have such episodes in the past; CT abdomen/pelvis showed no acute abnormality except hepatomegaly. continue scheduled Reglan; continue PRN IV Zofran; will consult GI for possible EGD as patient has recurrent admissions and ALYSIA episodes with this complaint; Qualifiers: Vomiting type: unspecified Qualified Code(s): R11.2 - Nausea with vomiting , unspecified (3) Acute renal failure Current Visit: Yes Status: Acute Assessment and plan: Baseline serum creatinine noted to be normal, however had multiple episodes of acute kidney injury in the past. Serum creatinine now improving, 1.05 today. Continue to hold NSAIDs and PASCUAL inhibitor. Nephrology follow-up appreciated, now signed off. Avoid nephrotoxins. Qualifiers: Acute renal failure type: unspecified Qualified Code(s): N17.9 - Acute kidney failure, unspecified (4) Acute encephalopathy Current Visit: Yes Status: Resolved Assessment and plan: patient noted to have intermittent hallucinations per staff field engineer, likely due to underlying Schizophrenia; (5) Hypertension Current Visit: Yes Status: Chronic Qualifiers: Hypertension type: essential hypertension Qualified Code(s): I10 - Essential (primary) hypertension (6) Diabetes type 2, uncontrolled Current Visit: Yes Status: Chronic Assessment and plan: Blood sugars noted to be well controlled. Continue Accu-Chek blood glucose monitoring with sliding scale insulin as needed. Diabetic diet. Qualifiers: Diabetes mellitus mcfp insulin use: without continuous churn buttermaker use Diabetes mellitus complication status: with unspecified complications Qualified Code(s) : E11.8 - Type 2 diabetes mellitus with unspecified complications; E11.65 - Type 2 diabetes mellitus with hyperglycemia (7) Schizophrenia Current Visit: Yes Status: Chronic Qualifiers: Schizophrenia type: unspecified Qualified Code(s): F20.9 - Schizophrenia, unspecified (8) HLD (hyperlipidemia) Current Visit: Yes Status: Chronic Qualifiers: Hyperlipidemia type: unspecified Qualified Code(s): E78.5 - Hyperlipidemia , unspecified (9) Hypothyroid Current Visit: Yes Status: Chronic Qualifiers: Hypothyroidism type: unspecified Qualified Code(s): E03.9 - Hypothyroidism , unspecified (10) Hypophosphatemia Current Visit: Yes Status: Resolved Assessment and plan: improved with supplements; (11) Hypomagnesemia Current Visit: Yes Status: Resolved Assessment and plan: improved with supplements; - Time Spent With Patient Total time spent is greater than 50% in coordination of care (as documented) at patient's floor/unit and/or counseling patient: - Subjective Interval history: Has some nausea and an episode of vomiting this morning; no hematemesis, fever/ chills, abdominal pain or diarrhea; - Constitutional Vitals: Temp Pulse Resp BP Pulse Ox 98.0 F 103 17 134/74 91 07/09/17 10:59 07/09/17 10:59 07/09/17 10:59 07/09/17 10:59 07/09/17 10:59 General appearance: Present: A&O X 3, answers questions appropriately - Respiratory Respiratory exam: Present: CTAB. Absent: accessory muscle use, rales, rhonchi, wheezes - Cardiovascular Cardiovascular exam: Present: RRR, +S1, +S2. Absent: diastolic murmur, gallop, rubs, systolic murmur - GI/Abdominal GI/Abdominal exam: Present: normal bowel sounds, soft (obese), no peritoneal signs. Absent: distended, tenderness - Extremities Exam Extremities exam: Present: full ROM, pedal edema (non-pitting ), warm, radial pulses palpable and symmetrical. Absent: calf tenderness, cyanotic - Neurological Exam Neurological exam: Present: CN II-XII intact, oriented X3, no focal deficits. Absent: pronater drift, facial droop, speech deficit Internal Medicine: Result - Labs CBC & Chem 7: 07/07/17 03:20 07/09/17 08:29 Labs: BMP 07/09/17 08:29 Sodium 141 Potassium 3.8 Chloride 111 H Carbon Dioxide 19 L BUN 14 Creatinine 1.05 Glucose 167 H Calcium 9.2 - ABG Interpretation ABG results: PT/INR, D-dimer PT 11.2 Seconds (9.4-12.1) 07/04/17 12:17 Consult Discharge Plan - Plan Referrals: Nico Ahmadi MD [Primary Care Provider] -
[2017-07-09] MEDS: *HR* LORazepam 0.5 MG TABLET PO PRN (21:30)
[2017-07-09] MEDS: RisperiDAL 3 MG TABLET PO SCH (21:30)
[2017-07-09] MEDS: Gentamicin Oint 15 GM TUBE TP SCH (21:31)
[2017-07-10] MEDS: Metoclopramide 10 MG/2 ML VIAL IVP SCH ×2 (00:02→06:30)
[2017-07-10] MEDS: *HR* Heparin 5,000 UNIT/ML VIAL SQ SCH ×2 (06:30→18:00)
[2017-07-10 07:55] LABS: BUN/Creatinine Ratio 12 (6-26); Blood Urea Nitrogen 12 mg/dL (6-20); Carbon Dioxide 21 mEq/L (23-29); Chloride 110 mEq/L (98-107); Glucose 165 mg/dL (70-105); Magnesium 1.8 mg/dL (1.6-2.6); Osmolality,Calculated 291 (280-300); Phosphorous 2.6 mg/dL (2.7-4.5); Potassium 3.8 mEq/L (3.5-5.1); Sodium 139 mEq/L (136-145); eGFR For African Americans > 60 (> 60); eGFR For Non-African Americans 58 (> 60)
[2017-07-10] MEDS: Insulin LISPRO 300 UNITS/3 ML VIAL SQ SCH ×4 (08:38→21:26)
[2017-07-10] MEDS ORDERED: Potassium Phosphate 44 MEQ in 0.9 % Sodium Chloride 250 ML IVPB ONE (09:49)
[2017-07-10] MEDS: amLODIPine 5 MG TABLET PO SCH (09:53)
[2017-07-10] MEDS: Vancomycin Oral Soln 125 MG/2.5 ML UDC PO SCH ×4 (09:55→21:34)
[2017-07-10 11:05] LABS: Basophils # 0.1 K/mcL (0.0-0.2); Basophils % 0.5 %; Eosinophils # 0.2 K/mcL (0.0-0.6); Eosinophils % 1.2 %; Hematocrit 39.1 % (35.3-44.9); Immature Granulocytes % 2.8 % (0-4); Lymphocytes # 1.3 K/mcL (0.6-4.6); Lymphocytes % 8.9 %; Mean Corpuscular HGB Conc 33.5 g/dL (31.6-35.5); Mean Corpuscular Hemoglobin 28.2 pg (28.0-33.3); Mean Corpuscular Volume 84.3 fL (83.0-100.0); Mean Platelet Volume 10.4 fL (9.4-12.4); Monocytes % 7.1 %; Neutrophils # 11.6 K/mcL (1.6-8.9); Platelet Count 183 K/mcL (140-400); Red Blood Count 4.64 M/mcL (3.82-4.97); Red Cell Distribution Width 15.1 % (11.5-14.5); Segmented Neutrophils % 79.5 %
[2017-07-10 11:11] LABS: Hemoglobin 13.1 g/dL (11.5-15.4)
[2017-07-10] MEDS: Magnesium Oxide 400 MG TABLET PO SCH ×2 (12:40→21:34)
--- NOTE | 2017-07-10 12:45 | Gastroenterology Consult Note ---
<Ruth Ann Barnard - Last Filed: 07/10/17 12:39> Date of Encounter: 07/10/17 Time of Encounter: 10:15 - Assessment and plan (1) Nausea & vomiting Current Visit: Yes Status: Acute Assessment and plan: Has been ongoing for several weeks. Pt has some relief on reglan, she denies any known history of gastroparesis. She denies abdominal pain. She also has diarrhea for the past 3-4 days and has been started on po vancomycin. Will proceed with EGD to rule out PUD, gastro paresis as cause for nausea and vomiting. Qualifiers: Vomiting type: unspecified Qualified Code(s): R11.2 - Nausea with vomiting , unspecified (2) C. difficile diarrhea Current Visit: Yes Status: Acute Assessment and plan: Pt is on PO vanco - Time Spent With Patient Total time spent is greater than 50% in coordination of care (as documented) at patient's floor/unit and/or counseling patient: GI History of Present Illness - Data of Consult Patient: new to practice Consult date: 07/10/17 Requesting Physician: Stone Cormier - Consult Narrative Reason for consult: nausea and vomiting/c-dif History of present illness: Ms. Rangel is a 56 year old female who presents with confusion associated with ALYSIA with symptoms of nausea/emesis, decreased PO intake. Patient has a history of diabetes type 2 on exenatide, metformin, hypertension, depression, pain syndrome, hypothyroidism, and schizophrenia. At baseline she lives with his [id number] and uses a walker. She has a chronic left lateral foot ulcer that is under the care of Dr. Dukes whom she sees every 2 weeks along with home health care. She was brought into the ER because of confusion by family after week and half off nausea, vomiting and decreased po intake. She denies diarrhea , constipation, bloody or tarry stools. EKG was normal. CT/CT abd pelvis wo no iv no oral No acute intra-abdominal abnormality. No acute intrapelvic abnormality. Nonobstructive right urolithiasis. Hepatomegaly. Stable right ovarian cyst measuring 5.[address]/CT head/brain wo con No acute intracranial abnormality. Changes of brain volume loss are suspected. She states nausea and vomiting is worse with eating. She has also been diagnosed with c-diff and has started po vanco for that. She states nausea is better if she takes reglan and zofran around the clock. proceduresEGD 2002 gastritis NSAIDS: denies anticoagulants: heparin [id number] Past Med Surg Social Fam HX - Past Medical History Medical history: diabetes, fibromyalgia, GERD, hyperlipidemia, kidney stones, pulmonary embolus, thyroid disease Psychiatric history: anxiety, depression - Past Surgical History Surgical History: non-contributory - Social History Smoking Status: Never smoker Smokeless Tobacco Status: No Alcohol use: none Drug use: none - Family History Father History Unknown: Yes Adopted: No Age: 82 Family Member Ethnicity: Non- Living Status: Still Living Hx Family Cardiac Disorders: Yes (vascular disease, PAD, CAD, amputation of lower leg due to wounds) Hx Family Respiratory Disorders: No Hx Family Cancer: No Hx Family GI Disorders: No Hx Family Genitourinary Disorders: No Hx Family Endocrine Disorder: No Hx Family Musculoskeletal Disorders: No Hx Family Neuromuscular Disorders: No Hx Family Neurologic Disorders: No Hx Family HEENT Disorders: No Hx Family Autoimmune Disorders: No Hx Family Reproductive Disorders: No Hx Family Psychosocial Disorders: No Hx Family Medical Disorders: No Mother History Unknown: Yes Adopted: No Family Member Ethnicity: Non- Living Status: Age at : 51 Cause of : [place] Hx Family Cardiac Disorders: Yes (OK) Hx Family Respiratory Disorders: No Hx Family Cancer: No Hx Family GI Disorders: No Hx Family Genitourinary Disorders: No Hx Family Endocrine Disorder: No Hx Family Musculoskeletal Disorders: No Hx Family Neuromuscular Disorders: No Hx Family Neurologic Disorders: No Hx Family HEENT Disorders: No Hx Family Autoimmune Disorders: No Hx Family Reproductive Disorders: No Hx Family Psychosocial Disorders: No Hx Family Medical Disorders: No Review of Systems: GI: as per [facility] GENERAL: denies fever, has some chills EYES: denies yellow discoloration ENT: denies pain with swallowing or difficulty swallowing CARDIO: denies chest pain, palpitations RESP: Shortness of breath with exertion : denies change in color of urine NEURO: denies any weakness HEME: Denies any bruising MS: chronic joint pain, DERM: pallor noted, denies rash or itching PSYCH: schizophrenia - Constitutional Vitals: Temp Pulse Resp BP Pulse Ox 97.9 F 99 19 129/82 99 07/10/17 11:12 07/10/17 11:12 07/10/17 11:12 07/10/17 11:12 07/10/17 11:12 Exam: CONSTITUTIONAL:~alert, no acute distress.~HEAD:~normocephalic.~EYES:~no jaundice.~NECK:~no obvious swelling.~HEART:~regular rate and rhythm, no murmurs. ~LUNGS:~bilateral good air entry.~ABDOMEN:~non distended, soft, non tender, no masses palpable, obese, no organomegaly.~RECTAL EXAM:~Deferred.~EXTREMITIES:~no clubbing, cyanosis or edema.~SKIN:~pallor noted, no stigmata of chronic liver disease.~NEUROLOGIC:~no obvious focal defect.~~~~ Results - Labs CBC & Chem 7: 07/10/17 10:29 07/10/17 07:24 Labs: Last Result Calcium 9.0 mg/dL (8.6-10.3) 07/10/17 07:24 Troponin I < 0.03 ng/mL (< 0.04) 07/04/17 12:17 Urine Opiates Screen Positive ng/mL (Vhtnjl=505) H 07/04/17 14:04 Entire Visit Hgb 13.1 g/dL (11.5-15.4) D 07/10/17 10:29 Hct 39.1 % (35.3-44.9) 07/10/17 10:29 PT 11.2 Seconds (9.4-12.1) 07/04/17 12:17 Total Bilirubin 0.5 mg/dL (0.3-1.0) 07/04/17 12:17 AST 9 Units/L (13-39) L 07/04/17 12:17 ALT 7 Units/L (7-52) 07/04/17 12:17 - ABG ABG results: PT/INR, D-dimer PT 11.2 Seconds (9.4-12.1) 07/04/17 12:17 Consult Discharge Plan - Plan Referrals: Nico Ahmadi MD [Primary Care Provider] - ([facility] <Juwan Dobson - Last Filed: 07/10/17 17:29> Date of Encounter: 07/10/17 Time of Encounter: 17:00 - Time Spent With Patient Total time spent is greater than 50% in coordination of care (as documented) at patient's floor/unit and/or counseling patient: GI History of Present Illness - Data of Consult Requesting Physician: Stone Cormier - Consult Narrative History of present illness: Ms. Rangel is a 56 year old female - Constitutional Vitals: Temp Pulse Resp BP Pulse Ox 98.3 F 99 20 158/82 99 07/10/17 17:19 07/10/17 17:19 07/10/17 17:19 07/10/17 17:19 07/10/17 17:19 Results - Labs CBC & Chem 7: 07/10/17 10:29 07/10/17 07:24 Labs: Last Result Calcium 9.0 mg/dL (8.6-10.3) 07/10/17 07:24 Troponin I < 0.03 ng/mL (< 0.04) 07/04/17 12:17 Urine Opiates Screen Positive ng/mL (Gtivsq=665) H 07/04/17 14:04 Entire Visit Hgb 13.1 g/dL (11.5-15.4) D 07/10/17 10:29 Hct 39.1 % (35.3-44.9) 07/10/17 10:29 PT 11.2 Seconds (9.4-12.1) 07/04/17 12:17 Total Bilirubin 0.5 mg/dL (0.3-1.0) 07/04/17 12:17 AST 9 Units/L (13-39) L 07/04/17 12:17 ALT 7 Units/L (7-52) 07/04/17 12:17 - ABG ABG results: PT/INR, D-dimer PT 11.2 Seconds (9.4-12.1) 07/04/17 12:17 - Attending Attestation I have personally performed a face to face evaluation on this patient. I have reviewed and agree with the care plan. History and Exam by me shows: Patient seen complaining of recurrent nausea and vomiting and also some upper abdominal discomfort. CT of the abdomen was unremarkable. Recommendation EGG to rule out gastric causes for her symptoms
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
[2017-07-10] MEDS ORDERED: *HR* Midazolam HCl 5 MG/5 ML VIAL IVP ONE (17:08)
[2017-07-10] MEDS ORDERED: *HR* FentaNYL (PF) 100 MCG/2 ML VIAL ONE (17:08)
[2017-07-10] MEDS ORDERED: Simethicone 40 MG/0.6 ML MLS IR ONE (17:27)
[2017-07-10] MEDS ORDERED: Tetracaine/Benzocaine/Butamben 200MG/SPRAY (100SPY/BOT) MM ONE (17:27)
[2017-07-10] MEDS ORDERED: *HR* FentaNYL (PF) 100 MCG/2 ML VIAL IVP ONE (17:27)
[2017-07-10] MEDS ORDERED: *HR* Midazolam HCl 2 MG/2 ML VIAL IVP ONE (17:27)
--- NOTE | 2017-07-10 17:27 | Pre-Sedation Evaluation ---
Pre-sedation evaluation - Pre-sedation checklist Date of procedure: 07/10/17 Recent Vitals: Last Vital Signs Temp 98.3 F 07/10/17 17:19 Pulse 99 07/10/17 17:19 Resp 20 07/10/17 17:19 BP 158/82 07/10/17 17:19 Pulse Ox 99 07/10/17 17:19 ASA Classification *see protocol: CLASS III-Severe systemic disease
[2017-07-10] MEDS: Folic Acid 1 MG TABLET PO SCH (21:24)
[2017-07-10] MEDS: risperiDONE 1 MG TABLET PO SCH (21:24)
[2017-07-10] MEDS: Cyanocobalamin (B-12) 1,000 MCG TABLET PO SCH (21:24)
[2017-07-10] MEDS: Ascorbic Acid 500 MG TABLET PO SCH (21:24)
[2017-07-10] MEDS: Aspirin 81 MG TAB.CHEW PO SCH (21:25)
[2017-07-10] MEDS: *HR* LORazepam 0.5 MG TABLET PO PRN (21:34)
[2017-07-10] MEDS: RisperiDAL 3 MG TABLET PO SCH (21:34)
[2017-07-10] MEDS: Gentamicin Oint 15 GM TUBE TP SCH (21:37)
[2017-07-11] MEDS: *HR* Heparin 5,000 UNIT/ML VIAL SQ SCH ×2 (05:56→17:46)
[2017-07-11 07:35] LABS: BUN/Creatinine Ratio 14 (6-26); Blood Urea Nitrogen 13 mg/dL (6-20); Carbon Dioxide 21 mEq/L (23-29); Chloride 109 mEq/L (98-107); Glucose 124 mg/dL (70-105); Osmolality,Calculated 292 (280-300); Phosphorous 3.1 mg/dL (2.7-4.5); Potassium 4.1 mEq/L (3.5-5.1); Sodium 140 mEq/L (136-145); eGFR For African Americans > 60 (> 60); eGFR For Non-African Americans > 60 (> 60)
[2017-07-11] MEDS: Folic Acid 1 MG TABLET PO SCH (08:25)
[2017-07-11] MEDS: Aspirin 81 MG TAB.CHEW PO SCH (08:25)
[2017-07-11] MEDS: Magnesium Oxide 400 MG TABLET PO SCH ×2 (08:25→22:16)
[2017-07-11] MEDS: Ascorbic Acid 500 MG TABLET PO SCH (08:26)
[2017-07-11] MEDS: amLODIPine 5 MG TABLET PO SCH (08:26)
[2017-07-11] MEDS: Cyanocobalamin (B-12) 1,000 MCG TABLET PO SCH (08:26)
[2017-07-11] MEDS: risperiDONE 1 MG TABLET PO SCH (08:26)
[2017-07-11] MEDS: Insulin LISPRO 300 UNITS/3 ML VIAL SQ SCH ×4 (08:29→21:57)
[2017-07-11] MEDS: Vancomycin Oral Soln 125 MG/2.5 ML UDC PO SCH ×4 (08:33→22:17)
[2017-07-11 09:54] LABS: Basophils # 0.1 K/mcL (0.0-0.2); Basophils % 0.7 %; Eosinophils # 0.4 K/mcL (0.0-0.6); Eosinophils % 2.8 %; Hematocrit 37.4 % (35.3-44.9); Hemoglobin 12.2 g/dL (11.5-15.4); Immature Granulocytes % 2.4 % (0-4); Lymphocytes # 1.8 K/mcL (0.6-4.6); Lymphocytes % 13.7 %; Mean Corpuscular HGB Conc 32.6 g/dL (31.6-35.5); Mean Platelet Volume 10.6 fL (9.4-12.4); Monocytes # 0.9 K/mcL (0.0-1.3); Monocytes % 6.9 %; Neutrophils # 9.6 K/mcL (1.6-8.9); Platelet Count 176 K/mcL (140-400); Red Blood Count 4.35 M/mcL (3.82-4.97); Red Cell Distribution Width 15.5 % (11.5-14.5); Segmented Neutrophils % 73.5 %
--- NOTE | 2017-07-11 16:36 | Consult Note ---
Date of Encounter: 07/11/17 Time of Encounter: 16:00 Assessment & Recommendation (1) Schizoaffective disorder, depressive type Current visit: Yes Status: Acute (2) Delirium due to another medical condition, persistent, hypoactive Current visit: Yes Status: Acute (3) Abulia Current visit: Yes Status: Acute History of Present Illness Patient: new to practice Requesting Physician: Demetrius Singletary Reason for consult: visual hallucinations History of present illness: Ms. Rangel is a 56 year old female Patient has been diagnosed with schizoaffective disorder at the age of 42 and over the past 15 years is been maintained on antipsychotic medicines. Her current presentation is more consistent with delirium. These include visual hallucinations seeing flies. Ideas of reference and delusions. She has a fluctuating level of consciousness. Meanwhile the patient has had paranoid delusions of a man standing out her window or others coming to get her or a bomb being placed under her bed. The patient also has a history of poor motivation. She is gradually done less for herself in the home and is consistent and content to stay in a darkened room. The patient was oriented with short-term memory deficits drowsiness and tiredness picking and attentional difficulties during the interview. Much of the history was collected from family members CC: Demetrius Singletary Past Med Surg Social Fam HX - Past Medical History Medical history: diabetes, fibromyalgia, GERD, hyperlipidemia, kidney stones, pulmonary embolus, thyroid disease - Past Psychiatric History Psychiatric history: Reports: schizophrenia Family psychiatric history: Unknown Family History of Suicide: Unknown - Past Surgical History Surgical History: non-contributory - Social History Smoking Status: Never smoker Smokeless Tobacco Status: No Alcohol use: none Drug use: none - Family History Father History Unknown: Yes Adopted: No Age: 82 Family Member Ethnicity: Non- Living Status: Still Living Hx Family Cardiac Disorders: Yes (vascular disease, PAD, CAD, amputation of lower leg due to wounds) Hx Family Respiratory Disorders: No Hx Family Cancer: No Hx Family GI Disorders: No Hx Family Genitourinary Disorders: No Hx Family Endocrine Disorder: No Hx Family Musculoskeletal Disorders: No Hx Family Neuromuscular Disorders: No Hx Family Neurologic Disorders: No Hx Family HEENT Disorders: No Hx Family Autoimmune Disorders: No Hx Family Reproductive Disorders: No Hx Family Psychosocial Disorders: No Hx Family Medical Disorders: No Mother History Unknown: Yes Adopted: No Family Member Ethnicity: Non- Living Status: Age at : 53 Cause of : [place] Hx Family Cardiac Disorders: Yes ([place]) Hx Family Respiratory Disorders: No Hx Family Cancer: No Hx Family GI Disorders: No Hx Family Genitourinary Disorders: No Hx Family Endocrine Disorder: No Hx Family Musculoskeletal Disorders: No Hx Family Neuromuscular Disorders: No Hx Family Neurologic Disorders: No Hx Family HEENT Disorders: No Hx Family Autoimmune Disorders: No Hx Family Reproductive Disorders: No Hx Family Psychosocial Disorders: No Hx Family Medical Disorders: No Medications & Allergies Ascorbic Acid [Vitamin C] 500 mg PO DAILY 11/07/16 [History] Aspirin 81 mg PO DAILY 11/07/16 [History] Atorvastatin [Lipitor] 40 mg PO HS 11/07/16 [History] Cyanocobalamin (Vitamin B-12) [Vitamin B12] 1,000 mcg PO DAILY 11/07/16 [History ] Ergocalciferol (VITAMIN D2) [Vitamin D2] 50,000 unit PO CARDOZA 11/07/16 [History] Esomeprazole Magnesium [Nexium] 40 mg PO DAILY 11/07/16 [History] Folic Acid 1 mg PO DAILY 11/07/16 [History] Furosemide [Lasix] 40 mg PO DAILY 11/07/16 [History] Levothyroxine [Synthroid] 75 mcg PO 0630 11/07/16 [History] Lisinopril 2.5 mg PO DAILY 11/07/16 [History] Sertraline [Zoloft] 200 mg PO DAILY 11/07/16 [History] HYDROcodone/Acet 10/325 mg [[place] 10-325 mg] 1 tab PO TID PRN #21 tablet [Rx] Amitriptyline [Elavil] 50 mg PO HS 01/10/17 [History] Baclofen 20 mg PO TID 01/10/17 [History] Celecoxib [Celebrex] 200 mg PO DAILY 01/10/17 [History] Gabapentin [Neurontin] 300 mg PO TID 01/10/17 [History] risperiDONE [RisperDAL] 1 mg PO QAM 01/10/17 [History] Acetaminophen/Butalbital/Caffe [Fioricet] 1 each PO BID PRN #2 tablet 01/13/17 [ Rx] Ferrous Sulfate 325 mg PO BIDWM #0 tablet 01/13/17 [Rx] Collagenase Oint [Santyl] 1 appl TP DAILY 07/04/17 [History] Exenatide Microspheres [Bydureon Pen] 2 mg SQ QWEEK 07/04/17 [History] Gentamicin Oint [Garamycin] 1 appl TP DAILY 07/04/17 [History] metFORMIN [Glucophage] 500 mg PO BID 07/04/17 [History] risperiDONE [RisperDAL] 3 mg PO HS 07/04/17 [History] 3 Allergy/AdvReac Type Severity Reaction Status Date / Time adhesive tape Allergy Rash Verified 04/06/17 10:54 Review of Systems Psychiatric: Reports: abnormal sleep pattern, auditory hallucinations, visual hallucinations, other Psychiatry Exam - Constitutional Vitals: Temp Pulse Resp BP Pulse Ox 97.8 F 106 18 155/98 97 07/11/17 11:05 07/11/17 11:05 07/11/17 11:05 07/11/17 11:05 07/11/17 11:05 General appearance: disheveled - Musculoskeletal Gait: other Station: slouched Strength & Tone: flaccid - Psychiatric Patient Orientation: Yes Person, Yes Time Level of alertness: Sedated Behavior: withdrawn Psychomotor activity: Repetitive movements Eye Contact: Avoids Eye Contact Mood Description: Other Affect description: flat Speech Volume: Soft/Quiet Speech pattern: Inappropriate to situation, slurred Language & Vocabulary: limited Thought Content: Yes Overt delusions Perceptual Disturbances: Yes Visual hallucinations Attention Span Ability: Unable to Sustain Attention Memory Description: Immediate Impaired, Recent Intact, Recent Impaired, Remote Impaired Patient Reliability: Not Reliable Historian Fund of knowledge: Yes below average Intelligence Estimate: Below Average Judgment: Poor Insight: None Results - Labs Labs: Laboratory Last Values WBC 13.1 K/mcL (4.3-11.1) H 07/11/17 06:51 RBC 4.35 M/mcL (3.82-4.97) 07/11/17 06:51 Hgb 12.2 g/dL (11.5-15.4) 07/11/17 06:51 Hct 37.4 % (35.3-44.9) 07/11/17 06:51 MCV 86.0 fL (83.0-100.0) 07/11/17 06:51 MCH 28.0 pg (28.0-33.3) 07/11/17 06:51 MCHC 32.6 g/dL (31.6-35.5) 07/11/17 06:51 RDW 15.5 % (11.5-14.5) H 07/11/17 06:51 Plt Count 176 K/mcL (140-400) 07/11/17 06:51 MPV 10.6 fL (9.4-12.4) 07/11/17 06:51 Immature Gran % 2.4 % (0-4) 07/11/17 06:51 Seg Neutrophils % 73.5 % 07/11/17 06:51 Lymphocytes % 13.7 % 07/11/17 06:51 Monocytes % 6.9 % 07/11/17 06:51 Eosinophils % 2.8 % 07/11/17 06:51 Basophils % 0.7 % 07/11/17 06:51 Neutrophils # 9.6 K/mcL (1.6-8.9) H 07/11/17 06:51 Lymphocytes # 1.8 K/mcL (0.6-4.6) 07/11/17 06:51 Monocytes # 0.9 K/mcL (0.0-1.3) 07/11/17 06:51 Eosinophils # 0.4 K/mcL (0.0-0.6) 07/11/17 06:51 Basophils # 0.1 K/mcL (0.0-0.2) 07/11/17 06:51 PT 11.2 Seconds (9.4-12.1) 07/04/17 12:17 INR 1.0 07/04/17 12:17 APTT 21.6 Seconds (26.0-36.0) L 07/04/17 12:17 Sodium 140 mEq/L (136-145) 07/11/17 06:51 Potassium 4.1 mEq/L (3.5-5.1) 07/11/17 06:51 Chloride 109 mEq/L (98-107) H 07/11/17 06:51 Carbon Dioxide 21 mEq/L (23-29) L 07/11/17 06:51 BUN 13 mg/dL (6-20) 07/11/17 06:51 Creatinine 0.90 mg/dL (0.60-1.20) 07/11/17 06:51 Est GFR ( Amer) > 60 (> 60) 07/11/17 06:51 Est GFR (Non-Af Amer) > 60 (> 60) 07/11/17 06:51 BUN/Creatinine Ratio 14 (6-26) 07/11/17 06:51 Glucose 124 mg/dL (70-105) H 07/11/17 06:51 POC Glucose 151 mg/dL (70-99) H 07/11/17 11:36 Est Mean Plasma Glucose 137 mg/dl 07/05/17 03:40 Hemoglobin A1c 6.4 % (-5.6) H 07/05/17 03:40 Calculated Osmolality 292 (280-300) 07/11/17 06:51 Uric Acid 5.3 mg/dL (2.3-7.6) 07/08/17 04:09 Calcium 9.0 mg/dL (8.6-10.3) 07/11/17 06:51 Phosphorus 3.1 mg/dL (2.7-4.5) 07/11/17 06:51 Magnesium 2.0 mg/dL (1.6-2.6) 07/11/17 06:51 Total Bilirubin 0.5 mg/dL (0.3-1.0) 07/04/17 12:17 Direct Bilirubin 0.1 mg/dL (0.0-0.2) 07/04/17 12:17 Indirect Bilirubin 0.4 mg/dL (0.0-1.2) 07/04/17 12:17 AST 9 Units/L (13-39) L 07/04/17 12:17 ALT 7 Units/L (7-52) 07/04/17 12:17 Alkaline Phosphatase 91 Units/L (34-104) 07/04/17 12:17 Creatine Kinase 30 Units/L (30-223) 07/08/17 04:09 Troponin I < 0.03 ng/mL (< 0.04) 07/04/17 12:17 Serum Total Protein 7.5 g/dL (6.4-8.9) 07/04/17 12:17 Albumin 3.2 g/dL (3.5-5.7) L 07/08/17 04:09 Globulin 3.3 g/dL (2.4-3.5) 07/04/17 12:17 Albumin/Globulin Ratio 1.3 (1.1-2.2) 07/04/17 12:17 Urine Color Dark Yellow (Yellow) 07/04/17 14:04 Urine Clarity Cloudy (Clear) A 07/04/17 14:04 Urine pH 5.0 pH Units (5.0-8.0) 07/04/17 14:04 Ur Specific [place] 1.024 (1.010-1.025) 07/04/17 14:04 Urine Protein 30 mg/dL (Neg-Trace) H 07/04/17 14:04 Urine Glucose (UA) Normal mg/dL (Normal) 07/04/17 14:04 Urine Ketones Negative mg/dL (Negative) 07/04/17 14:04 Urine Blood Negative (Negative) 07/04/17 14:04 Urine Nitrite Negative (Negative) 07/04/17 14:04 Urine Bilirubin Small (Negative) H 07/04/17 14:04 Urine Urobilinogen Normal mg/dL (Normal) 07/04/17 14:04 Ur Leukocyte Esterase Small (Negative) H 07/04/17 14:04 Urine Microscopic RBC 0-3 per hpf (0-3) 07/04/17 14:04 Urine Microscopic WBC 5-15 per hpf (0-3) H 07/04/17 14:04 Ur Eosinophil Smear 0 % (None Seen) 07/05/17 15:15 Ur Squamous Epith Cells Many per lpf (None-Few) H 07/04/17 14:04 Urine Bacteria None Seen per hpf (None-Few) 07/04/17 14:04 Hyaline Casts [employer] 07/04/17 14:04 Ur Culture Indicated? NO. (NO) A 07/04/17 14:04 Urine Creatinine 61 mg/dL 07/05/17 15:15 Protein/Creatinin Ratio 1.30 mg/mg (0.00-0.20) H 07/05/17 15:15 Urine Sodium 94.9 mEq/L 07/05/17 15:15 Urine Total Protein 79 mg/dL (1-14) H 07/05/17 15:15 Stl C. diff Tox B Gene Positive (Negative) 07/06/17 20:28 Urine Opiates Screen Positive ng/mL (Dynfri=528) H 07/04/17 14:04 Ur Barbiturates Screen Negative ng/mL (Openip=924) 07/04/17 14:04 Ur Phencyclidine Scrn Negative ng/mL (Cutoff=25) 07/04/17 14:04 Ur Amphetamines Screen Negative ng/mL (Dqexeg=6441) 07/04/17 14:04 U Benzodiazepines Scrn Negative ng/mL (Tmetlw=303) 07/04/17 14:04 Urine Cocaine Screen Negative ng/mL (Cutoff= 300) 07/04/17 14:04 U Marijuana (THC) Screen Negative ng/mL (Cutoff = 50) 07/04/17 14:04 Ethyl Alcohol < 10 mg/dL (Less than 10) 07/04/17 12:17 Specimen Rejected TNP 07/10/17 07:24 Consult Discharge Plan - Plan Referrals: Nico Ahmadi MD [Primary Care Provider] - ([facility] likely going to [facility])
--- NOTE | 2017-07-11 16:45 | Podiatry Consult Note ---
Date of Encounter: 07/11/17 Time of Encounter: 12:00 Assessment and Plan (1) Ulcer of ankle due to diabetes Current visit: No Status: Acute #1 Gonzalez grade 2 ulcer left lateral malleolus without clinical evidence of infection no undermining sinus tract or tunneling. The wound penetrates down to the superficial fascia. No fluctuance to palpation. No warmth or tenderness. Stable appearance from wound care documentation Plan: #1 we will continue to cleanse soap and water daily apply Santyl gentamicin 50-50 nickel thick underneath moist dry dressing BID Allevyn applied at bedside today for protection until santyl and wound care supplies are at bedside Patient must have jackson boot on at all times, has one on currently. Will need to be continued to be followed in wound care center with 1 week after discharge. History of Present Illness HPI: Patient has a history of diabetes type 2, HTN depression, and hypothyroidism and a ulceration of the lateral left ankle which she recently was evaluated for per in wound care center. Patient presented to [facility] with AMS. Poor historian and minimal history obtained at bedside today, no family present. Patient states wound has been present x2 weeks when she started feeling bad and was not moving around much. Patient was seen per and started on santyl/ gent mix and to be in protective boot. Patient denies any pain to ankle. Patient has dry bulk dressing and prevalon boot on on arrvial to room. WBC 13.1 on admission, dropped to 7's and returned to 13 today. Afebrile. Patient denies any chills, n/v or flu like symptoms. Denies any sob or calf pain Past Med Surg Social Fam HX - Past Medical History Medical history: diabetes, fibromyalgia, GERD, hyperlipidemia, kidney stones, pulmonary embolus, thyroid disease Psychiatric history: schizophrenia - Past Surgical History Surgical History: non-contributory - Social History Smoking Status: Never smoker Smokeless Tobacco Status: No Alcohol use: none Drug use: none - Family History Father History Unknown: Yes Adopted: No Age: 82 Family Member Ethnicity: Non- Living Status: Still Living Hx Family Cardiac Disorders: Yes (vascular disease, PAD, CAD, amputation of lower leg due to wounds) Hx Family Respiratory Disorders: No Hx Family Cancer: No Hx Family GI Disorders: No Hx Family Genitourinary Disorders: No Hx Family Endocrine Disorder: No Hx Family Musculoskeletal Disorders: No Hx Family Neuromuscular Disorders: No Hx Family Neurologic Disorders: No Hx Family HEENT Disorders: No Hx Family Autoimmune Disorders: No Hx Family Reproductive Disorders: No Hx Family Psychosocial Disorders: No Hx Family Medical Disorders: No Mother History Unknown: Yes Adopted: No Family Member Ethnicity: Non- Living Status: Age at : 53 Cause of : [place] Hx Family Cardiac Disorders: Yes ([place]) Hx Family Respiratory Disorders: No Hx Family Cancer: No Hx Family GI Disorders: No Hx Family Genitourinary Disorders: No Hx Family Endocrine Disorder: No Hx Family Musculoskeletal Disorders: No Hx Family Neuromuscular Disorders: No Hx Family Neurologic Disorders: No Hx Family HEENT Disorders: No Hx Family Autoimmune Disorders: No Hx Family Reproductive Disorders: No Hx Family Psychosocial Disorders: No Hx Family Medical Disorders: No Medications and Allergies Ascorbic Acid [Vitamin C] 500 mg PO DAILY 11/07/16 [History] Aspirin 81 mg PO DAILY 11/07/16 [History] Atorvastatin [Lipitor] 40 mg PO HS 11/07/16 [History] Cyanocobalamin (Vitamin B-12) [Vitamin B12] 1,000 mcg PO DAILY 11/07/16 [History ] Ergocalciferol (VITAMIN D2) [Vitamin D2] 50,000 unit PO CARDOZA 11/07/16 [History] Esomeprazole Magnesium [Nexium] 40 mg PO DAILY 11/07/16 [History] Folic Acid 1 mg PO DAILY 11/07/16 [History] Furosemide [Lasix] 40 mg PO DAILY 11/07/16 [History] Levothyroxine [Synthroid] 75 mcg PO 0630 11/07/16 [History] Lisinopril 2.5 mg PO DAILY 11/07/16 [History] Sertraline [Zoloft] 200 mg PO DAILY 11/07/16 [History] HYDROcodone/Acet 10/325 mg [[place] 10-325 mg] 1 tab PO TID PRN #21 tablet [Rx] Amitriptyline [Elavil] 50 mg PO HS 01/10/17 [History] Baclofen 20 mg PO TID 01/10/17 [History] Celecoxib [Celebrex] 200 mg PO DAILY 01/10/17 [History] Gabapentin [Neurontin] 300 mg PO TID 01/10/17 [History] risperiDONE [RisperDAL] 1 mg PO QAM 01/10/17 [History] Acetaminophen/Butalbital/Caffe [Fioricet] 1 each PO BID PRN #2 tablet 01/13/17 [ Rx] Ferrous Sulfate 325 mg PO BIDWM #0 tablet 01/13/17 [Rx] Collagenase Oint [Santyl] 1 appl TP DAILY 07/04/17 [History] Exenatide Microspheres [Bydureon Pen] 2 mg SQ QWEEK 07/04/17 [History] Gentamicin Oint [Garamycin] 1 appl TP DAILY 07/04/17 [History] metFORMIN [Glucophage] 500 mg PO BID 07/04/17 [History] risperiDONE [RisperDAL] 3 mg PO HS 07/04/17 [History] 3 Allergy/AdvReac Type Severity Reaction Status Date / Time adhesive tape Allergy Rash Verified 04/06/17 10:54 All Systems Reviewed: as per HPI Physical Exam - Constitutional Vitals: Temp Pulse Resp BP Pulse Ox 97.8 F 106 18 155/98 97 07/11/17 11:05 07/11/17 11:05 07/11/17 11:05 07/11/17 11:05 07/11/17 11:05 Exam: General Examination: CONSTITUTIONAL: Alert, oriented at times, answers simple questions, poor historian EXTREMITIES: CFT 3 seconds all toes. Edema +1 and pedal pulses palpable. No calf pain with manual compression SKIN: Gonzalez stage 2 ulceration to left lateral malleolus - 0.3cmx0.3cmx0.1cm, fibrous yellow center. No surrounding edema or erythema. No warmth. No drainage or flutuance. No probe. No appearance of infection noted at this time. Ulceration due to immobility and DM. NEUROLOGIC:Reports intact sensation to light or moderate touch MUSCULOSKELETAL: Muscle strength 3/5 and equal bilaterally, generalized weakness - Expanded Lower Extremities Exam 1 - ulceration Results - Labs Result Diagrams: 07/11/17 06:51 07/11/17 06:51 Labs: Abnormal lab results WBC 13.1 K/mcL (4.3-11.1) H 07/11/17 06:51 RDW 15.5 % (11.5-14.5) H 07/11/17 06:51 Neutrophils # 9.6 K/mcL (1.6-8.9) H 07/11/17 06:51 APTT 21.6 Seconds (26.0-36.0) L 07/04/17 12:17 Chloride 109 mEq/L (98-107) H 07/11/17 06:51 Carbon Dioxide 21 mEq/L (23-29) L 07/11/17 06:51 Glucose 124 mg/dL (70-105) H 07/11/17 06:51 POC Glucose 151 mg/dL (70-99) H 07/11/17 11:36 Hemoglobin A1c 6.4 % (-5.6) H 07/05/17 03:40 AST 9 Units/L (13-39) L 07/04/17 12:17 Albumin 3.2 g/dL (3.5-5.7) L 07/08/17 04:09 Urine Clarity Cloudy (Clear) A 07/04/17 14:04 Urine Protein 30 mg/dL (Neg-Trace) H 07/04/17 14:04 Urine Bilirubin Small (Negative) H 07/04/17 14:04 Ur Leukocyte Esterase Small (Negative) H 07/04/17 14:04 Urine Microscopic WBC 5-15 per hpf (0-3) H 07/04/17 14:04 Ur Squamous Epith Cells Many per lpf (None-Few) H 07/04/17 14:04 Ur Culture Indicated? NO. (NO) A 07/04/17 14:04 Protein/Creatinin Ratio 1.30 mg/mg (0.00-0.20) H 07/05/17 15:15 Urine Total Protein 79 mg/dL (1-14) H 07/05/17 15:15 Urine Opiates Screen Positive ng/mL (Hvpeub=850) H 07/04/17 14:04 H & H 07/11/17 Range/Units 06:51 Hgb 12.2 (11.5-15.4) g/dL Hct 37.4 (35.3-44.9) % All other labs normal. Consult Discharge Plan - Plan Referrals: Nico Ahmadi MD [Primary Care Provider] - (most likely going to [facility])
--- NOTE | 2017-07-11 17:06 | Internal Med Progress Note ---
Date of Encounter: 07/11/17 Time of Encounter: 11:00 - Assessment and plan (1) Acute encephalopathy Current Visit: Yes Status: Acute Assessment and plan: Patient answered all questions appropriately this morning but did report of having auditory hallucinations earlier this morning Suspect patient's delusions and hallucinations likely due to underlying Schizophrenia Psychiatry consulted and appreciate recommendations (2) Schizophrenia Current Visit: Yes Status: Chronic Assessment and plan: Psychiatry following in appreciate recommendation Qualifiers: Schizophrenia type: unspecified Qualified Code(s): F20.9 - Schizophrenia, unspecified (3) C. difficile diarrhea Current Visit: Yes Status: Acute Assessment and plan: patient presents with diarrhea and stool c.dif toxin positive; no fever or leukocytosis, Continue with PO Vancomycin- day 5 for 10days; contact precautions (4) Hypertension Current Visit: Yes Status: Chronic Assessment and plan: Blood pressure somewhat controlled Continue Norvasc and Metoprolo; diuretics and PASCUAL inhibitor continued to be held Qualifiers: Hypertension type: essential hypertension Qualified Code(s): I10 - Essential (primary) hypertension (5) Diabetes type 2, uncontrolled Current Visit: Yes Status: Chronic Assessment and plan: Blood sugars noted to be well controlled. Continue Accu-Chek blood glucose monitoring with sliding scale insulin as needed. Qualifiers: Diabetes mellitus longterm insulin use: without longterm use Diabetes mellitus complication status: with unspecified complications Qualified Code(s) : E11.8 - Type 2 diabetes mellitus with unspecified complications; E11.65 - Type 2 diabetes mellitus with hyperglycemia (6) Hypothyroid Current Visit: Yes Status: Chronic Assessment and plan: Continue levothyroxine Qualifiers: Hypothyroidism type: unspecified Qualified Code(s): E03.9 - Hypothyroidism , unspecified (7) HLD (hyperlipidemia) Current Visit: Yes Status: Chronic Assessment and plan: Continue statin Qualifiers: Hyperlipidemia type: unspecified Qualified Code(s): E78.5 - Hyperlipidemia , unspecified (8) Acute renal failure Current Visit: Yes Status: Acute Assessment and plan: Resolved; baseline serum creatinine noted to be normal, however had multiple episodes of acute kidney injury in the past. Continue to hold NSAIDs and PASCUAL inhibitor. Nephrology follow-up appreciated, now signed off. Avoid nephrotoxins. Qualifiers: Acute renal failure type: unspecified Qualified Code(s): N17.9 - Acute kidney failure, unspecified (9) DVT prophylaxis Current Visit: No Status: Acute Assessment and plan: Heparin subcutaneous - Time Spent With Patient Total time spent is greater than 50% in coordination of care (as documented) at patient's floor/unit and/or counseling patient: - Subjective Interval history: Patient reports of visual hallucinations yesterday and this morning She answered all questions appropriately on exam this morning without any evidence of acute delirium - Constitutional Vitals: Temp Pulse Resp BP Pulse Ox 99.9 F H 100 18 132/75 93 07/11/17 16:51 07/11/17 16:51 07/11/17 16:51 07/11/17 16:51 07/11/17 16:51 General appearance: Present: A&O X 2, no acute distress, answers questions appropriately - Respiratory Respiratory exam: Present: CTAB. Absent: accessory muscle use, rales, rhonchi, wheezes - Cardiovascular Cardiovascular exam: Present: RRR, +S1, +S2. Absent: diastolic murmur, gallop, rubs, systolic murmur Internal Medicine: Result - Labs CBC & Chem 7: 07/11/17 06:51 07/11/17 06:51 Labs: Short CBC 07/11/17 Range/Units 06:51 WBC 13.1 H (4.3-11.1) K/mcL Hgb 12.2 (11.5-15.4) g/dL Hct 37.4 (35.3-44.9) % Plt Count 176 (140-400) K/mcL Neutrophils # 9.6 H (1.6-8.9) K/mcL BMP 07/11/17 06:51 Sodium 140 Potassium 4.1 Chloride 109 H Carbon Dioxide 21 L BUN 13 Creatinine 0.90 Glucose 124 H Calcium 9.0 - ABG Interpretation ABG results: PT/INR, D-dimer PT 11.2 Seconds (9.4-12.1) 07/04/17 12:17 Consult Discharge Plan - Plan Referrals: Nico Ahmadi MD [Primary Care Provider] - (most likely going to [facility])
[2017-07-11] MEDS: RisperiDAL 3 MG TABLET PO SCH (22:16)
[2017-07-11] MEDS: Acetaminophen 325 MG TABLET PO PRN (22:16)
[2017-07-11] MEDS: Gentamicin Oint 15 GM TUBE TP SCH (22:45)
[2017-07-12] MEDS: *HR* Heparin 5,000 UNIT/ML VIAL SQ SCH ×2 (06:31→17:06)
[2017-07-12] MEDS: Insulin LISPRO 300 UNITS/3 ML VIAL SQ SCH ×4 (09:43→19:49)
[2017-07-12] MEDS: Aspirin 81 MG TAB.CHEW PO SCH (09:44)
[2017-07-12] MEDS: Ascorbic Acid 500 MG TABLET PO SCH (09:44)
[2017-07-12] MEDS: amLODIPine 5 MG TABLET PO SCH (09:44)
[2017-07-12] MEDS: Magnesium Oxide 400 MG TABLET PO SCH ×2 (09:44→20:10)
[2017-07-12] MEDS: Cyanocobalamin (B-12) 1,000 MCG TABLET PO SCH (09:44)
[2017-07-12] MEDS: Folic Acid 1 MG TABLET PO SCH (09:44)
[2017-07-12] MEDS: risperiDONE 1 MG TABLET PO SCH (09:44)
[2017-07-12] MEDS: Vancomycin Oral Soln 125 MG/2.5 ML UDC PO SCH ×4 (09:48→20:10)
[2017-07-12 10:46] LABS: Basophils # 0.1 K/mcL (0.0-0.2); Basophils % 0.6 %; Eosinophils # 0.5 K/mcL (0.0-0.6); Eosinophils % 3.8 %; Hematocrit 37.2 % (35.3-44.9); Hemoglobin 11.8 g/dL (11.5-15.4); Immature Granulocytes % 1.9 % (0-4); Lymphocytes # 1.6 K/mcL (0.6-4.6); Lymphocytes % 13.8 %; Mean Corpuscular HGB Conc 31.7 g/dL (31.6-35.5); Mean Corpuscular Hemoglobin 27.3 pg (28.0-33.3); Mean Corpuscular Volume 86.1 fL (83.0-100.0); Mean Platelet Volume 10.3 fL (9.4-12.4); Monocytes # 0.8 K/mcL (0.0-1.3); Monocytes % 6.5 %; Neutrophils # 8.7 K/mcL (1.6-8.9); Platelet Count 163 K/mcL (140-400); Red Blood Count 4.32 M/mcL (3.82-4.97); Red Cell Distribution Width 15.8 % (11.5-14.5); Segmented Neutrophils % 73.4 %
[2017-07-12 11:05] LABS: BUN/Creatinine Ratio 16 (6-26); Blood Urea Nitrogen 14 mg/dL (6-20); Carbon Dioxide 21 mEq/L (23-29); Chloride 108 mEq/L (98-107); Glucose 152 mg/dL (70-105); Osmolality,Calculated 289 (280-300); Potassium 3.9 mEq/L (3.5-5.1); Sodium 138 mEq/L (136-145); eGFR For African Americans > 60 (> 60); eGFR For Non-African Americans > 60 (> 60)
--- NOTE | 2017-07-12 16:15 | Consult Note ---
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 Rangel is a 56 year old female . The patient was seen briefly. She had an MRI performed today and I was able to review the films. The patient was submitted to a brief examination. These were for frontal release signs she has several. Meyersons or glabellar sign positive Grasp is positive bilaterally Suck reflex is negative bilaterally The palmomental is negative bilaterally The snout is positive. The patient has motor impersistence The patient was told [employer] Division [employer] story but exhibited defective reasoning. She could recall elements of the story suggesting that short-term memory was still intact. The patient overall was placid. She was alert for the period of the interview. The brain imaging findings are significant for frontal lobe deterioration. There is also some temporal lobe deterioration in addition to the global atrophy. This can be seen on the head CT in the MRI. . A family meeting was held with several family members that briefly included the patient. Based on the physical exam findings the recent and remote brain imaging and the clinical history the patient appears to have 3 primary conditions. F05 hypoactive delirium. 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 With cerebrovascualr disease Treatment options include tapering the amitriptyline as it can worsen delirium which may include visual hallucinations. The medicines should be continued such as sertraline and risperidone for the pre-existing schizoaffective disorder. The patient can be considered for antidepressant dementia drugs such as Namenda Aricept and others CC: Demetrius Singletary Past Med Surg Social Fam HX - Past Medical History Medical history: diabetes, fibromyalgia, GERD, hyperlipidemia, kidney stones, pulmonary embolus, thyroid disease - Past Surgical History Surgical History: non-contributory - Social History Smoking Status: Never smoker Smokeless Tobacco Status: No Alcohol use: none Drug use: none - Family History Father History Unknown: Yes Adopted: No Age: 82 Family Member Ethnicity: Non- Living Status: Still Living Hx Family Cardiac Disorders: Yes (vascular disease, PAD, CAD, amputation of lower leg due to wounds) Hx Family Respiratory Disorders: No Hx Family Cancer: No Hx Family GI Disorders: No Hx Family Genitourinary Disorders: No Hx Family Endocrine Disorder: No Hx Family Musculoskeletal Disorders: No Hx Family Neuromuscular Disorders: No Hx Family Neurologic Disorders: No Hx Family HEENT Disorders: No Hx Family Autoimmune Disorders: No Hx Family Reproductive Disorders: No Hx Family Psychosocial Disorders: No Hx Family Medical Disorders: No Mother History Unknown: Yes Adopted: No Family Member Ethnicity: Non- Living Status: Age at : 51 Cause of : [place] Hx Family Cardiac Disorders: Yes ([place]) Hx Family Respiratory Disorders: No Hx Family Cancer: No Hx Family GI Disorders: No Hx Family Genitourinary Disorders: No Hx Family Endocrine Disorder: No Hx Family Musculoskeletal Disorders: No Hx Family Neuromuscular Disorders: No Hx Family Neurologic Disorders: No Hx Family HEENT Disorders: No Hx Family Autoimmune Disorders: No Hx Family Reproductive Disorders: No Hx Family Psychosocial Disorders: No Hx Family Medical Disorders: No Medications & Allergies Ascorbic Acid [Vitamin C] 500 mg PO DAILY 11/07/16 [History] Aspirin 81 mg PO DAILY 11/07/16 [History] Atorvastatin [Lipitor] 40 mg PO HS 11/07/16 [History] Cyanocobalamin (Vitamin B-12) [Vitamin B12] 1,000 mcg PO DAILY 11/07/16 [History ] Ergocalciferol (VITAMIN D2) [Vitamin D2] 50,000 unit PO CARDOZA 11/07/16 [History] Esomeprazole Magnesium [Nexium] 40 mg PO DAILY 11/07/16 [History] Folic Acid 1 mg PO DAILY 11/07/16 [History] Furosemide [Lasix] 40 mg PO DAILY 11/07/16 [History] Levothyroxine [Synthroid] 75 mcg PO 0630 11/07/16 [History] Lisinopril 2.5 mg PO DAILY 11/07/16 [History] Sertraline [Zoloft] 200 mg PO DAILY 11/07/16 [History] HYDROcodone/Acet 10/325 mg [[place] 10-325 mg] 1 tab PO TID PRN #21 tablet [Rx] Amitriptyline [Elavil] 50 mg PO HS 01/10/17 [History] Baclofen 20 mg PO TID 01/10/17 [History] Celecoxib [Celebrex] 200 mg PO DAILY 01/10/17 [History] Gabapentin [Neurontin] 300 mg PO TID 01/10/17 [History] risperiDONE [RisperDAL] 1 mg PO QAM 01/10/17 [History] Acetaminophen/Butalbital/Caffe [Fioricet] 1 each PO BID PRN #2 tablet 01/13/17 [ Rx] Ferrous Sulfate 325 mg PO BIDWM #0 tablet 01/13/17 [Rx] Collagenase Oint [Santyl] 1 appl TP DAILY 07/04/17 [History] Exenatide Microspheres [Bydureon Pen] 2 mg SQ QWEEK 07/04/17 [History] Gentamicin Oint [Garamycin] 1 appl TP DAILY 07/04/17 [History] metFORMIN [Glucophage] 500 mg PO BID 07/04/17 [History] risperiDONE [RisperDAL] 3 mg PO HS 07/04/17 [History] 3 Allergy/AdvReac Type Severity Reaction Status Date / Time adhesive tape Allergy Rash Verified 04/06/17 10:54 Review of Systems Neurological: Reports: weakness, confusion, memory loss Psychiatric: Reports: abnormal sleep pattern, auditory hallucinations, visual hallucinations, other Psychiatry Exam - Constitutional Vitals: Temp Pulse Resp BP Pulse Ox 98.1 F 100 16 144/82 94 07/12/17 11:37 07/12/17 11:37 07/12/17 11:37 07/12/17 11:37 07/12/17 11:37 Results - Labs Labs: Laboratory Last Values WBC 11.8 K/mcL (4.3-11.1) H 07/12/17 10:06 RBC 4.32 M/mcL (3.82-4.97) 07/12/17 10:06 Hgb 11.8 g/dL (11.5-15.4) 07/12/17 10:06 Hct 37.2 % (35.3-44.9) 07/12/17 10:06 MCV 86.1 fL (83.0-100.0) 07/12/17 10:06 MCH 27.3 pg (28.0-33.3) L 07/12/17 10:06 MCHC 31.7 g/dL (31.6-35.5) 07/12/17 10:06 RDW 15.8 % (11.5-14.5) H 07/12/17 10:06 Plt Count 163 K/mcL (140-400) 07/12/17 10:06 MPV 10.3 fL (9.4-12.4) 07/12/17 10:06 Immature Gran % 1.9 % (0-4) 07/12/17 10:06 Seg Neutrophils % 73.4 % 07/12/17 10:06 Lymphocytes % 13.8 % 07/12/17 10:06 Monocytes % 6.5 % 07/12/17 10:06 Eosinophils % 3.8 % 07/12/17 10:06 Basophils % 0.6 % 07/12/17 10:06 Neutrophils # 8.7 K/mcL (1.6-8.9) 07/12/17 10:06 Lymphocytes # 1.6 K/mcL (0.6-4.6) 07/12/17 10:06 Monocytes # 0.8 K/mcL (0.0-1.3) 07/12/17 10:06 Eosinophils # 0.5 K/mcL (0.0-0.6) 07/12/17 10:06 Basophils # 0.1 K/mcL (0.0-0.2) 07/12/17 10:06 PT 11.2 Seconds (9.4-12.1) 07/04/17 12:17 INR 1.0 07/04/17 12:17 APTT 21.6 Seconds (26.0-36.0) L 07/04/17 12:17 Sodium 138 mEq/L (136-145) 07/12/17 10:06 Potassium 3.9 mEq/L (3.5-5.1) 07/12/17 10:06 Chloride 108 mEq/L (98-107) H 07/12/17 10:06 Carbon Dioxide 21 mEq/L (23-29) L 07/12/17 10:06 BUN 14 mg/dL (6-20) 07/12/17 10:06 Creatinine 0.88 mg/dL (0.60-1.20) 07/12/17 10:06 Est GFR ( Amer) > 60 (> 60) 07/12/17 10:06 Est GFR (Non-Af Amer) > 60 (> 60) 07/12/17 10:06 BUN/Creatinine Ratio 16 (6-26) 07/12/17 10:06 Glucose 152 mg/dL (70-105) H 07/12/17 10:06 POC Glucose 127 mg/dL (70-99) H 07/12/17 11:41 Est Mean Plasma Glucose 137 mg/dl 07/05/17 03:40 Hemoglobin A1c 6.4 % (-5.6) H 07/05/17 03:40 Calculated Osmolality 289 (280-300) 07/12/17 10:06 Uric Acid 5.3 mg/dL (2.3-7.6) 07/08/17 04:09 Calcium 9.0 mg/dL (8.6-10.3) 07/12/17 10:06 Phosphorus 3.1 mg/dL (2.7-4.5) 07/11/17 06:51 Magnesium 2.0 mg/dL (1.6-2.6) 07/11/17 06:51 Total Bilirubin 0.5 mg/dL (0.3-1.0) 07/04/17 12:17 Direct Bilirubin 0.1 mg/dL (0.0-0.2) 07/04/17 12:17 Indirect Bilirubin 0.4 mg/dL (0.0-1.2) 07/04/17 12:17 AST 9 Units/L (13-39) L 07/04/17 12:17 ALT 7 Units/L (7-52) 07/04/17 12:17 Alkaline Phosphatase 91 Units/L (34-104) 07/04/17 12:17 Creatine Kinase 30 Units/L (30-223) 07/08/17 04:09 Troponin I < 0.03 ng/mL (< 0.04) 07/04/17 12:17 Serum Total Protein 7.5 g/dL (6.4-8.9) 07/04/17 12:17 Albumin 3.2 g/dL (3.5-5.7) L 07/08/17 04:09 Globulin 3.3 g/dL (2.4-3.5) 07/04/17 12:17 Albumin/Globulin Ratio 1.3 (1.1-2.2) 07/04/17 12:17 Urine Color Dark Yellow (Yellow) 07/04/17 14:04 Urine Clarity Cloudy (Clear) A 07/04/17 14:04 Urine pH 5.0 pH Units (5.0-8.0) 07/04/17 14:04 Ur Specific Geff 1.024 (1.010-1.025) 07/04/17 14:04 Urine Protein 30 mg/dL (Neg-Trace) H 07/04/17 14:04 Urine Glucose (UA) Normal mg/dL (Normal) 07/04/17 14:04 Urine Ketones Negative mg/dL (Negative) 07/04/17 14:04 Urine Blood Negative (Negative) 07/04/17 14:04 Urine Nitrite Negative (Negative) 07/04/17 14:04 Urine Bilirubin Small (Negative) H 07/04/17 14:04 Urine Urobilinogen Normal mg/dL (Normal) 07/04/17 14:04 Ur Leukocyte Esterase Small (Negative) H 07/04/17 14:04 Urine Microscopic RBC 0-3 per hpf (0-3) 07/04/17 14:04 Urine Microscopic WBC 5-15 per hpf (0-3) H 07/04/17 14:04 Ur Eosinophil Smear 0 % (None Seen) 07/05/17 15:15 Ur Squamous Epith Cells Many per lpf (None-Few) H 07/04/17 14:04 Urine Bacteria None Seen per hpf (None-Few) 07/04/17 14:04 Hyaline Casts [employer] HE[employer] INSPECTOR 07/04/17 14:04 Ur Culture Indicated? NO. (NO) A 07/04/17 14:04 Urine Creatinine 61 mg/dL 07/05/17 15:15 Protein/Creatinin Ratio 1.30 mg/mg (0.00-0.20) H 07/05/17 15:15 Urine Sodium 94.9 mEq/L 07/05/17 15:15 Urine Total Protein 79 mg/dL (1-14) H 07/05/17 15:15 Stl C. diff Tox B Gene Positive (Negative) 07/06/17 20:28 Urine Opiates Screen Positive ng/mL (Fcxdus=889) H 07/04/17 14:04 Ur Barbiturates Screen Negative ng/mL (Vzatlo=384) 07/04/17 14:04 Ur Phencyclidine Scrn Negative ng/mL (Cutoff=25) 07/04/17 14:04 Ur Amphetamines Screen Negative ng/mL (Eooddc=6034) 07/04/17 14:04 U Benzodiazepines Scrn Negative ng/mL (Peoxxi=179) 07/04/17 14:04 Urine Cocaine Screen Negative ng/mL (Cutoff= 300) 07/04/17 14:04 U Marijuana (THC) Screen Negative ng/mL (Cutoff = 50) 07/04/17 14:04 Ethyl Alcohol < 10 mg/dL (Less than 10) 07/04/17 12:17 Specimen Rejected TNP 07/10/17 07:24 - Impressions Impressions Brain MRI 07/12/17 12:05 IMPRESSION: 1. No acute intracranial abnormality. No acute infarct. 2. Mild global parenchymal volume loss with [id number] chronic microvascular ischemic change. D/ / Jw Saucedo MD / Jw Saucedo MD Interpreting Provider: Jw Saucedo MD Consult Discharge Plan - Plan Referrals: Nico Ahmadi MD [Primary Care Provider] - ([facility])
--- NOTE | 2017-07-12 18:45 | Internal Med Progress Note ---
Date of Encounter: 07/13/17 Time of Encounter: 11:00 - Assessment and plan (1) Acute encephalopathy Current Visit: Yes Status: Acute Assessment and plan: Psychiatry following with concerns for picks disease versus frontal lobe dementia in the setting of schizophrenia MRI and EEG pending CT of the head showed no acute findings but chronic changes noted Psychiatry consulted and appreciate recommendations (2) Schizophrenia Current Visit: Yes Status: Chronic Assessment and plan: Psychiatry following in appreciate recommendation Qualifiers: Schizophrenia type: unspecified Qualified Code(s): F20.9 - Schizophrenia, unspecified (3) C. difficile diarrhea Current Visit: Yes Status: Acute Assessment and plan: She no longer with diarrhea Continue with PO Vancomycin- day 6 for 10days; contact precautions (4) Diabetes type 2, uncontrolled Current Visit: Yes Status: Chronic Assessment and plan: Blood sugars noted to be well controlled. Continue Accu-Chek blood glucose monitoring with sliding scale insulin as needed. Qualifiers: Diabetes mellitus usp insulin use: without usp use Diabetes mellitus complication status: with unspecified complications Qualified Code(s) : E11.8 - Type 2 diabetes mellitus with unspecified complications; E11.65 - Type 2 diabetes mellitus with hyperglycemia (5) Hypothyroid Current Visit: Yes Status: Chronic Assessment and plan: Continue levothyroxine Qualifiers: Hypothyroidism type: unspecified Qualified Code(s): E03.9 - Hypothyroidism , unspecified (6) HLD (hyperlipidemia) Current Visit: Yes Status: Chronic Assessment and plan: Continue statin Qualifiers: Hyperlipidemia type: unspecified Qualified Code(s): E78.5 - Hyperlipidemia , unspecified (7) Acute renal failure Current Visit: Yes Status: Acute Assessment and plan: Resolved; baseline serum creatinine noted to be normal, however had multiple episodes of acute kidney injury in the past. Continue to hold NSAIDs and PASCUAL inhibitor. Nephrology follow-up appreciated, now signed off. Avoid nephrotoxins. Qualifiers: Acute renal failure type: unspecified Qualified Code(s): N17.9 - Acute kidney failure, unspecified (8) Hypertension Current Visit: Yes Status: Chronic Assessment and plan: Blood pressure somewhat controlled Continue Norvasc and Metoprolo; diuretics and PASCUAL inhibitor continued to be held Qualifiers: Hypertension type: essential hypertension Qualified Code(s): I10 - Essential (primary) hypertension (9) DVT prophylaxis Current Visit: No Status: Acute Assessment and plan: Heparin subcutaneous - Time Spent With Patient Total time spent is greater than 50% in coordination of care (as documented) at patient's floor/unit and/or counseling patient: - Subjective Interval history: Patient this morning was alert and oriented 3 but said her reported that patient had been having visual hallucinations - Constitutional Vitals: Temp Pulse Resp BP Pulse Ox 97.6 F 99 17 130/78 95 07/12/17 15:00 07/12/17 15:00 07/12/17 15:00 07/12/17 15:00 07/12/17 15:00 General appearance: Present: A&O X 2, A&O X 3, no acute distress, answers questions appropriately - Respiratory Respiratory exam: Present: CTAB. Absent: accessory muscle use, rales, rhonchi, wheezes - Cardiovascular Cardiovascular exam: Present: RRR, +S1, +S2. Absent: diastolic murmur, gallop, rubs, systolic murmur Internal Medicine: Result - Labs CBC & Chem 7: 07/12/17 10:06 07/12/17 10:06 Labs: Short CBC 07/12/17 Range/Units 10:06 WBC 11.8 H (4.3-11.1) K/mcL Hgb 11.8 (11.5-15.4) g/dL Hct 37.2 (35.3-44.9) % Plt Count 163 (140-400) K/mcL Neutrophils # 8.7 (1.6-8.9) K/mcL BMP 07/12/17 10:06 Sodium 138 Potassium 3.9 Chloride 108 H Carbon Dioxide 21 L BUN 14 Creatinine 0.88 Glucose 152 H Calcium 9.0 - ABG Interpretation ABG results: PT/INR, D-dimer PT 11.2 Seconds (9.4-12.1) 07/04/17 12:17 - Impressions Impressions Brain MRI 07/12/17 12:05 IMPRESSION: 1. No acute intracranial abnormality. No acute infarct. 2. Mild global parenchymal volume loss with [id number] chronic microvascular ischemic change. D/ / Jw Saucedo MD / Jw Saucedo MD Interpreting Provider: Jw Saucedo MD Consult Discharge Plan - Plan Referrals: Nico Ahmadi MD [Primary Care Provider] - (most likely going to [facility])
--- NOTE | 2017-07-12 18:46 | Event Note ---
Date of Encounter: 07/12/17 Time of Encounter: 14:00 Family discussion was held with patient advocate, charge nurse, patient's nurse and psychiatrist discuss assessment and plan Patient's assessment and plan was discussed with family in detail. Family was told patient's working diagnosis of concerns for Pick's Dz and dementia in addition to history of schizophrenia which is being managed by psychiatry. Family was also told about patient's diagnosis of C. difficile which is being managed by hospitalist on oral antibiotic. Also discussed with family about the possibility of patient to be discharged to a ECF. Family was also told that workup is still in process for patient's visual and auditory hallucinations.
[2017-07-12] MEDS: RisperiDAL 3 MG TABLET PO SCH (20:10)
[2017-07-12] MEDS: Gentamicin Oint 15 GM TUBE TP SCH (20:11)
[2017-07-13] MEDS: *HR* Heparin 5,000 UNIT/ML VIAL SQ SCH ×2 (06:11→18:11)
[2017-07-13] MEDS: Acetaminophen 325 MG TABLET PO PRN ×2 (06:19→12:40)
[2017-07-13] MEDS: risperiDONE 1 MG TABLET PO SCH (09:52)
[2017-07-13] MEDS: Ascorbic Acid 500 MG TABLET PO SCH (09:52)
[2017-07-13] MEDS: amLODIPine 5 MG TABLET PO SCH (09:52)
[2017-07-13] MEDS: Cyanocobalamin (B-12) 1,000 MCG TABLET PO SCH (09:52)
[2017-07-13] MEDS: Magnesium Oxide 400 MG TABLET PO SCH ×2 (09:52→21:53)
[2017-07-13] MEDS: Folic Acid 1 MG TABLET PO SCH (09:52)
[2017-07-13] MEDS: Aspirin 81 MG TAB.CHEW PO SCH (09:52)
[2017-07-13] MEDS: Insulin LISPRO 300 UNITS/3 ML VIAL SQ SCH ×4 (09:53→21:59)
[2017-07-13] MEDS: Vancomycin Oral Soln 125 MG/2.5 ML UDC PO SCH ×4 (09:53→21:54)
[2017-07-13] MEDS: Gentamicin Oint 15 GM TUBE TP SCH ×2 (09:58→21:58)
--- NOTE | 2017-07-13 11:33 | EEG/EMG/Oth Biometrics Report ---
EEG Procedure Report Date of procedure: 07/13/17 EEG Procedure: Routine EEG Procedure Note: This EEG was acquired with standard international 10-20 system with EKG recording. The background EEG activity was characterized by the presence of posterior dominant alpha rhythm with the best frequency up to 11 Hz. The background activity was reactive to eye openings. Sleep stages were not identified during this tracing. Drowsiness was characterized by drop off of posterior dominant Alpha rhythm. There are no electrographic seizures identified during this tracing. There are no epileptiform discharges and focal slowing noted during this recording. Photic stimulation produced and produced no abnormalities. Hyperventilation procedure not performed EKG tracing showed no significant cardiac dysrhythmia. Impression: This is essentially a normal awake and drowsy EEG. Clinical Correlation: Normal EEGs, however, do not exclude epilepsy. Clinical correlation is advised.
[2017-07-13] MEDS: *HR* HYDROcodone/Acet 10/325 mg TABLET PO PRN (14:50)
--- NOTE | 2017-07-13 18:32 | Internal Med Progress Note ---
Date of Encounter: 07/13/17 Time of Encounter: 11:00 - Assessment and plan (1) Acute encephalopathy Current Visit: Yes Status: Acute Assessment and plan: MRI obtained showed no acute findings EEG also done showed normal awake and drowsy EEG per neurology's interpretation Psychiatry following with concerns for picks disease versus frontal lobe dementia in the setting of schizophrenia Discussed about plans for potential placement at geriatric psychiatric facility for continued management (2) Schizophrenia Current Visit: Yes Status: Chronic Assessment and plan: Psychiatry following in appreciate recommendation Qualifiers: Schizophrenia type: unspecified Qualified Code(s): F20.9 - Schizophrenia, unspecified (3) C. difficile diarrhea Current Visit: Yes Status: Acute Assessment and plan: She no longer with diarrhea Continue with PO Vancomycin- day 7 for 10days; contact precautions (4) Diabetes type 2, uncontrolled Current Visit: Yes Status: Chronic Assessment and plan: Blood sugars noted to be well controlled. Continue Accu-Chek blood glucose monitoring with sliding scale insulin as needed. Qualifiers: Diabetes mellitus [facility] insulin use: without [facility] use Diabetes mellitus complication status: with unspecified complications Qualified Code(s) : E11.8 - Type 2 diabetes mellitus with unspecified complications; E11.65 - Type 2 diabetes mellitus with hyperglycemia (5) Hypothyroid Current Visit: Yes Status: Chronic Assessment and plan: Continue levothyroxine Qualifiers: Hypothyroidism type: unspecified Qualified Code(s): E03.9 - Hypothyroidism , unspecified (6) HLD (hyperlipidemia) Current Visit: Yes Status: Chronic Assessment and plan: Continue statin Qualifiers: Hyperlipidemia type: unspecified Qualified Code(s): E78.5 - Hyperlipidemia , unspecified (7) Acute renal failure Current Visit: Yes Status: Acute Assessment and plan: Resolved; baseline serum creatinine noted to be normal, however had multiple episodes of acute kidney injury in the past. Continue to hold NSAIDs and PASCUAL inhibitor. Nephrology follow-up appreciated, now signed off. Avoid nephrotoxins. Qualifiers: Acute renal failure type: unspecified Qualified Code(s): N17.9 - Acute kidney failure, unspecified (8) Hypertension Current Visit: Yes Status: Chronic Assessment and plan: Blood pressure somewhat controlled Continue Norvasc and metoprolol; diuretics and PASCUAL inhibitor continued to be held Qualifiers: Hypertension type: essential hypertension Qualified Code(s): I10 - Essential (primary) hypertension (9) DVT prophylaxis Current Visit: No Status: Acute Assessment and plan: Heparin subcutaneous (10) Care plan discussed with patient Current Visit: Yes Status: Acute Assessment and plan: Discussed with caregiver present in the room about plan for potential placement at geriatric psychiatric facility for continued management - Time Spent With Patient Total time spent is greater than 50% in coordination of care (as documented) at patient's floor/unit and/or counseling patient: - Subjective Interval history: Patient this morning was alert and oriented 3 She is still having auditory or visual hallucinations States that her diarrhea has now resolved on oral vancomycin for C. difficile - Constitutional Vitals: Temp Pulse Resp BP Pulse Ox 98.1 F 94 20 125/69 95 07/13/17 15:18 07/13/17 15:18 07/13/17 15:18 07/13/17 15:18 07/13/17 15:18 General appearance: Present: A&O X 2, A&O X 3, no acute distress, answers questions appropriately - Respiratory Respiratory exam: Present: CTAB. Absent: accessory muscle use, rales, rhonchi, wheezes - Cardiovascular Cardiovascular exam: Present: RRR, +S1, +S2. Absent: diastolic murmur, gallop, rubs, systolic murmur Internal Medicine: Result - Labs CBC & Chem 7: 07/12/17 10:06 07/12/17 10:06 - ABG Interpretation ABG results: PT/INR, D-dimer PT 11.2 Seconds (9.4-12.1) 07/04/17 12:17 Consult Discharge Plan - Plan Referrals: Nico Ahmadi MD [Primary Care Provider] - (most likely going to [facility])
[2017-07-13] MEDS: *HR* LORazepam 0.5 MG TABLET PO PRN (21:53)
[2017-07-13] MEDS: RisperiDAL 3 MG TABLET PO SCH (21:53)
[2017-07-14] MEDS: *HR* HYDROcodone/Acet 10/325 mg TABLET PO PRN (03:35)
[2017-07-14] MEDS: amLODIPine 5 MG TABLET PO SCH (07:52)
[2017-07-14] MEDS: Folic Acid 1 MG TABLET PO SCH (07:52)
[2017-07-14] MEDS: Magnesium Oxide 400 MG TABLET PO SCH (07:52)
[2017-07-14] MEDS: Cyanocobalamin (B-12) 1,000 MCG TABLET PO SCH (07:52)
[2017-07-14] MEDS: risperiDONE 1 MG TABLET PO SCH (07:52)
[2017-07-14] MEDS: Aspirin 81 MG TAB.CHEW PO SCH (07:52)
[2017-07-14] MEDS: Ascorbic Acid 500 MG TABLET PO SCH (07:53)
[2017-07-14] MEDS: *HR* Heparin 5,000 UNIT/ML VIAL SQ SCH ×2 (07:53→17:24)
[2017-07-14] MEDS: Vancomycin Oral Soln 125 MG/2.5 ML UDC PO SCH ×3 (07:54→17:15)
[2017-07-14] MEDS: Gentamicin Oint 15 GM TUBE TP SCH ×2 (08:09→08:10)
[2017-07-14] MEDS: Insulin LISPRO 300 UNITS/3 ML VIAL SQ SCH ×3 (08:11→17:24)
[2017-07-14 11:49] VITALS: BP 92/60
--- NOTE | 2017-07-14 15:54 | Physician Discharge Referral ---
ExtendedCare Referral Info Institutional Level of Care: Skilled - Diagnosis (1) Acute encephalopathy Status: Acute (2) Schizophrenia Status: Chronic (3) C. difficile diarrhea Status: Acute (4) Diabetes type 2, uncontrolled Status: Chronic (5) Hypothyroid Status: Chronic (6) HLD (hyperlipidemia) Status: Chronic (7) Acute renal failure Status: Acute (8) Hypertension Status: Chronic (9) DVT prophylaxis Status: Acute (10) Care plan discussed with patient Status: Acute - Transfer Medications Home Medications: Ascorbic Acid [Vitamin C] 500 mg PO DAILY 11/07/16 [History] Aspirin 81 mg PO DAILY 11/07/16 [History] Atorvastatin [Lipitor] 40 mg PO HS 11/07/16 [History] Cyanocobalamin (Vitamin B-12) [Vitamin B12] 1,000 mcg PO DAILY 11/07/16 [History ] Ergocalciferol (VITAMIN D2) [Vitamin D2] 50,000 unit PO CARDOZA 11/07/16 [History] Esomeprazole Magnesium [Nexium] 40 mg PO DAILY 11/07/16 [History] Folic Acid 1 mg PO DAILY 11/07/16 [History] Furosemide [Lasix] 40 mg PO DAILY 11/07/16 [History] Levothyroxine [Synthroid] 75 mcg PO 0630 11/07/16 [History] Lisinopril 2.5 mg PO DAILY 11/07/16 [History] Sertraline [Zoloft] 200 mg PO DAILY 11/07/16 [History] HYDROcodone/Acet 10/325 mg [[place] 10-325 mg] 1 tab PO TID PRN #21 tablet [Rx] Amitriptyline [Elavil] 50 mg PO HS 01/10/17 [History] Baclofen 20 mg PO TID 01/10/17 [History] Celecoxib [Celebrex] 200 mg PO DAILY 01/10/17 [History] Gabapentin [Neurontin] 300 mg PO TID 01/10/17 [History] risperiDONE [RisperDAL] 1 mg PO QAM 01/10/17 [History] Acetaminophen/Butalbital/Caffe [Fioricet] 1 each PO BID PRN #2 tablet 01/13/17 [ Rx] Ferrous Sulfate 325 mg PO BIDWM #0 tablet 01/13/17 [Rx] Collagenase Oint [Santyl] 1 appl TP DAILY 07/04/17 [History] Exenatide Microspheres [Bydureon Pen] 2 mg SQ QWEEK 07/04/17 [History] Gentamicin Oint [Garamycin] 1 appl TP DAILY 07/04/17 [History] metFORMIN [Glucophage] 500 mg PO BID 07/04/17 [History] risperiDONE [RisperDAL] 3 mg PO HS 07/04/17 [History] Allergies/Adverse Reactions: 3 Allergy/AdvReac Type Severity Reaction Status Date / Time adhesive tape Allergy Rash Verified 04/06/17 10:54 - Respiratory Orders Smoking Cessation: Smoking cessation has been advised. For more information, call the [place] Tobacco Quit Line at 0-637-BAVTNOW. CERTIFICATION: I certify that the transfer of the above named patient to an Extended Care Facility is necessary for the continuing treatment of the diagnosis listed. The above information is true and accurate reflection of patient's current condition. Confidential - Redisclosure prohibited without a patient's written consent.
--- NOTE | 2017-07-14 15:54 | Discharge Summary ---
- NOTES TO OUTPATIENT PROVIDER Notes to Outpatient Provider: Patient will need renal function monitor with BMP. Patient will also need to follow-up with psychiatry Date of Encounter: 07/14/17 Time of Encounter: 11:00 - Discharge Diagnosis (1) Acute encephalopathy Priority: Primary Status: Acute (2) Schizophrenia Priority: Primary Status: Chronic Qualifiers: Schizophrenia type: unspecified Qualified Code(s): F20.9 - Schizophrenia, unspecified (3) C. difficile diarrhea Priority: Primary Status: Acute (4) Diabetes type 2, uncontrolled Priority: Secondary Status: Chronic Qualifiers: Diabetes mellitus correction insulin use: without intermediate frame tender use Diabetes mellitus complication status: with unspecified complications Qualified Code(s) : E11.8 - Type 2 diabetes mellitus with unspecified complications; E11.65 - Type 2 diabetes mellitus with hyperglycemia (5) Hypothyroid Priority: Secondary Status: Chronic Qualifiers: Hypothyroidism type: unspecified Qualified Code(s): E03.9 - Hypothyroidism , unspecified (6) HLD (hyperlipidemia) Priority: Secondary Status: Chronic Qualifiers: Hyperlipidemia type: unspecified Qualified Code(s): E78.5 - Hyperlipidemia , unspecified (7) Acute renal failure Priority: Primary Status: Acute Qualifiers: Acute renal failure type: unspecified Qualified Code(s): N17.9 - Acute kidney failure, unspecified (8) Hypertension Priority: Secondary Status: Chronic Qualifiers: Hypertension type: essential hypertension Qualified Code(s): I10 - Essential (primary) hypertension Hospital course: Patient is a 56-year-old female with past medical history significant for chronic psychiatric disorder, diabetes, and hypothyroid who presented to the ER on 07/04/17 due to confusion with nausea/emesis and diarrhea. She was brought into the ER because of confusion by family after week and half off nausea, there is emesis with decreased by mouth intake. She is slightly altered and is a poor historian. During patients hospital stay she was found to have acute renal failure secondary to dehydration therefore baclofen, Lasix, Lisinopril and gabapentin were held. Patient was treated with IV fluids and acute renal failure resolved. Patient was also found to have C. difficile colitis and was started on oral vancomycin and her diarrhea resolved. She also had auditory and visual hallucinations and psychiatry was consulted for evaluation. CT of the head and MRI of the brain were both done which did not show any acute findings but did show chronic disease including volume loss. EEG was also done which showed drowsiness but otherwise normal. Psychiatry recommendations to start patient on Aricept and to wean off Elavil. Patient will be discharged to [facility] facility to follow up with psychiatry as outpatient for continued workup of dementia versus Picks disease. Patient and family was also educated that patient should drink plenty of water to avoid dehydration and therefore kidney injury. - Time Spent with Patient Total time spent providing and/or coordinating discharge services: Less than 30 minutes - Discharge Medications Prescriptions: Donepezil [Aricept] 5 mg PO QAM #30 tablet HYDROcodone/Acet 10/325 mg [[place] 10-325 mg] 1 tab PO TID PRN 7 Days #21 tablet PRN Reason: Pain Vancomycin Oral Soln [Firvanq] 125 mg PO QID #8 udc Home Medications: Ascorbic Acid [Vitamin C] 500 mg PO DAILY 11/07/16 [History] Aspirin 81 mg PO DAILY 11/07/16 [History] Atorvastatin [Lipitor] 40 mg PO HS 11/07/16 [History] Cyanocobalamin (Vitamin B-12) [Vitamin B12] 1,000 mcg PO DAILY 11/07/16 [History ] Ergocalciferol (VITAMIN D2) [Vitamin D2] 50,000 unit PO CARDOZA 11/07/16 [History] Esomeprazole Magnesium [Nexium] 40 mg PO DAILY 11/07/16 [History] Folic Acid 1 mg PO DAILY 11/07/16 [History] Furosemide [Lasix] 40 mg PO DAILY 11/07/16 [History] Levothyroxine [Synthroid] 75 mcg PO 0630 11/07/16 [History] Lisinopril 2.5 mg PO DAILY 11/07/16 [History] Sertraline [Zoloft] 200 mg PO DAILY 11/07/16 [History] Baclofen 20 mg PO TID 01/10/17 [History] Celecoxib [Celebrex] 200 mg PO DAILY 01/10/17 [History] Gabapentin [Neurontin] 300 mg PO TID 01/10/17 [History] risperiDONE [RisperDAL] 1 mg PO QAM 01/10/17 [History] Acetaminophen/Butalbital/Caffe [Fioricet] 1 each PO BID PRN #2 tablet 01/13/17 [ Rx] Ferrous Sulfate 325 mg PO BIDWM #0 tablet 01/13/17 [Rx] Collagenase Oint [Santyl] 1 appl TP DAILY 07/04/17 [History] Exenatide Microspheres [Bydureon Pen] 2 mg SQ QWEEK 07/04/17 [History] Gentamicin Oint [Garamycin] 1 appl TP DAILY 07/04/17 [History] metFORMIN [Glucophage] 500 mg PO BID 07/04/17 [History] risperiDONE [RisperDAL] 3 mg PO HS 07/04/17 [History] Donepezil [Aricept] 5 mg PO QAM #30 tablet 07/14/17 [Rx] HYDROcodone/Acet 10/325 mg [[place] 10-325 mg] 1 tab PO TID PRN 7 Days #21 tablet 07/14/17 [Rx] Magnesium Oxide [Mag-Ox] 400 mg PO BID tablet 07/14/17 [Rx] Metoclopramide [Reglan] 5 mg PO QIDAC tablet 07/14/17 [Rx] Metoprolol [Lopressor] 25 mg PO BID tablet 07/14/17 [Rx] Vancomycin Oral Soln [Firvanq] 125 mg PO QID #8 udc 07/14/17 [Rx] amLODIPine [Norvasc] 10 mg PO DAILY tablet 07/14/17 [Rx] Allergies/Adverse Reactions: 3 Allergy/AdvReac Type Severity Reaction Status Date / Time adhesive tape Allergy Rash Verified 04/06/17 10:54 Date of admission: 07/04/17 16:59 Primary care physician: Nico Ahmadi MD Consults: 07/04/17 19:02 Consult to Land Lease Information Clerk [CONS] Routine Reason for SW Consult: discharge planning for Home health upon d/c, possible need for ECF 07/05/17 08:55 Consult to Nephrology [CONS] Routine Consulting Provider: Kidney [facility]/KADY/MARLI/KYRIE Reason for Consult: acute renal failure Call Completed: Yes 07/05/17 13:10 Consult to Nephrology [CONS] Routine Consulting Provider: Kidney & HTN Stephanie CM Reason for Consult: Acute renal failure Call Completed: Yes 07/05/17 14:03 Consult to Wound Care [CONS] Routine Reason for Consult: chronic LLE wound under the care of Dr. Dukes. Time Notified: 14:04 Call Completed: Yes 07/07/17 08:56 Consult to Physical Therapy [CONS] Routine Comment: Evaluate, develop and implement POC Reason for Consult: uses walker at home eval Does patient have active BEDREST order?: No Is patient medically & hemodynamically stable?: Yes 07/07/17 08:57 Consult to Occupational Therapy [CONS] Routine Comment: Evaluate, develop and implement POC Reason for Consult: uses walker at home eval Does patient have active BEDREST order?: No Is patient medically & hemodynamically stable?: Yes 07/09/17 09:55 Consult to Gastroenterology [CONS] Routine Consulting Provider: [facility] Reason for Consult: Intermittent nausea and vomiting with associated ALYSIA Call Completed: Yes 07/09/17 15:16 Consult to Psychiatry [CONS] Routine Consulting Provider: [facility] Reason for Consult: h/o- schizophrenia, with auditory and visual hallucinations Call Completed: No 07/10/17 15:58 Consult to Podiatry [CONS] Routine Consulting Provider: [facility] Reason for Consult: Chronic left heel ulcers Call Completed: Yes 07/13/17 11:26 Consult to Interpret Exam [CONS] Routine Consulting Provider: aBrbara Palacios Consult to Interpret Exam: Interpret Sleep Study - Constitutional Vitals: Temp Pulse Resp BP Pulse Ox 98.8 F 91 18 92/60 92 07/14/17 11:28 07/14/17 11:28 07/14/17 11:28 07/14/17 11:28 07/14/17 11:28 General appearance: Present: A&O X 2, A&O X 3, no acute distress, answers questions appropriately - Respiratory Respiratory exam: Present: CTAB. Absent: accessory muscle use, rales, rhonchi, wheezes - Cardiovascular Cardiovascular exam: Present: RRR, +S1, +S2. Absent: diastolic murmur, gallop, rubs, systolic murmur - Patient Status Disposition: Transfer SNF Condition: Fair - Discharge Instructions Instructions: Acute Kidney Injury (DC) Follow Up With: Nico Ahmadi MD [Primary Care Provider] - (most likely going to [facility])
== END 2017-07-14 18:13 | DRG 682 ==
LOC: EMEROO 11:33 → SUATTDRO 16:59 → 2SOUTHHOLD 16:59 → 2ANU 07-06 18:35
PROVIDERS: ADMIT General Practice; ATTEND Hospitalist
PROC: ENDOEBX (2017-07-10 14:30)

== ENCOUNTER 2019-03-28 18:58 | Inpatient (IN) ==
[2019-03-28] MEDS ORDERED: 0.9 % Sodium Chloride 1,000 ML IVC ONE ×2 (19:22→21:16)
[2019-03-28 20:04] LABS: Bilirubin,Urine Small (Negative); Blood,Urine Large (Negative); Clarity,Urine Turbid (Clear); Color,Urine Dark Yellow (Yellow); Glucose,Urine (UA) Normal (Normal); Ketones,Urine Negative (Negative); Leukocyte Esterase,Urine Large (Negative); Nitrite,Urine Negative (Negative); Protein,Urine Trace mg/dL (Neg-Trace); Specific Gravity,Urine 1.018 (1.010-1.025); Urobilinogen,Urine Normal (Normal)
[2019-03-28 20:06] LABS: Bacteria,Urine Many per hpf (None-Few); Hyaline Casts,Urine None Seen per lpf (None-Few); RBC,Urine 15-30 per hpf (0-3); Squamous Epithelial Cell,Urine Many per lpf (None-Few); WBC,Urine TNTC per hpf (0-3)
[2019-03-28] MEDS ORDERED: cefTRIAXone 1,000 MG in Water for inj. (sterile) 10 ML IVP STA (20:29)
[2019-03-28 20:33] LABS: Hematocrit 43.7 % (35.3-44.9); Hemoglobin 13.8 g/dL (11.5-15.4); Mean Corpuscular HGB Conc 31.6 g/dL (31.6-35.5); Mean Corpuscular Hemoglobin 29.9 pg (28.0-33.3); Mean Corpuscular Volume 94.8 fL (83.0-100.0); Mean Platelet Volume 10.9 fL (9.4-12.4); Platelet Count 118 K/mcL (140-400); Red Blood Count 4.61 M/mcL (3.82-4.97); Red Cell Distribution Width 13.4 % (11.5-14.5); White Blood Count 10.1 K/mcL (4.3-11.1)
[2019-03-28 21:08] LABS: Calcium 8.6 mg/dL (8.6-10.3); Potassium 4.4 mEq/L (3.5-5.1); Thyroid Stimulating Hormone 2.147 mcIU/mL (0.340-5.600)
[2019-03-29] MEDS ORDERED: Naloxone 0.4 MG/ML INJ IVP PRN (03:42)
[2019-03-29] MEDS ORDERED: Mag Hydrox/Al Hydrox/Simeth 30 ML UDC PO PRN (03:42)
[2019-03-29] MEDS ORDERED: Acetaminophen 325 MG TABLET PO PRN (03:42)
[2019-03-29] MEDS ORDERED: 0.9 % Sodium Chloride 1,000 ML IVC SCH (03:45)
[2019-03-29] MEDS ORDERED: Benzonatate 100 MG CAPSULE PO PRN (03:48)
[2019-03-29] MEDS ORDERED: Albuterol 2.5 MG/3 ML NEBULIZER IH PRN (03:48)
[2019-03-29 04:51] LABS: Hematocrit 37.8 % (35.3-44.9); Immature Granulocytes % 0.5 % (0-4); Lymphocytes % 10.7 %; Mean Corpuscular Hemoglobin 29.8 pg (28.0-33.3); Mean Corpuscular Volume 96.4 fL (83.0-100.0); Mean Platelet Volume 11.4 fL (9.4-12.4); Platelet Count 120 K/mcL (140-400); Red Blood Count 3.92 M/mcL (3.82-4.97); Red Cell Distribution Width 13.6 % (11.5-14.5); White Blood Count 8.7 K/mcL (4.3-11.1)
[2019-03-29 04:52] LABS: Basophils % 0.3 %; Eosinophils # 0.3 K/mcL (0.0-0.6); Eosinophils % 3.4 %; Hemoglobin 11.7 g/dL (11.5-15.4); Lymphocytes # 0.9 K/mcL (0.6-4.6); Monocytes # 0.5 K/mcL (0.0-1.3); Monocytes % 6.1 %; Neutrophils # 6.9 K/mcL (1.6-8.9)
[2019-03-29 05:09] LABS: Calcium 7.7 mg/dL (8.6-10.3); Magnesium 1.8 mg/dL (1.6-2.6); Phosphorous 6.7 mg/dL (2.7-4.5); Potassium 3.9 mEq/L (3.5-5.1)
[2019-03-29] MEDS: *HR* Heparin 5,000 UNIT/ML VIAL SQ SCH ×2 (05:09→17:03)
[2019-03-29] MEDS ORDERED: *HR* Dextrose 50 % in Water (Syg) 50 ML SYRINGE IVP PRN (08:57)
[2019-03-29] MEDS ORDERED: D5% in Water 1,000 ML IVC PRN (08:57)
[2019-03-29] MEDS ORDERED: Dextrose Gel 15 GM/37.5 ML TUBE PO PRN ×2 (08:57)
[2019-03-29 09:16] LABS: Folate 15.6 ng/mL (3.0-16.0)
[2019-03-29 09:22] LABS: Vitamin B12 > 1500 pg/mL (250-1100)
[2019-03-29] MEDS: Ascorbic Acid 500 MG TABLET PO SCH (09:32)
[2019-03-29] MEDS: Celecoxib 200 MG CAPSULE PO SCH (09:33)
[2019-03-29] MEDS: Gabapentin 300 MG CAPSULE PO SCH ×3 (09:33→21:03)
[2019-03-29] MEDS: Folic Acid 1 MG TABLET PO SCH (09:33)
[2019-03-29] MEDS: Cyanocobalamin (B-12) 1,000 MCG TABLET PO SCH (09:33)
[2019-03-29] MEDS: Aspirin 81 MG TAB.CHEW PO SCH (09:33)
[2019-03-29] MEDS: Baclofen 10 MG TABLET PO SCH ×3 (09:34→21:02)
[2019-03-29] MEDS: Cefepime HCl 2,000 MG in Water for inj. (sterile) 20 ML IVP SCH (09:34)
[2019-03-29 10:06] LABS: Adenovirus Not Detected (Not Detect); Bordetella Pertussis Not Detected (Not Detect); Chlamydophila pneumoniae Not Detected (Not Detect); Coronavirus 229E Not Detected (Not Detect); Coronavirus HKU1 Not Detected (Not Detect); Coronavirus NL63 Not Detected (Not Detect); Coronavirus OC43 Not Detected (Not Detect); Human Metapneumovirus Not Detected (Not Detect); Human Rhinovirus/Enterovirus Not Detected (Not Detect); Influenza A Subtype 2009 H1 Not Detected (Not Detect); Influenza B Not Detected (Not Detect); Mycoplasma pneumoniae Not Detected (Not Detect); Parainfluenza Virus 1 Not Detected (Not Detect); Parainfluenza Virus 2 Not Detected (Not Detect); Parainfluenza Virus 3 Not Detected (Not Detect); Parainfluenza Virus 4 Not Detected (Not Detect); Respiratory Syncytial Virus Not Detected (Not Detect)
[2019-03-29] MEDS: Insulin LISPRO 300 UNITS/3 ML VIAL SQ SCH ×3 (12:42→21:02)
[2019-03-29] MEDS: risperiDONE 1 MG TABLET PO SCH ×2 (21:01→21:02)
[2019-03-30 01:42] LABS: Adenovirus F 40/41 PCR Not detected (Not detect); Astrovirus PCR Not detected (Not detect); C.difficile Toxin A/B Gene PCR Not detected (Not detect); Campylobacter by PCR Not detected (Not detect); Cryptosporidium by PCR Not detected (Not detect); Cyclospora cayetanensis PCR Not detected (Not detect); E. coli O157 by PCR Not detected (Not detect); Entamoeba histolytica PCR Not detected (Not detect); Enteroaggregative E.coli(EAEC) Not detected (Not detect); Enteropathogenic E.coli(EPEC) Not detected (Not detect); Enterotoxigenic E.coli (ETEC) Not detected (Not detect); Giardia lamblia PCR Not detected (Not detect); Norovirus GI/GII PCR Not detected (Not detect); Plesiomonas shigelloides PCR Not detected (Not detect); Rotavirus A PCR Not detected (Not detect); Salmonella PCR Not detected (Not detect); Sapovirus PCR Not detected (Not detect); Shig/EnteroinvasiveE coli EIEC Not detected (Not detect); Shigalike tox-prod E coli STEC Not detected (Not detect); Vibrio PCR Not detected (Not detect); Vibrio cholerae PCR Not detected (Not detect); Yersinia enterocolitica PCR Not detected (Not detect)
[2019-03-30] MEDS: *HR* Heparin 5,000 UNIT/ML VIAL SQ SCH ×2 (05:39→15:54)
[2019-03-30 05:41] LABS: Potassium 4.3 mEq/L (3.5-5.1)
[2019-03-30] MEDS: Celecoxib 200 MG CAPSULE PO SCH (08:42)
[2019-03-30] MEDS: Gabapentin 300 MG CAPSULE PO SCH ×3 (08:43→20:08)
[2019-03-30] MEDS: Insulin LISPRO 300 UNITS/3 ML VIAL SQ SCH ×4 (08:43→20:06)
[2019-03-30] MEDS: Folic Acid 1 MG TABLET PO SCH (08:43)
[2019-03-30] MEDS: Baclofen 10 MG TABLET PO SCH ×3 (08:44→20:15)
[2019-03-30] MEDS: Cyanocobalamin (B-12) 1,000 MCG TABLET PO SCH (08:44)
[2019-03-30] MEDS: Aspirin 81 MG TAB.CHEW PO SCH (08:44)
[2019-03-30] MEDS: Cefepime HCl 2,000 MG in Water for inj. (sterile) 20 ML IVP SCH (08:44)
[2019-03-30] MEDS: Ascorbic Acid 500 MG TABLET PO SCH (08:44)
[2019-03-30] MEDS: risperiDONE 1 MG TABLET PO SCH ×2 (20:15)
[2019-03-30] MEDS ORDERED: Cefepime HCl 2,000 MG in Water for inj. (sterile) 20 ML IVP SCH (21:00)
[2019-03-31] MEDS: *HR* Heparin 5,000 UNIT/ML VIAL SQ SCH (06:05)
[2019-03-31 06:13] LABS: Calcium 8.4 mg/dL (8.6-10.3); Potassium 5.1 mEq/L (3.5-5.1)
[2019-03-31 07:34] VITALS: BP 128/74
[2019-03-31] MEDS ORDERED: Cholecalciferol (D-3) 1,000 UNIT (25MCG) TABLET PO SCH (09:00)
[2019-03-31] MEDS: Insulin LISPRO 300 UNITS/3 ML VIAL SQ SCH (09:00)
[2019-03-31] MEDS ORDERED: cephALEXin 250 MG CAPSULE PO SCH (09:00)
[2019-03-31] MEDS: Baclofen 10 MG TABLET PO SCH (09:01)
[2019-03-31] MEDS: Folic Acid 1 MG TABLET PO SCH (09:01)
[2019-03-31] MEDS: Ascorbic Acid 500 MG TABLET PO SCH (09:01)
[2019-03-31] MEDS: Cyanocobalamin (B-12) 1,000 MCG TABLET PO SCH (09:01)
[2019-03-31] MEDS: Aspirin 81 MG TAB.CHEW PO SCH (09:01)
[2019-03-31] MEDS: Gabapentin 300 MG CAPSULE PO SCH (09:02)
[2019-03-31] MEDS: Celecoxib 200 MG CAPSULE PO SCH (09:02)
== END 2019-03-31 11:20 | DRG 683 ==
LOC: 3BNU 18:58 → EMEROOARM 18:58 → 3BNU 03-29 01:15
PROVIDERS: ADMIT Internal Medicine; ATTEND Internal Medicine

== ENCOUNTER 2019-07-14 14:50 | Inpatient (IN) ==
[2019-07-14] MEDS ORDERED: 0.9 % Sodium Chloride 1,000 ML IVC ONE ×2 (15:10→16:56)
[2019-07-14] MEDS ORDERED: Ondansetron 4 MG/2 ML VIAL IVP ONE (15:10)
[2019-07-14] MEDS ORDERED: Isovue-370 500 ML BOTTLE IVP ONE (15:11)
[2019-07-14] MEDS ORDERED: Hyoscyamine SL 0.125 MG TAB.SUBL SL ONE (15:31)
[2019-07-14 15:38] LABS: Mean Corpuscular Hemoglobin 28.4 pg (28.0-33.3); Mean Corpuscular Volume 92.7 fL (83.0-100.0)
[2019-07-14 15:40] LABS: Bilirubin,Urine Moderate (Negative); Blood,Urine Negative (Negative); Clarity,Urine Clear (Clear); Color,Urine Yellow (Yellow); Glucose,Urine (UA) Normal (Normal); Ketones,Urine Trace mg/dL (Negative); Leukocyte Esterase,Urine Negative (Negative); Nitrite,Urine Negative (Negative); PH,Urine 5.5 pH Units (5.0-8.0); Protein,Urine Negative (Neg-Trace); Specific Gravity,Urine 1.024 (1.010-1.025); Urobilinogen,Urine Normal (Normal)
[2019-07-14 15:40] LABS: Basophils % 0.3 %; Eosinophils # 0.3 K/mcL (0.0-0.6); Hemoglobin 13.2 g/dL (11.5-15.4); Immature Granulocytes % 0.6 % (0-4); Immature Platelets 3.6 % (1.1-6.1); Lymphocytes # 1.2 K/mcL (0.6-4.6); Lymphocytes % 12.7 %; Mean Corpuscular HGB Conc 30.7 g/dL (31.6-35.5); Mean Platelet Volume 10.4 fL (9.4-12.4); Monocytes # 0.8 K/mcL (0.0-1.3); Monocytes % 8.1 %; Neutrophils # 7.4 K/mcL (1.6-8.9); Platelet Count 130 K/mcL (140-400); Red Blood Count 4.64 M/mcL (3.82-4.97); Red Cell Distribution Width 13.5 % (11.5-14.5); Segmented Neutrophils % 75.3 %; White Blood Count 9.8 K/mcL (4.3-11.1)
[2019-07-14 16:19] LABS: Alanine Aminotransferase 37 Units/L (7-52); Albumin 3.9 g/dL (3.5-5.7); Albumin/Globulin Ratio 1.2 (1.1-2.2); Alkaline Phosphatase 79 Units/L (34-104); BUN/Creatinine Ratio 19 (6-26); Bilirubin,Total 0.7 mg/dL (0.3-1.0); Blood Urea Nitrogen 19 mg/dL (6-20); Calcium 8.9 mg/dL (8.6-10.3); Carbon Dioxide 24 mEq/L (23-29); Chloride 104 mEq/L (98-107); Globulin 3.2 g/dL (2.4-3.5); Glucose 98 mg/dL (70-105); Lipase 40 Units/L (11-82); Osmolality,Calculated 288 (280-300); Potassium 4.7 mEq/L (3.5-5.1); Sodium 138 mEq/L (136-145); Total Protein 7.1 g/dL (6.4-8.9); eGFR For African Americans > 60 (> 60); eGFR For Non-African Americans 56 (> 60)
[2019-07-14 16:31] LABS: Aspartate Amino Transferase 42 Units/L (13-39)
[2019-07-14] MEDS ORDERED: Naloxone 0.4 MG/ML INJ IVP PRN (18:35)
[2019-07-14] MEDS ORDERED: Ondansetron 4 MG/2 ML VIAL IVP PRN (18:35)
[2019-07-14] MEDS ORDERED: Dextrose Gel 15 GM/37.5 ML TUBE PO PRN ×2 (18:46)
[2019-07-14] MEDS ORDERED: *HR* Dextrose 50 % in Water (Syg) 50 ML SYRINGE IVP PRN (18:46)
[2019-07-14] MEDS ORDERED: D5% in Water 1,000 ML IVC PRN (18:46)
[2019-07-14] MEDS: Insulin LISPRO 300 UNITS/3 ML VIAL SQ SCH ×2 (19:00→22:18)
[2019-07-14] MEDS: *HR* Heparin 5,000 UNIT/ML VIAL SQ SCH (20:00)
[2019-07-14] MEDS: cefTRIAXone 1,000 MG in Water for inj. (sterile) 10 ML IVP SCH (22:05)
[2019-07-14] MEDS: risperiDONE 1 MG TABLET PO SCH ×3 (22:06→22:08)
[2019-07-14] MEDS: Baclofen 10 MG TABLET PO SCH (22:07)
[2019-07-14] MEDS: 0.9 % Sodium Chloride 1,000 ML IVC SCH (22:08)
[2019-07-15 01:12] LABS: Immature Granulocytes % 0.4 % (0-4); Red Cell Distribution Width 13.6 % (11.5-14.5); Segmented Neutrophils % 68.6 %
[2019-07-15 01:13] LABS: Basophils % 0.3 %; Eosinophils # 0.3 K/mcL (0.0-0.6); Eosinophils % 4.3 %; Hematocrit 40.1 % (35.3-44.9); Hemoglobin 12.3 g/dL (11.5-15.4); Immature Platelets 2.5 % (1.1-6.1); Lymphocytes # 1.3 K/mcL (0.6-4.6); Lymphocytes % 17.9 %; Mean Corpuscular HGB Conc 30.7 g/dL (31.6-35.5); Mean Corpuscular Hemoglobin 29.4 pg (28.0-33.3); Mean Corpuscular Volume 95.7 fL (83.0-100.0); Mean Platelet Volume 10.1 fL (9.4-12.4); Monocytes # 0.6 K/mcL (0.0-1.3); Monocytes % 8.5 %; Neutrophils # 4.9 K/mcL (1.6-8.9); Platelet Count 130 K/mcL (140-400); Red Blood Count 4.19 M/mcL (3.82-4.97); White Blood Count 7.2 K/mcL (4.3-11.1)
[2019-07-15 01:33] LABS: BUN/Creatinine Ratio 17 (6-26); Blood Urea Nitrogen 19 mg/dL (6-20); Calcium 8.3 mg/dL (8.6-10.3); Carbon Dioxide 25 mEq/L (23-29); Chloride 110 mEq/L (98-107); Glucose 135 mg/dL (70-105); Magnesium 1.7 mg/dL (1.6-2.6); Osmolality,Calculated 296 (280-300); Phosphorous 4.5 mg/dL (2.7-4.5); Potassium 4.4 mEq/L (3.5-5.1); Sodium 141 mEq/L (136-145); eGFR For African Americans > 60 (> 60); eGFR For Non-African Americans 50 (> 60)
[2019-07-15] MEDS: 0.9 % Sodium Chloride 1,000 ML IVC SCH ×3 (05:14→23:35)
[2019-07-15] MEDS: *HR* Heparin 5,000 UNIT/ML VIAL SQ SCH ×2 (06:24→17:10)
[2019-07-15] MEDS: Cyanocobalamin (B-12) 1,000 MCG TABLET PO SCH (09:53)
[2019-07-15] MEDS: Celecoxib 200 MG CAPSULE PO SCH (09:53)
[2019-07-15] MEDS: Folic Acid 1 MG TABLET PO SCH (09:53)
[2019-07-15] MEDS: (Cariprazine Hcl [Vraylar] 3 MG) PO SCH (09:54)
[2019-07-15] MEDS: Famotidine 20 MG TABLET PO SCH (09:54)
[2019-07-15] MEDS: Baclofen 10 MG TABLET PO SCH ×3 (09:54→19:57)
[2019-07-15] MEDS: Aspirin 81 MG TAB.CHEW PO SCH (09:54)
[2019-07-15] MEDS: Insulin LISPRO 300 UNITS/3 ML VIAL SQ SCH ×4 (09:54→20:01)
[2019-07-15 11:42] LABS: Estimated Average Glucose 134 mg/dl
[2019-07-15] MEDS: cefTRIAXone 1,000 MG in Water for inj. (sterile) 10 ML IVP SCH (19:56)
[2019-07-15] MEDS: risperiDONE 1 MG TABLET PO SCH ×2 (19:57→19:58)
[2019-07-16] MEDS: *HR* Heparin 5,000 UNIT/ML VIAL SQ SCH ×2 (05:49→17:23)
[2019-07-16 06:02] LABS: Basophils % 0.4 %; Eosinophils # 0.3 K/mcL (0.0-0.6); Eosinophils % 6.4 %; Hematocrit 37.4 % (35.3-44.9); Hemoglobin 11.1 g/dL (11.5-15.4); Immature Granulocytes % 0.4 % (0-4); Immature Platelets 3.5 % (1.1-6.1); Lymphocytes # 0.6 K/mcL (0.6-4.6); Lymphocytes % 12.3 %; Mean Corpuscular HGB Conc 29.7 g/dL (31.6-35.5); Mean Corpuscular Hemoglobin 28.4 pg (28.0-33.3); Mean Corpuscular Volume 95.7 fL (83.0-100.0); Mean Platelet Volume 11.1 fL (9.4-12.4); Monocytes # 0.4 K/mcL (0.0-1.3); Neutrophils # 3.8 K/mcL (1.6-8.9); Red Blood Count 3.91 M/mcL (3.82-4.97); Red Cell Distribution Width 13.5 % (11.5-14.5); Segmented Neutrophils % 73.5 %; White Blood Count 5.1 K/mcL (4.3-11.1)
[2019-07-16 06:21] LABS: BUN/Creatinine Ratio 18 (6-26); Blood Urea Nitrogen 20 mg/dL (6-20); Calcium 8.3 mg/dL (8.6-10.3); Carbon Dioxide 25 mEq/L (23-29); Chloride 112 mEq/L (98-107); Glucose 182 mg/dL (70-105); Magnesium 1.6 mg/dL (1.6-2.6); Osmolality,Calculated 299 (280-300); Phosphorous 3.9 mg/dL (2.7-4.5); Potassium 4.8 mEq/L (3.5-5.1); Sodium 141 mEq/L (136-145); eGFR For African Americans > 60 (> 60); eGFR For Non-African Americans 52 (> 60)
[2019-07-16 06:31] LABS: Platelet Count 92 K/mcL (140-400)
[2019-07-16 06:32] LABS: Platelet Estimate Slight Decrease (Normal)
[2019-07-16] MEDS: Aspirin 81 MG TAB.CHEW PO SCH (09:01)
[2019-07-16] MEDS: Famotidine 20 MG TABLET PO SCH (09:01)
[2019-07-16] MEDS: Celecoxib 200 MG CAPSULE PO SCH (09:01)
[2019-07-16] MEDS: Baclofen 10 MG TABLET PO SCH ×3 (09:01→21:06)
[2019-07-16] MEDS: Cyanocobalamin (B-12) 1,000 MCG TABLET PO SCH (09:02)
[2019-07-16] MEDS: (Cariprazine Hcl [Vraylar] 3 MG) PO SCH (09:04)
[2019-07-16] MEDS: Insulin LISPRO 300 UNITS/3 ML VIAL SQ SCH ×4 (09:05→20:53)
[2019-07-16] MEDS: Folic Acid 1 MG TABLET PO SCH (09:05)
[2019-07-16] MEDS: ARIPiprazole 10 MG TABLET PO SCH (12:21)
[2019-07-16] MEDS: cefTRIAXone 1,000 MG in Water for inj. (sterile) 10 ML IVP SCH (21:05)
[2019-07-16] MEDS: risperiDONE 1 MG TABLET PO SCH ×2 (21:05→21:06)
[2019-07-17] MEDS: *HR* Heparin 5,000 UNIT/ML VIAL SQ SCH ×2 (05:05→17:14)
[2019-07-17] MEDS: ARIPiprazole 10 MG TABLET PO SCH (08:21)
[2019-07-17] MEDS: Baclofen 10 MG TABLET PO SCH ×3 (08:21→20:48)
[2019-07-17] MEDS: (Cariprazine Hcl [Vraylar] 3 MG) PO SCH (08:21)
[2019-07-17] MEDS: Insulin LISPRO 300 UNITS/3 ML VIAL SQ SCH ×4 (08:21→20:51)
[2019-07-17] MEDS: Famotidine 20 MG TABLET PO SCH (08:21)
[2019-07-17] MEDS: Aspirin 81 MG TAB.CHEW PO SCH (08:21)
[2019-07-17] MEDS: Folic Acid 1 MG TABLET PO SCH (08:21)
[2019-07-17] MEDS: Celecoxib 200 MG CAPSULE PO SCH (08:21)
[2019-07-17] MEDS: Cyanocobalamin (B-12) 1,000 MCG TABLET PO SCH (08:21)
[2019-07-17] MEDS: risperiDONE 1 MG TABLET PO SCH ×2 (20:49)
[2019-07-17] MEDS: cefTRIAXone 1,000 MG in Water for inj. (sterile) 10 ML IVP SCH (20:50)
[2019-07-18] MEDS: *HR* Heparin 5,000 UNIT/ML VIAL SQ SCH (05:53)
[2019-07-18] MEDS: Insulin LISPRO 300 UNITS/3 ML VIAL SQ SCH (08:51)
[2019-07-18] MEDS: ARIPiprazole 10 MG TABLET PO SCH (08:53)
[2019-07-18] MEDS: Baclofen 10 MG TABLET PO SCH (08:53)
[2019-07-18] MEDS: Famotidine 20 MG TABLET PO SCH (08:54)
[2019-07-18] MEDS: Folic Acid 1 MG TABLET PO SCH (08:54)
[2019-07-18] MEDS: Cyanocobalamin (B-12) 1,000 MCG TABLET PO SCH (08:54)
[2019-07-18] MEDS: Celecoxib 200 MG CAPSULE PO SCH (08:54)
[2019-07-18] MEDS: Aspirin 81 MG TAB.CHEW PO SCH (08:54)
[2019-07-18] MEDS ORDERED: Sulfamethoxazole/Trimeth DS 1 EACH TABLET PO ONE (10:01)
[2019-07-18 11:17] VITALS: BP 121/74
== END 2019-07-18 14:05 | DRG 392 ==
LOC: EMEROOARM 14:50 → 3BNU 14:50 → SUATTDRO 18:37 → 3BNU 20:04
PROVIDERS: ADMIT Internal Medicine; ATTEND Internal Medicine

== ENCOUNTER 2019-09-20 07:57 | Inpatient (IN) ==
[2019-09-20] MEDS ORDERED: 0.9 % Sodium Chloride 1,000 ML IVC ONE (08:15)
[2019-09-20] MEDS ORDERED: Ertapenem 1,000 MG in 0.9 % Sodium Chloride Mini Bag 100 ML IVPB ONE (08:16)
[2019-09-20 08:56] LABS: Basophils # 0.1 K/mcL (0.0-0.2); Basophils % 0.5 %; Eosinophils # 0.1 K/mcL (0.0-0.6); Eosinophils % 1.5 %; Hematocrit 42.5 % (35.3-44.9); Hemoglobin 13.2 g/dL (11.5-15.4); Immature Granulocytes % 0.6 % (0-4); Lymphocytes # 0.7 K/mcL (0.6-4.6); Lymphocytes % 7.5 %; Mean Corpuscular HGB Conc 31.1 g/dL (31.6-35.5); Mean Corpuscular Hemoglobin 28.8 pg (28.0-33.3); Mean Corpuscular Volume 92.8 fL (83.0-100.0); Mean Platelet Volume 11.6 fL (9.4-12.4); Monocytes # 0.8 K/mcL (0.0-1.3); Monocytes % 8.3 %; Neutrophils # 7.7 K/mcL (1.6-8.9); Platelet Count 143 K/mcL (140-400); Red Blood Count 4.58 M/mcL (3.82-4.97); Segmented Neutrophils % 81.6 %; White Blood Count 9.5 K/mcL (4.3-11.1)
[2019-09-20 09:17] LABS: Albumin 3.7 g/dL (3.5-5.7); Albumin/Globulin Ratio 1.1 (1.1-2.2); Bilirubin,Direct 0.2 mg/dL (0.0-0.2); Bilirubin,Indirect 0.3 mg/dL (0.0-1.0); Bilirubin,Total 0.5 mg/dL (0.3-1.0); Calcium 8.8 mg/dL (8.6-10.3); Globulin 3.3 g/dL (2.4-3.5); Potassium 5.1 mEq/L (3.5-5.1)
[2019-09-20] MEDS ORDERED: Vancomycin 1,500 MG/265 ML IV.SOLN IVPB ONE (09:34)
[2019-09-20 10:28] LABS: Bacteria,Urine Many per hpf (None-Few); Bilirubin,Urine Negative (Negative); Blood,Urine Moderate (Negative); Clarity,Urine Ex.Turbid (Clear); Color,Urine Orange (Yellow); Glucose,Urine (UA) Normal (Normal); Ketones,Urine Negative (Negative); Leukocyte Esterase,Urine Large (Negative); Nitrite,Urine Positive (Negative); Protein,Urine >=600 mg/dL (Neg-Trace); RBC,Urine 50-100 per hpf (0-3); Urobilinogen,Urine Normal (Normal); WBC,Urine TNTC per hpf (0-3)
[2019-09-20 10:36] LABS: Adenovirus Not Detected (Not Detect); Bordetella Pertussis Not Detected (Not Detect); Chlamydophila pneumoniae Not Detected (Not Detect); Coronavirus 229E Not Detected (Not Detect); Coronavirus HKU1 Not Detected (Not Detect); Coronavirus NL63 Not Detected (Not Detect); Coronavirus OC43 Not Detected (Not Detect); Human Metapneumovirus Not Detected (Not Detect); Human Rhinovirus/Enterovirus Not Detected (Not Detect); Influenza A Subtype 2009 H1 Not Detected (Not Detect); Influenza B Not Detected (Not Detect); Mycoplasma pneumoniae Not Detected (Not Detect); Parainfluenza Virus 1 Not Detected (Not Detect); Parainfluenza Virus 2 Not Detected (Not Detect); Parainfluenza Virus 3 Not Detected (Not Detect); Parainfluenza Virus 4 Not Detected (Not Detect); Respiratory Syncytial Virus Not Detected (Not Detect); SARS-CoV-2 Not Detected (Not Detect)
[2019-09-20] MEDS ORDERED: Ondansetron 4 MG/2 ML VIAL IVP ONE (12:36)
[2019-09-20 12:43] LABS: ABG Base Excess 0 mEq/L (-2 to 3); ABG HCO3 28 mEq/L (21-27); ABG Oxygen Saturation 92 % (95-98); ABG PCO2 56 mmHg (35-45); ABG PH 7.31 pH Units (7.32-7.45); ABG PO2 72 mmHg (85-104); ABG TCO2 30 mEq/L (20-26)
[2019-09-20] MEDS ORDERED: Naloxone 0.4 MG/ML INJ IVP PRN (14:04)
[2019-09-20] MEDS ORDERED: Acetaminophen 325 MG TABLET PO PRN (14:04)
[2019-09-20] MEDS ORDERED: Albuterol 2.5 MG/3 ML NEBULIZER IH PRN (14:08)
[2019-09-20] MEDS ORDERED: D5% in Water 1,000 ML IVC PRN (14:09)
[2019-09-20] MEDS ORDERED: Dextrose Gel 15 GM/37.5 ML TUBE PO PRN ×2 (14:09)
[2019-09-20] MEDS ORDERED: *HR* Dextrose 50 % in Water (Vial) 50 ML VIAL IVP PRN (14:09)
[2019-09-20] MEDS ORDERED: Ondansetron 4 MG/2 ML VIAL IVP PRN (14:19)
[2019-09-20] MEDS: Ringers Solution, Lactated 1,000 ML IVC SCH ×2 (14:51→22:33)
[2019-09-20] MEDS ORDERED: Vancomycin (wt based) 1,000 MG VIAL IVPB SCH (15:00)
[2019-09-20 15:24] LABS: Estimated Average Glucose 120 mg/dl; Hemoglobin A1C 5.8 %
[2019-09-20 15:27] LABS: Calcium 8.2 mg/dL (8.6-10.3); Potassium 5.5 mEq/L (3.5-5.1)
[2019-09-20] MEDS: Ipratropium/Albuterol Neb 3 ML IH SCH ×3 (16:22→23:58)
[2019-09-20] MEDS: MetroNIDAZOLE 500 MG/100 ML 500 MG/100 ML BAG IVPB SCH ×2 (16:24→22:34)
[2019-09-20] MEDS ORDERED: Calcium Gluconate 1gm/50mL 1 GM/50 ML BAG IVPB ONE (16:31)
[2019-09-20] MEDS ORDERED: Insulin Regular, Human 100 UNIT/ML SQ ONE (16:32)
[2019-09-20] MEDS: Insulin LISPRO 300 UNITS/3 ML VIAL SQ SCH ×2 (17:48→23:40)
[2019-09-20 20:15] LABS: Calcium 8.6 mg/dL (8.6-10.3)
[2019-09-20] MEDS: *HR* Heparin 5,000 UNIT/ML VIAL SQ SCH (20:24)
[2019-09-20] MEDS ORDERED: risperiDONE 1 MG TABLET PO SCH (21:00)
[2019-09-21] MEDS: Ipratropium/Albuterol Neb 3 ML IH SCH ×6 (03:02→20:12)
[2019-09-21] MEDS: *HR* Heparin 5,000 UNIT/ML VIAL SQ SCH ×3 (05:00→20:29)
[2019-09-21] MEDS: Ringers Solution, Lactated 1,000 ML IVC SCH (05:00)
[2019-09-21] MEDS: Insulin LISPRO 300 UNITS/3 ML VIAL SQ SCH ×4 (05:42→19:36)
[2019-09-21 06:08] LABS: Basophils % 0.3 %; Eosinophils # 0.1 K/mcL (0.0-0.6); Eosinophils % 1.7 %; Hematocrit 35.4 % (35.3-44.9); Hemoglobin 11.1 g/dL (11.5-15.4); Immature Granulocytes % 0.6 % (0-4); Lymphocytes # 0.5 K/mcL (0.6-4.6); Lymphocytes % 7.3 %; Mean Corpuscular HGB Conc 31.4 g/dL (31.6-35.5); Mean Corpuscular Hemoglobin 29.8 pg (28.0-33.3); Mean Corpuscular Volume 95.2 fL (83.0-100.0); Mean Platelet Volume 12.2 fL (9.4-12.4); Monocytes # 0.6 K/mcL (0.0-1.3); Monocytes % 8.9 %; Neutrophils # 5.7 K/mcL (1.6-8.9); Platelet Count 122 K/mcL (140-400); Red Blood Count 3.72 M/mcL (3.82-4.97); Red Cell Distribution Width 14.2 % (11.5-14.5); Segmented Neutrophils % 81.2 %
[2019-09-21 06:17] LABS: Calcium 8.1 mg/dL (8.6-10.3); Potassium 4.8 mEq/L (3.5-5.1)
[2019-09-21 06:26] LABS: Thyroid Stimulating Hormone 1.249 mcIU/mL (0.340-5.600)
[2019-09-21] MEDS ORDERED: Folic Acid 1 MG TABLET PO SCH (09:00)
[2019-09-21] MEDS ORDERED: Famotidine 20 MG TABLET PO SCH (09:00)
[2019-09-21] MEDS ORDERED: Aspirin 81 MG TAB.CHEW PO SCH (09:00)
[2019-09-21] MEDS ORDERED: (Cariprazine Hcl [Vraylar] 3 MG) PO SCH (09:00)
[2019-09-21] MEDS: MetroNIDAZOLE 500 MG/100 ML 500 MG/100 ML BAG IVPB SCH ×3 (09:34→23:24)
[2019-09-21] MEDS ORDERED: Ringers Solution, Lactated 1,000 ML IVC SCH ×2 (11:00)
[2019-09-21] MEDS ORDERED: *HR* Dextrose 50 % in Water (Vial) 50 ML VIAL IVP PRN (11:30)
[2019-09-21] MEDS ORDERED: Naloxone 0.4 MG/ML INJ IVP PRN (11:30)
[2019-09-21] MEDS ORDERED: Acetaminophen 325 MG TABLET PO PRN (11:30)
[2019-09-21] MEDS ORDERED: D5% in Water 1,000 ML IVC PRN (11:30)
[2019-09-21] MEDS ORDERED: Albuterol 2.5 MG/3 ML NEBULIZER IH PRN (11:30)
[2019-09-21] MEDS ORDERED: Dextrose Gel 15 GM/37.5 ML TUBE PO PRN ×2 (11:30)
[2019-09-21] MEDS ORDERED: Vancomycin 1,500 MG/265 ML IV.SOLN IVPB ONE (11:53)
[2019-09-21] MEDS ORDERED: Insulin LISPRO 300 UNITS/3 ML VIAL SQ SCH (12:00)
[2019-09-21] MEDS: risperiDONE 1 MG TABLET PO SCH (20:09)
[2019-09-21] MEDS: Ondansetron 4 MG/2 ML VIAL IVP PRN (20:09)
[2019-09-22] MEDS: Ipratropium/Albuterol Neb 3 ML IH SCH ×7 (00:09→23:43)
[2019-09-22] MEDS: *HR* Heparin 5,000 UNIT/ML VIAL SQ SCH ×3 (06:21→20:32)
[2019-09-22 06:46] LABS: Basophils % 0.3 %; Eosinophils # 0.3 K/mcL (0.0-0.6); Eosinophils % 5.5 %; Hematocrit 37.9 % (35.3-44.9); Hemoglobin 11.5 g/dL (11.5-15.4); Immature Granulocytes % 0.8 % (0-4); Lymphocytes # 0.6 K/mcL (0.6-4.6); Lymphocytes % 9.3 %; Mean Corpuscular HGB Conc 30.3 g/dL (31.6-35.5); Mean Corpuscular Hemoglobin 28.9 pg (28.0-33.3); Mean Corpuscular Volume 95.2 fL (83.0-100.0); Mean Platelet Volume 11.4 fL (9.4-12.4); Monocytes # 0.6 K/mcL (0.0-1.3); Monocytes % 8.9 %; Neutrophils # 4.7 K/mcL (1.6-8.9); Platelet Count 108 K/mcL (140-400); Red Blood Count 3.98 M/mcL (3.82-4.97); Red Cell Distribution Width 14.1 % (11.5-14.5); Segmented Neutrophils % 75.2 %; White Blood Count 6.2 K/mcL (4.3-11.1)
[2019-09-22 07:05] LABS: Calcium 8.5 mg/dL (8.6-10.3); Potassium 5.6 mEq/L (3.5-5.1)
[2019-09-22] MEDS: Aspirin 81 MG TAB.CHEW PO SCH (07:53)
[2019-09-22] MEDS: Insulin LISPRO 300 UNITS/3 ML VIAL SQ SCH ×4 (07:53→20:34)
[2019-09-22] MEDS: MetroNIDAZOLE 500 MG/100 ML 500 MG/100 ML BAG IVPB SCH ×3 (07:54→22:53)
[2019-09-22] MEDS ORDERED: Metoprolol XL (24 HR) Succ 50 MG TAB.ER.24H PO SCH ×2 (09:00→15:22)
[2019-09-22] MEDS ORDERED: Famotidine 20 MG TABLET PO SCH (09:00)
[2019-09-22] MEDS: Folic Acid 1 MG TABLET PO SCH (09:06)
[2019-09-22] MEDS: amLODIPine 5 MG TABLET PO SCH (09:06)
[2019-09-22] MEDS: Ondansetron 4 MG/2 ML VIAL IVP PRN ×3 (10:20→22:54)
[2019-09-22] MEDS: (Cariprazine Hcl [Vraylar] 3 MG) PO SCH (10:20)
[2019-09-22] MEDS: Baclofen 10 MG TABLET PO SCH ×2 (16:06→20:32)
[2019-09-22] MEDS: Lactobacillus 1 EACH CAP.SPRINK PO SCH (20:32)
[2019-09-22] MEDS: risperiDONE 1 MG TABLET PO SCH (20:32)
[2019-09-22] MEDS: Famotidine 20 MG TABLET PO SCH (20:32)
[2019-09-22] MEDS ORDERED: Ondansetron 4 MG/2 ML VIAL IVP ONE (21:31)
[2019-09-22 22:16] LABS: VBG HCO3 21 mEq/L (21-27); VBG PCO2 40 mmHg (41-51); VBG PH 7.34 pH Units (7.32-7.42); VBG PO2 116 mmHg (25-50)
[2019-09-22 22:33] LABS: Calcium 8.9 mg/dL (8.6-10.3); Magnesium 1.4 mg/dL (1.6-2.6); Phosphorous 3.6 mg/dL (2.7-4.5); Potassium 5.1 mEq/L (3.5-5.1)
[2019-09-22] MEDS ORDERED: *HR* Promethazine 25 MG/ML VIAL IVP PRN (23:03)
[2019-09-23] MEDS: Ipratropium/Albuterol Neb 3 ML IH SCH ×6 (03:30→23:15)
[2019-09-23] MEDS: *HR* Heparin 5,000 UNIT/ML VIAL SQ SCH ×3 (05:25→20:47)
[2019-09-23] MEDS: Ondansetron 4 MG/2 ML VIAL IVP PRN (05:25)
[2019-09-23] MEDS: Famotidine 20 MG TABLET PO SCH (07:26)
[2019-09-23] MEDS: Aspirin 81 MG TAB.CHEW PO SCH (07:26)
[2019-09-23] MEDS: amLODIPine 5 MG TABLET PO SCH (07:26)
[2019-09-23] MEDS: Baclofen 10 MG TABLET PO SCH ×3 (07:26→20:47)
[2019-09-23] MEDS: Folic Acid 1 MG TABLET PO SCH (07:27)
[2019-09-23] MEDS: Cyanocobalamin (B-12) 1,000 MCG TABLET PO SCH (07:27)
[2019-09-23] MEDS: Lactobacillus 1 EACH CAP.SPRINK PO SCH ×2 (07:27→20:46)
[2019-09-23] MEDS: MetroNIDAZOLE 500 MG/100 ML 500 MG/100 ML BAG IVPB SCH ×3 (07:27→23:19)
[2019-09-23] MEDS: Insulin LISPRO 300 UNITS/3 ML VIAL SQ SCH ×4 (07:27→20:45)
[2019-09-23] MEDS: Ascorbic Acid 500 MG TABLET PO SCH (07:27)
[2019-09-23] MEDS: (Cariprazine Hcl [Vraylar] 3 MG) PO SCH (07:28)
[2019-09-23] MEDS: risperiDONE 1 MG TABLET PO SCH ×2 (07:31→20:47)
[2019-09-23 07:41] LABS: Calcium 8.5 mg/dL (8.6-10.3); Potassium 5.2 mEq/L (3.5-5.1)
[2019-09-23 08:25] LABS: Basophils # 0.1 K/mcL (0.0-0.2); Basophils % 1.1 %; Eosinophils # 0.2 K/mcL (0.0-0.6); Eosinophils % 1.8 %; Hematocrit 39.4 % (35.3-44.9); Hemoglobin 12.2 g/dL (11.5-15.4); Immature Granulocytes % 2.1 % (0-4); Lymphocytes # 0.7 K/mcL (0.6-4.6); Lymphocytes % 8.3 %; Mean Corpuscular Volume 93.8 fL (83.0-100.0); Mean Platelet Volume 10.9 fL (9.4-12.4); Monocytes # 0.7 K/mcL (0.0-1.3); Monocytes % 7.8 %; Neutrophils # 6.8 K/mcL (1.6-8.9); Platelet Count 149 K/mcL (140-400); Red Cell Distribution Width 14.2 % (11.5-14.5); Segmented Neutrophils % 78.9 %; White Blood Count 8.6 K/mcL (4.3-11.1)
[2019-09-24] MEDS: Ipratropium/Albuterol Neb 3 ML IH SCH ×6 (03:22→23:33)
[2019-09-24 05:43] LABS: Basophils # 0.1 K/mcL (0.0-0.2); Basophils % 0.9 %; Eosinophils # 0.3 K/mcL (0.0-0.6); Eosinophils % 4.2 %; Hematocrit 37.3 % (35.3-44.9); Hemoglobin 11.2 g/dL (11.5-15.4); Immature Granulocytes % 1.2 % (0-4); Lymphocytes % 13.7 %; Mean Corpuscular Hemoglobin 29.5 pg (28.0-33.3); Mean Corpuscular Volume 98.2 fL (83.0-100.0); Mean Platelet Volume 10.3 fL (9.4-12.4); Monocytes # 0.7 K/mcL (0.0-1.3); Monocytes % 9.2 %; Neutrophils # 5.3 K/mcL (1.6-8.9); Platelet Count 127 K/mcL (140-400); Red Cell Distribution Width 14.3 % (11.5-14.5); Segmented Neutrophils % 70.8 %; White Blood Count 7.4 K/mcL (4.3-11.1)
[2019-09-24 06:00] LABS: Magnesium 1.6 mg/dL (1.6-2.6); Potassium 5.1 mEq/L (3.5-5.1)
[2019-09-24] MEDS: Cyanocobalamin (B-12) 1,000 MCG TABLET PO SCH (07:15)
[2019-09-24] MEDS: Lactobacillus 1 EACH CAP.SPRINK PO SCH ×2 (07:15→19:34)
[2019-09-24] MEDS: Famotidine 20 MG TABLET PO SCH (07:15)
[2019-09-24] MEDS: Folic Acid 1 MG TABLET PO SCH (07:15)
[2019-09-24] MEDS: Ascorbic Acid 500 MG TABLET PO SCH (07:15)
[2019-09-24] MEDS: Aspirin 81 MG TAB.CHEW PO SCH (07:16)
[2019-09-24] MEDS: Baclofen 10 MG TABLET PO SCH ×3 (07:16→19:35)
[2019-09-24] MEDS: Metoprolol XL (24 HR) Succ 50 MG TAB.ER.24H PO SCH (07:16)
[2019-09-24] MEDS: amLODIPine 5 MG TABLET PO SCH (07:16)
[2019-09-24] MEDS: Insulin LISPRO 300 UNITS/3 ML VIAL SQ SCH ×2 (07:17→11:57)
[2019-09-24] MEDS: risperiDONE 1 MG TABLET PO SCH ×2 (07:17→19:35)
[2019-09-24] MEDS: *HR* Heparin 5,000 UNIT/ML VIAL SQ SCH ×3 (07:17→22:17)
[2019-09-24] MEDS: (Cariprazine Hcl [Vraylar] 3 MG) PO SCH (07:18)
[2019-09-24] MEDS: MetroNIDAZOLE 500 MG/100 ML 500 MG/100 ML BAG IVPB SCH ×2 (07:18→15:07)
[2019-09-24] MEDS ORDERED: Aminoglycoside Consult 1 EACH MC ONE (13:01)
[2019-09-25] MEDS: Ipratropium/Albuterol Neb 3 ML IH SCH ×3 (03:43→11:21)
[2019-09-25] MEDS: *HR* Heparin 5,000 UNIT/ML VIAL SQ SCH (07:28)
[2019-09-25] MEDS: Folic Acid 1 MG TABLET PO SCH (07:46)
[2019-09-25] MEDS: Cyanocobalamin (B-12) 1,000 MCG TABLET PO SCH (07:46)
[2019-09-25] MEDS: Famotidine 20 MG TABLET PO SCH (07:46)
[2019-09-25] MEDS: Metoprolol XL (24 HR) Succ 50 MG TAB.ER.24H PO SCH (07:46)
[2019-09-25] MEDS: Aspirin 81 MG TAB.CHEW PO SCH (07:46)
[2019-09-25] MEDS: risperiDONE 1 MG TABLET PO SCH (07:48)
[2019-09-25] MEDS: Baclofen 10 MG TABLET PO SCH (07:48)
[2019-09-25] MEDS: amLODIPine 5 MG TABLET PO SCH (07:49)
[2019-09-25] MEDS: Lactobacillus 1 EACH CAP.SPRINK PO SCH (07:49)
[2019-09-25] MEDS: Ascorbic Acid 500 MG TABLET PO SCH (07:49)
[2019-09-25] MEDS: (Cariprazine Hcl [Vraylar] 3 MG) PO SCH (07:51)
[2019-09-25 08:23] LABS: Basophils # 0.1 K/mcL (0.0-0.2); Basophils % 0.6 %; Eosinophils # 0.5 K/mcL (0.0-0.6); Hematocrit 40.9 % (35.3-44.9); Hemoglobin 12.2 g/dL (11.5-15.4); Immature Granulocytes % 1.4 % (0-4); Lymphocytes # 1.2 K/mcL (0.6-4.6); Lymphocytes % 14.1 %; Mean Corpuscular HGB Conc 29.8 g/dL (31.6-35.5); Mean Corpuscular Hemoglobin 28.4 pg (28.0-33.3); Mean Corpuscular Volume 95.3 fL (83.0-100.0); Mean Platelet Volume 9.7 fL (9.4-12.4); Monocytes # 0.6 K/mcL (0.0-1.3); Monocytes % 7.2 %; Neutrophils # 5.9 K/mcL (1.6-8.9); Platelet Count 126 K/mcL (140-400); Red Blood Count 4.29 M/mcL (3.82-4.97); Red Cell Distribution Width 14.3 % (11.5-14.5); Segmented Neutrophils % 70.7 %; White Blood Count 8.4 K/mcL (4.3-11.1)
[2019-09-25 08:35] LABS: Calcium 9.2 mg/dL (8.6-10.3); Magnesium 1.5 mg/dL (1.6-2.6); Potassium 4.7 mEq/L (3.5-5.1)
[2019-09-25 10:50] VITALS: BP 133/80
== END 2019-09-25 13:02 | DRG 871 ==
LOC: EMEROOARM 07:57 → 2ANU 07:57 → ICNU 13:13 → SUATTDRO 14:04 → 2NNU 09-21 13:47 → 3ANU 09-24 13:32
PROVIDERS: ADMIT Internal Medicine; ATTEND Internal Medicine

== ENCOUNTER 2020-05-31 14:59 | Observation (INO) ==
[2020-05-31 16:18] LABS: Basophils % 0.5 %; Mean Platelet Volume 10.2 fL (9.4-12.4)
[2020-05-31 16:20] LABS: Eosinophils # 0.5 K/mcL (0.0-0.6); Eosinophils % 6.4 %; Hematocrit 41.1 % (35.3-44.9); Hemoglobin 12.7 g/dL (11.5-15.4); Immature Granulocytes % 0.5 % (0-4); Immature Platelets 3.1 % (1.1-6.1); Lymphocytes # 1.5 K/mcL (0.6-4.6); Lymphocytes % 18.9 %; Mean Corpuscular HGB Conc 30.9 g/dL (31.6-35.5); Mean Corpuscular Hemoglobin 28.7 pg (28.0-33.3); Monocytes # 0.7 K/mcL (0.0-1.3); Monocytes % 8.6 %; Platelet Count 103 K/mcL (140-400); Red Blood Count 4.42 M/mcL (3.82-4.97); Red Cell Distribution Width 13.1 % (11.5-14.5); Segmented Neutrophils % 65.1 %; White Blood Count 7.7 K/mcL (4.3-11.1)
[2020-05-31 16:42] LABS: BUN/Creatinine Ratio 19 (6-26); Blood Urea Nitrogen 22 mg/dL (6-20); Calcium 8.6 mg/dL (8.6-10.3); Carbon Dioxide 25 mEq/L (23-29); Chloride 107 mEq/L (98-107); Glucose 125 mg/dL (70-105); Osmolality,Calculated 293 (280-300); Potassium 4.2 mEq/L (3.5-5.1); Sodium 139 mEq/L (136-145); eGFR For African Americans > 60 (> 60); eGFR For Non-African Americans 50 (> 60)
[2020-05-31 16:43] LABS: Troponin I < 0.03 ng/mL (< 0.04)
[2020-05-31] MEDS ORDERED: Isovue-370 500 ML BOTTLE IVP ONE (16:49)
[2020-05-31] MEDS: Nitroglycerin 0.4 MG TAB.SUBL SL PRN ×2 (18:30→18:38)
[2020-05-31] MEDS ORDERED: Naloxone 0.4 MG/ML INJ IVP PRN (18:45)
[2020-05-31] MEDS ORDERED: Acetaminophen 325 MG TABLET PO PRN (18:45)
[2020-05-31] MEDS ORDERED: Ondansetron 4 MG/2 ML VIAL IVP PRN (18:45)
[2020-05-31] MEDS ORDERED: D5% in Water 1,000 ML IVC PRN (18:48)
[2020-05-31] MEDS ORDERED: Dextrose Gel 15 GM/37.5 ML TUBE PO PRN ×2 (18:48)
[2020-05-31] MEDS ORDERED: *HR* Dextrose 50 % in Water (Vial) 50 ML VIAL IVP PRN (18:48)
[2020-05-31] MEDS ORDERED: Famotidine 20 MG TABLET PO PRN (18:49)
[2020-05-31] MEDS ORDERED: Albuterol 2.5 MG/3 ML NEBULIZER IH PRN (18:49)
[2020-05-31 19:07] LABS: Estimated Average Glucose 103 mg/dl; Hemoglobin A1C 5.2 %
[2020-05-31] MEDS: Insulin LISPRO 300 UNITS/3 ML VIAL SUBQ SCH (21:51)
[2020-05-31] MEDS: risperiDONE 1 MG TABLET PO SCH (21:52)
[2020-05-31] MEDS: Baclofen 10 MG TABLET PO SCH (21:53)
[2020-06-01 01:38] LABS: Hematocrit 40.7 % (35.3-44.9); Hemoglobin 12.5 g/dL (11.5-15.4); Mean Corpuscular HGB Conc 30.7 g/dL (31.6-35.5); Mean Corpuscular Hemoglobin 28.9 pg (28.0-33.3); Mean Corpuscular Volume 94.2 fL (83.0-100.0); Mean Platelet Volume 10.5 fL (9.4-12.4); Red Blood Count 4.32 M/mcL (3.82-4.97); White Blood Count 7.5 K/mcL (4.3-11.1)
[2020-06-01 01:53] LABS: BUN/Creatinine Ratio 20 (6-26); Blood Urea Nitrogen 21 mg/dL (6-20); Calcium 8.6 mg/dL (8.6-10.3); Carbon Dioxide 25 mEq/L (23-29); Chloride 107 mEq/L (98-107); Chol/HDL Ratio 2.4 (0-4.9); Cholesterol 86 mg/dL (< 200); Glucose 115 mg/dL (70-105); HDL Cholesterol 36 mg/dL (40-59); LDL Cholesterol,Calculated 31 mg/dL (< 100); Magnesium 1.7 mg/dL (1.6-2.6); Osmolality,Calculated 292 (280-300); Potassium 4.3 mEq/L (3.5-5.1); Sodium 139 mEq/L (136-145); Triglycerides 97 mg/dL (< 150); Troponin I < 0.03 ng/mL (< 0.04); eGFR For African Americans > 60 (> 60); eGFR For Non-African Americans 54 (> 60)
[2020-06-01] MEDS: *HR* Enoxaparin 40 MG/0.4 ML SYRINGE SQ SCH (05:51)
[2020-06-01] MEDS ORDERED: Metoprolol XL (24 HR) Succ 50 MG TAB.ER.24H PO SCH (09:00)
[2020-06-01] MEDS: Insulin LISPRO 300 UNITS/3 ML VIAL SUBQ SCH ×3 (09:09→17:50)
[2020-06-01] MEDS: risperiDONE 1 MG TABLET PO SCH ×2 (09:14→21:43)
[2020-06-01] MEDS: Aspirin 81 MG TAB.CHEW PO SCH (09:14)
[2020-06-01] MEDS: amLODIPine 5 MG TABLET PO SCH (09:14)
[2020-06-01] MEDS: Baclofen 10 MG TABLET PO SCH ×3 (09:15→21:43)
[2020-06-01] MEDS: (Cariprazine Hcl [Vraylar] 3 MG Capsule) PO SCH (09:15)
[2020-06-01] MEDS: Nitroglycerin 0.4 MG TAB.SUBL SL PRN (13:59)
[2020-06-02] MEDS: *HR* Enoxaparin 40 MG/0.4 ML SYRINGE SQ SCH (06:23)
[2020-06-02] MEDS: Nitroglycerin 0.4 MG TAB.SUBL SL PRN ×2 (07:13→08:53)
[2020-06-02] MEDS: Insulin LISPRO 300 UNITS/3 ML VIAL SUBQ SCH ×2 (07:32→12:25)
[2020-06-02] MEDS: Aspirin 81 MG TAB.CHEW PO SCH (08:52)
[2020-06-02] MEDS: amLODIPine 5 MG TABLET PO SCH (08:52)
[2020-06-02] MEDS: (Cariprazine Hcl [Vraylar] 3 MG Capsule) PO SCH (08:53)
[2020-06-02] MEDS: risperiDONE 1 MG TABLET PO SCH (08:53)
[2020-06-02] MEDS: Baclofen 10 MG TABLET PO SCH (08:53)
[2020-06-02] MEDS ORDERED: Metoprolol XL (24 HR) Succ 25 MG TAB.ER.24H PO SCH (09:00)
[2020-06-02 11:46] VITALS: BP 114/71
== END 2020-06-02 13:28 ==
LOC: 3NENU 14:59 → EMEROOARM 14:59 → SUATTDRO 19:42 → 3NENU 20:20
PROVIDERS: ADMIT Internal Medicine; ATTEND Internal Medicine

== ENCOUNTER 2021-06-05 08:19 | Inpatient (IN) ==
[2021-06-05 10:08] LABS: Prothrombin Time 11.2 Seconds (9.4-12.1)
[2021-06-05 10:11] LABS: Bilirubin,Urine Negative (Negative); Blood,Urine Trace (Negative); Clarity,Urine Ex.Turbid (Clear); Color,Urine Yellow (Yellow); Glucose,Urine (UA) Normal (Normal); Ketones,Urine Negative (Negative); Leukocyte Esterase,Urine Large (Negative); Nitrite,Urine Negative (Negative); Protein,Urine 100 mg/dL (Neg-Trace); RBC,Urine 15-30 per hpf (0-3); Specific Gravity,Urine 1.017 (1.010-1.025); Squamous Epithelial Cell,Urine Few per hpf (None-Few); Triple Phosphate Crystal,Urine Present per hpf; Urobilinogen,Urine Normal (Normal); WBC,Urine TNTC per hpf (0-3)
[2021-06-05 10:11] LABS: Activated Partial Thrombo Time 27.3 Seconds (26.0-36.0)
[2021-06-05 10:20] LABS: Alanine Aminotransferase 19 Units/L (7-52); Albumin 3.5 g/dL (3.5-5.7); Albumin/Globulin Ratio 1.3 (1.1-2.2); Alkaline Phosphatase 76 Units/L (34-104); Aspartate Amino Transferase 29 Units/L (13-39); BUN/Creatinine Ratio 18 (6-26); Bilirubin,Direct 0.2 mg/dL (0.0-0.2); Bilirubin,Indirect 0.3 mg/dL (0.0-1.0); Bilirubin,Total 0.5 mg/dL (0.3-1.0); Blood Urea Nitrogen 44 mg/dL (6-20); Carbon Dioxide 24 mEq/L (23-29); Chloride 107 mEq/L (98-107); Creatine Kinase 324 Units/L (30-223); Ethanol < 10 mg/dL (Less than 10); Globulin 2.8 g/dL (2.4-3.5); Glucose 144 mg/dL (70-105); Osmolality,Calculated 306 (280-300); Potassium 5.2 mEq/L (3.5-5.1); Sodium 141 mEq/L (136-145); Total Protein 6.3 g/dL (6.4-8.9); Troponin I < 0.03 ng/mL (< 0.04); eGFR For African Americans 25 (> 60); eGFR For Non-African Americans 21 (> 60)
[2021-06-05 10:24] LABS: Amphetamine Screen,Urine Negative ng/mL (Cutoff=1000); Barbiturate Screen,Urine Negative ng/mL (Cutoff=200); Benzodiazepines Screen,Urine Negative ng/mL (Cutoff=200); Cannabinoid Screen,Urine Negative ng/mL (Cutoff = 50); Cocaine Screen,Urine Negative ng/mL (Cutoff= 300); Opiate Screen,Urine Negative ng/mL (Cutoff=300); Phencyclidine Screen,Urine Negative ng/mL (Cutoff=25)
[2021-06-05 11:17] LABS: ABG Base Excess -4 mEq/L (-2 to 3); ABG HCO3 25 mEq/L (21-27); ABG Oxygen Saturation 91 % (95-98); ABG PCO2 64 mmHg (35-45); ABG PO2 76 mmHg (85-104); ABG TCO2 27 mEq/L (20-26)
[2021-06-05] MEDS ORDERED: cefTRIAXone 1,000 MG in 0.9 % Sodium Chloride Mini Bag 100 ML IVPB ONE (11:37)
[2021-06-05] MEDS ORDERED: Ondansetron 4 MG/2 ML VIAL IVP PRN (11:57)
[2021-06-05] MEDS ORDERED: Naloxone 0.4 MG/ML INJ IVP PRN (11:57)
[2021-06-05] MEDS ORDERED: *HR* Dextrose 50 % in Water (Syg) 50 ML SYRINGE IVP PRN (12:02)
[2021-06-05] MEDS ORDERED: D5% in Water 1,000 ML IVC PRN (12:02)
[2021-06-05] MEDS ORDERED: Dextrose 4 GM Chewable Tablets PO PRN ×2 (12:02)
[2021-06-05] MEDS ORDERED: 0.9 % Sodium Chloride 1,000 ML IVC SCH ×2 (12:15→12:45)
[2021-06-05 15:05] LABS: Basophils # 0.1 K/mcL (0.0-0.2); Basophils % 0.5 %; Eosinophils # 0.2 K/mcL (0.0-0.6); Eosinophils % 2.2 %; Hematocrit 42.5 % (35.3-44.9); Hemoglobin 12.5 g/dL (11.5-15.4); Immature Granulocytes % 0.9 % (0-4); Lymphocytes # 0.8 K/mcL (0.6-4.6); Lymphocytes % 8.7 %; Mean Corpuscular HGB Conc 29.4 g/dL (31.6-35.5); Mean Corpuscular Hemoglobin 29.3 pg (28.0-33.3); Mean Corpuscular Volume 99.8 fL (83.0-100.0); Mean Platelet Volume 11.8 fL (9.4-12.4); Monocytes # 0.5 K/mcL (0.0-1.3); Monocytes % 5.6 %; Neutrophils # 7.9 K/mcL (1.6-8.9); Platelet Count 114 K/mcL (140-400); Red Blood Count 4.26 M/mcL (3.82-4.97); Red Cell Distribution Width 13.3 % (11.5-14.5); Segmented Neutrophils % 82.1 %; White Blood Count 9.6 K/mcL (4.3-11.1)
[2021-06-05 16:48] LABS: ABG Base Excess -6 mEq/L (-2 to 3); ABG HCO3 24 mEq/L (21-27); ABG Oxygen Saturation 92 % (95-98); ABG PCO2 65 mmHg (35-45); ABG PH 7.17 pH Units (7.32-7.45); ABG PO2 82 mmHg (85-104); ABG TCO2 26 mEq/L (20-26); Blood Gas Modality NIV
[2021-06-05] MEDS: Piperacillin/Tazobactam 3.375 GM in 0.9 % Sodium Chloride Mini Bag 100 ML IVPB SCH (16:59)
[2021-06-05] MEDS: *HR* Heparin 5,000 UNIT/ML VIAL SQ SCH (17:07)
[2021-06-05] MEDS: Insulin LISPRO 300 UNITS/3 ML VIAL SUBQ SCH (17:53)
[2021-06-05 20:10] LABS: ABG Base Excess -6 mEq/L (-2 to 3); ABG HCO3 24 mEq/L (21-27); ABG Oxygen Saturation 94 % (95-98); ABG PCO2 63 mmHg (35-45); ABG PH 7.18 pH Units (7.32-7.45); ABG PO2 90 mmHg (85-104); ABG TCO2 26 mEq/L (20-26)
[2021-06-05] MEDS: risperiDONE 1 MG TABLET PO SCH (20:25)
[2021-06-05 22:35] LABS: ABG Base Excess -7 mEq/L (-2 to 3); ABG HCO3 22 mEq/L (21-27); ABG Oxygen Saturation 90 % (95-98); ABG PCO2 58 mmHg (35-45); ABG PO2 73 mmHg (85-104); ABG TCO2 24 mEq/L (20-26)
[2021-06-06] MEDS: Piperacillin/Tazobactam 3.375 GM in 0.9 % Sodium Chloride Mini Bag 100 ML IVPB SCH ×3 (00:03→17:05)
[2021-06-06 02:28] LABS: Basophils # 0.1 K/mcL (0.0-0.2); Basophils % 0.4 %; Eosinophils # 0.1 K/mcL (0.0-0.6); Eosinophils % 0.4 %; Hematocrit 43.5 % (35.3-44.9); Hemoglobin 12.7 g/dL (11.5-15.4); Immature Granulocytes % 0.6 % (0-4); Lymphocytes # 0.5 K/mcL (0.6-4.6); Lymphocytes % 3.8 %; Mean Corpuscular HGB Conc 29.2 g/dL (31.6-35.5); Mean Corpuscular Hemoglobin 29.5 pg (28.0-33.3); Mean Corpuscular Volume 100.9 fL (83.0-100.0); Mean Platelet Volume 11.8 fL (9.4-12.4); Monocytes # 0.8 K/mcL (0.0-1.3); Monocytes % 5.4 %; Neutrophils # 12.7 K/mcL (1.6-8.9); Platelet Count 118 K/mcL (140-400); Red Blood Count 4.31 M/mcL (3.82-4.97); Red Cell Distribution Width 13.2 % (11.5-14.5); Segmented Neutrophils % 89.4 %; White Blood Count 14.2 K/mcL (4.3-11.1)
[2021-06-06 02:44] LABS: Calcium 8.6 mg/dL (8.6-10.3); Magnesium 1.9 mg/dL (1.6-2.6); Phosphorous 5.1 mg/dL (2.7-4.5); Potassium 5.7 mEq/L (3.5-5.1)
[2021-06-06] MEDS: Insulin LISPRO 300 UNITS/3 ML VIAL SUBQ SCH ×4 (03:35→17:28)
[2021-06-06 03:59] LABS: ABG Base Excess -5 mEq/L (-2 to 3); ABG HCO3 25 mEq/L (21-27); ABG Oxygen Saturation 91 % (95-98); ABG PCO2 64 mmHg (35-45); ABG PO2 77 mmHg (85-104); ABG TCO2 27 mEq/L (20-26)
[2021-06-06] MEDS: *HR* Heparin 5,000 UNIT/ML VIAL SQ SCH ×2 (05:50→16:56)
[2021-06-06] MEDS ORDERED: methylPREDNISolone 125 MG/2 ML VIAL IVP ONE ×2 (06:12→06:45)
[2021-06-06 08:05] LABS: Adenovirus Not Detected (Not Detect); Bordetella Pertussis Not Detected (Not Detect); Chlamydophila pneumoniae Not Detected (Not Detect); Coronavirus 229E Not Detected (Not Detect); Coronavirus HKU1 Not Detected (Not Detect); Coronavirus NL63 Not Detected (Not Detect); Coronavirus OC43 Not Detected (Not Detect); Human Metapneumovirus Not Detected (Not Detect); Human Rhinovirus/Enterovirus Not Detected (Not Detect); Influenza A Subtype 2009 H1 Not Detected (Not Detect); Influenza B Not Detected (Not Detect); Mycoplasma pneumoniae Not Detected (Not Detect); Parainfluenza Virus 1 Not Detected (Not Detect); Parainfluenza Virus 2 Not Detected (Not Detect); Parainfluenza Virus 3 Not Detected (Not Detect); Parainfluenza Virus 4 Not Detected (Not Detect); Respiratory Syncytial Virus Not Detected (Not Detect); SARS-CoV-2 Not Detected (Not Detect)
[2021-06-06] MEDS: Ipratropium/Albuterol Neb 3 ML IH SCH ×5 (08:05→23:43)
[2021-06-06] MEDS: Acetylcysteine 10% 2 ML INHSOL IH SCH ×5 (08:06→23:43)
[2021-06-06] MEDS ORDERED: cefTRIAXone 1,000 MG in Water for inj. (sterile) 10 ML IVP SCH (09:00)
[2021-06-06] MEDS: Aspirin 81 MG TAB.CHEW PO SCH (10:36)
[2021-06-06] MEDS: risperiDONE 1 MG TABLET PO SCH ×2 (10:36→20:05)
[2021-06-06] MEDS: Cyanocobalamin (B-12) 1,000 MCG TABLET PO SCH (10:37)
[2021-06-06 11:13] LABS: ABG Base Excess -5 mEq/L (-2 to 3); ABG HCO3 24 mEq/L (21-27); ABG Oxygen Saturation 99 % (95-98); ABG PCO2 57 mmHg (35-45); ABG PH 7.22 pH Units (7.32-7.45); ABG PO2 179 mmHg (85-104); ABG TCO2 25 mEq/L (20-26); Blood Gas Modality NIV
[2021-06-06] MEDS ORDERED: MethylPREDNISolone 40 MG/ML VIAL IVP SCH (14:00)
[2021-06-06] MEDS: Sodium Bicarbonate 150 MEQ in D5% in Water 1,000 ML IVC SCH (14:42)
[2021-06-06] MEDS: MethylPREDNISolone 40 MG/ML VIAL IVP SCH (17:24)
[2021-06-06] MEDS ORDERED: *HR* Dextrose 50 % in Water (Vial) 50 ML VIAL IVP ONE (18:31)
[2021-06-06] MEDS ORDERED: Insulin Human Regular 10 UNIT in 0.9 % Sodium Chloride 10 ML IV ONE (18:31)
[2021-06-06] MEDS ORDERED: Calcium Gluconate 1gm/50mL 1 GM/50 ML BAG IVPB ONE (18:31)
[2021-06-07] MEDS: MethylPREDNISolone 40 MG/ML VIAL IVP SCH ×3 (00:03→17:13)
[2021-06-07] MEDS: Piperacillin/Tazobactam 3.375 GM in 0.9 % Sodium Chloride Mini Bag 100 ML IVPB SCH ×3 (00:03→17:12)
[2021-06-07] MEDS: Insulin LISPRO 300 UNITS/3 ML VIAL SUBQ SCH ×4 (00:10→17:19)
[2021-06-07] MEDS: Ipratropium/Albuterol Neb 3 ML IH SCH ×6 (03:40→23:53)
[2021-06-07] MEDS: Acetylcysteine 10% 2 ML INHSOL IH SCH ×6 (03:41→23:53)
[2021-06-07 05:47] LABS: Basophils % 0.3 %; Hematocrit 37.8 % (35.3-44.9); Hemoglobin 11.5 g/dL (11.5-15.4); Immature Granulocytes % 0.9 % (0-4); Lymphocytes # 0.4 K/mcL (0.6-4.6); Lymphocytes % 5.7 %; Mean Corpuscular HGB Conc 30.4 g/dL (31.6-35.5); Mean Corpuscular Hemoglobin 29.6 pg (28.0-33.3); Mean Corpuscular Volume 97.2 fL (83.0-100.0); Mean Platelet Volume 11.8 fL (9.4-12.4); Monocytes # 0.1 K/mcL (0.0-1.3); Monocytes % 0.9 %; Neutrophils # 5.9 K/mcL (1.6-8.9); Platelet Count 106 K/mcL (140-400); Red Blood Count 3.89 M/mcL (3.82-4.97); Red Cell Distribution Width 13.6 % (11.5-14.5); Segmented Neutrophils % 92.2 %
[2021-06-07 05:48] LABS: White Blood Count 6.4 K/mcL (4.3-11.1)
[2021-06-07 06:06] LABS: Calcium 8.8 mg/dL (8.6-10.3); Potassium 5.1 mEq/L (3.5-5.1)
[2021-06-07] MEDS: *HR* Heparin 5,000 UNIT/ML VIAL SQ SCH ×2 (06:32→17:13)
[2021-06-07] MEDS: Sodium Bicarbonate 150 MEQ in D5% in Water 1,000 ML IVC SCH (06:50)
[2021-06-07] MEDS ORDERED: Perflutren Lipid Microsphere 1.3 ML in 0.9 % Sodium Chloride 8.7 ML IVP PRN (07:52)
[2021-06-07 08:56] LABS: Blood Gas VT 550 cc; VBG HCO3 26 mEq/L (21-27); VBG PCO2 38 mmHg (41-51); VBG PH 7.44 pH Units (7.32-7.42); VBG PO2 156 mmHg (25-50)
[2021-06-07] MEDS: risperiDONE 1 MG TABLET PO SCH ×2 (12:53→20:44)
[2021-06-07] MEDS: Aspirin 81 MG TAB.CHEW PO SCH (12:53)
[2021-06-07] MEDS: Baclofen 10 MG TABLET PO SCH ×3 (12:53→20:44)
[2021-06-07] MEDS: Folic Acid 1 MG TABLET PO SCH (12:53)
[2021-06-07] MEDS: Lactobacillus 1 EACH CAP.SPRINK PO SCH (12:53)
[2021-06-07] MEDS: Cyanocobalamin (B-12) 1,000 MCG TABLET PO SCH (12:54)
[2021-06-07] MEDS: Metoprolol XL (24 HR) Succ 50 MG TAB.ER.24H PO SCH (12:54)
[2021-06-07] MEDS: 0.9 % Sodium Chloride 1,000 ML IVC SCH (14:05)
[2021-06-08] MEDS: Insulin LISPRO 300 UNITS/3 ML VIAL SUBQ SCH ×5 (01:03→21:29)
[2021-06-08] MEDS: MethylPREDNISolone 40 MG/ML VIAL IVP SCH ×3 (01:03→16:22)
[2021-06-08] MEDS: Piperacillin/Tazobactam 3.375 GM in 0.9 % Sodium Chloride Mini Bag 100 ML IVPB SCH ×3 (01:03→16:24)
[2021-06-08] MEDS: 0.9 % Sodium Chloride 1,000 ML IVC SCH (02:46)
[2021-06-08] MEDS: Ipratropium/Albuterol Neb 3 ML IH SCH ×6 (04:38→23:46)
[2021-06-08] MEDS: Acetylcysteine 10% 2 ML INHSOL IH SCH ×6 (04:39→23:46)
[2021-06-08] MEDS: *HR* Heparin 5,000 UNIT/ML VIAL SQ SCH ×2 (05:55→16:22)
[2021-06-08 10:14] LABS: Basophils % 0.1 %; Hematocrit 41.7 % (35.3-44.9); Red Cell Distribution Width 13.8 % (11.5-14.5)
[2021-06-08 10:16] LABS: Hemoglobin 12.9 g/dL (11.5-15.4); Immature Granulocytes % 0.7 % (0-4); Lymphocytes # 0.4 K/mcL (0.6-4.6); Lymphocytes % 5.2 %; Mean Corpuscular HGB Conc 30.9 g/dL (31.6-35.5); Mean Corpuscular Hemoglobin 29.3 pg (28.0-33.3); Mean Corpuscular Volume 94.6 fL (83.0-100.0); Mean Platelet Volume 11.6 fL (9.4-12.4); Monocytes # 0.4 K/mcL (0.0-1.3); Monocytes % 5.3 %; Neutrophils # 6.4 K/mcL (1.6-8.9); Platelet Count 95 K/mcL (140-400); Red Blood Count 4.41 M/mcL (3.82-4.97); Segmented Neutrophils % 88.7 %; White Blood Count 7.2 K/mcL (4.3-11.1)
[2021-06-08 10:36] LABS: Calcium 8.8 mg/dL (8.6-10.3); Potassium 4.4 mEq/L (3.5-5.1)
[2021-06-08] MEDS: Lactobacillus 1 EACH CAP.SPRINK PO SCH (10:38)
[2021-06-08] MEDS: Folic Acid 1 MG TABLET PO SCH (10:38)
[2021-06-08] MEDS: risperiDONE 1 MG TABLET PO SCH ×2 (10:39→21:28)
[2021-06-08] MEDS: Cyanocobalamin (B-12) 1,000 MCG TABLET PO SCH (10:39)
[2021-06-08] MEDS: Metoprolol XL (24 HR) Succ 50 MG TAB.ER.24H PO SCH (10:39)
[2021-06-08] MEDS: Aspirin 81 MG TAB.CHEW PO SCH (10:39)
[2021-06-08] MEDS: Baclofen 10 MG TABLET PO SCH ×3 (10:39→21:28)
[2021-06-09] MEDS: MethylPREDNISolone 40 MG/ML VIAL IVP SCH ×2 (00:28→08:42)
[2021-06-09] MEDS: Piperacillin/Tazobactam 3.375 GM in 0.9 % Sodium Chloride Mini Bag 100 ML IVPB SCH ×4 (00:29→23:03)
[2021-06-09] MEDS: Insulin LISPRO 300 UNITS/3 ML VIAL SUBQ SCH ×5 (00:30→21:35)
[2021-06-09] MEDS: Acetylcysteine 10% 2 ML INHSOL IH SCH ×6 (04:25→23:55)
[2021-06-09] MEDS: Ipratropium/Albuterol Neb 3 ML IH SCH ×6 (04:25→23:55)
[2021-06-09 04:56] LABS: Basophils % 0.4 %; Hematocrit 46.4 % (35.3-44.9); Hemoglobin 14.1 g/dL (11.5-15.4); Immature Granulocytes % 1.1 % (0-4); Lymphocytes # 0.8 K/mcL (0.6-4.6); Lymphocytes % 6.7 %; Mean Corpuscular HGB Conc 30.4 g/dL (31.6-35.5); Mean Corpuscular Hemoglobin 29.1 pg (28.0-33.3); Mean Corpuscular Volume 95.9 fL (83.0-100.0); Mean Platelet Volume 11.7 fL (9.4-12.4); Monocytes # 0.5 K/mcL (0.0-1.3); Monocytes % 4.6 %; Platelet Count 113 K/mcL (140-400); Red Blood Count 4.84 M/mcL (3.82-4.97); Red Cell Distribution Width 13.7 % (11.5-14.5); Segmented Neutrophils % 87.2 %
[2021-06-09 04:59] LABS: Basophils # 0.1 K/mcL (0.0-0.2); Neutrophils # 9.9 K/mcL (1.6-8.9); White Blood Count 11.3 K/mcL (4.3-11.1)
[2021-06-09] MEDS: *HR* Heparin 5,000 UNIT/ML VIAL SQ SCH ×2 (05:50→17:41)
[2021-06-09] MEDS: Metoprolol XL (24 HR) Succ 50 MG TAB.ER.24H PO SCH (08:41)
[2021-06-09] MEDS: Aspirin 81 MG TAB.CHEW PO SCH (08:41)
[2021-06-09] MEDS: risperiDONE 1 MG TABLET PO SCH ×2 (08:41→20:41)
[2021-06-09] MEDS: Baclofen 10 MG TABLET PO SCH ×3 (08:41→20:41)
[2021-06-09] MEDS: Cyanocobalamin (B-12) 1,000 MCG TABLET PO SCH (08:41)
[2021-06-09] MEDS: Lactobacillus 1 EACH CAP.SPRINK PO SCH (08:41)
[2021-06-09] MEDS: Folic Acid 1 MG TABLET PO SCH (08:43)
[2021-06-09 09:16] LABS: Calcium 8.7 mg/dL (8.6-10.3); Potassium 4.3 mEq/L (3.5-5.1)
[2021-06-09] MEDS: *HR* LORazepam 2 MG/ML VIAL IVP PRN ×2 (14:00→20:42)
[2021-06-09] MEDS: amLODIPine 5 MG TABLET PO SCH (15:52)
[2021-06-10 03:55] LABS: Basophils % 0.4 %; Eosinophils % 0.1 %; Hematocrit 40.9 % (35.3-44.9); Immature Granulocytes % 1.6 % (0-4); Lymphocytes % 10.2 %; Mean Corpuscular HGB Conc 29.6 g/dL (31.6-35.5); Mean Corpuscular Volume 98.1 fL (83.0-100.0); Mean Platelet Volume 11.7 fL (9.4-12.4); Monocytes # 0.7 K/mcL (0.0-1.3); Monocytes % 7.3 %; Platelet Count 100 K/mcL (140-400); Red Blood Count 4.17 M/mcL (3.82-4.97); Red Cell Distribution Width 13.6 % (11.5-14.5); Segmented Neutrophils % 80.4 %; White Blood Count 9.9 K/mcL (4.3-11.1)
[2021-06-10 03:56] LABS: Hemoglobin 12.1 g/dL (11.5-15.4)
[2021-06-10 04:03] LABS: Calcium 8.7 mg/dL (8.6-10.3)
[2021-06-10] MEDS: Ipratropium/Albuterol Neb 3 ML IH SCH ×5 (04:08→20:35)
[2021-06-10] MEDS: Acetylcysteine 10% 2 ML INHSOL IH SCH ×5 (04:08→20:35)
[2021-06-10] MEDS: *HR* Heparin 5,000 UNIT/ML VIAL SQ SCH ×2 (05:49→17:31)
[2021-06-10] MEDS: Piperacillin/Tazobactam 3.375 GM in 0.9 % Sodium Chloride Mini Bag 100 ML IVPB SCH ×2 (08:56→16:12)
[2021-06-10] MEDS: amLODIPine 5 MG TABLET PO SCH (08:58)
[2021-06-10] MEDS: Lactobacillus 1 EACH CAP.SPRINK PO SCH (08:58)
[2021-06-10] MEDS: predniSONE 20 MG TABLET PO SCH (08:58)
[2021-06-10] MEDS: risperiDONE 1 MG TABLET PO SCH ×2 (09:00→20:23)
[2021-06-10] MEDS: Insulin LISPRO 300 UNITS/3 ML VIAL SUBQ SCH ×4 (09:01→20:32)
[2021-06-10] MEDS: Cyanocobalamin (B-12) 1,000 MCG TABLET PO SCH (09:01)
[2021-06-10] MEDS: Aspirin 81 MG TAB.CHEW PO SCH (09:01)
[2021-06-10] MEDS: Folic Acid 1 MG TABLET PO SCH (09:01)
[2021-06-10] MEDS: Baclofen 10 MG TABLET PO SCH ×3 (09:02→20:23)
[2021-06-10] MEDS: Metoprolol XL (24 HR) Succ 50 MG TAB.ER.24H PO SCH (11:22)
[2021-06-11] MEDS: Ipratropium/Albuterol Neb 3 ML IH SCH ×5 (00:15→20:00)
[2021-06-11] MEDS: Acetylcysteine 10% 2 ML INHSOL IH SCH ×5 (00:15→20:01)
[2021-06-11] MEDS: Piperacillin/Tazobactam 3.375 GM in 0.9 % Sodium Chloride Mini Bag 100 ML IVPB SCH ×2 (00:27→08:21)
[2021-06-11] MEDS: *HR* Heparin 5,000 UNIT/ML VIAL SQ SCH ×2 (05:27→18:11)
[2021-06-11] MEDS: Insulin LISPRO 300 UNITS/3 ML VIAL SUBQ SCH ×4 (08:05→20:54)
[2021-06-11] MEDS: amLODIPine 5 MG TABLET PO SCH (08:20)
[2021-06-11] MEDS: predniSONE 20 MG TABLET PO SCH (08:20)
[2021-06-11] MEDS: Lactobacillus 1 EACH CAP.SPRINK PO SCH (08:20)
[2021-06-11] MEDS: Baclofen 10 MG TABLET PO SCH ×3 (08:20→20:53)
[2021-06-11] MEDS: Metoprolol XL (24 HR) Succ 50 MG TAB.ER.24H PO SCH (08:20)
[2021-06-11] MEDS: Folic Acid 1 MG TABLET PO SCH (08:20)
[2021-06-11] MEDS: Cyanocobalamin (B-12) 1,000 MCG TABLET PO SCH (08:20)
[2021-06-11] MEDS: Aspirin 81 MG TAB.CHEW PO SCH (08:20)
[2021-06-11] MEDS: risperiDONE 1 MG TABLET PO SCH ×2 (08:21→20:54)
[2021-06-11 13:40] LABS: Creatine Kinase 159 Units/L (30-223)
[2021-06-11 13:48] LABS: C-Reactive Protein < 5 mg/L (Less than 10)
[2021-06-11 14:48] LABS: Folate > 22.3 ng/mL (3.0-16.0); Vitamin B12 > 1500 pg/mL (250-1100)
[2021-06-11] MEDS: Cefdinir 300 MG CAPSULE PO SCH (20:53)
[2021-06-12 05:24] LABS: Potassium 3.6 mEq/L (3.5-5.1)
[2021-06-12] MEDS: *HR* Heparin 5,000 UNIT/ML VIAL SQ SCH (05:51)
[2021-06-12 07:22] LABS: Hemoglobin 11.8 g/dL (11.5-15.4); Red Cell Distribution Width 12.9 % (11.5-14.5)
[2021-06-12 07:23] LABS: White Blood Count 9.5 K/mcL (4.3-11.1)
[2021-06-12 07:24] LABS: Basophils # 0.1 K/mcL (0.0-0.2); Basophils % 0.8 %; Eosinophils # 0.1 K/mcL (0.0-0.6); Eosinophils % 1.4 %; Hematocrit 37.6 % (35.3-44.9); Immature Granulocytes % 3.6 % (0-4); Immature Platelets 6.7 % (1.1-6.1); Lymphocytes % 10.2 %; Mean Corpuscular HGB Conc 31.4 g/dL (31.6-35.5); Mean Corpuscular Hemoglobin 29.4 pg (28.0-33.3); Mean Corpuscular Volume 93.5 fL (83.0-100.0); Mean Platelet Volume 11.1 fL (9.4-12.4); Monocytes # 0.5 K/mcL (0.0-1.3); Monocytes % 5.3 %; Neutrophils # 7.5 K/mcL (1.6-8.9); Red Blood Count 4.02 M/mcL (3.82-4.97); Segmented Neutrophils % 78.7 %
[2021-06-12 07:29] LABS: Platelet Count 75 K/mcL (140-400)
[2021-06-12 07:31] VITALS: O2SAT 97
[2021-06-12] MEDS: Acetylcysteine 10% 2 ML INHSOL IH SCH (07:46)
[2021-06-12] MEDS: Ipratropium/Albuterol Neb 3 ML IH SCH (07:46)
[2021-06-12] MEDS: Metoprolol XL (24 HR) Succ 50 MG TAB.ER.24H PO SCH (09:03)
[2021-06-12] MEDS: amLODIPine 5 MG TABLET PO SCH (09:04)
[2021-06-12] MEDS: Lactobacillus 1 EACH CAP.SPRINK PO SCH (09:04)
[2021-06-12] MEDS: Baclofen 10 MG TABLET PO SCH (09:04)
[2021-06-12] MEDS: predniSONE 20 MG TABLET PO SCH (09:04)
[2021-06-12] MEDS: Aspirin 81 MG TAB.CHEW PO SCH (09:04)
[2021-06-12] MEDS: Folic Acid 1 MG TABLET PO SCH (09:05)
[2021-06-12] MEDS: risperiDONE 1 MG TABLET PO SCH (09:05)
[2021-06-12] MEDS: Cyanocobalamin (B-12) 1,000 MCG TABLET PO SCH (09:05)
[2021-06-12] MEDS: Cefdinir 300 MG CAPSULE PO SCH (09:10)
[2021-06-12] MEDS: Insulin LISPRO 300 UNITS/3 ML VIAL SUBQ SCH ×2 (09:12→11:33)
[2021-06-12 11:31] VITALS: BP 143/51; PULSE 70; TEMP 97.1
[2021-06-12 13:48] LABS: Adenovirus Not Detected (Not Detect); Bordetella Pertussis Not Detected (Not Detect); Chlamydophila pneumoniae Not Detected (Not Detect); Coronavirus 229E Not Detected (Not Detect); Coronavirus HKU1 Not Detected (Not Detect); Coronavirus NL63 Not Detected (Not Detect); Coronavirus OC43 Not Detected (Not Detect); Human Metapneumovirus Not Detected (Not Detect); Human Rhinovirus/Enterovirus Not Detected (Not Detect); Influenza A Subtype 2009 H1 Not Detected (Not Detect); Influenza B Not Detected (Not Detect); Mycoplasma pneumoniae Not Detected (Not Detect); Parainfluenza Virus 1 Not Detected (Not Detect); Parainfluenza Virus 2 Not Detected (Not Detect); Parainfluenza Virus 3 Not Detected (Not Detect); Parainfluenza Virus 4 Not Detected (Not Detect); Respiratory Syncytial Virus Not Detected (Not Detect); SARS-CoV-2 Not Detected (Not Detect)
== END 2021-06-12 15:30 | DRG 189 ==
LOC: EMEROOARM 08:19 → 2NENU 08:19 → SUATTDRO 06-06 19:05
PROVIDERS: ADMIT Internal Medicine; ATTEND Hospitalist